=== PATIENT | female | born 1935 | race American Indian/Alaskan Native ===

== ENCOUNTER 2017-03-10 22:21 | Inpatient (IN) | payer OTHER ==
[2017-03-10 23:23] LABS: Hematocrit 26.8 % (30.3-42.9); Hemoglobin 8.5 gm/dl (10.1-14.3); Mean Corpuscular HGB Conc 32 % (30-34); Mean Corpuscular Hemoglobin 31 pg (28-32); Mean Corpuscular Volume 96 fl (79-97); Platelet Count 348 K/mm3 (140-440); Red Blood Count 2.79 M/mm3 (3.65-5.03); Red Cell Distribution Width 19.4 % (13.2-15.2)
[2017-03-10 23:29] LABS: Alanine Aminotransferase 10 units/L (7-56); Albumin 3.8 g/dL (3.9-5); BUN/Creatinine Ratio 25; Blood Urea Nitrogen 20 mg/dL (7-17); Calcium 9.9 mg/dL (8.4-10.2); Hemolysis Index 0
--- NOTE | 2017-03-11 02:33 | Emergency Department Report ---
- General Chief Complaint: Wound/Laceration Stated Complaint: FOOT PAIN Time Seen by Provider: 03/11/17 00:57 Source: patient Mode of arrival: Wheelchair Limitations: Language Barrier - History of Present Illness Initial Comments: 81 YO FEMALE WITH FOOT ULCERS FOR 2 WEEKS PER GRANDSON. PT HAD THE SAME 2 YEARS AGO AND IT HEALED BUT BEGAN AGAIN 2 WEEKS AGO. GRANDSON HAD SAID THIS WAS 4 DAYS AGO AND WHEN QUESTIONED BEGAN TO CHANGE THE STORY. THEY DENY FEVER ,CHILLS,N/V . PT DOES NOT SPEAK BRITISH [place] BUT [place] CREOLE. HER GRANDSON IS THE HIDE TANNER. -: week(s) (2), year(s) (THE SAME 2 YRS AGO) - Related Data Allergies Allergy/AdvReac Type Severity Reaction Status Date / Time No Known Allergies Allergy Unverified 03/10/17 22:33 ED Review of Systems ROS: Stated complaint: FOOT PAIN Other details as noted in HPI Constitutional: denies: chills, fever Eyes: denies: eye pain, eye discharge, vision change ENT: denies: ear pain, throat pain Respiratory: denies: cough, shortness of breath, wheezing Cardiovascular: denies: chest pain, palpitations Endocrine: no symptoms reported Gastrointestinal: denies: abdominal pain, nausea, diarrhea Genitourinary: denies: urgency, dysuria, discharge Musculoskeletal: joint swelling, arthralgia. denies: back pain Skin: lesions (RIGHT FOOT). denies: rash Neurological: denies: headache, weakness, paresthesias Psychiatric: denies: anxiety, depression Hematological/Lymphatic: denies: easy bleeding, easy bruising ED Past Medical Hx - Past Medical History Previous Medical History?: Yes Additional medical history: ,CHILDBIRTH,FOOT ULCER - Surgical History Past Surgical History?: No - Social History Smoking Status: Never Smoker Substance Use Type: None ED Physical Exam - General Limitations: Language Barrier (SPEAKS [place] CREOLE) General appearance: alert, in no apparent distress - Head Head exam: Present: atraumatic, normocephalic - Eye Eye exam: Present: normal appearance, EOMI - ENT ENT exam: Present: mucous membranes moist - Neck Neck exam: Present: normal inspection - Respiratory Respiratory exam: Present: normal lung sounds bilaterally. Absent: respiratory distress - Cardiovascular Cardiovascular Exam: Present: regular rate, normal rhythm. Absent: systolic murmur, diastolic murmur, rubs, gallop - GI/Abdominal GI/Abdominal exam: Present: soft, normal bowel sounds. Absent: distended, tenderness, guarding - Rectal Rectal exam: Present: deferred - Expanded Lower Extremity Exam Right Foot/Toe exam: Present: tenderness (MALODOROUS,LARGE ULCERATION BETWEEN RIGTH GREAT TOE AND SECOND DIGIT AND UNDERNEATH FOOT), swelling Gait: Positive: unable to bear weight - Back Exam Back exam: Present: normal inspection, full ROM - Neurological Exam Neurological exam: Present: alert, other (TOO PAINFUL TO WALK) - Psychiatric Psychiatric exam: Present: normal affect, normal mood - Skin Skin exam: Present: warm, dry, normal color. Absent: intact (LARGE STAGE 4 ULCERATION OF RIGHT FOOT), rash ED Course Vital Signs 03/10/17 03/11/17 22:33 00:20 Temperature 97.5 F L Pulse Rate 77 Respiratory 18 16 Rate Blood Pressure 168/74 O2 Sat by Pulse 100 99 Oximetry ED Medical Decision Making - Lab Data Result diagrams: 03/10/17 22:55 03/10/17 22:55 Critical care attestation.: If time is entered above; I have spent that time in minutes in the direct care of this critically ill patient, excluding procedure time. ED Disposition Clinical Impression: Right foot infection Foot ulcer with necrosis of muscle Qualifiers: Laterality: right Qualified Code(s): L97.513 - Non-pressure chronic ulcer of other part of right foot with necrosis of muscle Disposition: OP ADMIT IP TO THIS HOSP Is pt being admited?: Yes Does the pt Need Aspirin: No Condition: Stable Referrals: KRYSTIN MURILLO MD [Primary Care Provider] - 3-5 Days Time of Disposition: 02:47 (DR ANURADHA BROOKS AND CASE REVIEWED AND SHE WILL ADMIT THE PT TO THE HOSPITAL)
[2017-03-11 02:53] LABS: Total Cells Counted 100
[2017-03-11 02:54] LABS: Anisocytosis 1+; Hypochromasia 1+; Ovalocytes 1+; Schistocytes Few; Tear Drop Cells Few
[2017-03-11 03:33] LABS: Creatine Kinase MB 1.6 ng/mL (0.0-4.0)
[2017-03-11] MEDS ORDERED: VANCOMYCIN/NS 1 GM/250 ML 1 GM/250 ML BAG IV ONE (04:00)
--- NOTE | 2017-03-11 04:11 | History and Physical Report ---
History of Present Illness Date of examination: 03/11/17 History of present illness: History as per grandson, this is a 81-year-old woman with no medical problem who just arrived from [facility] today was brought to the emergency room for evaluation of right foot ulcer. He stated that the patient had a bump on her foot 4 years ago, she scratched it and the large ulcer developed and the wound was healed in 4 months. Over the last 2 weeks, she had an area of inflammation which has gotten worse. He denies fever or chills. He also states that she is been on antibiotic, he cannot recall the name. She was going to the wound care center but her wound has been getting worse. Per grandson, no other complaints Review Of Systems: Constitutional: no weight loss Ears, eyes, nose, mouth and throat: no nasal congestion, no nasal discharge, no sinus pressure, blurry vision, diplopia Neck: No neck pain or rigidity. Cardiovascular: No chest pain, palpitations Respiratory: No shortness of breath, cough Gastrointestinal: No abdominal pain, hematochezia Genitourinary : no dysuria, frequency , hematuria Musculoskeletal: no muscle ache Integumentary: no rash, no pruritis Neurological: no parathesias, focal weakness Endocrine: no cold or heat intolerance, no polyuria or polydipsia Hematologic/Lymphatic: no easy bruising, no easy bleeding, no gland swelling Allergic/Immunologic: no urticaria, no angioedema. PAST MEDICAL HISTORY: None PAST SURGICAL HISTORY:None FAMILY HISTORY: Hypertension SOCIAL HISTORY: Denies alcohol, tobacco, drugs Medications and Allergies Allergies Allergy/AdvReac Type Severity Reaction Status Date / Time No Known Allergies Allergy Unverified 03/10/17 22:33 Home Medications Medication Instructions Recorded Confirmed Last Taken Type Clopidogrel [Plavix] 75 mg PO QDAY #30 tablet 03/17/17 Unknown Rx Hydrochlorothiazide [HCTZ] 25 mg PO QDAY #30 tablet 03/17/17 Unknown Rx Lisinopril [Zestril TAB] 40 mg PO QDAY #30 tablet 03/17/17 Unknown Rx Sodium Hypochlorite [Dakin's Full 1 applic TP Q12H #1 bottle 03/17/17 Unknown Rx Strength] Sulfamethoxazole/Trimethoprim 1 each PO BID #30 tablet 03/17/17 Unknown Rx [Bactrim DS TAB] amLODIPine [Norvasc] 10 mg PO QDAY #30 tablet 03/17/17 Unknown Rx Active Meds: Active Medications Vancomycin HCl (Vancomycin/Ns 1 Gm/250 Ml) 1 gm in 250 mls @ 167.007 mls/hr IV ONCE.ED ONE PRN Reason: Protocol Stop: 03/11/17 05:29 Piperacillin Sod/Tazobactam Sod (Zosyn/Ns 3.375gm/50ml) 3.375 gm in 50 mls @ 100 mls/hr IV Q6HR MARIO Exam - Physical Exam Narrative exam: Gen. appearance: Patient lying in bed in no acute distress HEENT: Normocephalic/atraumatic, pupils equal round reactive to light, extra occular movement intact, no scleral icterus, no JVD or thyromegaly or nodule, neck is supple, mucous membrane moist, no erythema or exudate Heart: S1-S2, regular rate and rhythm Lungs: Clear to auscultation bilateral breathing comfortable Abdomen: Positive bowel sounds, nontender, nondistended, no organomegaly Extremities: Right foot , foul-smelling odor, yellow fibrinous material, tendons exposed over the right great toe , extensive ulcer also involving the second toe and plantar aspect of the first toe . No edema, cyanosis, clubbing Neuro:: Oriented 3 , cranial nerves II-12 intact, speech, motor intact Skin: No rash, nodules, warm dry - Constitutional Vitals: Temp Pulse Resp BP Pulse Ox 97.5 F L 77 16 163/76 100 03/10/17 22:33 03/10/17 22:33 03/11/17 00:20 03/11/17 02:30 03/11/17 02:30 Results - Labs CBC & Chem 7: 03/14/17 05:08 03/14/17 05:08 Labs: Abnormal lab results 03/10/17 03/10/17 Range/Units 22:55 22:55 RBC 2.79 L (3.65-5.03) M/mm3 Hgb 8.5 L (10.1-14.3) gm/dl Hct 26.8 L (30.3-42.9) % RDW 19.4 H (13.2-15.2) % Basophils % (Manual) 2.0 H (0.0-1.8) % Chloride 97.0 L (98-107) mmol/L BUN 20 H (7-17) mg/dL Glucose 106 H (65-100) mg/dL Albumin 3.8 L (3.9-5) g/dL Assessment and Plan Follow-up x-ray of the foot Assessment Right foot ulcer with necrotic tissue, rule out osteomyelitis Elevated blood pressure Plan Admit to medicine Start IV Zosyn, full x-ray of the foot Consult surgery Start norvasc, first dose now, IV hydralazine DVT prophylaxis
[2017-03-11] MEDS ORDERED: ZOFRAN IV PRN (04:12)
[2017-03-11] MEDS ORDERED: TYLENOL PO PRN (04:12)
[2017-03-11] MEDS ORDERED: MILK OF MAGNESIA PO PRN (04:12)
[2017-03-11] MEDS ORDERED: DULCOLAX PR PRN (04:12)
[2017-03-11] MEDS ORDERED: NORVASC PO ONE (04:15)
[2017-03-11] MEDS ORDERED: APRESOLINE IV PRN (04:16)
[2017-03-11] MEDS ORDERED: NACL 0.9% 500 ML IR ONE (05:55)
[2017-03-11] MEDS: ZOSYN/NS 4.5GM/100ML 4.5 GM/100 ML VIAL IV SCH ×3 (06:00→23:47)
[2017-03-11] MEDS ORDERED: ZOSYN/NS 3.375GM/50ML 3.375 GM/50 ML BAG IV SCH (06:00)
[2017-03-11] MEDS ORDERED: NACL 0.9% IR ONE (06:52)
--- NOTE | 2017-03-11 07:29 | Consultation ---
History of Present Illness Consult date: 03/11/17 Chief complaint: foot wound - History of present illness History of present illness: 81 yo Belarusian speaking female presented to the emergency room with c/o R foot pain. Family is not present and all of the history is obtained from the chart. According to the HPI, the patient arrived from [facility] recently and has had this wound of the right foot for the last 2 weeks. She has been on antibiotics and being managed at a wound care center. No f/c. +pain at wound. Patient had a wound like this in the past that healed. Past History Past Medical History: No medical history Past Surgical History: No surgical history Social history: no significant social history Family history: no significant family history Medications and Allergies Allergies Allergy/AdvReac Type Severity Reaction Status Date / Time No Known Allergies Allergy Unverified 03/10/17 22:33 Active Meds: Active Medications Acetaminophen (Tylenol) 650 mg PO Q4H PRN PRN Reason: Pain MILD(1-3)/Fever >100.5/CHAVARRIA Bisacodyl (Dulcolax) 10 mg HI QDAY PRN PRN Reason: Constipation unrelieved by MOM Enoxaparin Sodium (Lovenox) 40 mg SUB-Q QDAY MARIO Hydralazine HCl (Apresoline) 5 mg IV Q6H PRN PRN Reason: Hypertension Piperacillin Sod/Tazobactam Sod (Zosyn/Ns 4.5gm/100ml) 4.5 gm in 100 mls @ 200 mls/hr IV Q8HR MARIO PRN Reason: Protocol Magnesium Hydroxide (Milk Of Magnesia) 30 ml PO Q4H PRN PRN Reason: Constipation Ondansetron HCl (Zofran) 4 mg IV Q8H PRN PRN Reason: N/V unrelieved by Reglan Review of Systems All systems: negative (see hpi) Exam Vital Signs Pulse Resp Pulse Ox 81 13 100 03/10/17 20:28 03/10/17 20:28 03/10/17 20:28 Narrative exam: Gen: awake and alert. NAD CV: S1, S2+ resp: no audible wheezes Abd; soft, ND, NT Ext: B/l LE warm, no edema. Pedal pulses not palpable. R foot with full thickness, malodorous wound involving the dorsal and plantar aspect of first toe and second toe, and interweb space. There is necrotic tissue present. Tendon and bone is exposed. No drainage. +TTP. No erythema. Covered with saline moistened kerlex and dry 4x4 gauze, and wrapped with kerlex. Results - Labs 03/10/17 22:55 03/10/17 22:55 Abnormal lab results 03/10/17 03/10/17 Range/Units 22:55 22:55 RBC 2.79 L (3.65-5.03) M/mm3 Hgb 8.5 L (10.1-14.3) gm/dl Hct 26.8 L (30.3-42.9) % RDW 19.4 H (13.2-15.2) % Basophils % (Manual) 2.0 H (0.0-1.8) % Chloride 97.0 L (98-107) mmol/L BUN 20 H (7-17) mg/dL Glucose 106 H (65-100) mg/dL Albumin 3.8 L (3.9-5) g/dL Diabetes panel 03/10/17 03/11/17 Range/Units 22:55 03:03 Sodium 138 (137-145) mmol/L Potassium 3.6 (3.6-5.0) mmol/L Chloride 97.0 L (98-107) mmol/L Carbon Dioxide 28 (22-30) mmol/L BUN 20 H (7-17) mg/dL Creatinine 0.8 (0.7-1.2) mg/dL Glucose 106 H (65-100) mg/dL Hemoglobin A1c 5.2 (4-6) % Calcium 9.9 (8.4-10.2) mg/dL AST 18 (5-40) units/L ALT 10 (7-56) units/L Alkaline Phosphatase 100 (35-129) units/L Total Protein 8.0 (6.3-8.2) g/dL Albumin 3.8 L (3.9-5) g/dL Calcium panel 03/10/17 Range/Units 22:55 Calcium 9.9 (8.4-10.2) mg/dL Albumin 3.8 L (3.9-5) g/dL Pituitary panel 03/10/17 Range/Units 22:55 Sodium 138 (137-145) mmol/L Potassium 3.6 (3.6-5.0) mmol/L Chloride 97.0 L (98-107) mmol/L Carbon Dioxide 28 (22-30) mmol/L BUN 20 H (7-17) mg/dL Creatinine 0.8 (0.7-1.2) mg/dL Glucose 106 H (65-100) mg/dL Calcium 9.9 (8.4-10.2) mg/dL Adrenal panel 03/10/17 Range/Units 22:55 Sodium 138 (137-145) mmol/L Potassium 3.6 (3.6-5.0) mmol/L Chloride 97.0 L (98-107) mmol/L Carbon Dioxide 28 (22-30) mmol/L BUN 20 H (7-17) mg/dL Creatinine 0.8 (0.7-1.2) mg/dL Glucose 106 H (65-100) mg/dL Calcium 9.9 (8.4-10.2) mg/dL Total Bilirubin 0.40 (0.1-1.2) mg/dL AST 18 (5-40) units/L ALT 10 (7-56) units/L Alkaline Phosphatase 100 (35-129) units/L Total Protein 8.0 (6.3-8.2) g/dL Albumin 3.8 L (3.9-5) g/dL Assessment and Plan 81 yo F with 1. necrotic foot wound, r/o R osteomyelitis Plan: 1. foot wound is complex, stage 4, with visible tendon/bone - recommend orthopedics consult to evaluate wound, will defer debridement to ortho 2. wound care consult. continue wet to dry dressing at this time 3. recommend vascular surgery consult to evaluate blood supply and potential for healing of wound 4. MRI R foot to r/o osteomyelitis 5. IV abx - currently on vanco and zosyn 6. prn pain control I discussed my recommendations with Dr. Cunningham Thank you for this consultation.
--- NOTE | 2017-03-11 09:10 | XRay Report ---
Right foot 2 views: History: Pain and infection. Findings: There is suspicion of soft tissue defect/ulcer around the great toe. There is suspicion of periosteal reaction noted at the medial aspect of distal part of the proximal phalanx great toe. No fracture. Articular surfaces appears unremarkable. Impression: Findings as described. Possibility of osteomyelitis associated with cellulitis at the right great toe. Recommend further evaluation.
[2017-03-11] MEDS: LOVENOX SUB-Q SCH (10:06)
--- NOTE | 2017-03-11 11:53 | Progress Note ---
Assessment and Plan Assessment and plan: 81-year-old woman with no medical problem who just arrived from [facility] on day of admission who came in for eval of necrotic non healing RLE wound on foot/big toe with tendons and bones exposed -denies any chronic medical problems Right foot ulcer with necrotic wound, with chronic osteomylitis -iv zosyn, ID consult -case dw General surgeon, given that tendons and bone exposed and patient has osteomyelitis, the patient will be better served by orthopedic surgery and vascular surgery. -will need vascular and orthopedic consult -arterial and venous dopplers and SHAHZAD -fup blood cx -will likely need extensive debridement and amputation as tendon and bone are exposed -MRI foot Mild to Moderate Malnutrition director of physiotherapy services consult HTN urgency optimize PO meds, continue IV hydralazine PRN Anemia likely to be AOCD send iron studies and workup DVT Ppx lovenox History Interval history: Continues to have foul-smelling drainage from nonhealing wound on the right foot Review of systems Constitutional: No fevers, no malaise, no joint pains CVS: No chest pain, no orthopnea, no dyspnea on exertion, no pedal edema GI: No abdominal pain, no diarrhea, no vomiting, no constipation Respiratory: No shortness of breath, no wheezing, no coughing Hospitalist Physical - Physical exam Narrative exam: Gen. appearance: Patient lying in bed in no acute distress HEENT: Normocephalic/atraumatic, pupils equal round reactive to light, extra occular movement intact, no scleral icterus, no JVD or thyromegaly or nodule, neck is supple, mucous membrane moist, no erythema or exudate Heart: S1-S2, regular rate and rhythm Lungs: Clear to auscultation bilateral breathing comfortable Abdomen: Positive bowel sounds, nontender, nondistended, no organomegaly Extremities: Right foot , foul-smelling odor, yellow fibrinous material, tendons exposed over the right great toe , extensive ulcer also involving the second toe and plantar aspect of the first toe, on dorsal aspect it is involving 1st and 2nd MTP and is [id number] . No edema, cyanosis, clubbing Neuro:: Oriented 3 , cranial nerves II-12 intact, speech, motor intact Skin: No rash, nodules, warm dry - Constitutional Vitals: Temp Pulse Resp BP Pulse Ox 97.7 F 100 H 18 182/71 100 03/11/17 09:30 12/31/17 09:30 03/11/17 09:30 03/11/17 09:30 03/11/17 09:30 Results - Labs CBC & Chem 7: 03/10/17 22:55 03/10/17 22:55 Labs: Laboratory Last Values WBC 5.1 K/mm3 (4.5-11.0) 03/10/17 22:55 RBC 2.79 M/mm3 (3.65-5.03) L 03/10/17 22:55 Hgb 8.5 gm/dl (10.1-14.3) L 03/10/17 22:55 Hct 26.8 % (30.3-42.9) L 03/10/17 22:55 MCV 96 fl (79-97) 03/10/17 22:55 MCH 31 pg (28-32) 03/10/17 22:55 MCHC 32 % (30-34) 03/10/17 22:55 RDW 19.4 % (13.2-15.2) H 03/10/17 22:55 Plt Count 348 K/mm3 (140-440) 03/10/17 22:55 Lymph % (Auto) Progressive Care Nurse 03/10/17 22:55 Wirt % (Auto) Progressive Care Nurse 03/10/17 22:55 Eos % (Auto) Progressive Care Nurse 03/10/17 22:55 Baso % (Auto) Progressive Care Nurse 03/10/17 22:55 Lymph # Progressive Care Nurse 03/10/17 22:55 Wirt # Progressive Care Nurse 03/10/17 22:55 Eos # Progressive Care Nurse 03/10/17 22:55 Baso # Progressive Care Nurse 03/10/17 22:55 Add Manual Diff Complete 03/10/17 22:55 Total Counted 100 03/10/17 22:55 Seg Neutrophils % Progressive Care Nurse 03/10/17 22:55 Seg Neuts % (Manual) 68.0 % (40.0-70.0) 03/10/17 22:55 Band Neutrophils % 0 % 03/10/17 22:55 Lymphocytes % (Manual) 25.0 % (13.4-35.0) 03/10/17 22:55 Reactive Lymphs % (Man) 0 % 03/10/17 22:55 Monocytes % (Manual) 3.0 % (0.0-7.3) 03/10/17 22:55 Eosinophils % (Manual) 2.0 % (0.0-4.3) 03/10/17 22:55 Basophils % (Manual) 2.0 % (0.0-1.8) H 03/10/17 22:55 Metamyelocytes % 0 % 03/10/17 22:55 Myelocytes % 0 % 03/10/17 22:55 Promyelocytes % 0 % 03/10/17 22:55 Blast Cells % 0 % 03/10/17 22:55 Nucleated RBC % Not Reportable 03/10/17 22:55 Seg Neutrophils # Progressive Care Nurse 03/10/17 22:55 Seg Neutrophils # Man 3.5 K/mm3 (1.8-7.7) 03/10/17 22:55 Band Neutrophils # 0.0 K/mm3 03/10/17 22:55 Lymphocytes # (Manual) 1.3 K/mm3 (1.2-5.4) 03/10/17 22:55 Abs React Lymphs (Man) 0.0 K/mm3 03/10/17 22:55 Monocytes # (Manual) 0.2 K/mm3 (0.0-0.8) 03/10/17 22:55 Eosinophils # (Manual) 0.1 K/mm3 (0.0-0.4) 03/10/17 22:55 Basophils # (Manual) 0.1 K/mm3 (0.0-0.1) 03/10/17 22:55 Metamyelocytes # 0.0 K/mm3 03/10/17 22:55 Myelocytes # 0.0 K/mm3 03/10/17 22:55 Promyelocytes # 0.0 K/mm3 03/10/17 22:55 Blast Cells # 0.0 K/mm3 03/10/17 22:55 WBC Morphology Not Reportable 03/10/17 22:55 Hypersegmented Neuts Not Reportable 03/10/17 22:55 Hyposegmented Neuts Not Reportable 03/10/17 22:55 Hypogranular Neuts Not Reportable 03/10/17 22:55 Smudge Cells Not Reportable 03/10/17 22:55 Toxic Granulation Not Reportable 03/10/17 22:55 Toxic Vacuolation Not Reportable 03/10/17 22:55 Dohle Bodies Not Reportable 03/10/17 22:55 Pelger-Huet Anomaly Not Reportable 03/10/17 22:55 Elyse Rods Not Reportable 03/10/17 22:55 Platelet Estimate Appears normal 03/10/17 22:55 Clumped Platelets Not Reportable 03/10/17 22:55 Plt Clumps, EDTA Not Reportable 03/10/17 22:55 Large Platelets Not Reportable 03/10/17 22:55 Giant Platelets Not Reportable 03/10/17 22:55 Platelet Satelliting Not Reportable 03/10/17 22:55 Plt Morphology Comment Not Reportable 03/10/17 22:55 RBC Morphology Not Reportable 03/10/17 22:55 Dimorphic RBCs Not Reportable 03/10/17 22:55 Polychromasia Few 03/10/17 22:55 Hypochromasia 1+ 03/10/17 22:55 Poikilocytosis Not Reportable 03/10/17 22:55 Anisocytosis 1+ 03/10/17 22:55 Microcytosis Not Reportable 03/10/17 22:55 Macrocytosis Not Reportable 03/10/17 22:55 Spherocytes Not Reportable 03/10/17 22:55 Pappenheimer Bodies Not Reportable 03/10/17 22:55 Sickle Cells Not Reportable 03/10/17 22:55 Target Cells Not Reportable 03/10/17 22:55 Tear Drop Cells Few 03/10/17 22:55 Ovalocytes 1+ 03/10/17 22:55 Helmet Cells Not Reportable 03/10/17 22:55 [place] Bodies Not Reportable 03/10/17 22:55 [place] Rings Not Reportable 03/10/17 22:55 Darian Cells Not Reportable 03/10/17 22:55 Bite Cells Not Reportable 03/10/17 22:55 Crenated Cell Not Reportable 03/10/17 22:55 Elliptocytes Not Reportable 03/10/17 22:55 Acanthocytes (Spur) Not Reportable 03/10/17 22:55 Rouleaux Not Reportable 03/10/17 22:55 Hemoglobin C Crystals Not Reportable 03/10/17 22:55 Schistocytes Few 03/10/17 22:55 Malaria parasites Not Reportable 03/10/17 22:55 Hussain Bodies Not Reportable 03/10/17 22:55 Hem Pathologist Commnt No 03/10/17 22:55 Sodium 138 mmol/L (137-145) 03/10/17 22:55 Potassium 3.6 mmol/L (3.6-5.0) 03/10/17 22:55 Chloride 97.0 mmol/L (98-107) L 03/10/17 22:55 Carbon Dioxide 28 mmol/L (22-30) 03/10/17 22:55 Anion Gap 17 mmol/L 03/10/17 22:55 BUN 20 mg/dL (7-17) H 03/10/17 22:55 Creatinine 0.8 mg/dL (0.7-1.2) 03/10/17 22:55 Estimated GFR > 60 ml/min 03/10/17 22:55 BUN/Creatinine Ratio 25 % 03/10/17 22:55 Glucose 106 mg/dL (65-100) H 03/10/17 22:55 Hemoglobin A1c 5.2 % (4-6) 03/11/17 03:03 Calcium 9.9 mg/dL (8.4-10.2) 03/10/17 22:55 Total Bilirubin 0.40 mg/dL (0.1-1.2) 03/10/17 22:55 AST 18 units/L (5-40) 03/10/17 22:55 ALT 10 units/L (7-56) 03/10/17 22:55 Alkaline Phosphatase 100 units/L (35-129) 03/10/17 22:55 Total Creatine Kinase 40 units/L (30-135) 03/11/17 02:11 CK-MB (CK-2) 1.6 ng/mL (0.0-4.0) 03/11/17 02:11 CK-MB (CK-2) Rel Index 4.0 (0-4) 03/11/17 02:11 Troponin T < 0.010 ng/mL (0.00-0.029) 03/11/17 02:11 Total Protein 8.0 g/dL (6.3-8.2) 03/10/17 22:55 Albumin 3.8 g/dL (3.9-5) L 03/10/17 22:55 Albumin/Globulin Ratio 0.9 % 03/10/17 22:55
[2017-03-11] MEDS: HCTZ PO SCH (12:05)
[2017-03-11] MEDS: NORVASC PO SCH (12:15)
[2017-03-11] MEDS: ATIVAN IV PRN (16:30)
[2017-03-12] MEDS: ZOSYN/NS 4.5GM/100ML 4.5 GM/100 ML VIAL IV SCH ×3 (06:12→23:24)
[2017-03-12] MEDS: ATIVAN IV PRN (06:54)
[2017-03-12] MEDS: HCTZ PO SCH (09:56)
[2017-03-12] MEDS: NORVASC PO SCH (09:56)
[2017-03-12] MEDS: LOVENOX SUB-Q SCH (09:57)
--- NOTE | 2017-03-12 12:32 | Consultation ---
History of Present Illness - Reason for Consult Consult date: 03/12/17 right foot ulcer Requesting physician: KY FISCHER - History of Present Illness 81-year-old woman with no medical problem who just [facility] was brought to the emergency room for evaluation of right foot ulcer. He stated that the patient had a bump on her foot 4 years ago, she scratched it and the large ulcer developed and the wound was healed in 4 months. Over the last 2 weeks she developed new ulcer that wasn't getting healed. It had foul-smelling and was not improving. She was admitted to hospitalist service. Vascular surgery was consulted for evaluation of blood flow. She had venous and arterial duplexes performed. Venous pulse was negative for DVT and arterial with both showed flow throughout her foot. With excellent triphasic flow to popliteals and monophasic flow in the tibials. Past History Past Medical History: No medical history Past Surgical History: No surgical history Social history: no significant social history Family history: no significant family history Medications and Allergies Allergies Allergy/AdvReac Type Severity Reaction Status Date / Time No Known Allergies Allergy Unverified 03/10/17 22:33 Active Meds: Active Medications Acetaminophen (Tylenol) 650 mg PO Q4H PRN PRN Reason: Pain MILD(1-3)/Fever >100.5/CHAVARRIA Amlodipine Besylate (Norvasc) 10 mg PO QDAY [facility] Last Admin: 03/12/17 09:56 Dose: 10 mg Bisacodyl (Dulcolax) 10 mg [place] QDAY PRN PRN Reason: Constipation unrelieved by MOM Enoxaparin Sodium (Lovenox) 40 mg SUB-Q QDAY [facility] Last Admin: 03/12/17 09:57 Dose: 40 mg Hydralazine HCl (Apresoline) 5 mg IV Q6H PRN PRN Reason: Hypertension Hydrochlorothiazide (Hctz) 25 mg PO QDAY [facility] Last Admin: 03/12/17 09:56 Dose: 25 mg Piperacillin Sod/Tazobactam Sod (Zosyn/Ns 4.5gm/100ml) 4.5 gm in 100 mls @ 200 mls/hr IV Q8HR MARIO PRN Reason: Protocol Last Admin: 03/12/17 06:12 Dose: 200 mls/hr Lorazepam (Ativan) 2 mg IV Q4H PRN PRN Reason: Agitation Last Admin: 03/12/17 06:54 Dose: 2 mg Magnesium Hydroxide (Milk Of Magnesia) 30 ml PO Q4H PRN PRN Reason: Constipation Ondansetron HCl (Zofran) 4 mg IV Q8H PRN PRN Reason: N/V unrelieved by Reglan Review of Systems All systems: negative (mentioned in HPI) Exam - Physical Exam Narrative exam: There are palpable popliteal pulses bilaterally and palpable DP on the left side. There is extensive wound with exposed bone and ligaments on the dorsal surface of right foot involving the whole forefoot as well as dry gangrene extending proximally. It is foul smelling with some exudate. - Constitutional Vitals: Temp Pulse Resp BP Pulse Ox 97.7 F 100 H 18 182/71 95 03/11/17 09:30 03/11/17 09:30 03/11/17 22:00 03/11/17 09:30 03/12/17 09:34 Results - Labs CBC & Chem 7: 03/10/17 22:55 03/10/17 22:55 Assessment and Plan Right foot infected ulcer with osteomyelitis According to ultrasound there is no area of high-grade stenosis, with decent flow throughout bilateral legs. She has bilateral monophasic signals in the tibials. It doesn't appear that her ulcer is caused by arterial compromise. However get extension of the wound she will most likely need below knee amputation. Continue wound care, pending orthopedic consult.
[2017-03-12 16:17] LABS: Hematocrit 27.6 % (30.3-42.9); Hemoglobin 8.7 gm/dl (10.1-14.3); Mean Corpuscular HGB Conc 32 % (30-34); Mean Corpuscular Hemoglobin 30 pg (28-32); Mean Corpuscular Volume 96 fl (79-97); Platelet Count 398 K/mm3 (140-440); Red Blood Count 2.87 M/mm3 (3.65-5.03); Red Cell Distribution Width 19.8 % (13.2-15.2)
[2017-03-12 16:36] LABS: % Iron Saturation 23.72 %; BUN/Creatinine Ratio 16; Blood Urea Nitrogen 11 mg/dL (7-17); Hemolysis Index 0; Iron 51 ug/dL (37-170); Total Iron Binding Capacity 215 mcg/dL (250-450); Transferrin 192 mg/dl (192-382)
--- NOTE | 2017-03-12 16:55 | Progress Note ---
Assessment and Plan Assessment and plan: 81-year-old woman with no medical problem who just arrived from [facility] on day of admission who came in for eval of necrotic non healing RLE wound on foot/big toe with tendons and bones exposed -denies any chronic medical problems Right foot ulcer with necrotic wound, with chronic osteomylitis -iv zosyn, ID consult -case dw General surgeon, given that tendons and bone exposed and patient has osteomyelitis, the patient will be better served by orthopedic surgery and vascular surgery. 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 HTN urgency optimize PO meds, continue IV hydralazine PRN Anemia likely to be AOCD send iron studies and workup Delireum frequent re-orientation, advised staff to use [employer] market research senior project manager with her at all times DVT Ppx bruce grandson is Juan F: [phone] called her grandson, could not reach him, but left a voicemail History Interval history: Continues to have foul-smelling drainage from nonhealing wound on the right foot she was confused overnight and urinated on the floor and was wandering Review of systems Constitutional: No fevers, no malaise, no joint pains CVS: No chest pain, no orthopnea, no dyspnea on exertion, no pedal edema GI: No abdominal pain, no diarrhea, no vomiting, no constipation Respiratory: No shortness of breath, no wheezing, no coughing Hospitalist Physical - Physical exam Narrative exam: Gen. appearance: Patient lying in bed in no acute distress HEENT: Normocephalic/atraumatic, pupils equal round reactive to light, extra occular movement intact, no scleral icterus, no JVD or thyromegaly or nodule, neck is supple, mucous membrane moist, no erythema or exudate Heart: S1-S2, regular rate and rhythm Lungs: Clear to auscultation bilateral breathing comfortable Abdomen: Positive bowel sounds, nontender, nondistended, no organomegaly Extremities: Right foot , foul-smelling odor, yellow fibrinous material, tendons exposed over the right great toe , extensive ulcer also involving the second toe and plantar aspect of the first toe, on dorsal aspect it is involving 1st and 2nd MTP and is [id number] . No edema, cyanosis, clubbing Neuro:: Oriented 3 , cranial nerves II-12 intact, speech, motor intact Skin: No rash, nodules, warm dry - Constitutional Vitals: Temp Pulse Resp BP Pulse Ox 97.7 F 100 H 18 182/71 95 03/11/17 09:30 03/11/17 09:30 03/11/17 22:00 03/11/17 09:30 03/12/17 09:34 Results - Labs CBC & Chem 7: 03/12/17 15:25 03/12/17 15:25 Labs: Laboratory Last Values WBC 5.1 K/mm3 (4.5-11.0) 03/12/17 15:25 RBC 2.87 M/mm3 (3.65-5.03) L 03/12/17 15:25 Hgb 8.7 gm/dl (10.1-14.3) L 03/12/17 15:25 Hct 27.6 % (30.3-42.9) L 03/12/17 15:25 MCV 96 fl (79-97) 03/12/17 15:25 MCH 30 pg (28-32) 03/12/17 15:25 MCHC 32 % (30-34) 03/12/17 15:25 RDW 19.8 % (13.2-15.2) H 03/12/17 15:25 Plt Count 398 K/mm3 (140-440) 03/12/17 15:25 Lymph % (Auto) Information Technology Account Manager 03/10/17 22:55 Mcpherson % (Auto) Information Technology Account Manager 03/10/17 22:55 Eos % (Auto) Information Technology Account Manager 03/10/17 22:55 Baso % (Auto) Information Technology Account Manager 03/10/17 22:55 Lymph # Information Technology Account Manager 03/10/17 22:55 Mcpherson # Information Technology Account Manager 03/10/17 22:55 Eos # Information Technology Account Manager 03/10/17 22:55 Baso # Information Technology Account Manager 03/10/17 22:55 Add Manual Diff Complete 03/10/17 22:55 Total Counted 100 03/10/17 22:55 Seg Neutrophils % Information Technology Account Manager 03/10/17 22:55 Seg Neuts % (Manual) 68.0 % (40.0-70.0) 03/10/17 22:55 Band Neutrophils % 0 % 03/10/17 22:55 Lymphocytes % (Manual) 25.0 % (13.4-35.0) 03/10/17 22:55 Reactive Lymphs % (Man) 0 % 03/10/17 22:55 Monocytes % (Manual) 3.0 % (0.0-7.3) 03/10/17 22:55 Eosinophils % (Manual) 2.0 % (0.0-4.3) 03/10/17 22:55 Basophils % (Manual) 2.0 % (0.0-1.8) H 03/10/17 22:55 Metamyelocytes % 0 % 03/10/17 22:55 Myelocytes % 0 % 03/10/17 22:55 Promyelocytes % 0 % 03/10/17 22:55 Blast Cells % 0 % 03/10/17 22:55 Nucleated RBC % Not Reportable 03/10/17 22:55 Seg Neutrophils # Information Technology Account Manager 03/10/17 22:55 Seg Neutrophils # Man 3.5 K/mm3 (1.8-7.7) 03/10/17 22:55 Band Neutrophils # 0.0 K/mm3 03/10/17 22:55 Lymphocytes # (Manual) 1.3 K/mm3 (1.2-5.4) 03/10/17 22:55 Abs React Lymphs (Man) 0.0 K/mm3 03/10/17 22:55 Monocytes # (Manual) 0.2 K/mm3 (0.0-0.8) 03/10/17 22:55 Eosinophils # (Manual) 0.1 K/mm3 (0.0-0.4) 03/10/17 22:55 Basophils # (Manual) 0.1 K/mm3 (0.0-0.1) 03/10/17 22:55 Metamyelocytes # 0.0 K/mm3 03/10/17 22:55 Myelocytes # 0.0 K/mm3 03/10/17 22:55 Promyelocytes # 0.0 K/mm3 03/10/17 22:55 Blast Cells # 0.0 K/mm3 03/10/17 22:55 WBC Morphology Not Reportable 03/10/17 22:55 Hypersegmented Neuts Not Reportable 03/10/17 22:55 Hyposegmented Neuts Not Reportable 03/10/17 22:55 Hypogranular Neuts Not Reportable 03/10/17 22:55 Smudge Cells Not Reportable 03/10/17 22:55 Toxic Granulation Not Reportable 03/10/17 22:55 Toxic Vacuolation Not Reportable 03/10/17 22:55 Dohle Bodies Not Reportable 03/10/17 22:55 Pelger-Huet Anomaly Not Reportable 03/10/17 22:55 Elyse Rods Not Reportable 03/10/17 22:55 Platelet Estimate Appears normal 03/10/17 22:55 Clumped Platelets Not Reportable 03/10/17 22:55 Plt Clumps, EDTA Not Reportable 03/10/17 22:55 Large Platelets Not Reportable 03/10/17 22:55 Giant Platelets Not Reportable 03/10/17 22:55 Platelet Satelliting Not Reportable 03/10/17 22:55 Plt Morphology Comment Not Reportable 03/10/17 22:55 RBC Morphology Not Reportable 03/10/17 22:55 Dimorphic RBCs Not Reportable 03/10/17 22:55 Polychromasia Few 03/10/17 22:55 Hypochromasia 1+ 03/10/17 22:55 Poikilocytosis Not Reportable 03/10/17 22:55 Anisocytosis 1+ 03/10/17 22:55 Microcytosis Not Reportable 03/10/17 22:55 Macrocytosis Not Reportable 03/10/17 22:55 Spherocytes Not Reportable 03/10/17 22:55 Pappenheimer Bodies Not Reportable 03/10/17 22:55 Sickle Cells Not Reportable 03/10/17 22:55 Target Cells Not Reportable 03/10/17 22:55 Tear Drop Cells Few 03/10/17 22:55 Ovalocytes 1+ 03/10/17 22:55 Helmet Cells Not Reportable 03/10/17 22:55 Contreras-Buhl Bodies Not Reportable 03/10/17 22:55 [place] Rings Not Reportable 03/10/17 22:55 [place] Neck Cells Not Reportable 03/10/17 22:55 Bite Cells Not Reportable 03/10/17 22:55 Crenated Cell Not Reportable 03/10/17 22:55 Elliptocytes Not Reportable 03/10/17 22:55 Acanthocytes (Spur) Not Reportable 03/10/17 22:55 Rouleaux Not Reportable 03/10/17 22:55 Hemoglobin C Crystals Not Reportable 03/10/17 22:55 Schistocytes Few 03/10/17 22:55 Malaria parasites Not Reportable 03/10/17 22:55 Hussain Bodies Not Reportable 03/10/17 22:55 Hem Pathologist Commnt No 03/10/17 22:55 Sodium 146 mmol/L (137-145) H D 03/12/17 15:25 Potassium 4.3 mmol/L (3.6-5.0) 03/12/17 15:25 Chloride 102.5 mmol/L (98-107) 03/12/17 15:25 Carbon Dioxide 29 mmol/L (22-30) 03/12/17 15:25 Anion Gap 19 mmol/L 03/12/17 15:25 BUN 11 mg/dL (7-17) 03/12/17 15:25 Creatinine 0.7 mg/dL (0.7-1.2) 03/12/17 15:25 Estimated GFR > 60 ml/min 03/12/17 15:25 BUN/Creatinine Ratio 16 % 03/12/17 15:25 Glucose 100 mg/dL (65-100) 03/12/17 15:25 Hemoglobin A1c 5.2 % (4-6) 03/11/17 03:03 Calcium 10.0 mg/dL (8.4-10.2) 03/12/17 15:25 Iron 51 ug/dL (37-170) 03/12/17 15:25 TIBC 215 mcg/dL (250-450) L 03/12/17 15:25 % Saturation 23.72 % 03/12/17 15:25 Transferrin 192 mg/dl (192-382) 03/12/17 15:25 Ferritin 332.2 ng/mL (13.0-400.0) 03/12/17 15:25 Total Bilirubin 0.40 mg/dL (0.1-1.2) 03/10/17 22:55 AST 18 units/L (5-40) 03/10/17 22:55 ALT 10 units/L (7-56) 03/10/17 22:55 Alkaline Phosphatase 100 units/L (35-129) 03/10/17 22:55 Total Creatine Kinase 40 units/L (30-135) 03/11/17 02:11 CK-MB (CK-2) 1.6 ng/mL (0.0-4.0) 03/11/17 02:11 CK-MB (CK-2) Rel Index 4.0 (0-4) 03/11/17 02:11 Troponin T < 0.010 ng/mL (0.00-0.029) 03/11/17 02:11 Total Protein 8.0 g/dL (6.3-8.2) 03/10/17 22:55 Albumin 3.8 g/dL (3.9-5) L 03/10/17 22:55 Albumin/Globulin Ratio 0.9 % 03/10/17 22:55 Vitamin B12 44.64 pg/mL (211-911) L 03/12/17 15:25 - Imaging and Cardiology Venous US: image reviewed (no dvt)
[2017-03-12 17:01] LABS: Total Cells Counted 100
[2017-03-12 17:02] LABS: Basophils % (Manual) 0 % (0.0-1.8); Myelocytes # (Manual) 0.3 K/mm3; Promyelocytes # (Manual) 0.1 K/mm3
[2017-03-12 17:05] LABS: Anisocytosis 1+; Hypochromasia 2+; Ovalocytes 2+; Poikilocytosis 2+
[2017-03-12 17:06] LABS: Tear Drop Cells Few
[2017-03-12 17:07] LABS: Platelet Estimate Consistent w Auto; Schistocytes Few
[2017-03-13] MEDS: ZOSYN/NS 4.5GM/100ML 4.5 GM/100 ML VIAL IV SCH ×3 (06:22→23:38)
[2017-03-13] MEDS: HCTZ PO SCH (09:39)
[2017-03-13] MEDS: ZESTRIL PO SCH (09:39)
[2017-03-13] MEDS: NORVASC PO SCH (09:39)
[2017-03-13] MEDS: LOVENOX SUB-Q SCH (09:39)
--- NOTE | 2017-03-13 11:39 | Progress Note ---
Assessment and Plan Assessment and plan: 81-year-old woman with no medical problem who just arrived from [facility] on day of admission who came in for eval of necrotic non healing RLE wound on foot/big toe with tendons and bones exposed -denies any chronic medical problems Right foot ulcer with necrotic wound, with chronic osteomylitis -iv zosyn, ID consult -case dw General surgeon, given that tendons and bone exposed and patient has osteomyelitis, the patient will be better served by orthopedic surgery and vascular surgery. 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 HTN urgency optimize PO meds, continue IV hydralazine PRN Anemia likely to be AOCD send iron studies and workup Delireum frequent re-orientation, advised staff to use [employer] middle school math teacher with her at all times DVT Ppx bruce grandson is Juan F: [phone] called her grandson, could not reach him, but left a voicemail History Interval history: Continues to have foul-smelling drainage from nonhealing wound on the right foot she was confused overnight , calm today Review of systems Constitutional: No fevers, no malaise, no joint pains CVS: No chest pain, no orthopnea, no dyspnea on exertion, no pedal edema GI: No abdominal pain, no diarrhea, no vomiting, no constipation Respiratory: No shortness of breath, no wheezing, no coughing Hospitalist Physical - Physical exam Narrative exam: Gen. appearance: Patient lying in bed in no acute distress HEENT: Normocephalic/atraumatic, pupils equal round reactive to light, extra occular movement intact, no scleral icterus, no JVD or thyromegaly or nodule, neck is supple, mucous membrane moist, no erythema or exudate Heart: S1-S2, regular rate and rhythm Lungs: Clear to auscultation bilateral breathing comfortable Abdomen: Positive bowel sounds, nontender, nondistended, no organomegaly Extremities: Right foot , foul-smelling odor, yellow fibrinous material, tendons exposed over the right great toe , extensive ulcer also involving the second toe and plantar aspect of the first toe, on dorsal aspect it is involving 1st and 2nd MTP and is [id number] . No edema, cyanosis, clubbing Neuro:: Oriented 3 , cranial nerves II-12 intact, speech, motor intact Skin: No rash, nodules, warm dry - Constitutional Vitals: Temp Pulse Resp BP Pulse Ox 97.5 F L 86 18 146/67 100 03/13/17 07:23 03/13/17 07:23 03/13/17 07:23 03/13/17 09:39 03/13/17 07:23 Results - Labs CBC & Chem 7: 03/12/17 15:25 03/12/17 15:25 Labs: Laboratory Last Values WBC 5.1 K/mm3 (4.5-11.0) 03/12/17 15:25 RBC 2.87 M/mm3 (3.65-5.03) L 03/12/17 15:25 Hgb 8.7 gm/dl (10.1-14.3) L 03/12/17 15:25 Hct 27.6 % (30.3-42.9) L 03/12/17 15:25 MCV 96 fl (79-97) 03/12/17 15:25 MCH 30 pg (28-32) 03/12/17 15:25 MCHC 32 % (30-34) 03/12/17 15:25 RDW 19.8 % (13.2-15.2) H 03/12/17 15:25 Plt Count 398 K/mm3 (140-440) 03/12/17 15:25 Lymph % (Auto) Wood Box Maker 03/10/17 22:55 [place] % (Auto) Wood Box Maker 03/10/17 22:55 Eos % (Auto) Wood Box Maker 03/10/17 22:55 Baso % (Auto) Wood Box Maker 03/10/17 22:55 Lymph # Wood Box Maker 03/10/17 22:55 [place] # Wood Box Maker 03/10/17 22:55 Eos # Wood Box Maker 03/10/17 22:55 Baso # Wood Box Maker 03/10/17 22:55 Add Manual Diff Complete 03/12/17 15:25 Total Counted 100 03/12/17 15:25 Seg Neutrophils % Wood Box Maker 03/10/17 22:55 Seg Neuts % (Manual) 46.0 % (40.0-70.0) 03/12/17 15:25 Band Neutrophils % 0 % 03/12/17 15:25 Lymphocytes % (Manual) 37.0 % (13.4-35.0) H 03/12/17 15:25 Reactive Lymphs % (Man) 0 % 03/12/17 15:25 Monocytes % (Manual) 9.0 % (0.0-7.3) H 03/12/17 15:25 Eosinophils % (Manual) 2.0 % (0.0-4.3) 03/12/17 15:25 Basophils % (Manual) 0 % (0.0-1.8) 03/12/17 15:25 Metamyelocytes % 0 % 03/12/17 15:25 Myelocytes % 5.0 % 03/12/17 15:25 Promyelocytes % 1.0 % 03/12/17 15:25 Blast Cells % 0 % 03/12/17 15:25 Nucleated RBC % Not Reportable 03/12/17 15:25 Seg Neutrophils # Wood Box Maker 03/10/17 22:55 Seg Neutrophils # Man 2.3 K/mm3 (1.8-7.7) 03/12/17 15:25 Band Neutrophils # 0.0 K/mm3 03/12/17 15:25 Lymphocytes # (Manual) 1.9 K/mm3 (1.2-5.4) 03/12/17 15:25 Abs React Lymphs (Man) 0.0 K/mm3 03/12/17 15:25 Monocytes # (Manual) 0.5 K/mm3 (0.0-0.8) 03/12/17 15:25 Eosinophils # (Manual) 0.1 K/mm3 (0.0-0.4) 03/12/17 15:25 Basophils # (Manual) 0.0 K/mm3 (0.0-0.1) 03/12/17 15:25 Metamyelocytes # 0.0 K/mm3 03/12/17 15:25 Myelocytes # 0.3 K/mm3 03/12/17 15:25 Promyelocytes # 0.1 K/mm3 03/12/17 15:25 Blast Cells # 0.0 K/mm3 03/12/17 15:25 WBC Morphology Not Reportable 03/12/17 15:25 Hypersegmented Neuts Not Reportable 03/12/17 15:25 Hyposegmented Neuts Not Reportable 03/12/17 15:25 Hypogranular Neuts Not Reportable 03/12/17 15:25 Smudge Cells Not Reportable 03/12/17 15:25 Toxic Granulation Not Reportable 03/12/17 15:25 Toxic Vacuolation Not Reportable 03/12/17 15:25 Dohle Bodies Not Reportable 03/12/17 15:25 Pelger-Huet Anomaly Not Reportable 03/12/17 15:25 Elyse Rods Not Reportable 03/12/17 15:25 Platelet Estimate Consistent w auto 03/12/17 15:25 Clumped Platelets Not Reportable 03/12/17 15:25 Plt Clumps, EDTA Not Reportable 03/12/17 15:25 Large Platelets Not Reportable 03/12/17 15:25 Giant Platelets Not Reportable 03/12/17 15:25 Platelet Satelliting Not Reportable 03/12/17 15:25 Plt Morphology Comment Not Reportable 03/12/17 15:25 RBC Morphology Not Reportable 03/12/17 15:25 Dimorphic RBCs Not Reportable 03/12/17 15:25 Polychromasia Few 03/12/17 15:25 Hypochromasia 2+ 03/12/17 15:25 Poikilocytosis 2+ 03/12/17 15:25 Anisocytosis 1+ 03/12/17 15:25 Microcytosis Not Reportable 03/12/17 15:25 Macrocytosis Not Reportable 03/12/17 15:25 Spherocytes Not Reportable 03/12/17 15:25 Pappenheimer Bodies Not Reportable 03/12/17 15:25 Sickle Cells Not Reportable 03/12/17 15:25 Target Cells Not Reportable 03/12/17 15:25 Tear Drop Cells Few 03/12/17 15:25 Ovalocytes 2+ 03/12/17 15:25 Helmet Cells Not Reportable 03/12/17 15:25 Contreras-Bowles Bodies Not Reportable 03/12/17 15:25 Gable Rings Not Reportable 03/12/17 15:25 [place] Cells Not Reportable 03/12/17 15:25 Bite Cells Not Reportable 03/12/17 15:25 Crenated Cell Not Reportable 03/12/17 15:25 Elliptocytes Not Reportable 03/12/17 15:25 Acanthocytes (Spur) Not Reportable 03/12/17 15:25 Rouleaux Not Reportable 03/12/17 15:25 Hemoglobin C Crystals Not Reportable 03/12/17 15:25 Schistocytes Few 03/12/17 15:25 Malaria parasites Not Reportable 03/12/17 15:25 Hussain Bodies Not Reportable 03/12/17 15:25 Hem Pathologist Commnt Sent to pathology 03/12/17 15:25 Sodium 146 mmol/L (137-145) H D 03/12/17 15:25 Potassium 4.3 mmol/L (3.6-5.0) 03/12/17 15:25 Chloride 102.5 mmol/L (98-107) 03/12/17 15:25 Carbon Dioxide 29 mmol/L (22-30) 03/12/17 15:25 Anion Gap 19 mmol/L 03/12/17 15:25 BUN 11 mg/dL (7-17) 03/12/17 15:25 Creatinine 0.7 mg/dL (0.7-1.2) 03/12/17 15:25 Estimated GFR > 60 ml/min 03/12/17 15:25 BUN/Creatinine Ratio 16 % 03/12/17 15:25 Glucose 100 mg/dL (65-100) 03/12/17 15:25 Hemoglobin A1c 5.2 % (4-6) 03/11/17 03:03 Calcium 10.0 mg/dL (8.4-10.2) 03/12/17 15:25 Iron 51 ug/dL (37-170) 03/12/17 15:25 TIBC 215 mcg/dL (250-450) L 03/12/17 15:25 % Saturation 23.72 % 03/12/17 15:25 Transferrin 192 mg/dl (192-382) 03/12/17 15:25 Ferritin 332.2 ng/mL (13.0-400.0) 03/12/17 15:25 Total Bilirubin 0.40 mg/dL (0.1-1.2) 03/10/17 22:55 AST 18 units/L (5-40) 03/10/17 22:55 ALT 10 units/L (7-56) 03/10/17 22:55 Alkaline Phosphatase 100 units/L (35-129) 03/10/17 22:55 Total Creatine Kinase 40 units/L (30-135) 03/11/17 02:11 CK-MB (CK-2) 1.6 ng/mL (0.0-4.0) 03/11/17 02:11 CK-MB (CK-2) Rel Index 4.0 (0-4) 03/11/17 02:11 Troponin T < 0.010 ng/mL (0.00-0.029) 03/11/17 02:11 Total Protein 8.0 g/dL (6.3-8.2) 03/10/17 22:55 Albumin 3.8 g/dL (3.9-5) L 03/10/17 22:55 Albumin/Globulin Ratio 0.9 % 03/10/17 22:55 Vitamin B12 44.64 pg/mL (211-911) L 03/12/17 15:25 Folate 16.43 ng/mL (7.3-26.0) 03/12/17 15:25
--- NOTE | 2017-03-13 14:31 | Consultation ---
History of Present Illness - Reason for Consult Consult date: 03/13/17 right foot ulcer / osteomyelitis Requesting physician: [place] C[place] - History of Present Illness 81 years old female with history no known medical history, admitted on 03/10/17 arrived from [facility] today was brought to the emergency room for evaluation of right foot ulcer. She is Georgian speaker. She stated that the patient had a bump on her foot 4 years ago, she scratched it and the large ulcer developed and the wound was healed in 4 months. Over the last 2 weeks, she had an area of inflammation which has gotten worse. He denies fever or chills. He also states that she is been on antibiotic, she cannot recall the name. She was going to the wound care center but her wound has been getting worse. Per grandson, no other complaints. She reports severe pain at wound site. In the emergency room, initial temperature was 97.5, heart rate 81, blood pressure 132/79. White count 5.1. Hemoglobin 8.5. Platelets 348. Creatinine 0.8. A1c 5.2. B12 44. XR showed right great toe cellulitis/osteomelitis. Microbiology: Blood cultures: 03/11 ngtd Wound cultures: 03/11 GNRs Current Antimicrobials: Zosyn 03/11 Previous Antimicrobials: Past History Past Medical History: No medical history Past Surgical History: No surgical history Social history: no significant social history Family history: no significant family history Medications and Allergies Allergies Allergy/AdvReac Type Severity Reaction Status Date / Time No Known Allergies Allergy Unverified 03/10/17 22:33 Active Meds: Active Medications Acetaminophen (Tylenol) 650 mg PO Q4H PRN PRN Reason: Pain MILD(1-3)/Fever >100.5/[place] Amlodipine Besylate (Norvasc) 10 mg PO QDAY [facility] Last Admin: 03/13/17 09:39 Dose: 10 mg Bisacodyl (Dulcolax) 10 mg MS QDAY PRN PRN Reason: Constipation unrelieved by MOM Enoxaparin Sodium (Lovenox) 40 mg SUB-Q QDAY [facility] Last Admin: 03/13/17 09:39 Dose: 40 mg Hydralazine HCl (Apresoline) 5 mg IV Q6H PRN PRN Reason: Hypertension Hydrochlorothiazide (Hctz) 25 mg PO QDAY [facility] Last Admin: 03/13/17 09:39 Dose: 25 mg Piperacillin Sod/Tazobactam Sod (Zosyn/Ns 4.5gm/100ml) 4.5 gm in 100 mls @ 200 mls/hr IV Q8HR MARIO PRN Reason: Protocol Last Admin: 03/13/17 13:34 Dose: 200 mls/hr Lisinopril (Zestril) 40 mg PO QDAY [facility] Last Admin: 03/13/17 09:39 Dose: 40 mg Lorazepam (Ativan) 2 mg IV Q4H PRN PRN Reason: Agitation Last Admin: 03/12/17 06:54 Dose: 2 mg Magnesium Hydroxide (Milk Of Magnesia) 30 ml PO Q4H PRN PRN Reason: Constipation Ondansetron HCl (Zofran) 4 mg IV Q8H PRN PRN Reason: N/V unrelieved by Reglan Review of Systems All systems: negative (as per HPI rest negative) Physical Examination - Physical Exam Narrative exam: General appearance: Alert in NAD, conversant Eyes: anicteric sclerae, moist conjunctivae; no lid-lag; PERRLA HENT: Atraumatic; oropharynx clear Neck: Trachea midline; supple, no thyromegaly or lymphadenopathy Lungs: CTA CV: RRR, no murmurs Abdomen: Soft, non-tender; no masses or hepatosplenomegaly Extremities: right forefoot ulcer circumsferential around great toe with necrotic changes and tendon exposure foul smelling. Skin: Normal temperature, turgor and texture; no rash, ulcers or subcutaneous nodules Psych: Appropriate affect, alert and oriented to person, place and time. Neuro: alert and oriented x 3. Moving all extermities Lines: No CVL / PICC - Constitutional Vitals: Vital Signs Temp Pulse Resp BP Pulse Ox 97.5 F L 86 18 146/67 100 03/13/17 07:23 03/13/17 07:23 03/13/17 07:23 03/13/17 09:39 03/13/17 07:23 Temperature -Last 24 Hours Temperature 97.5 F Temperature 98.4 F Temperature 98.4 F Results - Labs CBC & Chem 7: 03/12/17 15:25 03/12/17 15:25 Labs: Abnormal lab results 03/12/17 03/12/1703/12/18 Range/Units 15:25 15:25 15:25 RBC 2.87 L (3.65-5.03) M/mm3 Hgb 8.7 L (10.1-14.3) gm/dl Hct 27.6 L (30.3-42.9) % RDW 19.8 H (13.2-15.2) % Lymphocytes % (Manual) 37.0 H (13.4-35.0) % Monocytes % (Manual) 9.0 H (0.0-7.3) % Sodium 146 H D (137-145) mmol/L POC Glucose (70-105) TIBC 215 L (250-450) mcg/dL Vitamin B12 44.64 L (211-911) pg/mL 03/13/17 Range/Units 12:09 RBC (3.65-5.03) M/mm3 Hgb (10.1-14.3) gm/dl Hct (30.3-42.9) % RDW (13.2-15.2) % Lymphocytes % (Manual) (13.4-35.0) % Monocytes % (Manual) (0.0-7.3) % Sodium (137-145) mmol/L POC Glucose 127 H (70-105) TIBC (250-450) mcg/dL Vitamin B12 (211-911) pg/mL Assessment and Plan Assessment: 1) Right food ulcer with gangrenous changes / right great toe osteomyelitis and tendon exposure ? B12 neuropathy. No evidence of diabetes. -Wound cx + GNRs -B12=44(very low) 2) Anemia Plan: -MRI of right foot - pending -B12 supplementation -arterial dopplers -ortho eval and vascular - may require amputation -continue zosyn - duration depends of surgical eval Thank you Dr Cunningham for your consultation, will follow up with you. Monique Jean MD Infectious Diseases Specialist [facility] M [phone] O [phone]
[2017-03-13] MEDS ORDERED: ATIVAN IV NR (17:45)
[2017-03-13] MEDS: DAKIN'S FULL STRENGTH TP SCH (22:00)
[2017-03-14 05:27] LABS: Hematocrit 25.3 % (30.3-42.9); Hemoglobin 8.1 gm/dl (10.1-14.3); Mean Corpuscular HGB Conc 32 % (30-34); Mean Corpuscular Hemoglobin 31 pg (28-32); Mean Corpuscular Volume 96 fl (79-97); Platelet Count 321 K/mm3 (140-440); Red Blood Count 2.64 M/mm3 (3.65-5.03); Red Cell Distribution Width 18.8 % (13.2-15.2)
[2017-03-14 05:47] LABS: BUN/Creatinine Ratio 14; Blood Urea Nitrogen 10 mg/dL (7-17); Calcium 9.9 mg/dL (8.4-10.2); Hemolysis Index 2
[2017-03-14] MEDS: ZOSYN/NS 4.5GM/100ML 4.5 GM/100 ML VIAL IV SCH ×3 (05:58→23:05)
[2017-03-14 08:50] LABS: Basophils % (Manual) 0 % (0.0-1.8); Total Cells Counted 100
[2017-03-14 08:51] LABS: Anisocytosis 2+; Hypochromasia 1+; Ovalocytes 1+; Poikilocytosis 2+
[2017-03-14 08:52] LABS: Schistocytes Few; Target Cells Few
[2017-03-14] MEDS: LOVENOX SUB-Q SCH (10:00)
[2017-03-14] MEDS: NORVASC PO SCH (10:58)
[2017-03-14] MEDS: ZESTRIL PO SCH (10:59)
[2017-03-14] MEDS: DAKIN'S FULL STRENGTH TP SCH ×2 (12:58→23:06)
[2017-03-14] MEDS: HCTZ PO SCH (13:00)
--- NOTE | 2017-03-14 14:43 | Vascular Lab Report ---
RIGHT LOWER EXTREMITY ARTERIAL DUPLEX: REASON FOR EXAM: Right lower extremity ulcer. COMMENTS ON THE RIGHT: Triphasic waveforms are seen proximally. Biphasic waveforms are seen in the popliteal artery and femoral artery. Biphasic waveforms are seen distally in the posterior tibial artery with monophasic waveforms in the anterior tibial artery. No significant velocity gradients are identified. No focal significant plaque is identified. Findings are consistent with abnormal perfusion with monophasic flow in the anterior tibial artery. Findings are compatible with the ability to heal distal wounds. LIMITED COMMENTS ON THE LEFT: Biphasic waveforms are seen distally in the posterior tibial artery and monophasic waveforms in the anterior tibial artery. Findings are consistent with abnormal perfusion with monophasic flow in the anterior tibial artery. Findings are compatible with the ability to heal distal wounds. 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 Wound healing is likely. LEFT:Some infrapopliteal arterial disease in the anterior tibial artery distribution based on monophasic waveforms with preserved velocities. Wound healing is likely.
--- NOTE | 2017-03-14 15:04 | Magnetic Resonance Report ---
MRI of the right foot without contrast. History: Nonhealing wound. Findings: There are small areas of hyperintense T2 signal in the distal aspect of the first proximal phalanx and the base of the first distal phalanx. No corresponding T1 signal abnormality is seen in this region. Soft tissue swelling is present in the great toe. No additional focal bony abnormalities are seen. Impression: Early osteomyelitis of the first proximal and distal phalanges cannot be excluded although all of the MR criteria are not present. These findings could also be due to arthritic change.
--- NOTE | 2017-03-14 16:21 | Progress Note ---
Assessment and Plan Assessment: 1) Right food ulcer with gangrenous changes / right great toe osteomyelitis and tendon exposure ? B12 neuropathy. No evidence of diabetes. 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 Monique Jean MD Infectious Diseases Specialist [facility], [place] [facility] ([facility]) M [phone] O [phone] Subjective Date of service: 03/14/17 Principal diagnosis: osteomyelitis' Interval history: Feels ok no complaints. Microbiology: Blood cultures: 03/11 ngtd Wound cultures: 03/11 Proteus MDR Current Antimicrobials: Zosyn 03/11 Previous Antimicrobials: Objective - Exam Narrative Exam: General appearance: Alert in NAD, conversant Eyes: anicteric sclerae, moist conjunctivae; no lid-lag; PERRLA HENT: Atraumatic; oropharynx clear Neck: Trachea midline; supple, no thyromegaly or lymphadenopathy Lungs: CTA CV: RRR, no murmurs Abdomen: Soft, non-tender; no masses or hepatosplenomegaly Extremities: right forefoot ulcer circumsferential around great toe with necrotic changes and tendon exposure foul smelling. Skin: Normal temperature, turgor and texture; no rash, ulcers or subcutaneous nodules Psych: Appropriate affect, alert and oriented to person, place and time. Neuro: alert and oriented x 3. Moving all extermities Lines: No CVL / PICC - Constitutional Vitals: Vital Signs Temp Pulse Resp BP Pulse Ox 98.4 F 93 H 19 102/64 98 03/14/17 08:04 03/14/17 08:04 03/14/17 08:04 03/14/17 10:59 03/14/17 10:00 Temperature -Last 24 Hours Temperature 98.4 F Temperature 97.8 F - Labs CBC & Chem 7: 03/14/17 05:08 03/14/17 05:08 Labs: Abnormal lab results 03/14/17 03/14/17 Range/Units 05:08 05:08 RBC 2.64 L (3.65-5.03) M/mm3 Hgb 8.1 L (10.1-14.3) gm/dl Hct 25.3 L (30.3-42.9) % RDW 18.8 H (13.2-15.2) % Carbon Dioxide 33 H (22-30) mmol/L Glucose 106 H (65-100) mg/dL
--- NOTE | 2017-03-14 17:50 | Progress Note ---
Assessment and Plan Consider angiography to maximize perfusion patient may require forefoot amputation or below-knee amputation. Subjective Date of service: 03/14/17 Principal diagnosis: osteomyelitis' Interval history: Local wound care continues. Objective - Exam Narrative Exam: Forefoot with considerable necrosis but dryer. Palpable pulses. Popliteal pulse is palpable. On invasive studies showed monophasic tibial flow with good velocities but doubtful that adequate perfusion to the foot access. marginal salvageability of the foot. - Constitutional Vitals: Vital Signs - 12hr 03/14/17 03/14/17 03/14/17 08:04 10:00 10:58 Temperature 98.4 F Pulse Rate 93 H Respiratory 19 Rate Blood Pressure 105/58 102/64 O2 Sat by Pulse 100 98 Oximetry 03/14/17 03/14/17 10:59 16:41 Temperature 97.8 F Pulse Rate 80 Respiratory 18 Rate Blood Pressure 102/64 141/60 O2 Sat by Pulse 100 Oximetry - Labs CBC & Chem 7: 03/14/17 05:08 03/14/17 05:08 Labs: Abnormal lab results 03/14/17 03/14/17 Range/Units 05:08 05:08 RBC 2.64 L (3.65-5.03) M/mm3 Hgb 8.1 L (10.1-14.3) gm/dl Hct 25.3 L (30.3-42.9) % RDW 18.8 H (13.2-15.2) % Carbon Dioxide 33 H (22-30) mmol/L Glucose 106 H (65-100) mg/dL
--- NOTE | 2017-03-14 18:33 | Progress Note ---
Assessment and Plan Assessment and plan: 81-year-old woman with no medical problem who just arrived from [facility] on day of admission who came in for eval of necrotic non healing RLE wound on foot/big toe with tendons and bones exposed -denies any chronic medical problems MR ADAMS: image reviewed; Early osteomylitis of the first promixal and distal phalanges Right foot ulcer with necrotic wound, with chronic osteomylitis -iv zosyn, ID consult -case dw General surgeon, given that tendons and bone exposed and patient has osteomyelitis, the patient will be better served by orthopedic surgery and vascular surgery. 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 send iron studies and workup Delireum frequent re-orientation, advised staff to use [employer] online merchant with her at all times DVT Ppx bruce grandson is Juan F: [phone] called her grandson, could not reach him, but left a voicemail History Interval history: Continues to have foul-smelling drainage from nonhealing wound on the right foot she was confused overnight , calm today Review of systems Constitutional: No fevers, no malaise, no joint pains CVS: No chest pain, no orthopnea, no dyspnea on exertion, no pedal edema GI: No abdominal pain, no diarrhea, no vomiting, no constipation Respiratory: No shortness of breath, no wheezing, no coughing Hospitalist Physical - Physical exam Narrative exam: Gen. appearance: Patient lying in bed in no acute distress HEENT: Normocephalic/atraumatic, pupils equal round reactive to light, extra occular movement intact, no scleral icterus, no JVD or thyromegaly or nodule, neck is supple, mucous membrane moist, no erythema or exudate Heart: S1-S2, regular rate and rhythm Lungs: Clear to auscultation bilateral breathing comfortable Abdomen: Positive bowel sounds, nontender, nondistended, no organomegaly Extremities: Right foot , foul-smelling odor, yellow fibrinous material, tendons exposed over the right great toe , extensive ulcer also involving the second toe and plantar aspect of the first toe, on dorsal aspect it is involving 1st and 2nd MTP and is [id number] . No edema, cyanosis, clubbing Neuro:: Oriented 3 , cranial nerves II-12 intact, speech, motor intact Skin: No rash, nodules, warm dry - Constitutional Vitals: Temp Pulse Resp BP Pulse Ox 97.8 F 80 18 141/60 100 03/14/17 16:41 03/14/17 16:41 03/14/17 16:41 03/14/17 16:41 03/14/17 16:41 Results - Labs CBC & Chem 7: 03/14/17 05:08 03/14/17 05:08 Labs: Laboratory Last Values WBC 5.0 K/mm3 (4.5-11.0) 03/14/17 05:08 RBC 2.64 M/mm3 (3.65-5.03) L 03/14/17 05:08 Hgb 8.1 gm/dl (10.1-14.3) L 03/14/17 05:08 Hct 25.3 % (30.3-42.9) L 03/14/17 05:08 MCV 96 fl (79-97) 03/14/17 05:08 MCH 31 pg (28-32) 03/14/17 05:08 MCHC 32 % (30-34) 03/14/17 05:08 RDW 18.8 % (13.2-15.2) H 03/14/17 05:08 Plt Count 321 K/mm3 (140-440) 03/14/17 05:08 Lymph % (Auto) Commercial Construction Superintendent 03/10/17 22:55 [place] % (Auto) Commercial Construction Superintendent 03/10/17 22:55 Eos % (Auto) Commercial Construction Superintendent 03/10/17 22:55 Baso % (Auto) Commercial Construction Superintendent 03/10/17 22:55 Lymph # Commercial Construction Superintendent 03/10/17 22:55 [place] # Commercial Construction Superintendent 03/10/17 22:55 Eos # Commercial Construction Superintendent 03/10/17 22:55 Baso # Commercial Construction Superintendent 03/10/17 22:55 Add Manual Diff Complete 03/14/17 05:08 Total Counted 100 03/14/17 05:08 Seg Neutrophils % Commercial Construction Superintendent 03/10/17 22:55 Seg Neuts % (Manual) 67.0 % (40.0-70.0) 03/14/17 05:08 Band Neutrophils % 0 % 03/14/17 05:08 Lymphocytes % (Manual) 28.0 % (13.4-35.0) 03/14/17 05:08 Reactive Lymphs % (Man) 0 % 03/14/17 05:08 Monocytes % (Manual) 4.0 % (0.0-7.3) 03/14/17 05:08 Eosinophils % (Manual) 1.0 % (0.0-4.3) 03/14/17 05:08 Basophils % (Manual) 0 % (0.0-1.8) 03/14/17 05:08 Metamyelocytes % 0 % 03/14/17 05:08 Myelocytes % 0 % 03/14/17 05:08 Promyelocytes % 0 % 03/14/17 05:08 Blast Cells % 0 % 03/14/17 05:08 Nucleated RBC % Not Reportable 03/14/17 05:08 Seg Neutrophils # Commercial Construction Superintendent 03/10/17 22:55 Seg Neutrophils # Man 3.4 K/mm3 (1.8-7.7) 03/14/17 05:08 Band Neutrophils # 0.0 K/mm3 03/14/17 05:08 Lymphocytes # (Manual) 1.4 K/mm3 (1.2-5.4) 03/14/17 05:08 Abs React Lymphs (Man) 0.0 K/mm3 03/14/17 05:08 Monocytes # (Manual) 0.2 K/mm3 (0.0-0.8) 03/14/17 05:08 Eosinophils # (Manual) 0.1 K/mm3 (0.0-0.4) 03/14/17 05:08 Basophils # (Manual) 0.0 K/mm3 (0.0-0.1) 03/14/17 05:08 Metamyelocytes # 0.0 K/mm3 03/14/17 05:08 Myelocytes # 0.0 K/mm3 03/14/17 05:08 Promyelocytes # 0.0 K/mm3 03/14/17 05:08 Blast Cells # 0.0 K/mm3 03/14/17 05:08 Pathologist Review 03/12/17 15:25 WBC Morphology Not Reportable 03/14/17 05:08 Hypersegmented Neuts Not Reportable 03/14/17 05:08 Hyposegmented Neuts Not Reportable 03/14/17 05:08 Hypogranular Neuts Not Reportable 03/14/17 05:08 Smudge Cells Not Reportable 03/14/17 05:08 Toxic Granulation Not Reportable 03/14/17 05:08 Toxic Vacuolation Not Reportable 03/14/17 05:08 Dohle Bodies Not Reportable 03/14/17 05:08 Pelger-Huet Anomaly Not Reportable 03/14/17 05:08 Elyse Rods Not Reportable 03/14/17 05:08 Platelet Estimate Not Reportable 03/14/17 05:08 Clumped Platelets Not Reportable 03/14/17 05:08 Plt Clumps, EDTA Not Reportable 03/14/17 05:08 Large Platelets Not Reportable 03/14/17 05:08 Giant Platelets Not Reportable 03/14/17 05:08 Platelet Satelliting Not Reportable 03/14/17 05:08 Plt Morphology Comment Not Reportable 03/14/17 05:08 RBC Morphology Not Reportable 03/14/17 05:08 Dimorphic RBCs Not Reportable 03/14/17 05:08 Polychromasia Not Reportable 03/14/17 05:08 Hypochromasia 1+ 03/14/17 05:08 Poikilocytosis 2+ 03/14/17 05:08 Anisocytosis 2+ 03/14/17 05:08 Microcytosis Not Reportable 03/14/17 05:08 Macrocytosis Not Reportable 03/14/17 05:08 Spherocytes Not Reportable 03/14/17 05:08 Pappenheimer Bodies Not Reportable 03/14/17 05:08 Sickle Cells Not Reportable 03/14/17 05:08 Target Cells Few 03/14/17 05:08 Tear Drop Cells Not Reportable 03/14/17 05:08 Ovalocytes 1+ 03/14/17 05:08 Helmet Cells Not Reportable 03/14/17 05:08 Contreras-Mcdermott Bodies Not Reportable 03/14/17 05:08 [place] Rings Not Reportable 03/14/17 05:08 [place] Cells Not Reportable 03/14/17 05:08 Bite Cells Not Reportable 03/14/17 05:08 Crenated Cell Not Reportable 03/14/17 05:08 Elliptocytes Not Reportable 03/14/17 05:08 Acanthocytes (Spur) Not Reportable 03/14/17 05:08 Rouleaux Not Reportable 03/14/17 05:08 Hemoglobin C Crystals Not Reportable 03/14/17 05:08 Schistocytes Few 03/14/17 05:08 Malaria parasites Not Reportable 03/14/17 05:08 Hussain Bodies Not Reportable 03/14/17 05:08 Hem Pathologist Commnt No 03/14/17 05:08 Sodium 142 mmol/L (137-145) 03/14/17 05:08 Potassium 3.9 mmol/L (3.6-5.0) 03/14/17 05:08 Chloride 98.6 mmol/L (98-107) 03/14/17 05:08 Carbon Dioxide 33 mmol/L (22-30) H 03/14/17 05:08 Anion Gap 14 mmol/L 03/14/17 05:08 BUN 10 mg/dL (7-17) 03/14/17 05:08 Creatinine 0.7 mg/dL (0.7-1.2) 03/14/17 05:08 Estimated GFR > 60 ml/min 03/14/17 05:08 BUN/Creatinine Ratio 14 % 03/14/17 05:08 Glucose 106 mg/dL (65-100) H 03/14/17 05:08 POC Glucose 127 (70-105) H 03/13/17 12:09 Hemoglobin A1c 5.2 % (4-6) 03/11/17 03:03 Calcium 9.9 mg/dL (8.4-10.2) 03/14/17 05:08 Iron 51 ug/dL (37-170) 03/12/17 15:25 TIBC 215 mcg/dL (250-450) L 03/12/17 15:25 % Saturation 23.72 % 03/12/17 15:25 Transferrin 192 mg/dl (192-382) 03/12/17 15:25 Ferritin 332.2 ng/mL (13.0-400.0) 03/12/17 15:25 Total Bilirubin 0.40 mg/dL (0.1-1.2) 03/10/17 22:55 AST 18 units/L (5-40) 03/10/17 22:55 ALT 10 units/L (7-56) 03/10/17 22:55 Alkaline Phosphatase 100 units/L (35-129) 03/10/17 22:55 Total Creatine Kinase 40 units/L (30-135) 03/11/17 02:11 CK-MB (CK-2) 1.6 ng/mL (0.0-4.0) 03/11/17 02:11 CK-MB (CK-2) Rel Index 4.0 (0-4) 03/11/17 02:11 Troponin T < 0.010 ng/mL (0.00-0.029) 03/11/17 02:11 C-Reactive Protein 1.30 mg/dL (0.00-1.30) 03/13/17 21:09 Total Protein 8.0 g/dL (6.3-8.2) 03/10/17 22:55 Albumin 3.8 g/dL (3.9-5) L 03/10/17 22:55 Albumin/Globulin Ratio 0.9 % 03/10/17 22:55 Vitamin B12 44.64 pg/mL (211-911) L 03/12/17 15:25 Folate 16.43 ng/mL (7.3-26.0) 03/12/17 15:25
--- NOTE | 2017-03-14 19:08 | Anesthesia Consultation ---
Anesthesia Consult and Med Hx Date of service: 03/15/17 - Airway Anesthetic Teeth Evaluation: Dentures ROM Head & Neck: Adequate Mental/Hyoid Distance: Adequate Mallampati Class: Class II Intubation Access Assessment: Probably Good - Pulmonary Exam CTA: Yes - Cardiac Exam Cardiac Exam: RRR - Pre-Operative Health Status ASA Pre-Surgery Classification: ASA3 Proposed Anesthetic Plan: General, MAC - Cardiovascular System Hx Hypertension: Yes - Hematic Hx Anemia: Yes (Hgb 8.1) - Other Systems Hx Cancer: No
--- NOTE | 2017-03-15 08:24 | Event Note ---
Date: 03/15/17 Scheduled for surgery today with orthopedics. Noninvasive velocities are reassuring, but due to the extent of necrosis and the CATHI monophasic waveform, vascular optimization can be performed. Will make patient NPO after MN for angiography tomorrow.
[2017-03-15] MEDS: DAKIN'S FULL STRENGTH TP SCH (10:00)
[2017-03-15] MEDS: LOVENOX SUB-Q SCH (10:00)
[2017-03-15] MEDS: HCTZ PO SCH (10:00)
[2017-03-15] MEDS: NORVASC PO SCH (10:21)
[2017-03-15] MEDS: ZESTRIL PO SCH (10:21)
[2017-03-15] MEDS ORDERED: PEPCID IV NR (11:00)
--- NOTE | 2017-03-15 11:57 | Progress Note ---
Assessment and Plan Assessment and plan: 81-year-old woman with no medical problem who just arrived from [facility] on day of admission who came in for eval of necrotic non healing RLE wound on foot/big toe with tendons and bones exposed -denies any chronic medical problems MR ADAMS: image reviewed; Early osteomylitis of the first promixal and distal phalanges Right foot ulcer with necrotic wound, with chronic osteomylitis -iv zosyn, ID consult -case dw General surgeon, given that tendons and bone exposed and patient has osteomyelitis, the patient will be better served by orthopedic surgery and vascular surgery. 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 send iron studies and workup Delireum frequent re-orientation, advised staff to use [employer] home care liaison with her at all times DVT Ppx bruce urbina is Juan F: [phone] History Interval history: Continues to have foul-smelling drainage from nonhealing wound on the right foot she was confused overnight , calm today Review of systems Constitutional: No fevers, no malaise, no joint pains CVS: No chest pain, no orthopnea, no dyspnea on exertion, no pedal edema GI: No abdominal pain, no diarrhea, no vomiting, no constipation Respiratory: No shortness of breath, no wheezing, no coughing Hospitalist Physical - Physical exam Narrative exam: Gen. appearance: Patient lying in bed in no acute distress HEENT: Normocephalic/atraumatic, pupils equal round reactive to light, extra occular movement intact, no scleral icterus, no JVD or thyromegaly or nodule, neck is supple, mucous membrane moist, no erythema or exudate Heart: S1-S2, regular rate and rhythm Lungs: Clear to auscultation bilateral breathing comfortable Abdomen: Positive bowel sounds, nontender, nondistended, no organomegaly Extremities: Right foot , foul-smelling odor, yellow fibrinous material, tendons exposed over the right great toe , extensive ulcer also involving the second toe and plantar aspect of the first toe, on dorsal aspect it is involving 1st and 2nd MTP and is [id number] . No edema, cyanosis, clubbing Neuro:: Oriented 3 , cranial nerves II-12 intact, speech, motor intact Skin: No rash, nodules, warm dry - Constitutional Vitals: Temp Pulse Resp BP Pulse Ox 98.2 F 86 18 132/66 100 03/15/17 07:51 03/15/17 10:21 03/15/17 07:51 03/15/17 10:21 03/15/17 07:51 Results - Labs CBC & Chem 7: 03/14/17 05:08 03/14/17 05:08 Labs: Laboratory Last Values WBC 5.0 K/mm3 (4.5-11.0) 03/14/17 05:08 RBC 2.64 M/mm3 (3.65-5.03) L 03/14/17 05:08 Hgb 8.1 gm/dl (10.1-14.3) L 03/14/17 05:08 Hct 25.3 % (30.3-42.9) L 03/14/17 05:08 MCV 96 fl (79-97) 03/14/17 05:08 MCH 31 pg (28-32) 03/14/17 05:08 MCHC 32 % (30-34) 03/14/17 05:08 RDW 18.8 % (13.2-15.2) H 03/14/17 05:08 Plt Count 321 K/mm3 (140-440) 03/14/17 05:08 Lymph % (Auto) Warp Tension Tester 03/10/17 22:55 [place] % (Auto) Warp Tension Tester 03/10/17 22:55 Eos % (Auto) Warp Tension Tester 03/10/17 22:55 Baso % (Auto) Warp Tension Tester 03/10/17 22:55 Lymph # Warp Tension Tester 03/10/17 22:55 [place] # Warp Tension Tester 03/10/17 22:55 Eos # Warp Tension Tester 03/10/17 22:55 Baso # Warp Tension Tester 03/10/17 22:55 Add Manual Diff Complete 03/14/17 05:08 Total Counted 100 03/14/17 05:08 Seg Neutrophils % Warp Tension Tester 03/10/17 22:55 Seg Neuts % (Manual) 67.0 % (40.0-70.0) 03/14/17 05:08 Band Neutrophils % 0 % 03/14/17 05:08 Lymphocytes % (Manual) 28.0 % (13.4-35.0) 03/14/17 05:08 Reactive Lymphs % (Man) 0 % 03/14/17 05:08 Monocytes % (Manual) 4.0 % (0.0-7.3) 03/14/17 05:08 Eosinophils % (Manual) 1.0 % (0.0-4.3) 03/14/17 05:08 Basophils % (Manual) 0 % (0.0-1.8) 03/14/17 05:08 Metamyelocytes % 0 % 03/14/17 05:08 Myelocytes % 0 % 03/14/17 05:08 Promyelocytes % 0 % 03/14/17 05:08 Blast Cells % 0 % 03/14/17 05:08 Nucleated RBC % Not Reportable 03/14/17 05:08 Seg Neutrophils # Warp Tension Tester 03/10/17 22:55 Seg Neutrophils # Man 3.4 K/mm3 (1.8-7.7) 03/14/17 05:08 Band Neutrophils # 0.0 K/mm3 03/14/17 05:08 Lymphocytes # (Manual) 1.4 K/mm3 (1.2-5.4) 03/14/17 05:08 Abs React Lymphs (Man) 0.0 K/mm3 03/14/17 05:08 Monocytes # (Manual) 0.2 K/mm3 (0.0-0.8) 03/14/17 05:08 Eosinophils # (Manual) 0.1 K/mm3 (0.0-0.4) 03/14/17 05:08 Basophils # (Manual) 0.0 K/mm3 (0.0-0.1) 03/14/17 05:08 Metamyelocytes # 0.0 K/mm3 03/14/17 05:08 Myelocytes # 0.0 K/mm3 03/14/17 05:08 Promyelocytes # 0.0 K/mm3 03/14/17 05:08 Blast Cells # 0.0 K/mm3 03/14/17 05:08 Pathologist Review 03/12/17 15:25 WBC Morphology Not Reportable 03/14/17 05:08 Hypersegmented Neuts Not Reportable 03/14/17 05:08 Hyposegmented Neuts Not Reportable 03/14/17 05:08 Hypogranular Neuts Not Reportable 03/14/17 05:08 Smudge Cells Not Reportable 03/14/17 05:08 Toxic Granulation Not Reportable 03/14/17 05:08 Toxic Vacuolation Not Reportable 03/14/17 05:08 Dohle Bodies Not Reportable 03/14/17 05:08 Pelger-Huet Anomaly Not Reportable 03/14/17 05:08 Elyse Rods Not Reportable 03/14/17 05:08 Platelet Estimate Not Reportable 03/14/17 05:08 Clumped Platelets Not Reportable 03/14/17 05:08 Plt Clumps, EDTA Not Reportable 03/14/17 05:08 Large Platelets Not Reportable 03/14/17 05:08 Giant Platelets Not Reportable 03/14/17 05:08 Platelet Satelliting Not Reportable 03/14/17 05:08 Plt Morphology Comment Not Reportable 03/14/17 05:08 RBC Morphology Not Reportable 03/14/17 05:08 Dimorphic RBCs Not Reportable 03/14/17 05:08 Polychromasia Not Reportable 03/14/17 05:08 Hypochromasia 1+ 03/14/17 05:08 Poikilocytosis 2+ 03/14/17 05:08 Anisocytosis 2+ 03/14/17 05:08 Microcytosis Not Reportable 03/14/17 05:08 Macrocytosis Not Reportable 03/14/17 05:08 Spherocytes Not Reportable 03/14/17 05:08 Pappenheimer Bodies Not Reportable 03/14/17 05:08 Sickle Cells Not Reportable 03/14/17 05:08 Target Cells Few 03/14/17 05:08 Tear Drop Cells Not Reportable 03/14/17 05:08 Ovalocytes 1+ 03/14/17 05:08 Helmet Cells Not Reportable 03/14/17 05:08 Contreras-Kobuk Bodies Not Reportable 03/14/17 05:08 [place] Rings Not Reportable 03/14/17 05:08 [place] Cells Not Reportable 03/14/17 05:08 Bite Cells Not Reportable 03/14/17 05:08 Crenated Cell Not Reportable 03/14/17 05:08 Elliptocytes Not Reportable 03/14/17 05:08 Acanthocytes (Spur) Not Reportable 03/14/17 05:08 Rouleaux Not Reportable 03/14/17 05:08 Hemoglobin C Crystals Not Reportable 03/14/17 05:08 Schistocytes Few 03/14/17 05:08 Malaria parasites Not Reportable 03/14/17 05:08 Hussain Bodies Not Reportable 03/14/17 05:08 Hem Pathologist Commnt No 03/14/17 05:08 Sodium 142 mmol/L (137-145) 03/14/17 05:08 Potassium 3.9 mmol/L (3.6-5.0) 03/14/17 05:08 Chloride 98.6 mmol/L (98-107) 03/14/17 05:08 Carbon Dioxide 33 mmol/L (22-30) H 03/14/17 05:08 Anion Gap 14 mmol/L 03/14/17 05:08 BUN 10 mg/dL (7-17) 03/14/17 05:08 Creatinine 0.7 mg/dL (0.7-1.2) 03/14/17 05:08 Estimated GFR > 60 ml/min 03/14/17 05:08 BUN/Creatinine Ratio 14 % 03/14/17 05:08 Glucose 106 mg/dL (65-100) H 03/14/17 05:08 POC Glucose 127 (70-105) H 03/13/17 12:09 Hemoglobin A1c 5.2 % (4-6) 03/11/17 03:03 Calcium 9.9 mg/dL (8.4-10.2) 03/14/17 05:08 Iron 51 ug/dL (37-170) 03/12/17 15:25 TIBC 215 mcg/dL (250-450) L 03/12/17 15:25 % Saturation 23.72 % 03/12/17 15:25 Transferrin 192 mg/dl (192-382) 03/12/17 15:25 Ferritin 332.2 ng/mL (13.0-400.0) 03/12/17 15:25 Total Bilirubin 0.40 mg/dL (0.1-1.2) 03/10/17 22:55 AST 18 units/L (5-40) 03/10/17 22:55 ALT 10 units/L (7-56) 03/10/17 22:55 Alkaline Phosphatase 100 units/L (35-129) 03/10/17 22:55 Total Creatine Kinase 40 units/L (30-135) 03/11/17 02:11 CK-MB (CK-2) 1.6 ng/mL (0.0-4.0) 03/11/17 02:11 CK-MB (CK-2) Rel Index 4.0 (0-4) 03/11/17 02:11 Troponin T < 0.010 ng/mL (0.00-0.029) 03/11/17 02:11 C-Reactive Protein 1.30 mg/dL (0.00-1.30) 03/13/17 21:09 Total Protein 8.0 g/dL (6.3-8.2) 03/10/17 22:55 Albumin 3.8 g/dL (3.9-5) L 03/10/17 22:55 Albumin/Globulin Ratio 0.9 % 03/10/17 22:55 Vitamin B12 44.64 pg/mL (211-911) L 03/12/17 15:25 Folate 16.43 ng/mL (7.3-26.0) 03/12/17 15:25
--- NOTE | 2017-03-15 12:09 | Progress Note ---
Assessment and Plan Assessment: 1) Right food ulcer with gangrenous changes / right great toe osteomyelitis and tendon exposure ? B12 neuropathy. No evidence of diabetes. -Wound cx + Proteus vulgaris resistant carbapenem -B12=44(very low) -MRI confirmed osteomyelitis of 1st great toe 2) Anemia Plan: -in view of extensive wound with osteo and MDR bacteria consider amputation -ortho eval and vascular - pending -continue zosyn - duration depends of surgical eval Thank you Dr Cunningham for your consultation, will follow up with you. Monique Jean MD Infectious Diseases Specialist [facility] ([facility]) M [phone] O [phone] Subjective Date of service: 03/15/17 Principal diagnosis: osteomyelitis' Interval history: Feels ok no complaints. Microbiology: Blood cultures: 03/11 ngtd Wound cultures: 03/11 Proteus MDR Current Antimicrobials: Zosyn 03/11 Previous Antimicrobials: Objective - Exam Narrative Exam: General appearance: Alert in NAD, conversant Eyes: anicteric sclerae, moist conjunctivae; no lid-lag; PERRLA HENT: Atraumatic; oropharynx clear Neck: Trachea midline; supple, no thyromegaly or lymphadenopathy Lungs: CTA CV: RRR, no murmurs Abdomen: Soft, non-tender; no masses or hepatosplenomegaly Extremities: right forefoot ulcer circumsferential around great toe with necrotic changes and tendon exposure foul smelling. Skin: Normal temperature, turgor and texture; no rash, ulcers or subcutaneous nodules Psych: Appropriate affect, alert and oriented to person, place and time. Neuro: alert and oriented x 3. Moving all extermities Lines: No CVL / PICC - Constitutional Vitals: Vital Signs Temp Pulse Resp BP Pulse Ox 98.2 F 86 18 132/66 100 03/15/17 07:51 03/15/17 10:21 03/15/17 07:51 03/15/17 10:21 03/15/17 07:51 Temperature -Last 24 Hours Temperature 98.2 F Temperature 98.7 F Temperature 97.8 F - Labs CBC & Chem 7: 03/14/17 05:08 03/14/17 05:08
[2017-03-15] MEDS: ZOSYN/NS 4.5GM/100ML 4.5 GM/100 ML VIAL IV SCH ×3 (14:56→22:10)
--- NOTE | 2017-03-15 16:51 | Progress Note ---
Assessment and Plan 81 year old female with right lower extremity forefoot infected wound. Although the PT pulse is relatively perserved, given the severity of the right forefoot wound combined with the decreased flow in the appropriate CATHI/DP angiosome (monophasic CATHI waveforms combined with the DP weak pulse) revascularization is reasonable to assess and possibly improve flow. NPO after MN. Discussed with family. Plan for procedure with anesthesia tomorrow. Subjective Date of service: 03/15/17 Principal diagnosis: osteomyelitis' Interval history: Declined surgery today. Discussed revascularization with family and they agreed for procedure tomorrow. Patient will ultimately need TMA/debridements of wound at minimum. Objective - Constitutional Vitals: Vital Signs - 12hr 03/15/17 03/15/17 03/15/17 07:51 10:21 15:48 Temperature 98.2 F 98.2 F Pulse Rate 86 86 79 Respiratory 18 18 Rate Blood Pressure 128/60 132/66 116/45 O2 Sat by Pulse 100 99 Oximetry General appearance: Present: mild distress (right foot) - EENT Eyes: EOM intact ENT: hearing intact - Respiratory Respiratory effort: normal Extremities: pulses intact (right PT palpable, right DP weakly palpable), normal temperature, normal color, abnormal (large infected wound of right forefoot foot) - Psychiatric Psychiatric: appropriate mood/affect (waste oil pumper in room with patient), cooperative - Labs CBC & Chem 7: 03/14/17 05:08 03/14/17 05:08
[2017-03-16] MEDS: ATIVAN IV PRN (00:05)
[2017-03-16] MEDS: DAKIN'S FULL STRENGTH TP SCH ×2 (00:10→14:44)
[2017-03-16] MEDS: ZOSYN/NS 4.5GM/100ML 4.5 GM/100 ML VIAL IV SCH ×2 (05:30→18:23)
[2017-03-16] MEDS ORDERED: HEPARIN/NS 5000 UNIT/500ML(CATH LAB) 0 ML IR ONE (11:43)
[2017-03-16] MEDS ORDERED: XYLOCAINE 2% INFILTRATI ONE (11:43)
[2017-03-16] MEDS ORDERED: HEPARIN/NS 5000 UNIT/500ML(CATH LAB) 1,000 ML IR ONE (11:44)
[2017-03-16] MEDS ORDERED: NACL 0.9% 1000 ML 1,000 ML ONE ×2 (11:51→12:57)
[2017-03-16] MEDS ORDERED: DIPRIVAN 10 MG/ML IV ONE ×4 (11:53→12:50)
[2017-03-16] MEDS ORDERED: VERSED IV ONE (11:54)
[2017-03-16] MEDS ORDERED: XYLOCAINE MPF 2% ONE (11:54)
[2017-03-16] MEDS: HEPARIN 10,000 UNITS/10 ML ONE ×2 (12:50→12:53)
[2017-03-16] MEDS ORDERED: CALAN ONE (12:57)
[2017-03-16] MEDS ORDERED: TRIDIL DRIP 50MG/250ML 50 MG/250 ML BOTTLE ONE (12:57)
--- NOTE | 2017-03-16 13:03 | Progress Note ---
Assessment and Plan Assessment: 1) Right food ulcer with gangrenous changes / right great toe osteomyelitis and tendon exposure ? B12 neuropathy. No evidence of diabetes. 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 IV antibiotics will not help and may harm if extensive debridement is not done. Consider palliative care. -ortho eval and vascular - pending -continue zosyn - duration depends of surgical eval Thank you Dr Cunningham for your consultation, will follow up with you. Monique Jean MD Infectious Diseases Specialist [facility], [place] [facility] M [phone] O [phone] Subjective Date of service: 03/16/17 Principal diagnosis: osteomyelitis' Interval history: Feels ok no complaints. Microbiology: Blood cultures: 03/11 ngtd Wound cultures: 03/11 Proteus MDR Current Antimicrobials: Zosyn 03/11 Previous Antimicrobials: Objective - Exam Narrative Exam: General appearance: Alert in NAD, conversant Eyes: anicteric sclerae, moist conjunctivae; no lid-lag; PERRLA HENT: Atraumatic; oropharynx clear Neck: Trachea midline; supple, no thyromegaly or lymphadenopathy Lungs: CTA CV: RRR, no murmurs Abdomen: Soft, non-tender; no masses or hepatosplenomegaly Extremities: right forefoot ulcer circumsferential around great toe with necrotic changes and tendon exposure foul smelling. Skin: Normal temperature, turgor and texture; no rash, ulcers or subcutaneous nodules Psych: Appropriate affect, alert and oriented to person, place and time. Neuro: alert and oriented x 3. Moving all extermities Lines: No CVL / PICC - Constitutional Vitals: Vital Signs Temp Pulse Resp BP Pulse Ox 97.7 F 72 18 119/50 99 03/16/17 08:18 03/16/17 08:18 03/16/17 08:18 03/16/17 08:18 03/16/17 08:18 Temperature -Last 24 Hours Temperature 97.7 F Temperature 98.7 F Temperature 98.2 F - Labs CBC & Chem 7: 03/14/17 05:08 03/14/17 05:08
--- NOTE | 2017-03-16 14:21 | Operative Report ---
Operative Report Operative Report: EXAM: 1. Ultrasound-guided access of the left common femoral artery 2. Angiography of the left lower extremity 3. Selection of the abdominal aorta with aortography 4. Selection of the right common femoral artery with angiography 5. Selection of the right superficial femoral artery was angiography 6. Selection of the right popliteal artery with angiography 7. Selection of the right anterior tibial artery with angiography 8. Atherectomy of the right proximal anterior tibial artery and mid anterior tibial artery with a 1.25 CSI micron atherectomy device 9. Angioplasty of the right proximal anterior tibial artery and mid anterior tibial artery with a 3 mm x 150 mm angioplasty balloon 10. Closure of the left common femoral artery arteriotomy with a 6 Turkish Perclose DATE: 03/16/17 ENTER[employer]ISE SALES PERSON: MICHA MALHOTRA MD INDICATION: Gangrene of the right lower extremity with abnormal noninvasive ultrasound MEDICATIONS: Please see nursing report for full details. DEVICES: 1.25 micron CSI atherectomy device 3 mm x 150 mm [place] angioplasty balloon CONTRAST: Please see lab head report for full details. PROCEDURE: The risks, benefits, and alternatives were discussed with the patient, her son, and her grandson; written informed consent was obtained. The patient was brought to the [facility] and prepped and draped in a sterile fashion. She was sedated by anesthesia. The left common femoral artery was evaluated with ultrasound and was patent. Under direct ultrasound guidance, left common femoral artery was accessed with a 21-gauge mitral puncture needle. 0.018 inch wire was passed into the aorta. Needle was exchanged for transitional dilator. Wire was exchanged for 0.035 inch Krishna wire. Transitional dilator was exchanged for a 5 Turkish sheath. Digital subtraction angiography was performed demonstrate patency of the left proximal superficial femoral artery, profunda femoral artery, common femoral artery, and left external iliac artery. The access was appropriate, above the bifurcation below the inferior epigastric artery. Catheter was advanced to the abdominal aorta and digital subtraction angiography was performed demonstrate patency of the abdominal aorta, bilateral common iliac arteries, bilateral internal iliac arteries, and bilateral external iliac arteries. Catheter was used to select the right common femoral artery and digital subtraction angiography demonstrated patency of the right common femoral artery , profunda femoral artery, and proximal superficial femoral artery. Catheter was exchanged for angled catheter to select the proximal superficial femoral artery. Digital subtraction angiography demonstrated patency of the right proximal and mid superficial femoral artery. The mid superficial femoral artery was selected and digital subtraction angiography demonstrated patency of the mid and distal superficial femoral artery and the popliteal artery. 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 The posterior tibial artery right dominant flow to the foot. The anterior tibial artery has multifocal moderate and severe narrowings in its proximal and midportion with patency of the distal portion of the vessel. The peroneal artery was essentially occluded through most of its course with severely stenotic proximal residual portions of the vessel, and the posterior tibial artery provided dominant flow to the foot without any significant narrowing. The patient was heparinized. The sheath was exchanged for 6 Turkish 65 cm pedicle destination positioned in the right distal superficial femoral artery. 0.035 inch Trailbl[place] and Krishna wire were used cross into the distal anterior tibial artery. Digital subtraction was performed demonstrating intraluminal crossing into the distal anterior tibial artery with patency of the distal anterior tibial artery and dorsalis pedis. Viperwire was passed into the dorsalis pedis artery. CSI atherectomy was performed at low, medium, and high settings in the proximal and mid anterior tibial artery. Afterwards, angioplasty was performed with a 3 mm angioplasty balloon at 6 yessica for 3 minutes at each station. Digital subtraction angiography was then performed demonstrating patency throughout the anterior tibial artery with minimal residual narrowing. All wires and catheters were removed. Sheath was retracted to the left external iliac artery. Krishna wire was passed into the aorta. Sheath was exchanged for 6 Turkish Perclose which was used to close the arteriotomy achieving near immediate hemostasis. Dermabond applied. Sterile dressing applied. FINDINGS: Please see procedure note above. IMPRESSION: Successful atherectomy and angioplasty of the right anterior tibial artery.
--- NOTE | 2017-03-16 14:44 | Event Note ---
Date: 03/16/17 Patient underwent successful percutaneous procedure to revascularize the anterior tibial artery of the right lower extremity. The posterior tibial artery was patent. Will still need debridement and probably TMA by orthopedics. The family wants to discuss debridement with Dr. Boyer.
[2017-03-16] MEDS ORDERED: PLAVIX PO ONE (15:00)
--- NOTE | 2017-03-16 15:07 | Progress Note ---
Assessment and Plan Assessment and plan: 81-year-old woman with no medical problem who just arrived from [facility] on day of admission who came in for eval of necrotic non healing RLE wound on foot/big toe with tendons and bones exposed -denies any chronic medical problems MR ADAMS: image reviewed; Early osteomylitis of the first promixal and distal phalanges Right foot ulcer with necrotic wound, with chronic osteomylitis -iv zosyn, ID consult -case dw General surgeon, given that tendons and bone exposed and patient has osteomyelitis, the patient will be better served by orthopedic surgery and vascular surgery. 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 AOCD send iron studies and workup Delireum frequent re-orientation, advised staff to use [place] coagulant dipper with her at all times DVT Ppx ginax grandson is Juan F: [phone] History Interval history: Continues to have foul-smelling drainage from nonhealing wound on the right foot she was confused overnight , calm today Review of systems Constitutional: No fevers, no malaise, no joint pains CVS: No chest pain, no orthopnea, no dyspnea on exertion, no pedal edema GI: No abdominal pain, no diarrhea, no vomiting, no constipation Respiratory: No shortness of breath, no wheezing, no coughing Hospitalist Physical - Physical exam Narrative exam: Gen. appearance: Patient lying in bed in no acute distress HEENT: Normocephalic/atraumatic, pupils equal round reactive to light, extra occular movement intact, no scleral icterus, no JVD or thyromegaly or nodule, neck is supple, mucous membrane moist, no erythema or exudate Heart: S1-S2, regular rate and rhythm Lungs: Clear to auscultation bilateral breathing comfortable Abdomen: Positive bowel sounds, nontender, nondistended, no organomegaly Extremities: Right foot , foul-smelling odor, yellow fibrinous material, tendons exposed over the right great toe , extensive ulcer also involving the second toe and plantar aspect of the first toe, on dorsal aspect it is involving 1st and 2nd MTP and is [id number] . No edema, cyanosis, clubbing Neuro:: Oriented 3 , cranial nerves II-12 intact, speech, motor intact Skin: No rash, nodules, warm dry - Constitutional Vitals: Temp Pulse Resp BP Pulse Ox 97.7 F 72 18 119/50 99 03/16/17 08:18 03/16/17 08:18 03/16/17 08:18 03/16/17 08:18 03/16/17 08:18 General appearance: Present: mild distress (right foot) Results - Labs CBC & Chem 7: 03/14/17 05:08 03/14/17 05:08 Labs: Laboratory Last Values WBC 5.0 K/mm3 (4.5-11.0) 03/14/17 05:08 RBC 2.64 M/mm3 (3.65-5.03) L 03/14/17 05:08 Hgb 8.1 gm/dl (10.1-14.3) L 03/14/17 05:08 Hct 25.3 % (30.3-42.9) L 03/14/17 05:08 MCV 96 fl (79-97) 03/14/17 05:08 MCH 31 pg (28-32) 03/14/17 05:08 MCHC 32 % (30-34) 03/14/17 05:08 RDW 18.8 % (13.2-15.2) H 03/14/17 05:08 Plt Count 321 K/mm3 (140-440) 03/14/17 05:08 Lymph % (Auto) Service [place] 03/10/17 22:55 [place] % (Auto) Service Porter 03/10/17 22:55 Eos % (Auto) Service [facility] 03/10/17 22:55 Baso % (Auto) Service [facility] 03/10/17 22:55 Lymph # Service [place] 03/10/17 22:55 [place] # Service Porter 03/10/17 22:55 Eos # Service [facility] 03/10/17 22:55 Baso # Service Porter 03/10/17 22:55 Add Manual Diff Complete 03/14/17 05:08 Total Counted 100 03/14/17 05:08 Seg Neutrophils % Service [place] 03/10/17 22:55 Seg Neuts % (Manual) 67.0 % (40.0-70.0) 03/14/17 05:08 Band Neutrophils % 0 % 03/14/17 05:08 Lymphocytes % (Manual) 28.0 % (13.4-35.0) 03/14/17 05:08 Reactive Lymphs % (Man) 0 % 03/14/17 05:08 Monocytes % (Manual) 4.0 % (0.0-7.3) 03/14/17 05:08 Eosinophils % (Manual) 1.0 % (0.0-4.3) 03/14/17 05:08 Basophils % (Manual) 0 % (0.0-1.8) 03/14/17 05:08 Metamyelocytes % 0 % 03/14/17 05:08 Myelocytes % 0 % 03/14/17 05:08 Promyelocytes % 0 % 03/14/17 05:08 Blast Cells % 0 % 03/14/17 05:08 Nucleated RBC % Not Reportable 03/14/17 05:08 Seg Neutrophils # Service [place] 03/10/17 22:55 Seg Neutrophils # Man 3.4 K/mm3 (1.8-7.7) 03/14/17 05:08 Band Neutrophils # 0.0 K/mm3 03/14/17 05:08 Lymphocytes # (Manual) 1.4 K/mm3 (1.2-5.4) 03/14/17 05:08 Abs React Lymphs (Man) 0.0 K/mm3 03/14/17 05:08 Monocytes # (Manual) 0.2 K/mm3 (0.0-0.8) 03/14/17 05:08 Eosinophils # (Manual) 0.1 K/mm3 (0.0-0.4) 03/14/17 05:08 Basophils # (Manual) 0.0 K/mm3 (0.0-0.1) 03/14/17 05:08 Metamyelocytes # 0.0 K/mm3 03/14/17 05:08 Myelocytes # 0.0 K/mm3 03/14/17 05:08 Promyelocytes # 0.0 K/mm3 03/14/17 05:08 Blast Cells # 0.0 K/mm3 03/14/17 05:08 Pathologist Review 03/12/17 15:25 WBC Morphology Not Reportable 03/14/17 05:08 Hypersegmented Neuts Not Reportable 03/14/17 05:08 Hyposegmented Neuts Not Reportable 03/14/17 05:08 Hypogranular Neuts Not Reportable 03/14/17 05:08 Smudge Cells Not Reportable 03/14/17 05:08 Toxic Granulation Not Reportable 03/14/17 05:08 Toxic Vacuolation Not Reportable 03/14/17 05:08 Dohle Bodies Not Reportable 03/14/17 05:08 Pelger-Huet Anomaly Not Reportable 03/14/17 05:08 Elyse Rods Not Reportable 03/14/17 05:08 Platelet Estimate Not Reportable 03/14/17 05:08 Clumped Platelets Not Reportable 03/14/17 05:08 Plt Clumps, EDTA Not Reportable 03/14/17 05:08 Large Platelets Not Reportable 03/14/17 05:08 Giant Platelets Not Reportable 03/14/17 05:08 Platelet Satelliting Not Reportable 03/14/17 05:08 Plt Morphology Comment Not Reportable 03/14/17 05:08 RBC Morphology Not Reportable 03/14/17 05:08 Dimorphic RBCs Not Reportable 03/14/17 05:08 Polychromasia Not Reportable 03/14/17 05:08 Hypochromasia 1+ 03/14/17 05:08 Poikilocytosis 2+ 03/14/17 05:08 Anisocytosis 2+ 03/14/17 05:08 Microcytosis Not Reportable 03/14/17 05:08 Macrocytosis Not Reportable 03/14/17 05:08 Spherocytes Not Reportable 03/14/17 05:08 Pappenheimer Bodies Not Reportable 03/14/17 05:08 Sickle Cells Not Reportable 03/14/17 05:08 Target Cells Few 03/14/17 05:08 Tear Drop Cells Not Reportable 03/14/17 05:08 Ovalocytes 1+ 03/14/17 05:08 Helmet Cells Not Reportable 03/14/17 05:08 [place] Bodies Not Reportable 03/14/17 05:08 [place] Rings Not Reportable 03/14/17 05:08 [place] Cells Not Reportable 03/14/17 05:08 Bite Cells Not Reportable 03/14/17 05:08 Crenated Cell Not Reportable 03/14/17 05:08 Elliptocytes Not Reportable 03/14/17 05:08 Acanthocytes (Spur) Not Reportable 03/14/17 05:08 Rouleaux Not Reportable 03/14/17 05:08 Hemoglobin C Crystals Not Reportable 03/14/17 05:08 Schistocytes Few 03/14/17 05:08 Malaria parasites Not Reportable 03/14/17 05:08 Hussain Bodies Not Reportable 03/14/17 05:08 Hem Pathologist Commnt No 03/14/17 05:08 Sodium 142 mmol/L (137-145) 03/14/17 05:08 Potassium 3.9 mmol/L (3.6-5.0) 03/14/17 05:08 Chloride 98.6 mmol/L (98-107) 03/14/17 05:08 Carbon Dioxide 33 mmol/L (22-30) H 03/14/17 05:08 Anion Gap 14 mmol/L 03/14/17 05:08 BUN 10 mg/dL (7-17) 03/14/17 05:08 Creatinine 0.7 mg/dL (0.7-1.2) 03/14/17 05:08 Estimated GFR > 60 ml/min 03/14/17 05:08 BUN/Creatinine Ratio 14 % 03/14/17 05:08 Glucose 106 mg/dL (65-100) H 03/14/17 05:08 POC Glucose 127 (70-105) H 03/13/17 12:09 Hemoglobin A1c 5.2 % (4-6) 03/11/17 03:03 Calcium 9.9 mg/dL (8.4-10.2) 03/14/17 05:08 Iron 51 ug/dL (37-170) 03/12/17 15:25 TIBC 215 mcg/dL (250-450) L 03/12/17 15:25 % Saturation 23.72 % 03/12/17 15:25 Transferrin 192 mg/dl (192-382) 03/12/17 15:25 Ferritin 332.2 ng/mL (13.0-400.0) 03/12/17 15:25 Total Bilirubin 0.40 mg/dL (0.1-1.2) 03/10/17 22:55 AST 18 units/L (5-40) 03/10/17 22:55 ALT 10 units/L (7-56) 03/10/17 22:55 Alkaline Phosphatase 100 units/L (35-129) 03/10/17 22:55 Total Creatine Kinase 40 units/L (30-135) 03/11/17 02:11 CK-MB (CK-2) 1.6 ng/mL (0.0-4.0) 03/11/17 02:11 CK-MB (CK-2) Rel Index 4.0 (0-4) 03/11/17 02:11 Troponin T < 0.010 ng/mL (0.00-0.029) 03/11/17 02:11 C-Reactive Protein 1.30 mg/dL (0.00-1.30) 03/13/17 21:09 Total Protein 8.0 g/dL (6.3-8.2) 03/10/17 22:55 Albumin 3.8 g/dL (3.9-5) L 03/10/17 22:55 Albumin/Globulin Ratio 0.9 % 03/10/17 22:55 Vitamin B12 44.64 pg/mL (211-911) L 03/12/17 15:25 Folate 16.43 ng/mL (7.3-26.0) 03/12/17 15:25
--- NOTE | 2017-03-16 16:37 | Consultation ---
History of Present Illness - HPI Consult date: 03/14/17 Consult reason: other History of present illness: 81-year-old [place] female who flew in from [facility] recently for care of chronic nonhealing wound to right forefoot and great toe. asked to evaluate regarding need for amputation. Past History Past Medical History: No medical history Past Surgical History: No surgical history Social history: no significant social history Family history: no significant family history Medications and Allergies Allergies Allergy/AdvReac Type Severity Reaction Status Date / Time No Known Allergies Allergy Unverified 03/10/17 22:33 Home Medications Medication Instructions Recorded Confirmed Last Taken Type No Known Home Medications [No 03/13/17 03/13/17 Unknown History Reported Home Medications] Active Meds: Active Medications Acetaminophen (Tylenol) 650 mg PO Q4H PRN PRN Reason: Pain MILD(1-3)/Fever >100.5/[place] Amlodipine Besylate (Norvasc) 10 mg PO QDAY [facility] Last Admin: 03/15/17 10:21 Dose: 10 mg Bisacodyl (Dulcolax) 10 mg AL QDAY PRN PRN Reason: Constipation unrelieved by MOM Clopidogrel Bisulfate (Plavix) 75 mg PO QDAY [facility] Enoxaparin Sodium (Lovenox) 40 mg SUB-Q QDAY [facility] Last Admin: 03/15/17 10:00 Dose: Not Given Hydralazine HCl (Apresoline) 5 mg IV Q6H PRN PRN Reason: Hypertension Hydrochlorothiazide (Hctz) 25 mg PO QDAY [facility] Last Admin: 03/15/17 10:00 Dose: Not Given Piperacillin Sod/Tazobactam Sod (Zosyn/Ns 4.5gm/100ml) 4.5 gm in 100 mls @ 200 mls/hr IV Q8HR [facility] PRN Reason: Protocol Last Admin: 03/16/17 05:30 Dose: 200 mls/hr Sodium Chloride (Nacl 0.9% 1000 Ml) 1,000 mls @ 75 mls/hr IV DIRECT [facility] Lisinopril (Zestril) 40 mg PO QDAY [facility] Last Admin: 03/15/17 10:21 Dose: 40 mg Lorazepam (Ativan) 2 mg IV Q4H PRN PRN Reason: Agitation Last Admin: 03/16/17 00:05 Dose: 2 mg Magnesium Hydroxide (Milk Of Magnesia) 30 ml PO Q4H PRN PRN Reason: Constipation Ondansetron HCl (Zofran) 4 mg IV Q8H PRN PRN Reason: N/V unrelieved by Reglan Sodium Hypochlorite (Dakin's Full Strength) 1 applic TP Q12H [facility] Last Admin: 03/16/17 14:44 Dose: 1 applicatio Physical Examination - Physical exam Narrative exam: Right foot - large open and exposed area surrounding the medial portion forefoot area, ++ foul odor, and drainage, multiple necrotic areas dorsal and plantar surfaces, sluggish capillary refill plain xrays - no obvious evidence of chronic osteomyelitis seen w/n bony structures, no gas seen in soft tissues Assessment and Plan grengrenous right forefoot recommendations - spoke to both the patient's grandson and son{ in [place]} about the need to perform urgently needed partial foot amputation but they refused my recommendations stating they want only conservative treatment at this time, therefore i have really nothing to offer other than amputation...
[2017-03-16] MEDS: HCTZ PO SCH (17:03)
[2017-03-16] MEDS: NORVASC PO SCH (17:04)
[2017-03-16] MEDS: ZESTRIL PO SCH (17:05)
[2017-03-16] MEDS: LOVENOX SUB-Q SCH (17:05)
[2017-03-17] MEDS: DAKIN'S FULL STRENGTH TP SCH ×3 (00:43→22:32)
[2017-03-17] MEDS: ZOSYN/NS 4.5GM/100ML 4.5 GM/100 ML VIAL IV SCH ×4 (00:44→22:31)
[2017-03-17] MEDS: NORVASC PO SCH (09:48)
[2017-03-17] MEDS: HCTZ PO SCH (09:48)
[2017-03-17] MEDS: PLAVIX PO SCH (09:48)
[2017-03-17] MEDS: ZESTRIL PO SCH (09:48)
[2017-03-17] MEDS: LOVENOX SUB-Q SCH (09:49)
--- NOTE | 2017-03-17 11:00 | Discharge Summary ---
Providers - Providers Date of Admission: 03/11/17 04:12 Attending physician: KY FISCHER MD 03/13/17 07:47 Consult to Wound/ET Nurse [CONS] Urgent Reason For Exam: necrotic foot right 03/11/17 04:12 Consult to Physician [CONS] Routine Consulting Provider: TRU LANE Reason For Exam: foot ulcer Place consult to:: dr. lane Notified:: voice mail Phone number called:: Was contact made?: No Time called:: 10:47 Comment:: left msg. 03/11/17 07:43 Consult to Physician [CONS] Routine Consulting Provider: JUANITO NICE Reason For Exam: r foot necrotic wound down to tendon and bone Place consult to:: dr. nice Notified:: Phone number called:: [phone] Was contact made?: Yes If yes, spoke with:: dr. nice Time called:: 10:58 Consult to Physician [CONS] Routine Consulting Provider: MICHA SOTO Reason For Exam: R foot necrotic wound Place consult to:: dr. soto Notified:: answering service Phone number called:: Was contact made?: Yes If yes, spoke with:: peter Time called:: 10:52 03/11/17 11:42 Consult to Physician [CONS] Routine Consulting Provider: LANEY COOPER Reason For Exam: R big toe OM Place consult to:: dr. roy Notified:: Phone number called:: [phone] Was contact made?: Yes If yes, spoke with:: dr. roy Time called:: 11:01 Primary care physician: KRYSTIN MURILLO Hospitalization Condition: Stable Hospital course: 81-year-old woman with no medical problem who just arrived from [facility] on day of admission who came in for eval of necrotic non healing RLE wound on foot/big toe with tendons and bones exposed -denies any chronic medical problems MR RLE: image reviewed; Early osteomylitis of the first promixal and distal phalanges Right foot ulcer with necrotic wound, with chronic osteomylitis -iv zosyn, ID consult -case dw General surgeon, given that tendons and bone exposed and patient has osteomyelitis, the patient will be better served by orthopedic surgery and vascular surgery. - vascular surgery input appreciated, no high grade stenosis, but given extent of wound will likely need amputation - spoke with orthopedic sx, was initially planned for ankle sparing amputation -fup blood cx -family is declining amputation,sp revasc of R anterior tibial artery, family is willing to consent to debridement by Orthopedic surgery, but not amputation Mild to Moderate Malnutrition manager financial services consult HTN urgency optimize PO meds, continue IV hydralazine PRN Anemia likely to be AOCD send iron studies and workup Delireum frequent re-orientation, advised staff to use [employer] telecasting engineer with her at all times DVT Ppx bruce alvarez Juan F: [phone] Disposition: [id number] HOME UNDER HOME [facility] Time spent for discharge: 33 minutes Core Measure Documentation - Palliative Care Palliative Care/ Comfort Measures: Not Applicable - Core Measures Any of the following diagnoses?: none Exam - Physical Exam Narrative exam: Gen. appearance: Patient lying in bed in no acute distress HEENT: Normocephalic/atraumatic, pupils equal round reactive to light, extra occular movement intact, no scleral icterus, no JVD or thyromegaly or nodule, neck is supple, mucous membrane moist, no erythema or exudate Heart: S1-S2, regular rate and rhythm Lungs: Clear to auscultation bilateral breathing comfortable Abdomen: Positive bowel sounds, nontender, nondistended, no organomegaly Extremities: Right foot , foul-smelling odor, yellow fibrinous material, tendons exposed over the right great toe , extensive ulcer also involving the second toe and plantar aspect of the first toe, on dorsal aspect it is involving 1st and 2nd MTP and is [id number] . No edema, cyanosis, clubbing Neuro:: Oriented 3 , cranial nerves II-12 intact, speech, motor intact Skin: No rash, nodules, warm dry - Constitutional Vitals: Temp Pulse Resp BP Pulse Ox 98.4 F 78 18 154/65 98 03/17/17 08:33 03/17/17 08:33 03/17/17 08:33 03/17/17 09:48 03/17/17 08:33 Plan Follow up with: KRYSTIN MURILLO MD [Primary Care Provider] - 3-5 Days Prescriptions: amLODIPine [Norvasc] 10 mg PO QDAY #30 tablet Clopidogrel [Plavix] 75 mg PO QDAY #30 tablet Hydrochlorothiazide [HCTZ] 25 mg PO QDAY #30 tablet Lisinopril [Zestril TAB] 40 mg PO QDAY #30 tablet Sodium Hypochlorite [Dakin's Full Strength] 1 applic TP Q12H #1 bottle
--- NOTE | 2017-03-17 11:04 | Progress Note ---
Assessment and Plan Assessment: 1) Right food ulcer with gangrenous changes / right great toe osteomyelitis and tendon exposure ? B12 neuropathy. No evidence of diabetes. 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 Educate family about signs of gangrene extension/sepsis -Given extensive wound with osteo, tendon exposure, MDR bacteria and family refusing amputation, the possibility of healing is very low or absent. IV antibiotics will not help and may harm if extensive debridement is not done. Consider palliative care. -ortho eval and vascular - pending I am signing off Thank you Dr Cunningham for your consultation, will follow up with you. Monique Jean MD Infectious Diseases Specialist [facility] ([facility]) M [phone] O [phone] Subjective Date of service: 03/17/17 Principal diagnosis: osteomyelitis' Interval history: Feels ok no complaints. 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 Skin: Normal temperature, turgor and texture; no rash, ulcers or subcutaneous nodules Psych: Appropriate affect, alert and oriented to person, place and time. Neuro: alert and oriented x 3. Moving all extermities Lines: No CVL / PICC - Constitutional Vitals: Vital Signs Temp Pulse Resp BP Pulse Ox 98.4 F 78 18 154/65 98 03/17/17 08:33 03/17/17 08:33 03/17/17 08:33 03/17/17 09:48 03/17/17 08:33 Temperature -Last 24 Hours Temperature 98.4 F Temperature 98.3 F - Labs CBC & Chem 7: 03/14/17 05:08 03/14/17 05:08
[2017-03-18] MEDS: ZOSYN/NS 4.5GM/100ML 4.5 GM/100 ML VIAL IV SCH ×3 (06:38→22:14)
[2017-03-18] MEDS: NORVASC PO SCH (09:42)
[2017-03-18] MEDS: ZESTRIL PO SCH (09:42)
[2017-03-18] MEDS: HCTZ PO SCH (09:42)
[2017-03-18] MEDS: PLAVIX PO SCH (09:42)
[2017-03-18] MEDS: LOVENOX SUB-Q SCH (09:43)
[2017-03-18] MEDS: DAKIN'S FULL STRENGTH TP SCH ×2 (09:46→22:15)
--- NOTE | 2017-03-18 10:14 | Progress Note ---
Assessment and Plan Assessment and plan: 81-year-old woman with no medical problem who just arrived from [facility] on day of admission who came in for eval of necrotic non healing RLE wound on foot/big toe with tendons and bones exposed -denies any chronic medical problems MR ADAMS: image reviewed; Early osteomylitis of the first promixal and distal phalanges Right foot ulcer with necrotic wound, with chronic osteomylitis -iv zosyn, ID consult -case dw General surgeon, given that tendons and bone exposed and patient has osteomyelitis, the patient will be better served by orthopedic surgery and vascular surgery. 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 HTN urgency optimize PO meds, continue IV hydralazine PRN Anemia likely to be AOCD send iron studies and workup Delireum frequent re-orientation, advised staff to use 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 appearance: Patient lying in bed in no acute distress HEENT: Normocephalic/atraumatic, pupils equal round reactive to light, extra occular movement intact, no scleral icterus, no JVD or thyromegaly or nodule, neck is supple, mucous membrane moist, no erythema or exudate Heart: S1-S2, regular rate and rhythm Lungs: Clear to auscultation bilateral breathing comfortable Abdomen: Positive bowel sounds, nontender, nondistended, no organomegaly Extremities: Right foot , foul-smelling odor, yellow fibrinous material, tendons exposed over the right great toe , extensive ulcer also involving the second toe and plantar aspect of the first toe, on dorsal aspect it is involving 1st and 2nd MTP and is [id number] . No edema, cyanosis, clubbing Neuro:: Oriented 3 , cranial nerves II-12 intact, speech, motor intact Skin: No rash, nodules, warm dry - Constitutional Vitals: Temp Pulse Resp BP Pulse Ox 98.2 F 68 18 128/57 100 03/18/17 07:56 03/18/17 07:56 03/18/17 07:56 03/18/17 09:42 03/18/17 07:56 General appearance: Present: no acute distress Results - Labs CBC & Chem 7: 03/14/17 05:08 03/14/17 05:08 Labs: Laboratory Last Values WBC 5.0 K/mm3 (4.5-11.0) 03/14/17 05:08 RBC 2.64 M/mm3 (3.65-5.03) L 03/14/17 05:08 Hgb 8.1 gm/dl (10.1-14.3) L 03/14/17 05:08 Hct 25.3 % (30.3-42.9) L 03/14/17 05:08 MCV 96 fl (79-97) 03/14/17 05:08 MCH 31 pg (28-32) 03/14/17 05:08 MCHC 32 % (30-34) 03/14/17 05:08 RDW 18.8 % (13.2-15.2) H 03/14/17 05:08 Plt Count 321 K/mm3 (140-440) 03/14/17 05:08 Lymph % (Auto) Fitness And Wellness Director 03/10/17 22:55 [place] % (Auto) Fitness And Wellness Director 03/10/17 22:55 Eos % (Auto) Fitness And Wellness Director 03/10/17 22:55 Baso % (Auto) Fitness And Wellness Director 03/10/17 22:55 Lymph # Fitness And Wellness Director 03/10/17 22:55 [place] # Fitness And Wellness Director 03/10/17 22:55 Eos # Fitness And Wellness Director 03/10/17 22:55 Baso # Fitness And Wellness Director 03/10/17 22:55 Add Manual Diff Complete 03/14/17 05:08 Total Counted 100 03/14/17 05:08 Seg Neutrophils % Fitness And Wellness Director 03/10/17 22:55 Seg Neuts % (Manual) 67.0 % (40.0-70.0) 03/14/17 05:08 Band Neutrophils % 0 % 03/14/17 05:08 Lymphocytes % (Manual) 28.0 % (13.4-35.0) 03/14/17 05:08 Reactive Lymphs % (Man) 0 % 03/14/17 05:08 Monocytes % (Manual) 4.0 % (0.0-7.3) 03/14/17 05:08 Eosinophils % (Manual) 1.0 % (0.0-4.3) 03/14/17 05:08 Basophils % (Manual) 0 % (0.0-1.8) 03/14/17 05:08 Metamyelocytes % 0 % 03/14/17 05:08 Myelocytes % 0 % 03/14/17 05:08 Promyelocytes % 0 % 03/14/17 05:08 Blast Cells % 0 % 03/14/17 05:08 Nucleated RBC % Not Reportable 03/14/17 05:08 Seg Neutrophils # Fitness And Wellness Director 03/10/17 22:55 Seg Neutrophils # Man 3.4 K/mm3 (1.8-7.7) 03/14/17 05:08 Band Neutrophils # 0.0 K/mm3 03/14/17 05:08 Lymphocytes # (Manual) 1.4 K/mm3 (1.2-5.4) 03/14/17 05:08 Abs React Lymphs (Man) 0.0 K/mm3 03/14/17 05:08 Monocytes # (Manual) 0.2 K/mm3 (0.0-0.8) 03/14/17 05:08 Eosinophils # (Manual) 0.1 K/mm3 (0.0-0.4) 03/14/17 05:08 Basophils # (Manual) 0.0 K/mm3 (0.0-0.1) 03/14/17 05:08 Metamyelocytes # 0.0 K/mm3 03/14/17 05:08 Myelocytes # 0.0 K/mm3 03/14/17 05:08 Promyelocytes # 0.0 K/mm3 03/14/17 05:08 Blast Cells # 0.0 K/mm3 03/14/17 05:08 Pathologist Review 03/12/17 15:25 WBC Morphology Not Reportable 03/14/17 05:08 Hypersegmented Neuts Not Reportable 03/14/17 05:08 Hyposegmented Neuts Not Reportable 03/14/17 05:08 Hypogranular Neuts Not Reportable 03/14/17 05:08 Smudge Cells Not Reportable 03/14/17 05:08 Toxic Granulation Not Reportable 03/14/17 05:08 Toxic Vacuolation Not Reportable 03/14/17 05:08 Dohle Bodies Not Reportable 03/14/17 05:08 Pelger-Huet Anomaly Not Reportable 03/14/17 05:08 Elyse Rods Not Reportable 03/14/17 05:08 Platelet Estimate Not Reportable 03/14/17 05:08 Clumped Platelets Not Reportable 03/14/17 05:08 Plt Clumps, EDTA Not Reportable 03/14/17 05:08 Large Platelets Not Reportable 03/14/17 05:08 Giant Platelets Not Reportable 03/14/17 05:08 Platelet Satelliting Not Reportable 03/14/17 05:08 Plt Morphology Comment Not Reportable 03/14/17 05:08 RBC Morphology Not Reportable 03/14/17 05:08 Dimorphic RBCs Not Reportable 03/14/17 05:08 Polychromasia Not Reportable 03/14/17 05:08 Hypochromasia 1+ 03/14/17 05:08 Poikilocytosis 2+ 03/14/17 05:08 Anisocytosis 2+ 03/14/17 05:08 Microcytosis Not Reportable 03/14/17 05:08 Macrocytosis Not Reportable 03/14/17 05:08 Spherocytes Not Reportable 03/14/17 05:08 Pappenheimer Bodies Not Reportable 03/14/17 05:08 Sickle Cells Not Reportable 03/14/17 05:08 Target Cells Few 03/14/17 05:08 Tear Drop Cells Not Reportable 03/14/17 05:08 Ovalocytes 1+ 03/14/17 05:08 Helmet Cells Not Reportable 03/14/17 05:08 [place] Bodies Not Reportable 03/14/17 05:08 [place] Rings Not Reportable 03/14/17 05:08 [place] Cells Not Reportable 03/14/17 05:08 Bite Cells Not Reportable 03/14/17 05:08 Crenated Cell Not Reportable 03/14/17 05:08 Elliptocytes Not Reportable 03/14/17 05:08 Acanthocytes (Spur) Not Reportable 03/14/17 05:08 Rouleaux Not Reportable 03/14/17 05:08 Hemoglobin C Crystals Not Reportable 03/14/17 05:08 Schistocytes Few 03/14/17 05:08 Malaria parasites Not Reportable 03/14/17 05:08 Hussain Bodies Not Reportable 03/14/17 05:08 Hem Pathologist Commnt No 03/14/17 05:08 Sodium 142 mmol/L (137-145) 03/14/17 05:08 Potassium 3.9 mmol/L (3.6-5.0) 03/14/17 05:08 Chloride 98.6 mmol/L (98-107) 03/14/17 05:08 Carbon Dioxide 33 mmol/L (22-30) H 03/14/17 05:08 Anion Gap 14 mmol/L 03/14/17 05:08 BUN 10 mg/dL (7-17) 03/14/17 05:08 Creatinine 0.7 mg/dL (0.7-1.2) 03/14/17 05:08 Estimated GFR > 60 ml/min 03/14/17 05:08 BUN/Creatinine Ratio 14 % 03/14/17 05:08 Glucose 106 mg/dL (65-100) H 03/14/17 05:08 POC Glucose 127 (70-105) H 03/13/17 12:09 Hemoglobin A1c 5.2 % (4-6) 03/11/17 03:03 Calcium 9.9 mg/dL (8.4-10.2) 03/14/17 05:08 Iron 51 ug/dL (37-170) 03/12/17 15:25 TIBC 215 mcg/dL (250-450) L 03/12/17 15:25 % Saturation 23.72 % 03/12/17 15:25 Transferrin 192 mg/dl (192-382) 03/12/17 15:25 Ferritin 332.2 ng/mL (13.0-400.0) 03/12/17 15:25 Total Bilirubin 0.40 mg/dL (0.1-1.2) 03/10/17 22:55 AST 18 units/L (5-40) 03/10/17 22:55 ALT 10 units/L (7-56) 03/10/17 22:55 Alkaline Phosphatase 100 units/L (35-129) 03/10/17 22:55 Total Creatine Kinase 40 units/L (30-135) 03/11/17 02:11 CK-MB (CK-2) 1.6 ng/mL (0.0-4.0) 03/11/17 02:11 CK-MB (CK-2) Rel Index 4.0 (0-4) 03/11/17 02:11 Troponin T < 0.010 ng/mL (0.00-0.029) 03/11/17 02:11 C-Reactive Protein 1.30 mg/dL (0.00-1.30) 03/13/17 21:09 Total Protein 8.0 g/dL (6.3-8.2) 03/10/17 22:55 Albumin 3.8 g/dL (3.9-5) L 03/10/17 22:55 Albumin/Globulin Ratio 0.9 % 03/10/17 22:55 Vitamin B12 44.64 pg/mL (211-911) L 03/12/17 15:25 Folate 16.43 ng/mL (7.3-26.0) 03/12/17 15:25
--- NOTE | 2017-03-18 10:14 | Progress Note ---
Assessment and Plan Assessment and plan: 81-year-old woman with no medical problem who just arrived from [facility] on day of admission who came in for eval of necrotic non healing RLE wound on foot/big toe with tendons and bones exposed -denies any chronic medical problems MR ADAMS: image reviewed; Early osteomylitis of the first promixal and distal phalanges Right foot ulcer with necrotic wound, with chronic osteomylitis -iv zosyn, ID consult -case dw General surgeon, given that tendons and bone exposed and patient has osteomyelitis, the patient will be better served by orthopedic surgery and vascular surgery. 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 AOCD send iron studies and workup Delireum frequent re-orientation, advised staff to use [employer] science interpreter with her at all times DVT Ppx lovenox grandson is Juan F: [phone] History Interval history: Continues to have foul-smelling drainage from non-healing wound on the right foot she was confused overnight , calm today Review of systems Constitutional: No fevers, no malaise, no joint pains CVS: No chest pain, no orthopnea, no dyspnea on exertion, no pedal edema GI: No abdominal pain, no diarrhea, no vomiting, no constipation Respiratory: No shortness of breath, no wheezing, no coughing Hospitalist Physical - Physical exam Narrative exam: Gen. appearance: Patient lying in bed in no acute distress HEENT: Normocephalic/atraumatic, pupils equal round reactive to light, extra occular movement intact, no scleral icterus, no JVD or thyromegaly or nodule, neck is supple, mucous membrane moist, no erythema or exudate Heart: S1-S2, regular rate and rhythm Lungs: Clear to auscultation bilateral breathing comfortable Abdomen: Positive bowel sounds, nontender, nondistended, no organomegaly Extremities: Right foot , foul-smelling odor, yellow fibrinous material, tendons exposed over the right great toe , extensive ulcer also involving the second toe and plantar aspect of the first toe, on dorsal aspect it is involving 1st and 2nd MTP and is [id number] . No edema, cyanosis, clubbing Neuro:: Oriented 3 , cranial nerves II-12 intact, speech, motor intact Skin: No rash, nodules, warm dry - Constitutional Vitals: Temp Pulse Resp BP Pulse Ox 98.2 F 68 18 128/57 100 03/18/17 07:56 03/18/17 07:56 03/18/17 07:56 03/18/17 09:42 03/18/17 07:56 Results - Labs CBC & Chem 7: 03/14/17 05:08 03/14/17 05:08 Labs: Laboratory Last Values WBC 5.0 K/mm3 (4.5-11.0) 03/14/17 05:08 RBC 2.64 M/mm3 (3.65-5.03) L 03/14/17 05:08 Hgb 8.1 gm/dl (10.1-14.3) L 03/14/17 05:08 Hct 25.3 % (30.3-42.9) L 03/14/17 05:08 MCV 96 fl (79-97) 03/14/17 05:08 MCH 31 pg (28-32) 03/14/17 05:08 MCHC 32 % (30-34) 03/14/17 05:08 RDW 18.8 % (13.2-15.2) H 03/14/17 05:08 Plt Count 321 K/mm3 (140-440) 03/14/17 05:08 Lymph % (Auto) Metallurgical Tester 03/10/17 22:55 [place] % (Auto) Metallurgical Tester 03/10/17 22:55 Eos % (Auto) Metallurgical Tester 03/10/17 22:55 Baso % (Auto) Metallurgical Tester 03/10/17 22:55 Lymph # Metallurgical Tester 03/10/17 22:55 [place] # Metallurgical Tester 03/10/17 22:55 Eos # Metallurgical Tester 03/10/17 22:55 Baso # Metallurgical Tester 03/10/17 22:55 Add Manual Diff Complete 03/14/17 05:08 Total Counted 100 03/14/17 05:08 Seg Neutrophils % Metallurgical Tester 03/10/17 22:55 Seg Neuts % (Manual) 67.0 % (40.0-70.0) 03/14/17 05:08 Band Neutrophils % 0 % 03/14/17 05:08 Lymphocytes % (Manual) 28.0 % (13.4-35.0) 03/14/17 05:08 Reactive Lymphs % (Man) 0 % 03/14/17 05:08 Monocytes % (Manual) 4.0 % (0.0-7.3) 03/14/17 05:08 Eosinophils % (Manual) 1.0 % (0.0-4.3) 03/14/17 05:08 Basophils % (Manual) 0 % (0.0-1.8) 03/14/17 05:08 Metamyelocytes % 0 % 03/14/17 05:08 Myelocytes % 0 % 03/14/17 05:08 Promyelocytes % 0 % 03/14/17 05:08 Blast Cells % 0 % 03/14/17 05:08 Nucleated RBC % Not Reportable 03/14/17 05:08 Seg Neutrophils # Metallurgical Tester 03/10/17 22:55 Seg Neutrophils # Man 3.4 K/mm3 (1.8-7.7) 03/14/17 05:08 Band Neutrophils # 0.0 K/mm3 03/14/17 05:08 Lymphocytes # (Manual) 1.4 K/mm3 (1.2-5.4) 03/14/17 05:08 Abs React Lymphs (Man) 0.0 K/mm3 03/14/17 05:08 Monocytes # (Manual) 0.2 K/mm3 (0.0-0.8) 03/14/17 05:08 Eosinophils # (Manual) 0.1 K/mm3 (0.0-0.4) 03/14/17 05:08 Basophils # (Manual) 0.0 K/mm3 (0.0-0.1) 03/14/17 05:08 Metamyelocytes # 0.0 K/mm3 03/14/17 05:08 Myelocytes # 0.0 K/mm3 03/14/17 05:08 Promyelocytes # 0.0 K/mm3 03/14/17 05:08 Blast Cells # 0.0 K/mm3 03/14/17 05:08 Pathologist Review 03/12/17 15:25 WBC Morphology Not Reportable 03/14/17 05:08 Hypersegmented Neuts Not Reportable 03/14/17 05:08 Hyposegmented Neuts Not Reportable 03/14/17 05:08 Hypogranular Neuts Not Reportable 03/14/17 05:08 Smudge Cells Not Reportable 03/14/17 05:08 Toxic Granulation Not Reportable 03/14/17 05:08 Toxic Vacuolation Not Reportable 03/14/17 05:08 Dohle Bodies Not Reportable 03/14/17 05:08 Pelger-Huet Anomaly Not Reportable 03/14/17 05:08 Elyse Rods Not Reportable 03/14/17 05:08 Platelet Estimate Not Reportable 03/14/17 05:08 Clumped Platelets Not Reportable 03/14/17 05:08 Plt Clumps, EDTA Not Reportable 03/14/17 05:08 Large Platelets Not Reportable 03/14/17 05:08 Giant Platelets Not Reportable 03/14/17 05:08 Platelet Satelliting Not Reportable 03/14/17 05:08 Plt Morphology Comment Not Reportable 03/14/17 05:08 RBC Morphology Not Reportable 03/14/17 05:08 Dimorphic RBCs Not Reportable 03/14/17 05:08 Polychromasia Not Reportable 03/14/17 05:08 Hypochromasia 1+ 03/14/17 05:08 Poikilocytosis 2+ 03/14/17 05:08 Anisocytosis 2+ 03/14/17 05:08 Microcytosis Not Reportable 03/14/17 05:08 Macrocytosis Not Reportable 03/14/17 05:08 Spherocytes Not Reportable 03/14/17 05:08 Pappenheimer Bodies Not Reportable 03/14/17 05:08 Sickle Cells Not Reportable 03/14/17 05:08 Target Cells Few 03/14/17 05:08 Tear Drop Cells Not Reportable 03/14/17 05:08 Ovalocytes 1+ 03/14/17 05:08 Helmet Cells Not Reportable 03/14/17 05:08 [place] Bodies Not Reportable 03/14/17 05:08 [place] Rings Not Reportable 03/14/17 05:08 [place] Cells Not Reportable 03/14/17 05:08 Bite Cells Not Reportable 03/14/17 05:08 Crenated Cell Not Reportable 03/14/17 05:08 Elliptocytes Not Reportable 03/14/17 05:08 Acanthocytes (Spur) Not Reportable 03/14/17 05:08 Rouleaux Not Reportable 03/14/17 05:08 Hemoglobin C Crystals Not Reportable 03/14/17 05:08 Schistocytes Few 03/14/17 05:08 Malaria parasites Not Reportable 03/14/17 05:08 Hussain Bodies Not Reportable 03/14/17 05:08 Hem Pathologist Commnt No 03/14/17 05:08 Sodium 142 mmol/L (137-145) 03/14/17 05:08 Potassium 3.9 mmol/L (3.6-5.0) 03/14/17 05:08 Chloride 98.6 mmol/L (98-107) 03/14/17 05:08 Carbon Dioxide 33 mmol/L (22-30) H 03/14/17 05:08 Anion Gap 14 mmol/L 03/14/17 05:08 BUN 10 mg/dL (7-17) 03/14/17 05:08 Creatinine 0.7 mg/dL (0.7-1.2) 03/14/17 05:08 Estimated GFR > 60 ml/min 03/14/17 05:08 BUN/Creatinine Ratio 14 % 03/14/17 05:08 Glucose 106 mg/dL (65-100) H 03/14/17 05:08 POC Glucose 127 (70-105) H 03/13/17 12:09 Hemoglobin A1c 5.2 % (4-6) 03/11/17 03:03 Calcium 9.9 mg/dL (8.4-10.2) 03/14/17 05:08 Iron 51 ug/dL (37-170) 03/12/17 15:25 TIBC 215 mcg/dL (250-450) L 03/12/17 15:25 % Saturation 23.72 % 03/12/17 15:25 Transferrin 192 mg/dl (192-382) 03/12/17 15:25 Ferritin 332.2 ng/mL (13.0-400.0) 03/12/17 15:25 Total Bilirubin 0.40 mg/dL (0.1-1.2) 03/10/17 22:55 AST 18 units/L (5-40) 03/10/17 22:55 ALT 10 units/L (7-56) 03/10/17 22:55 Alkaline Phosphatase 100 units/L (35-129) 03/10/17 22:55 Total Creatine Kinase 40 units/L (30-135) 03/11/17 02:11 CK-MB (CK-2) 1.6 ng/mL (0.0-4.0) 03/11/17 02:11 CK-MB (CK-2) Rel Index 4.0 (0-4) 03/11/17 02:11 Troponin T < 0.010 ng/mL (0.00-0.029) 03/11/17 02:11 C-Reactive Protein 1.30 mg/dL (0.00-1.30) 03/13/17 21:09 Total Protein 8.0 g/dL (6.3-8.2) 03/10/17 22:55 Albumin 3.8 g/dL (3.9-5) L 03/10/17 22:55 Albumin/Globulin Ratio 0.9 % 03/10/17 22:55 Vitamin B12 44.64 pg/mL (211-911) L 03/12/17 15:25 Folate 16.43 ng/mL (7.3-26.0) 03/12/17 15:25
[2017-03-19] MEDS: ZOSYN/NS 4.5GM/100ML 4.5 GM/100 ML VIAL IV SCH ×3 (06:46→23:25)
[2017-03-19] MEDS: LOVENOX SUB-Q SCH (11:47)
[2017-03-19] MEDS: PLAVIX PO SCH (11:48)
[2017-03-19] MEDS: HCTZ PO SCH (11:48)
[2017-03-19] MEDS: ZESTRIL PO SCH (11:48)
[2017-03-19] MEDS: NORVASC PO SCH (11:48)
--- NOTE | 2017-03-19 15:18 | Progress Note ---
Assessment and Plan Assessment and plan: 81-year-old woman with no medical problem who just arrived from [facility] on day of admission who came in for eval of necrotic non healing RLE wound on foot/big toe with tendons and bones exposed -denies any chronic medical problems MR ADAMS: image reviewed; Early osteomylitis of the first promixal and distal phalanges Right foot ulcer with necrotic wound, with chronic osteomylitis -iv zosyn, ID consult -case dw General surgeon, given that tendons and bone exposed and patient has osteomyelitis, the patient will be better served by orthopedic surgery and vascular surgery. 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 be AOCD send iron studies and workup Delireum frequent re-orientation, advised staff to use [email or web address] chemistry laboratory technician with her at all times DVT Ppx lovenox grandson is Juan F: [phone] History Interval history: Continues to have foul-smelling drainage from non-healing wound on the right foot she was confused overnight , calm today Review of systems Constitutional: No fevers, no malaise, no joint pains CVS: No chest pain, no orthopnea, no dyspnea on exertion, no pedal edema GI: No abdominal pain, no diarrhea, no vomiting, no constipation Respiratory: No shortness of breath, no wheezing, no coughing Hospitalist Physical - Physical exam Narrative exam: Gen. appearance: Patient lying in bed in no acute distress HEENT: Normocephalic/atraumatic, pupils equal round reactive to light, extra occular movement intact, no scleral icterus, no JVD or thyromegaly or nodule, neck is supple, mucous membrane moist, no erythema or exudate Heart: S1-S2, regular rate and rhythm Lungs: Clear to auscultation bilateral breathing comfortable Abdomen: Positive bowel sounds, nontender, nondistended, no organomegaly Extremities: Right foot , foul-smelling odor, yellow fibrinous material, tendons exposed over the right great toe , extensive ulcer also involving the second toe and plantar aspect of the first toe, on dorsal aspect it is involving 1st and 2nd MTP and is [id number] . No edema, cyanosis, clubbing Neuro:: Oriented 3 , cranial nerves II-12 intact, speech, motor intact Skin: No rash, nodules, warm dry - Constitutional Vitals: Temp Pulse Resp BP Pulse Ox 98.9 F 57 L 20 136/54 100 03/19/17 07:30 03/19/17 07:30 03/19/17 07:30 03/19/17 07:30 03/19/17 07:30 General appearance: Present: no acute distress Results - Labs CBC & Chem 7: 03/14/17 05:08 03/14/17 05:08 Labs: Laboratory Last Values WBC 5.0 K/mm3 (4.5-11.0) 03/14/17 05:08 RBC 2.64 M/mm3 (3.65-5.03) L 03/14/17 05:08 Hgb 8.1 gm/dl (10.1-14.3) L 03/14/17 05:08 Hct 25.3 % (30.3-42.9) L 03/14/17 05:08 MCV 96 fl (79-97) 03/14/17 05:08 MCH 31 pg (28-32) 03/14/17 05:08 MCHC 32 % (30-34) 03/14/17 05:08 RDW 18.8 % (13.2-15.2) H 03/14/17 05:08 Plt Count 321 K/mm3 (140-440) 03/14/17 05:08 Lymph % (Auto) User Experience Lead 03/10/17 22:55 [place] % (Auto) User Experience Lead 03/10/17 22:55 Eos % (Auto) User Experience Lead 03/10/17 22:55 Baso % (Auto) User Experience Lead 03/10/17 22:55 Lymph # User Experience Lead 03/10/17 22:55 [place] # User Experience Lead 03/10/17 22:55 Eos # User Experience Lead 03/10/17 22:55 Baso # User Experience Lead 03/10/17 22:55 Add Manual Diff Complete 03/14/17 05:08 Total Counted 100 03/14/17 05:08 Seg Neutrophils % User Experience Lead 03/10/17 22:55 Seg Neuts % (Manual) 67.0 % (40.0-70.0) 03/14/17 05:08 Band Neutrophils % 0 % 03/14/17 05:08 Lymphocytes % (Manual) 28.0 % (13.4-35.0) 03/14/17 05:08 Reactive Lymphs % (Man) 0 % 03/14/17 05:08 Monocytes % (Manual) 4.0 % (0.0-7.3) 03/14/17 05:08 Eosinophils % (Manual) 1.0 % (0.0-4.3) 03/14/17 05:08 Basophils % (Manual) 0 % (0.0-1.8) 03/14/17 05:08 Metamyelocytes % 0 % 03/14/17 05:08 Myelocytes % 0 % 03/14/17 05:08 Promyelocytes % 0 % 03/14/17 05:08 Blast Cells % 0 % 03/14/17 05:08 Nucleated RBC % Not Reportable 03/14/17 05:08 Seg Neutrophils # User Experience Lead 03/10/17 22:55 Seg Neutrophils # Man 3.4 K/mm3 (1.8-7.7) 03/14/17 05:08 Band Neutrophils # 0.0 K/mm3 03/14/17 05:08 Lymphocytes # (Manual) 1.4 K/mm3 (1.2-5.4) 03/14/17 05:08 Abs React Lymphs (Man) 0.0 K/mm3 03/14/17 05:08 Monocytes # (Manual) 0.2 K/mm3 (0.0-0.8) 03/14/17 05:08 Eosinophils # (Manual) 0.1 K/mm3 (0.0-0.4) 03/14/17 05:08 Basophils # (Manual) 0.0 K/mm3 (0.0-0.1) 03/14/17 05:08 Metamyelocytes # 0.0 K/mm3 03/14/17 05:08 Myelocytes # 0.0 K/mm3 03/14/17 05:08 Promyelocytes # 0.0 K/mm3 03/14/17 05:08 Blast Cells # 0.0 K/mm3 03/14/17 05:08 Pathologist Review 03/12/17 15:25 WBC Morphology Not Reportable 03/14/17 05:08 Hypersegmented Neuts Not Reportable 03/14/17 05:08 Hyposegmented Neuts Not Reportable 03/14/17 05:08 Hypogranular Neuts Not Reportable 03/14/17 05:08 Smudge Cells Not Reportable 03/14/17 05:08 Toxic Granulation Not Reportable 03/14/17 05:08 Toxic Vacuolation Not Reportable 03/14/17 05:08 Dohle Bodies Not Reportable 03/14/17 05:08 Pelger-Huet Anomaly Not Reportable 03/14/17 05:08 Elyse Rods Not Reportable 03/14/17 05:08 Platelet Estimate Not Reportable 03/14/17 05:08 Clumped Platelets Not Reportable 03/14/17 05:08 Plt Clumps, EDTA Not Reportable 03/14/17 05:08 Large Platelets Not Reportable 03/14/17 05:08 Giant Platelets Not Reportable 03/14/17 05:08 Platelet Satelliting Not Reportable 03/14/17 05:08 Plt Morphology Comment Not Reportable 03/14/17 05:08 RBC Morphology Not Reportable 03/14/17 05:08 Dimorphic RBCs Not Reportable 03/14/17 05:08 Polychromasia Not Reportable 03/14/17 05:08 Hypochromasia 1+ 03/14/17 05:08 Poikilocytosis 2+ 03/14/17 05:08 Anisocytosis 2+ 03/14/17 05:08 Microcytosis Not Reportable 03/14/17 05:08 Macrocytosis Not Reportable 03/14/17 05:08 Spherocytes Not Reportable 03/14/17 05:08 Pappenheimer Bodies Not Reportable 03/14/17 05:08 Sickle Cells Not Reportable 03/14/17 05:08 Target Cells Few 03/14/17 05:08 Tear Drop Cells Not Reportable 03/14/17 05:08 Ovalocytes 1+ 03/14/17 05:08 Helmet Cells Not Reportable 03/14/17 05:[address] [place] Bodies Not Reportable 03/14/17 05:08 [place] Rings Not Reportable 03/14/17 05:08 Darian Cells Not Reportable 03/14/17 05:08 Bite Cells Not Reportable 03/14/17 05:08 Crenated Cell Not Reportable 03/14/17 05:08 Elliptocytes Not Reportable 03/14/17 05:08 Acanthocytes (Spur) Not Reportable 03/14/17 05:08 Rouleaux Not Reportable 03/14/17 05:08 Hemoglobin C Crystals Not Reportable 03/14/17 05:08 Schistocytes Few 03/14/17 05:08 Malaria parasites Not Reportable 03/14/17 05:08 Hussain Bodies Not Reportable 03/14/17 05:08 Hem Pathologist Commnt No 03/14/17 05:08 Sodium 142 mmol/L (137-145) 03/14/17 05:08 Potassium 3.9 mmol/L (3.6-5.0) 03/14/17 05:08 Chloride 98.6 mmol/L (98-107) 03/14/17 05:08 Carbon Dioxide 33 mmol/L (22-30) H 03/14/17 05:08 Anion Gap 14 mmol/L 03/14/17 05:08 BUN 10 mg/dL (7-17) 03/14/17 05:08 Creatinine 0.7 mg/dL (0.7-1.2) 03/14/17 05:08 Estimated GFR > 60 ml/min 03/14/17 05:08 BUN/Creatinine Ratio 14 % 03/14/17 05:08 Glucose 106 mg/dL (65-100) H 03/14/17 05:08 POC Glucose 127 (70-105) H 03/13/17 12:09 Hemoglobin A1c 5.2 % (4-6) 03/11/17 03:03 Calcium 9.9 mg/dL (8.4-10.2) 03/14/17 05:08 Iron 51 ug/dL (37-170) 03/12/17 15:25 TIBC 215 mcg/dL (250-450) L 03/12/17 15:25 % Saturation 23.72 % 03/12/17 15:25 Transferrin 192 mg/dl (192-382) 03/12/17 15:25 Ferritin 332.2 ng/mL (13.0-400.0) 03/12/17 15:25 Total Bilirubin 0.40 mg/dL (0.1-1.2) 03/10/17 22:55 AST 18 units/L (5-40) 03/10/17 22:55 ALT 10 units/L (7-56) 03/10/17 22:55 Alkaline Phosphatase 100 units/L (35-129) 03/10/17 22:55 Total Creatine Kinase 40 units/L (30-135) 03/11/17 02:11 CK-MB (CK-2) 1.6 ng/mL (0.0-4.0) 03/11/17 02:11 CK-MB (CK-2) Rel Index 4.0 (0-4) 03/11/17 02:11 Troponin T < 0.010 ng/mL (0.00-0.029) 03/11/17 02:11 C-Reactive Protein 1.30 mg/dL (0.00-1.30) 03/13/17 21:09 Total Protein 8.0 g/dL (6.3-8.2) 03/10/17 22:55 Albumin 3.8 g/dL (3.9-5) L 03/10/17 22:55 Albumin/Globulin Ratio 0.9 % 03/10/17 22:55 Vitamin B12 44.64 pg/mL (211-911) L 03/12/17 15:25 Folate 16.43 ng/mL (7.3-26.0) 03/12/17 15:25
[2017-03-19] MEDS ORDERED: NACL 0.9% 1000 ML 1,000 ML ONE (16:34)
[2017-03-19] MEDS ORDERED: VERSED ONE (16:35)
[2017-03-19] MEDS ORDERED: XYLOCAINE 1% 20 mL INFILTRATI ONE (16:51)
[2017-03-19] MEDS ORDERED: SUBLIMAZE ONE (16:55)
[2017-03-19] MEDS ORDERED: XYLOCAINE 1% 20 mL ONE (16:58)
--- NOTE | 2017-03-19 17:39 | Procedure Note ---
Date of procedure: 03/19/17 Pre-op diagnosis: gangrene right forefoot Post-op diagnosis: same Procedure: Debridement and irrigation right forefoot Procedure The patient was brought to the OR placed on table in supine position The right lower extremity was prepped and draped in the usual sterile manner using IV sedation as well as local infiltration with Xylocaine the wound was explored the patient was noted to have pink granulating tissue both dorsally and along the plantar surface which was significantly improved from last week therefore simple debridement was done at this time this will be followed by skin grafting in the next 3-4 days. Using the #15 blade and the necrotic tissue was removed down to healthier tissue. She had good capillary refill to distal phalanx great toe. Post op dressing applied and taken to PACU in stable condition
[2017-03-19] MEDS ORDERED: SODIUM CHLORIDE FLUSH SYRINGE 10 ML IV SCH (18:00)
[2017-03-19] MEDS: NACL 0.9% 1000 ML 1,000 ML IV SCH (23:25)
[2017-03-20] MEDS: ZOSYN/NS 4.5GM/100ML 4.5 GM/100 ML VIAL IV SCH ×3 (06:26→22:32)
[2017-03-20] MEDS: NORVASC PO SCH (12:27)
[2017-03-20] MEDS: PLAVIX PO SCH (12:27)
[2017-03-20] MEDS: HCTZ PO SCH (12:28)
[2017-03-20] MEDS: LOVENOX SUB-Q SCH (12:28)
[2017-03-20] MEDS: ZESTRIL PO SCH (12:35)
--- NOTE | 2017-03-20 14:37 | Progress Note ---
Assessment and Plan Assessment and plan: 81-year-old woman with no medical problem who just arrived from [facility] on day of admission who came in for eval of necrotic non healing RLE wound on foot/big toe with tendons and bones exposed -denies any chronic medical problems MR ADAMS: image reviewed; Early osteomylitis of the first promixal and distal phalanges Right foot ulcer with necrotic wound, with chronic osteomylitis -iv zosyn, ID consult -case dw General surgeon, given that tendons and bone exposed and patient has osteomyelitis, the patient will be better served by orthopedic surgery and vascular surgery. 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 appearance: Patient lying in bed in no acute distress HEENT: Normocephalic/atraumatic, pupils equal round reactive to light, extra occular movement intact, no scleral icterus, no JVD or thyromegaly or nodule, neck is supple, mucous membrane moist, no erythema or exudate Heart: S1-S2, regular rate and rhythm Lungs: Clear to auscultation bilateral breathing comfortable Abdomen: Positive bowel sounds, nontender, nondistended, no organomegaly Extremities: Right foot with dressing, dressing was not removed Neuro:: Oriented 3 , cranial nerves II-12 intact, speech, motor intact Skin: No rash, nodules, warm dry - Constitutional Vitals: Temp Pulse Resp BP Pulse Ox 98.4 F 68 18 142/61 97 03/20/17 08:03 03/20/17 12:35 03/20/17 08:03 03/20/17 12:35 03/20/17 08:03 General appearance: Present: no acute distress Results - Labs CBC & Chem 7: 03/14/17 05:08 03/14/17 05:08 Labs: Laboratory Last Values WBC 5.0 K/mm3 (4.5-11.0) 03/14/17 05:08 RBC 2.64 M/mm3 (3.65-5.03) L 03/14/17 05:08 Hgb 8.1 gm/dl (10.1-14.3) L 03/14/17 05:08 Hct 25.3 % (30.3-42.9) L 03/14/17 05:08 MCV 96 fl (79-97) 03/14/17 05:08 MCH 31 pg (28-32) 03/14/17 05:08 MCHC 32 % (30-34) 03/14/17 05:08 RDW 18.8 % (13.2-15.2) H 03/14/17 05:08 Plt Count 321 K/mm3 (140-440) 03/14/17 05:08 Lymph % (Auto) [employer] 03/10/17 22:55 [place] % (Auto) Warehouse Incentive Selector 03/10/17 22:55 Eos % (Auto) Warehouse Incentive Selector 03/10/17 22:55 Baso % (Auto) [employer]house [employer] Selector 03/10/17 22:55 Lymph # Warehouse Incentive Selector 03/10/17 22:55 [place] # Warehouse Incentive Selector 03/10/17 22:55 Eos # Warehouse Incentive Selector 03/10/17 22:55 Baso # Warehouse Incentive Selector 03/10/17 22:55 Add Manual Diff Complete 03/14/17 05:08 Total Counted 100 03/14/17 05:08 Seg Neutrophils % Warehouse Incentive Selector 03/10/17 22:55 Seg Neuts % (Manual) 67.0 % (40.0-70.0) 03/14/17 05:08 Band Neutrophils % 0 % 03/14/17 05:08 Lymphocytes % (Manual) 28.0 % (13.4-35.0) 03/14/17 05:08 Reactive Lymphs % (Man) 0 % 03/14/17 05:08 Monocytes % (Manual) 4.0 % (0.0-7.3) 03/14/17 05:08 Eosinophils % (Manual) 1.0 % (0.0-4.3) 03/14/17 05:08 Basophils % (Manual) 0 % (0.0-1.8) 03/14/17 05:08 Metamyelocytes % 0 % 03/14/17 05:08 Myelocytes % 0 % 03/14/17 05:08 Promyelocytes % 0 % 03/14/17 05:08 Blast Cells % 0 % 03/14/17 05:08 Nucleated RBC % Not Reportable 03/14/17 05:08 Seg Neutrophils # Warehouse Incentive Selector 03/10/17 22:55 Seg Neutrophils # Man 3.4 K/mm3 (1.8-7.7) 03/14/17 05:08 Band Neutrophils # 0.0 K/mm3 03/14/17 05:08 Lymphocytes # (Manual) 1.4 K/mm3 (1.2-5.4) 03/14/17 05:08 Abs React Lymphs (Man) 0.0 K/mm3 03/14/17 05:08 Monocytes # (Manual) 0.2 K/mm3 (0.0-0.8) 03/14/17 05:08 Eosinophils # (Manual) 0.1 K/mm3 (0.0-0.4) 03/14/17 05:08 Basophils # (Manual) 0.0 K/mm3 (0.0-0.1) 03/14/17 05:08 Metamyelocytes # 0.0 K/mm3 03/14/17 05:08 Myelocytes # 0.0 K/mm3 03/14/17 05:08 Promyelocytes # 0.0 K/mm3 03/14/17 05:08 Blast Cells # 0.0 K/mm3 03/14/17 05:08 Pathologist Review 03/12/17 15:25 WBC Morphology Not Reportable 03/14/17 05:08 Hypersegmented Neuts Not Reportable 03/14/17 05:08 Hyposegmented Neuts Not Reportable 03/14/17 05:08 Hypogranular Neuts Not Reportable 03/14/17 05:08 Smudge Cells Not Reportable 03/14/17 05:08 Toxic Granulation Not Reportable 03/14/17 05:08 Toxic Vacuolation Not Reportable 03/14/17 05:08 Dohle Bodies Not Reportable 03/14/17 05:08 Pelger-Huet Anomaly Not Reportable 03/14/17 05:08 Elyse Rods Not Reportable 03/14/17 05:08 Platelet Estimate Not Reportable 03/14/17 05:08 Clumped Platelets Not Reportable 03/14/17 05:08 Plt Clumps, EDTA Not Reportable 03/14/17 05:08 Large Platelets Not Reportable 03/14/17 05:08 Giant Platelets Not Reportable 03/14/17 05:08 Platelet Satelliting Not Reportable 03/14/17 05:08 Plt Morphology Comment Not Reportable 03/14/17 05:08 RBC Morphology Not Reportable 03/14/17 05:08 Dimorphic RBCs Not Reportable 03/14/17 05:08 Polychromasia Not Reportable 03/14/17 05:08 Hypochromasia 1+ 03/14/17 05:08 Poikilocytosis 2+ 03/14/17 05:08 Anisocytosis 2+ 03/14/17 05:08 Microcytosis Not Reportable 03/14/17 05:08 Macrocytosis Not Reportable 03/14/17 05:08 Spherocytes Not Reportable 03/14/17 05:08 Pappenheimer Bodies Not Reportable 03/14/17 05:08 Sickle Cells Not Reportable 03/14/17 05:08 Target Cells Few 03/14/17 05:08 Tear Drop Cells Not Reportable 03/14/17 05:08 Ovalocytes 1+ 03/14/17 05:08 Helmet Cells Not Reportable 03/14/17 05:08 Contreras-[place] Bodies Not Reportable 03/14/17 05:08 [place] Rings Not Reportable 03/14/17 05:08 Darian Cells Not Reportable 03/14/17 05:08 Bite Cells Not Reportable 03/14/17 05:08 Crenated Cell Not Reportable 03/14/17 05:08 Elliptocytes Not Reportable 03/14/17 05:08 Acanthocytes (Spur) Not Reportable 03/14/17 05:08 Rouleaux Not Reportable 03/14/17 05:08 Hemoglobin C Crystals Not Reportable 03/14/17 05:08 Schistocytes Few 03/14/17 05:08 Malaria parasites Not Reportable 03/14/17 05:08 Hussain Bodies Not Reportable 03/14/17 05:08 Hem Pathologist Commnt No 03/14/17 05:08 Sodium 142 mmol/L (137-145) 03/14/17 05:08 Potassium 3.9 mmol/L (3.6-5.0) 03/14/17 05:08 Chloride 98.6 mmol/L (98-107) 03/14/17 05:08 Carbon Dioxide 33 mmol/L (22-30) H 03/14/17 05:08 Anion Gap 14 mmol/L 03/14/17 05:08 BUN 10 mg/dL (7-17) 03/14/17 05:08 Creatinine 0.7 mg/dL (0.7-1.2) 03/14/17 05:08 Estimated GFR > 60 ml/min 03/14/17 05:08 BUN/Creatinine Ratio 14 % 03/14/17 05:08 Glucose 106 mg/dL (65-100) H 03/14/17 05:08 POC Glucose 127 (70-105) H 03/13/17 12:09 Hemoglobin A1c 5.2 % (4-6) 03/11/17 03:03 Calcium 9.9 mg/dL (8.4-10.2) 03/14/17 05:08 Iron 51 ug/dL (37-170) 03/12/17 15:25 TIBC 215 mcg/dL (250-450) L 03/12/17 15:25 % Saturation 23.72 % 03/12/17 15:25 Transferrin 192 mg/dl (192-382) 03/12/17 15:25 Ferritin 332.2 ng/mL (13.0-400.0) 03/12/17 15:25 Total Bilirubin 0.40 mg/dL (0.1-1.2) 03/10/17 22:55 AST 18 units/L (5-40) 03/10/17 22:55 ALT 10 units/L (7-56) 03/10/17 22:55 Alkaline Phosphatase 100 units/L (35-129) 03/10/17 22:55 Total Creatine Kinase 40 units/L (30-135) 03/11/17 02:11 CK-MB (CK-2) 1.6 ng/mL (0.0-4.0) 03/11/17 02:11 CK-MB (CK-2) Rel Index 4.0 (0-4) 03/11/17 02:11 Troponin T < 0.010 ng/mL (0.00-0.029) 03/11/17 02:11 C-Reactive Protein 1.30 mg/dL (0.00-1.30) 03/13/17 21:09 Total Protein 8.0 g/dL (6.3-8.2) 03/10/17 22:55 Albumin 3.8 g/dL (3.9-5) L 03/10/17 22:55 Albumin/Globulin Ratio 0.9 % 03/10/17 22:55 Vitamin B12 44.64 pg/mL (211-911) L 03/12/17 15:25 Folate 16.43 ng/mL (7.3-26.0) 03/12/17 15:25
[2017-03-20] MEDS: DAKIN'S FULL STRENGTH TP SCH ×2 (17:34→22:32)
[2017-03-21] MEDS: ZOSYN/NS 4.5GM/100ML 4.5 GM/100 ML VIAL IV SCH ×3 (05:04→22:29)
[2017-03-21] MEDS: HCTZ PO SCH (09:00)
[2017-03-21] MEDS: NORVASC PO SCH (09:00)
[2017-03-21] MEDS: ZESTRIL PO SCH (09:00)
[2017-03-21] MEDS: LOVENOX SUB-Q SCH (10:30)
[2017-03-21] MEDS: PLAVIX PO SCH (10:31)
[2017-03-21] MEDS: DAKIN'S FULL STRENGTH TP SCH ×2 (10:33→22:28)
--- NOTE | 2017-03-21 17:42 | Progress Note ---
Assessment and Plan Assessment and plan: 81-year-old woman with no medical problem who just arrived from [facility] on day of admission who came in for eval of necrotic non healing RLE wound on foot/big toe with tendons and bones exposed -denies any chronic medical problems MR ADAMS: image reviewed; Early osteomylitis of the first promixal and distal phalanges Right foot ulcer with necrotic wound, with chronic osteomylitis -iv zosyn, ID consult -case dw General surgeon, given that tendons and bone exposed and patient has osteomyelitis, the patient will be better served by orthopedic surgery and vascular surgery. 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 appearance: Patient lying in bed in no acute distress HEENT: Normocephalic/atraumatic, pupils equal round reactive to light, extra occular movement intact, no scleral icterus, no JVD or thyromegaly or nodule, neck is supple, mucous membrane moist, no erythema or exudate Heart: S1-S2, regular rate and rhythm Lungs: Clear to auscultation bilateral breathing comfortable Abdomen: Positive bowel sounds, nontender, nondistended, no organomegaly Extremities: Right foot with dressing, dressing was not removed Neuro:: Oriented 3 , cranial nerves II-12 intact, speech, motor intact Skin: No rash, nodules, warm dry - Constitutional Vitals: Temp Pulse Resp BP Pulse Ox 98.6 F 65 18 129/55 100 03/21/17 12:17 03/21/17 12:17 03/21/17 12:17 03/21/17 12:17 03/21/17 12:17 General appearance: Present: no acute distress Results - Labs CBC & Chem 7: 03/14/17 05:08 03/14/17 05:08 Labs: Laboratory Last Values WBC 5.0 K/mm3 (4.5-11.0) 03/14/17 05:08 RBC 2.64 M/mm3 (3.65-5.03) L 03/14/17 05:08 Hgb 8.1 gm/dl (10.1-14.3) L 03/14/17 05:08 Hct 25.3 % (30.3-42.9) L 03/14/17 05:08 MCV 96 fl (79-97) 03/14/17 05:08 MCH 31 pg (28-32) 03/14/17 05:08 MCHC 32 % (30-34) 03/14/17 05:08 RDW 18.8 % (13.2-15.2) H 03/14/17 05:08 Plt Count 321 K/mm3 (140-440) 03/14/17 05:08 Lymph % (Auto) [employer] 03/10/17 22:55 [place] % (Auto) [employer] 03/10/17 22:55 Eos % (Auto) [employer] 03/10/17 22:55 Baso % (Auto) [employer] 03/10/17 22:55 Lymph # Foreign [employer] 03/10/17 22:55 [place] # Foreign [employer] 03/10/17 22:55 Eos # Foreign [employer] 03/10/17 22:55 Baso # Foreign [employer] 03/10/17 22:55 Add Manual Diff Complete 03/14/17 05:08 Total Counted 100 03/14/17 05:08 Seg Neutrophils % Foreign [employer] 03/10/17 22:55 Seg Neuts % (Manual) 67.0 % (40.0-70.0) 03/14/17 05:08 Band Neutrophils % 0 % 03/14/17 05:08 Lymphocytes % (Manual) 28.0 % (13.4-35.0) 03/14/17 05:08 Reactive Lymphs % (Man) 0 % 03/14/17 05:08 Monocytes % (Manual) 4.0 % (0.0-7.3) 03/14/17 05:08 Eosinophils % (Manual) 1.0 % (0.0-4.3) 03/14/17 05:08 Basophils % (Manual) 0 % (0.0-1.8) 03/14/17 05:08 Metamyelocytes % 0 % 03/14/17 05:08 Myelocytes % 0 % 03/14/17 05:08 Promyelocytes % 0 % 03/14/17 05:08 Blast Cells % 0 % 03/14/17 05:08 Nucleated RBC % Not Reportable 03/14/17 05:08 Seg Neutrophils # Foreign Correspondent 03/10/17 22:55 Seg Neutrophils # Man 3.4 K/mm3 (1.8-7.7) 03/14/17 05:08 Band Neutrophils # 0.0 K/mm3 03/14/17 05:08 Lymphocytes # (Manual) 1.4 K/mm3 (1.2-5.4) 03/14/17 05:08 Abs React Lymphs (Man) 0.0 K/mm3 03/14/17 05:08 Monocytes # (Manual) 0.2 K/mm3 (0.0-0.8) 03/14/17 05:08 Eosinophils # (Manual) 0.1 K/mm3 (0.0-0.4) 03/14/17 05:08 Basophils # (Manual) 0.0 K/mm3 (0.0-0.1) 03/14/17 05:08 Metamyelocytes # 0.0 K/mm3 03/14/17 05:08 Myelocytes # 0.0 K/mm3 03/14/17 05:08 Promyelocytes # 0.0 K/mm3 03/14/17 05:08 Blast Cells # 0.0 K/mm3 03/14/17 05:08 Pathologist Review 03/12/17 15:25 WBC Morphology Not Reportable 03/14/17 05:08 Hypersegmented Neuts Not Reportable 03/14/17 05:08 Hyposegmented Neuts Not Reportable 03/14/17 05:08 Hypogranular Neuts Not Reportable 03/14/17 05:08 Smudge Cells Not Reportable 03/14/17 05:08 Toxic Granulation Not Reportable 03/14/17 05:08 Toxic Vacuolation Not Reportable 03/14/17 05:08 Dohle Bodies Not Reportable 03/14/17 05:08 Pelger-Huet Anomaly Not Reportable 03/14/17 05:08 Elyse Rods Not Reportable 03/14/17 05:08 Platelet Estimate Not Reportable 03/14/17 05:08 Clumped Platelets Not Reportable 03/14/17 05:08 Plt Clumps, EDTA Not Reportable 03/14/17 05:08 Large Platelets Not Reportable 03/14/17 05:08 Giant Platelets Not Reportable 03/14/17 05:08 Platelet Satelliting Not Reportable 03/14/17 05:08 Plt Morphology Comment Not Reportable 03/14/17 05:08 RBC Morphology Not Reportable 03/14/17 05:08 Dimorphic RBCs Not Reportable 03/14/17 05:08 Polychromasia Not Reportable 03/14/17 05:08 Hypochromasia 1+ 03/14/17 05:08 Poikilocytosis 2+ 03/14/17 05:08 Anisocytosis 2+ 03/14/17 05:08 Microcytosis Not Reportable 03/14/17 05:08 Macrocytosis Not Reportable 03/14/17 05:08 Spherocytes Not Reportable 03/14/17 05:08 Pappenheimer Bodies Not Reportable 03/14/17 05:08 Sickle Cells Not Reportable 03/14/17 05:08 Target Cells Few 03/14/17 05:08 Tear Drop Cells Not Reportable 03/14/17 05:08 Ovalocytes 1+ 03/14/17 05:08 Helmet Cells Not Reportable 03/14/17 05:08 Contreras-[place] Bodies Not Reportable 03/14/17 05:08 [place] Rings Not Reportable 03/14/17 05:08 [place] Cells Not Reportable 03/14/17 05:08 Bite Cells Not Reportable 03/14/17 05:08 Crenated Cell Not Reportable 03/14/17 05:08 Elliptocytes Not Reportable 03/14/17 05:08 Acanthocytes (Spur) Not Reportable 03/14/17 05:08 Rouleaux Not Reportable 03/14/17 05:08 Hemoglobin C Crystals Not Reportable 03/14/17 05:08 Schistocytes Few 03/14/17 05:08 Malaria parasites Not Reportable 03/14/17 05:08 Hussain Bodies Not Reportable 03/14/17 05:08 Hem Pathologist Commnt No 03/14/17 05:08 Sodium 142 mmol/L (137-145) 03/14/17 05:08 Potassium 3.9 mmol/L (3.6-5.0) 03/14/17 05:08 Chloride 98.6 mmol/L (98-107) 03/14/17 05:08 Carbon Dioxide 33 mmol/L (22-30) H 03/14/17 05:08 Anion Gap 14 mmol/L 03/14/17 05:08 BUN 10 mg/dL (7-17) 03/14/17 05:08 Creatinine 0.7 mg/dL (0.7-1.2) 03/14/17 05:08 Estimated GFR > 60 ml/min 03/14/17 05:08 BUN/Creatinine Ratio 14 % 03/14/17 05:08 Glucose 106 mg/dL (65-100) H 03/14/17 05:08 POC Glucose 127 (70-105) H 03/13/17 12:09 Hemoglobin A1c 5.2 % (4-6) 03/11/17 03:03 Calcium 9.9 mg/dL (8.4-10.2) 03/14/17 05:08 Iron 51 ug/dL (37-170) 03/12/17 15:25 TIBC 215 mcg/dL (250-450) L 03/12/17 15:25 % Saturation 23.72 % 03/12/17 15:25 Transferrin 192 mg/dl (192-382) 03/12/17 15:25 Ferritin 332.2 ng/mL (13.0-400.0) 03/12/17 15:25 Total Bilirubin 0.40 mg/dL (0.1-1.2) 03/10/17 22:55 AST 18 units/L (5-40) 03/10/17 22:55 ALT 10 units/L (7-56) 03/10/17 22:55 Alkaline Phosphatase 100 units/L (35-129) 03/10/17 22:55 Total Creatine Kinase 40 units/L (30-135) 03/11/17 02:11 CK-MB (CK-2) 1.6 ng/mL (0.0-4.0) 03/11/17 02:11 CK-MB (CK-2) Rel Index 4.0 (0-4) 03/11/17 02:11 Troponin T < 0.010 ng/mL (0.00-0.029) 03/11/17 02:11 C-Reactive Protein 1.30 mg/dL (0.00-1.30) 03/13/17 21:09 Total Protein 8.0 g/dL (6.3-8.2) 03/10/17 22:55 Albumin 3.8 g/dL (3.9-5) L 03/10/17 22:55 Albumin/Globulin Ratio 0.9 % 03/10/17 22:55 Vitamin B12 44.64 pg/mL (211-911) L 03/12/17 15:25 Folate 16.43 ng/mL (7.3-26.0) 03/12/17 15:25
[2017-03-21] MEDS: ATIVAN PO PRN (22:24)
[2017-03-22] MEDS: ZOSYN/NS 4.5GM/100ML 4.5 GM/100 ML VIAL IV SCH ×3 (06:05→22:30)
[2017-03-22] MEDS: NORVASC PO SCH (10:30)
[2017-03-22] MEDS: ZESTRIL PO SCH (10:30)
[2017-03-22] MEDS: HCTZ PO SCH (10:30)
[2017-03-22] MEDS: LOVENOX SUB-Q SCH (10:35)
[2017-03-22] MEDS: PLAVIX PO SCH (10:35)
--- NOTE | 2017-03-22 10:51 | Progress Note ---
Assessment and Plan Assessment and plan: 81-year-old woman with no medical problem who just arrived from [facility] on day of admission who came in for eval of necrotic non healing RLE wound on foot/big toe with tendons and bones exposed -denies any chronic medical problems MR ADAMS: image reviewed; Early osteomylitis of the first promixal and distal phalanges Right foot ulcer with necrotic wound, with chronic osteomylitis -iv zosyn, ID consult -case dw General surgeon, given that tendons and bone exposed and patient has osteomyelitis, the patient will be better served by orthopedic surgery and vascular surgery. 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 aircraft air conditioning mechanic with her at all times DVT Ppx bruce urbina is Juan F: [phone] History Interval history: she was confused overnight , calm today Review of systems Constitutional: No fevers, no malaise, no joint pains CVS: No chest pain, no orthopnea, no dyspnea on exertion, no pedal edema GI: No abdominal pain, no diarrhea, no vomiting, no constipation Respiratory: No shortness of breath, no wheezing, no coughing Hospitalist Physical - Physical exam Narrative exam: Gen. appearance: Patient lying in bed in no acute distress HEENT: Normocephalic/atraumatic, pupils equal round reactive to light, extra occular movement intact, no scleral icterus, no JVD or thyromegaly or nodule, neck is supple, mucous membrane moist, no erythema or exudate Heart: S1-S2, regular rate and rhythm Lungs: Clear to auscultation bilateral breathing comfortable Abdomen: Positive bowel sounds, nontender, nondistended, no organomegaly Extremities: Right foot with dressing, dressing was not removed Neuro:: Oriented 3 , cranial nerves II-12 intact, speech, motor intact Skin: No rash, nodules, warm dry - Constitutional Vitals: Temp Pulse Resp BP Pulse Ox 98.3 F 61 18 126/72 99 03/22/17 08:29 03/21/17 20:07 03/22/17 08:29 03/22/17 08:29 03/21/17 20:07 General appearance: Present: no acute distress Results - Labs CBC & Chem 7: 03/14/17 05:08 03/14/17 05:08 Labs: Laboratory Last Values WBC 5.0 K/mm3 (4.5-11.0) 03/14/17 05:08 RBC 2.64 M/mm3 (3.65-5.03) L 03/14/17 05:08 Hgb 8.1 gm/dl (10.1-14.3) L 03/14/17 05:08 Hct 25.3 % (30.3-42.9) L 03/14/17 05:08 MCV 96 fl (79-97) 03/14/17 05:08 MCH 31 pg (28-32) 03/14/17 05:08 MCHC 32 % (30-34) 03/14/17 05:08 RDW 18.8 % (13.2-15.2) H 03/14/17 05:08 Plt Count 321 K/mm3 (140-440) 03/14/17 05:08 Lymph % (Auto) [employer] 03/10/17 22:55 [place] % (Auto) Private Equity Associate 03/10/17 22:55 Eos % (Auto) Private Equity Associate 03/10/17 22:55 Baso % (Auto) [employer] Associate 03/10/17 22:55 Lymph # Private Equity Associate 03/10/17 22:55 [place] # Private Equity Associate 03/10/17 22:55 Eos # Private Equity Associate 03/10/17 22:55 Baso # Private Equity Associate 03/10/17 22:55 Add Manual Diff Complete 03/14/17 05:08 Total Counted 100 03/14/17 05:08 Seg Neutrophils % Private Equity Associate 03/10/17 22:55 Seg Neuts % (Manual) 67.0 % (40.0-70.0) 03/14/17 05:08 Band Neutrophils % 0 % 03/14/17 05:08 Lymphocytes % (Manual) 28.0 % (13.4-35.0) 03/14/17 05:08 Reactive Lymphs % (Man) 0 % 03/14/17 05:08 Monocytes % (Manual) 4.0 % (0.0-7.3) 03/14/17 05:08 Eosinophils % (Manual) 1.0 % (0.0-4.3) 03/14/17 05:08 Basophils % (Manual) 0 % (0.0-1.8) 03/14/17 05:08 Metamyelocytes % 0 % 03/14/17 05:08 Myelocytes % 0 % 03/14/17 05:08 Promyelocytes % 0 % 03/14/17 05:08 Blast Cells % 0 % 03/14/17 05:08 Nucleated RBC % Not Reportable 03/14/17 05:08 Seg Neutrophils # Private Equity Associate 03/10/17 22:55 Seg Neutrophils # Man 3.4 K/mm3 (1.8-7.7) 03/14/17 05:08 Band Neutrophils # 0.0 K/mm3 03/14/17 05:08 Lymphocytes # (Manual) 1.4 K/mm3 (1.2-5.4) 03/14/17 05:08 Abs React Lymphs (Man) 0.0 K/mm3 03/14/17 05:08 Monocytes # (Manual) 0.2 K/mm3 (0.0-0.8) 03/14/17 05:08 Eosinophils # (Manual) 0.1 K/mm3 (0.0-0.4) 03/14/17 05:08 Basophils # (Manual) 0.0 K/mm3 (0.0-0.1) 03/14/17 05:08 Metamyelocytes # 0.0 K/mm3 03/14/17 05:08 Myelocytes # 0.0 K/mm3 03/14/17 05:08 Promyelocytes # 0.0 K/mm3 03/14/17 05:08 Blast Cells # 0.0 K/mm3 03/14/17 05:08 Pathologist Review 03/12/17 15:25 WBC Morphology Not Reportable 03/14/17 05:08 Hypersegmented Neuts Not Reportable 03/14/17 05:08 Hyposegmented Neuts Not Reportable 03/14/17 05:08 Hypogranular Neuts Not Reportable 03/14/17 05:08 Smudge Cells Not Reportable 03/14/17 05:08 Toxic Granulation Not Reportable 03/14/17 05:08 Toxic Vacuolation Not Reportable 03/14/17 05:08 Dohle Bodies Not Reportable 03/14/17 05:08 Pelger-Huet Anomaly Not Reportable 03/14/17 05:08 Leyse Rods Not Reportable 03/14/17 05:08 Platelet Estimate Not Reportable 03/14/17 05:08 Clumped Platelets Not Reportable 03/14/17 05:08 Plt Clumps, EDTA Not Reportable 03/14/17 05:08 Large Platelets Not Reportable 03/14/17 05:08 Giant Platelets Not Reportable 03/14/17 05:08 Platelet Satelliting Not Reportable 03/14/17 05:08 Plt Morphology Comment Not Reportable 03/14/17 05:08 RBC Morphology Not Reportable 03/14/17 05:08 Dimorphic RBCs Not Reportable 03/14/17 05:08 Polychromasia Not Reportable 03/14/17 05:08 Hypochromasia 1+ 03/14/17 05:08 Poikilocytosis 2+ 03/14/17 05:08 Anisocytosis 2+ 03/14/17 05:08 Microcytosis Not Reportable 03/14/17 05:08 Macrocytosis Not Reportable 03/14/17 05:08 Spherocytes Not Reportable 03/14/17 05:08 Pappenheimer Bodies Not Reportable 03/14/17 05:08 Sickle Cells Not Reportable 03/14/17 05:08 Target Cells Few 03/14/17 05:08 Tear Drop Cells Not Reportable 03/14/17 05:08 Ovalocytes 1+ 03/14/17 05:08 Helmet Cells Not Reportable 03/14/17 05:08 Contreras-[place] Bodies Not Reportable 03/14/17 05:08 [place] Rings Not Reportable 03/14/17 05:08 [place]arian Cells Not Reportable 03/14/17 05:08 Bite Cells Not Reportable 03/14/17 05:08 Crenated Cell Not Reportable 03/14/17 05:08 Elliptocytes Not Reportable 03/14/17 05:08 Acanthocytes (Spur) Not Reportable 03/14/17 05:08 Rouleaux Not Reportable 03/14/17 05:08 Hemoglobin C Crystals Not Reportable 03/14/17 05:08 Schistocytes Few 03/14/17 05:08 Malaria parasites Not Reportable 03/14/17 05:08 Hussain Bodies Not Reportable 03/14/17 05:08 Hem Pathologist Commnt No 03/14/17 05:08 Sodium 142 mmol/L (137-145) 03/14/17 05:08 Potassium 3.9 mmol/L (3.6-5.0) 03/14/17 05:08 Chloride 98.6 mmol/L (98-107) 03/14/17 05:08 Carbon Dioxide 33 mmol/L (22-30) H 03/14/17 05:08 Anion Gap 14 mmol/L 03/14/17 05:08 BUN 10 mg/dL (7-17) 03/14/17 05:08 Creatinine 0.7 mg/dL (0.7-1.2) 03/14/17 05:08 Estimated GFR > 60 ml/min 03/14/17 05:08 BUN/Creatinine Ratio 14 % 03/14/17 05:08 Glucose 106 mg/dL (65-100) H 03/14/17 05:08 POC Glucose 127 (70-105) H 03/13/17 12:09 Hemoglobin A1c 5.2 % (4-6) 03/11/17 03:03 Calcium 9.9 mg/dL (8.4-10.2) 03/14/17 05:08 Iron 51 ug/dL (37-170) 03/12/17 15:25 TIBC 215 mcg/dL (250-450) L 03/12/17 15:25 % Saturation 23.72 % 03/12/17 15:25 Transferrin 192 mg/dl (192-382) 03/12/17 15:25 Ferritin 332.2 ng/mL (13.0-400.0) 03/12/17 15:25 Total Bilirubin 0.40 mg/dL (0.1-1.2) 03/10/17 22:55 AST 18 units/L (5-40) 03/10/17 22:55 ALT 10 units/L (7-56) 03/10/17 22:55 Alkaline Phosphatase 100 units/L (35-129) 03/10/17 22:55 Total Creatine Kinase 40 units/L (30-135) 03/11/17 02:11 CK-MB (CK-2) 1.6 ng/mL (0.0-4.0) 03/11/17 02:11 CK-MB (CK-2) Rel Index 4.0 (0-4) 03/11/17 02:11 Troponin T < 0.010 ng/mL (0.00-0.029) 03/11/17 02:11 C-Reactive Protein 1.30 mg/dL (0.00-1.30) 03/13/17 21:09 Total Protein 8.0 g/dL (6.3-8.2) 03/10/17 22:55 Albumin 3.8 g/dL (3.9-5) L 03/10/17 22:55 Albumin/Globulin Ratio 0.9 % 03/10/17 22:55 Vitamin B12 44.64 pg/mL (211-911) L 03/12/17 15:25 Folate 16.43 ng/mL (7.3-26.0) 03/12/17 15:25
[2017-03-22] MEDS: DAKIN'S FULL STRENGTH TP SCH (11:13)
[2017-03-22] MEDS: ATIVAN PO PRN (12:09)
[2017-03-23] MEDS: DAKIN'S FULL STRENGTH TP SCH ×2 (05:08→13:27)
[2017-03-23] MEDS: ZOSYN/NS 4.5GM/100ML 4.5 GM/100 ML VIAL IV SCH (05:11)
[2017-03-23] MEDS ORDERED: MINERAL OIL TOPICAL LIGHT TP ONE (13:02)
[2017-03-23] MEDS ORDERED: XYLOCAINE MPF 2% ONE (13:19)
[2017-03-23] MEDS ORDERED: DIPRIVAN 10 MG/ML IV ONE (13:20)
[2017-03-23] MEDS ORDERED: DILAUDID ONE (13:24)
[2017-03-23 14:01] LABS: Hematocrit 29.7 % (30.3-42.9); Hemoglobin 9.4 gm/dl (10.1-14.3)
--- NOTE | 2017-03-23 14:35 | Progress Note ---
Assessment and Plan Assessment and plan: 81-year-old woman with no medical problem who just arrived from [facility] on day of admission who came in for eval of necrotic non healing RLE wound on foot/big toe with tendons and bones exposed -denies any chronic medical problems MR ADAMS: image reviewed; Early osteomylitis of the first promixal and distal phalanges Right foot ulcer with necrotic wound, with chronic osteomylitis -iv zosyn, ID consult - spoke with orthopedic sx, was initially planned for ankle sparing amputation -fup blood cx ,sp revasc of R anterior tibial artery, sp debridement , awaiting skin grafting by Dr Boyer Mild to Moderate 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 HTN urgency optimize PO meds, continue IV hydralazine PRN Anemia likely to be AOCD send iron studies and workup Delireum frequent re-orientation, advised staff to use [employer] system architect with her at all times DVT Ppx bruce alvarez Juan F: [phone] History Interval history: she was confused overnight , calm today Review of systems Constitutional: No fevers, no malaise, no joint pains CVS: No chest pain, no orthopnea, no dyspnea on exertion, no pedal edema GI: No abdominal pain, no diarrhea, no vomiting, no constipation Respiratory: No shortness of breath, no wheezing, no coughing Hospitalist Physical - Physical exam Narrative exam: Gen. appearance: Patient lying in bed in no acute distress HEENT: Normocephalic/atraumatic, pupils equal round reactive to light, extra occular movement intact, no scleral icterus, no JVD or thyromegaly or nodule, neck is supple, mucous membrane moist, no erythema or exudate Heart: S1-S2, regular rate and rhythm Lungs: Clear to auscultation bilateral breathing comfortable Abdomen: Positive bowel sounds, nontender, nondistended, no organomegaly Extremities: Right foot with dressing, dressing was not removed Neuro:: Oriented 3 , cranial nerves II-12 intact, speech, motor intact Skin: No rash, nodules, warm dry - Constitutional Vitals: Temp Pulse Resp BP Pulse Ox 99.4 F 75 18 136/59 98 03/23/17 08:09 03/23/17 08:09 03/23/17 08:09 03/23/17 08:09 03/23/17 08:09 General appearance: Present: no acute distress Results - Labs CBC & Chem 7: 03/23/17 13:40 03/23/17 13:40 Labs: Laboratory Last Values WBC 5.0 K/mm3 (4.5-11.0) 03/14/17 05:08 RBC 2.64 M/mm3 (3.65-5.03) L 03/14/17 05:08 Hgb 9.4 gm/dl (10.1-14.3) L 03/23/17 13:40 Hct 29.7 % (30.3-42.9) L 03/23/17 13:40 MCV 96 fl (79-97) 03/14/17 05:08 MCH 31 pg (28-32) 03/14/17 05:08 MCHC 32 % (30-34) 03/14/17 05:08 RDW 18.8 % (13.2-15.2) H 03/14/17 05:08 Plt Count 321 K/mm3 (140-440) 03/14/17 05:08 Lymph % (Auto) Change House Attendant 03/10/17 22:55 [place] % (Auto) Change House Attendant 03/10/17 22:55 Eos % (Auto) Change House Attendant 03/10/17 22:55 Baso % (Auto) Change House Attendant 03/10/17 22:55 Lymph # Change House Attendant 03/10/17 22:55 [place] # Change House Attendant 03/10/17 22:55 Eos # Change House Attendant 03/10/17 22:55 Baso # Change House Attendant 03/10/17 22:55 Add Manual Diff Complete 03/14/17 05:08 Total Counted 100 03/14/17 05:08 Seg Neutrophils % Change House Attendant 03/10/17 22:55 Seg Neuts % (Manual) 67.0 % (40.0-70.0) 03/14/17 05:08 Band Neutrophils % 0 % 03/14/17 05:08 Lymphocytes % (Manual) 28.0 % (13.4-35.0) 03/14/17 05:08 Reactive Lymphs % (Man) 0 % 03/14/17 05:08 Monocytes % (Manual) 4.0 % (0.0-7.3) 03/14/17 05:08 Eosinophils % (Manual) 1.0 % (0.0-4.3) 03/14/17 05:08 Basophils % (Manual) 0 % (0.0-1.8) 03/14/17 05:08 Metamyelocytes % 0 % 03/14/17 05:08 Myelocytes % 0 % 03/14/17 05:08 Promyelocytes % 0 % 03/14/17 05:08 Blast Cells % 0 % 03/14/17 05:08 Nucleated RBC % Not Reportable 03/14/17 05:08 Seg Neutrophils # Change House Attendant 03/10/17 22:55 Seg Neutrophils # Man 3.4 K/mm3 (1.8-7.7) 03/14/17 05:08 Band Neutrophils # 0.0 K/mm3 03/14/17 05:08 Lymphocytes # (Manual) 1.4 K/mm3 (1.2-5.4) 03/14/17 05:08 Abs React Lymphs (Man) 0.0 K/mm3 03/14/17 05:08 Monocytes # (Manual) 0.2 K/mm3 (0.0-0.8) 03/14/17 05:08 Eosinophils # (Manual) 0.1 K/mm3 (0.0-0.4) 03/14/17 05:08 Basophils # (Manual) 0.0 K/mm3 (0.0-0.1) 03/14/17 05:08 Metamyelocytes # 0.0 K/mm3 03/14/17 05:08 Myelocytes # 0.0 K/mm3 03/14/17 05:08 Promyelocytes # 0.0 K/mm3 03/14/17 05:08 Blast Cells # 0.0 K/mm3 03/14/17 05:08 Pathologist Review 03/12/17 15:25 WBC Morphology Not Reportable 03/14/17 05:08 Hypersegmented Neuts Not Reportable 03/14/17 05:08 Hyposegmented Neuts Not Reportable 03/14/17 05:08 Hypogranular Neuts Not Reportable 03/14/17 05:08 Smudge Cells Not Reportable 03/14/17 05:08 Toxic Granulation Not Reportable 03/14/17 05:08 Toxic Vacuolation Not Reportable 03/14/17 05:08 Dohle Bodies Not Reportable 03/14/17 05:08 Pelger-Huet Anomaly Not Reportable 03/14/17 05:08 Elyse Rods Not Reportable 03/14/17 05:08 Platelet Estimate Not Reportable 03/14/17 05:08 Clumped Platelets Not Reportable 03/14/17 05:08 Plt Clumps, EDTA Not Reportable 03/14/17 05:08 Large Platelets Not Reportable 03/14/17 05:08 Giant Platelets Not Reportable 03/14/17 05:08 Platelet Satelliting Not Reportable 03/14/17 05:08 Plt Morphology Comment Not Reportable 03/14/17 05:08 RBC Morphology Not Reportable 03/14/17 05:08 Dimorphic RBCs Not Reportable 03/14/17 05:08 Polychromasia Not Reportable 03/14/17 05:08 Hypochromasia 1+ 03/14/17 05:08 Poikilocytosis 2+ 03/14/17 05:08 Anisocytosis 2+ 03/14/17 05:08 Microcytosis Not Reportable 03/14/17 05:08 Macrocytosis Not Reportable 03/14/17 05:08 Spherocytes Not Reportable 03/14/17 05:08 Pappenheimer Bodies Not Reportable 03/14/17 05:08 Sickle Cells Not Reportable 03/14/17 05:08 Target Cells Few 03/14/17 05:08 Tear Drop Cells Not Reportable 03/14/17 05:08 Ovalocytes 1+ 03/14/17 05:08 Helmet Cells Not Reportable 03/14/17 05:08 Contreras-[place] Bodies Not Reportable 03/14/17 05:08 [place] Rings Not Reportable 03/14/17 05:08 [place]arian Cells Not Reportable 03/14/17 05:08 Bite Cells Not Reportable 03/14/17 05:08 Crenated Cell Not Reportable 03/14/17 05:08 Elliptocytes Not Reportable 03/14/17 05:08 Acanthocytes (Spur) Not Reportable 03/14/17 05:08 Rouleaux Not Reportable 03/14/17 05:08 Hemoglobin C Crystals Not Reportable 03/14/17 05:08 Schistocytes Few 03/14/17 05:08 Malaria parasites Not Reportable 03/14/17 05:08 Hussain Bodies Not Reportable 03/14/17 05:08 Hem Pathologist Commnt No 03/14/17 05:08 Sodium 142 mmol/L (137-145) 03/14/17 05:08 Potassium 3.8 mmol/L (3.6-5.0) 03/23/17 13:40 Chloride 98.6 mmol/L (98-107) 03/14/17 05:08 Carbon Dioxide 33 mmol/L (22-30) H 03/14/17 05:08 Anion Gap 14 mmol/L 03/14/17 05:08 BUN 10 mg/dL (7-17) 03/14/17 05:08 Creatinine 0.7 mg/dL (0.7-1.2) 03/14/17 05:08 Estimated GFR > 60 ml/min 03/14/17 05:08 BUN/Creatinine Ratio 14 % 03/14/17 05:08 Glucose 106 mg/dL (65-100) H 03/14/17 05:08 POC Glucose 127 (70-105) H 03/13/17 12:09 Hemoglobin A1c 5.2 % (4-6) 03/11/17 03:03 Calcium 9.9 mg/dL (8.4-10.2) 03/14/17 05:08 Iron 51 ug/dL (37-170) 03/12/17 15:25 TIBC 215 mcg/dL (250-450) L 03/12/17 15:25 % Saturation 23.72 % 03/12/17 15:25 Transferrin 192 mg/dl (192-382) 03/12/17 15:25 Ferritin 332.2 ng/mL (13.0-400.0) 03/12/17 15:25 Total Bilirubin 0.40 mg/dL (0.1-1.2) 03/10/17 22:55 AST 18 units/L (5-40) 03/10/17 22:55 ALT 10 units/L (7-56) 03/10/17 22:55 Alkaline Phosphatase 100 units/L (35-129) 03/10/17 22:55 Total Creatine Kinase 40 units/L (30-135) 03/11/17 02:11 CK-MB (CK-2) 1.6 ng/mL (0.0-4.0) 03/11/17 02:11 CK-MB (CK-2) Rel Index 4.0 (0-4) 03/11/17 02:11 Troponin T < 0.010 ng/mL (0.00-0.029) 03/11/17 02:11 C-Reactive Protein 1.30 mg/dL (0.00-1.30) 03/13/17 21:09 Total Protein 8.0 g/dL (6.3-8.2) 03/10/17 22:55 Albumin 3.8 g/dL (3.9-5) L 03/10/17 22:55 Albumin/Globulin Ratio 0.9 % 03/10/17 22:55 Vitamin B12 44.64 pg/mL (211-911) L 03/12/17 15:25 Folate 16.43 ng/mL (7.3-26.0) 03/12/17 15:25
[2017-03-23] MEDS ORDERED: NACL 0.9% 1000 ML 1,000 ML ONE (14:37)
[2017-03-23] MEDS ORDERED: NEO SYNEPHRINE/NS Syringe(OR USE) IV ONE (15:08)
[2017-03-23] MEDS ORDERED: MARCAINE 0.5% 30 ML INFILTRATI ONE (15:09)
[2017-03-23] MEDS ORDERED: MARCAINE 0.5% INFILTRATI ONE (15:10)
[2017-03-23] MEDS ORDERED: ZOFRAN ONE (15:17)
--- NOTE | 2017-03-23 15:48 | Procedure Note ---
Date of procedure: 03/23/17 Pre-op diagnosis: gangrenous right forefoot status post debridement Post-op diagnosis: same Procedure: Split thickness skin graft right forefoot Procedure The patient was brought to the OR [place] table in supine position following induction and intubation by anesthesia the patient's right lower extremity was prepped and draped in the usual sterile manner a timeout procedure was done to identify the patient and the correct operative site. Using the dermatome approximately a 2 x 4 inch skin graft was harvested from the anterior thigh. The graft was then placed and a mesh where a 1 x 5 ratio was used to prepare the skin graft. Open wound over the great toe was then irrigated a #15 blade to create a fresh bed of bleeding tissue for the specific split-thickness skin graft next the graft was applied and secured bilaterally of and normal saline soaked cotton gauze, left hip. Dressings were applied the patient tolerated the procedure complications she was sent to postanesthesia recovery in stable condition Anesthesia: BINU Surgeon: JUANITO MERCADO Estimated blood loss: minimal Pathology: none Condition: stable Disposition: PACU
[2017-03-23] MEDS: HCTZ PO SCH (17:34)
[2017-03-23] MEDS: ZESTRIL PO SCH (17:34)
[2017-03-23] MEDS: NORVASC PO SCH (17:34)
[2017-03-24] MEDS: ZOSYN/NS 4.5GM/100ML 4.5 GM/100 ML VIAL IV SCH ×4 (03:27→19:39)
[2017-03-24] MEDS: NACL 0.9% 1000 ML 1,000 ML IV SCH (03:29)
[2017-03-24 07:58] LABS: Hematocrit 27.6 % (30.3-42.9); Hemoglobin 8.6 gm/dl (10.1-14.3); Mean Corpuscular HGB Conc 31 % (30-34); Mean Corpuscular Hemoglobin 30 pg (28-32); Mean Corpuscular Volume 97 fl (79-97); Platelet Count 161 K/mm3 (140-440); Red Blood Count 2.83 M/mm3 (3.65-5.03)
[2017-03-24 08:12] LABS: BUN/Creatinine Ratio 13; Blood Urea Nitrogen 10 mg/dL (7-17); Calcium 9.5 mg/dL (8.4-10.2); Hemolysis Index 4
[2017-03-24 10:24] LABS: Total Cells Counted 100
[2017-03-24 10:25] LABS: Anisocytosis 2+; Basophils % (Manual) 0 % (0.0-1.8); Hypochromasia Few; Macrocytosis Few; Platelet Estimate Consistent w Auto; Schistocytes Few; Tear Drop Cells Few
[2017-03-24] MEDS: NORVASC PO SCH (12:58)
[2017-03-24] MEDS: PLAVIX PO SCH ×2 (13:00→20:52)
[2017-03-24] MEDS: ZESTRIL PO SCH (13:00)
[2017-03-24] MEDS: LOVENOX SUB-Q SCH ×2 (13:01→20:51)
[2017-03-24] MEDS: HCTZ PO SCH (13:01)
--- NOTE | 2017-03-24 15:39 | Progress Note ---
Assessment and Plan Assessment and plan: 81-year-old woman with no medical problem who just arrived from [facility] on day of admission who came in for eval of necrotic non healing RLE wound on foot/big toe with tendons and bones exposed -denies any chronic medical problems MR AADMS: image reviewed; Early osteomylitis of the first promixal and distal phalanges Right foot ulcer with necrotic wound, with chronic osteomylitis case dw ID, continue bactrim till 03/31 ,sp revasc of R anterior tibial artery by vasc sx, sp debridement by ortho , sp skin grafting by ortho on 03/23 continue wound care Mild to Moderate Malnutrition radiology specialist consult HTN urgency optimize PO meds, continue IV hydralazine PRN Anemia likely to be AOCD send iron studies and workup Delireum frequent re-orientation, advised staff to use [employer] deaf interpreter with her at all times DVT Ppx bruce alvarez Juan F: [phone] History Interval history: she was confused overnight , calm today Review of systems Constitutional: No fevers, no malaise, no joint pains CVS: No chest pain, no orthopnea, no dyspnea on exertion, no pedal edema GI: No abdominal pain, no diarrhea, no vomiting, no constipation Respiratory: No shortness of breath, no wheezing, no coughing Hospitalist Physical - Physical exam Narrative exam: Gen. appearance: Patient lying in bed in no acute distress HEENT: Normocephalic/atraumatic, pupils equal round reactive to light, extra occular movement intact, no scleral icterus, no JVD or thyromegaly or nodule, neck is supple, mucous membrane moist, no erythema or exudate Heart: S1-S2, regular rate and rhythm Lungs: Clear to auscultation bilateral breathing comfortable Abdomen: Positive bowel sounds, nontender, nondistended, no organomegaly Extremities: Right foot with dressing, dressing was not removed Neuro:: Oriented 3 , cranial nerves II-12 intact, speech, motor intact Skin: No rash, nodules, warm dry - Constitutional Vitals: Temp Pulse Resp BP Pulse Ox 98.7 F 78 18 127/63 99 03/24/17 07:45 03/24/17 13:00 03/24/17 07:45 03/24/17 13:00 03/24/17 07:45 General appearance: Present: no acute distress Results - Labs CBC & Chem 7: 03/24/17 07:21 03/24/17 07:21 Labs: Laboratory Last Values WBC 2.2 K/mm3 (4.5-11.0) L 03/24/17 07:21 RBC 2.83 M/mm3 (3.65-5.03) L 03/24/17 07:21 Hgb 8.6 gm/dl (10.1-14.3) L 03/24/17 07:21 Hct 27.6 % (30.3-42.9) L 03/24/17 07:21 MCV 97 fl (79-97) 03/24/17 07:21 MCH 30 pg (28-32) 03/24/17 07:21 MCHC 31 % (30-34) 03/24/17 07:21 RDW 17.0 % (13.2-15.2) H 03/24/17 07:21 Plt Count 161 K/mm3 (140-440) 03/24/17 07:21 Lymph % (Auto) Ignition Specialist 03/10/17 22:55 [place] % (Auto) Ignition Specialist 03/10/17 22:55 Eos % (Auto) Ignition Specialist 03/10/17 22:55 Baso % (Auto) Ignition Specialist 03/10/17 22:55 Lymph # Ignition Specialist 03/10/17 22:55 [place] # Ignition Specialist 03/10/17 22:55 Eos # Ignition Specialist 03/10/17 22:55 Baso # Ignition Specialist 03/10/17 22:55 Add Manual Diff Complete 03/24/17 07:21 Total Counted 100 03/24/17 07:21 Seg Neutrophils % Ignition Specialist 03/10/17 22:55 Seg Neuts % (Manual) 69.0 % (40.0-70.0) 03/24/17 07:21 Band Neutrophils % 1.0 % 03/24/17 07:21 Lymphocytes % (Manual) 20.0 % (13.4-35.0) 03/24/17 07:21 Reactive Lymphs % (Man) 0 % 03/24/17 07:21 Monocytes % (Manual) 6.0 % (0.0-7.3) 03/24/17 07:21 Eosinophils % (Manual) 4.0 % (0.0-4.3) 03/24/17 07:21 Basophils % (Manual) 0 % (0.0-1.8) 03/24/17 07:21 Metamyelocytes % 0 % 03/24/17 07:21 Myelocytes % 0 % 03/24/17 07:21 Promyelocytes % 0 % 03/24/17 07:21 Blast Cells % 0 % 03/24/17 07:21 Nucleated RBC % Not Reportable 03/24/17 07:21 Seg Neutrophils # Ignition Specialist 03/10/17 22:55 Seg Neutrophils # Man 1.5 K/mm3 (1.8-7.7) L 03/24/17 07:21 Band Neutrophils # 0.0 K/mm3 03/24/17 07:21 Lymphocytes # (Manual) 0.4 K/mm3 (1.2-5.4) L 03/24/17 07:21 Abs React Lymphs (Man) 0.0 K/mm3 03/24/17 07:21 Monocytes # (Manual) 0.1 K/mm3 (0.0-0.8) 03/24/17 07:21 Eosinophils # (Manual) 0.1 K/mm3 (0.0-0.4) 03/24/17 07:21 Basophils # (Manual) 0.0 K/mm3 (0.0-0.1) 03/24/17 07:21 Metamyelocytes # 0.0 K/mm3 03/24/17 07:21 Myelocytes # 0.0 K/mm3 03/24/17 07:21 Promyelocytes # 0.0 K/mm3 03/24/17 07:21 Blast Cells # 0.0 K/mm3 03/24/17 07:21 Pathologist Review 03/12/17 15:25 WBC Morphology Not Reportable 03/24/17 07:21 Hypersegmented Neuts Not Reportable 03/24/17 07:21 Hyposegmented Neuts Not Reportable 03/24/17 07:21 Hypogranular Neuts Not Reportable 03/24/17 07:21 Smudge Cells Not Reportable 03/24/17 07:21 Toxic Granulation Not Reportable 03/24/17 07:21 Toxic Vacuolation Not Reportable 03/24/17 07:21 Dohle Bodies Not Reportable 03/24/17 07:21 Pelger-Huet Anomaly Not Reportable 03/24/17 07:21 Elyse Rods Not Reportable 03/24/17 07:21 Platelet Estimate Consistent w auto 03/24/17 07:21 Clumped Platelets Not Reportable 03/24/17 07:21 Plt Clumps, EDTA Not Reportable 03/24/17 07:21 Large Platelets Not Reportable 03/24/17 07:21 Giant Platelets Not Reportable 03/24/17 07:21 Platelet Satelliting Not Reportable 03/24/17 07:21 Plt Morphology Comment Not Reportable 03/24/17 07:21 RBC Morphology Not Reportable 03/24/17 07:21 Dimorphic RBCs Not Reportable 03/24/17 07:21 Polychromasia Not Reportable 03/24/17 07:21 Hypochromasia Few 03/24/17 07:21 Poikilocytosis Not Reportable 03/24/17 07:21 Anisocytosis 2+ 03/24/17 07:21 Microcytosis Not Reportable 03/24/17 07:21 Macrocytosis Few 03/24/17 07:21 Spherocytes Not Reportable 03/24/17 07:21 Pappenheimer Bodies Not Reportable 03/24/17 07:21 Sickle Cells Not Reportable 03/24/17 07:21 Target Cells Not Reportable 03/24/17 07:21 Tear Drop Cells Few 03/24/17 07:21 Ovalocytes Not Reportable 03/24/17 07:21 Helmet Cells Not Reportable 03/24/17 07:21 Contreras-Marie Bodies Not Reportable 03/24/17 07:21 [place] Rings Not Reportable 03/24/17 07:21 [place] Cells Not Reportable 03/24/17 07:21 Bite Cells Not Reportable 03/24/17 07:21 Crenated Cell Not Reportable 03/24/17 07:21 Elliptocytes Not Reportable 03/24/17 07:21 Acanthocytes (Spur) Not Reportable 03/24/17 07:21 Rouleaux Not Reportable 03/24/17 07:21 Hemoglobin C Crystals Not Reportable 03/24/17 07:21 Schistocytes Few 03/24/17 07:21 Malaria parasites Not Reportable 03/24/17 07:21 Hussain Bodies Not Reportable 03/24/17 07:21 Hem Pathologist Commnt No 03/24/17 07:21 Sodium 139 mmol/L (137-145) 03/24/17 07:21 Potassium 3.5 mmol/L (3.6-5.0) L 03/24/17 07:21 Chloride 100.0 mmol/L (98-107) 03/24/17 07:21 Carbon Dioxide 25 mmol/L (22-30) 03/24/17 07:21 Anion Gap 18 mmol/L 03/24/17 07:21 BUN 10 mg/dL (7-17) 03/24/17 07:21 Creatinine 0.8 mg/dL (0.7-1.2) 03/24/17 07:21 Estimated GFR > 60 ml/min 03/24/17 07:21 BUN/Creatinine Ratio 13 % 03/24/17 07:21 Glucose 94 mg/dL (65-100) 03/24/17 07:21 POC Glucose 127 (70-105) H 03/13/17 12:09 Hemoglobin A1c 5.2 % (4-6) 03/11/17 03:03 Calcium 9.5 mg/dL (8.4-10.2) 03/24/17 07:21 Iron 51 ug/dL (37-170) 03/12/17 15:25 TIBC 215 mcg/dL (250-450) L 03/12/17 15:25 % Saturation 23.72 % 03/12/17 15:25 Transferrin 192 mg/dl (192-382) 03/12/17 15:25 Ferritin 332.2 ng/mL (13.0-400.0) 03/12/17 15:25 Total Bilirubin 0.40 mg/dL (0.1-1.2) 03/10/17 22:55 AST 18 units/L (5-40) 03/10/17 22:55 ALT 10 units/L (7-56) 03/10/17 22:55 Alkaline Phosphatase 100 units/L (35-129) 03/10/17 22:55 Total Creatine Kinase 40 units/L (30-135) 03/11/17 02:11 CK-MB (CK-2) 1.6 ng/mL (0.0-4.0) 03/11/17 02:11 CK-MB (CK-2) Rel Index 4.0 (0-4) 03/11/17 02:11 Troponin T < 0.010 ng/mL (0.00-0.029) 03/11/17 02:11 C-Reactive Protein 1.30 mg/dL (0.00-1.30) 03/13/17 21:09 Total Protein 8.0 g/dL (6.3-8.2) 03/10/17 22:55 Albumin 3.8 g/dL (3.9-5) L 03/10/17 22:55 Albumin/Globulin Ratio 0.9 % 03/10/17 22:55 Vitamin B12 44.64 pg/mL (211-911) L 03/12/17 15:25 Folate 16.43 ng/mL (7.3-26.0) 03/12/17 15:25
[2017-03-24] MEDS: DAKIN'S FULL STRENGTH TP SCH ×3 (19:40→23:01)
[2017-03-24] MEDS: BACTRIM DS PO SCH (23:01)
[2017-03-25] MEDS: NACL 0.9% 1000 ML 1,000 ML IV SCH ×2 (05:14→15:21)
--- NOTE | 2017-03-25 07:37 | Progress Note ---
Assessment and Plan Assessment and plan: 81-year-old woman with no medical problem who just arrived from [facility] on day of admission who came in for eval of necrotic non healing RLE wound on foot/big toe with tendons and bones exposed -denies any chronic medical problems MR ADAMS: image reviewed; Early osteomylitis of the first promixal and distal phalanges Right foot ulcer with necrotic wound, with chronic osteomylitis case dw ID, continue bactrim till 03/31 ,sp revasc of R anterior tibial artery by vasc sx, sp debridement by ortho , sp skin grafting by ortho on 03/23 continue wound care Mild to Moderate 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 HTN urgency optimize PO meds, continue IV hydralazine PRN Anemia likely to be AOCD send iron studies and workup Delireum frequent re-orientation, advised staff to use [employer] lavender farm worker with her at all times DVT Ppx bruce grandson is Juan F: [phone] Tentative dc home with grandson and wound care/home health tomorrow History Interval history: she was confused overnight , calm today Review of systems Constitutional: No fevers, no malaise, no joint pains CVS: No chest pain, no orthopnea, no dyspnea on exertion, no pedal edema GI: No abdominal pain, no diarrhea, no vomiting, no constipation Respiratory: No shortness of breath, no wheezing, no coughing Hospitalist Physical - Physical exam Narrative exam: Gen. appearance: Patient lying in bed in no acute distress HEENT: Normocephalic/atraumatic, pupils equal round reactive to light, extra occular movement intact, no scleral icterus, no JVD or thyromegaly or nodule, neck is supple, mucous membrane moist, no erythema or exudate Heart: S1-S2, regular rate and rhythm Lungs: Clear to auscultation bilateral breathing comfortable Abdomen: Positive bowel sounds, nontender, nondistended, no organomegaly Extremities: Right foot with dressing, dressing was not removed Neuro:: Oriented 3 , cranial nerves II-12 intact, speech, motor intact Skin: No rash, nodules, warm dry - Constitutional Vitals: Temp Pulse Resp BP Pulse Ox 98.7 F 70 18 135/57 100 03/25/17 03:50 03/24/17 23:51 03/25/17 03:50 03/25/17 03:50 03/24/17 23:51 General appearance: Present: no acute distress Results - Labs CBC & Chem 7: 03/24/17 07:21 03/24/17 07:21 Labs: Laboratory Last Values WBC 2.2 K/mm3 (4.5-11.0) L 03/24/17 07:21 RBC 2.83 M/mm3 (3.65-5.03) L 03/24/17 07:21 Hgb 8.6 gm/dl (10.1-14.3) L 03/24/17 07:21 Hct 27.6 % (30.3-42.9) L 03/24/17 07:21 MCV 97 fl (79-97) 03/24/17 07:21 MCH 30 pg (28-32) 03/24/17 07:21 MCHC 31 % (30-34) 03/24/17 07:21 RDW 17.0 % (13.2-15.2) H 03/24/17 07:21 Plt Count 161 K/mm3 (140-440) 03/24/17 07:21 Lymph % (Auto) Head Of Human Resources 03/10/17 22:55 [place] % (Auto) Head Of Human Resources 03/10/17 22:55 Eos % (Auto) Head Of Human Resources 03/10/17 22:55 Baso % (Auto) Head Of Human Resources 03/10/17 22:55 Lymph # Head Of Human Resources 03/10/17 22:55 [place] # Head Of Human Resources 03/10/17 22:55 Eos # Head Of Human Resources 03/10/17 22:55 Baso # Head Of Human Resources 03/10/17 22:55 Add Manual Diff Complete 03/24/17 07:21 Total Counted 100 03/24/17 07:21 Seg Neutrophils % Head Of Human Resources 03/10/17 22:55 Seg Neuts % (Manual) 69.0 % (40.0-70.0) 03/24/17 07:21 Band Neutrophils % 1.0 % 03/24/17 07:21 Lymphocytes % (Manual) 20.0 % (13.4-35.0) 03/24/17 07:21 Reactive Lymphs % (Man) 0 % 03/24/17 07:21 Monocytes % (Manual) 6.0 % (0.0-7.3) 03/24/17 07:21 Eosinophils % (Manual) 4.0 % (0.0-4.3) 03/24/17 07:21 Basophils % (Manual) 0 % (0.0-1.8) 03/24/17 07:21 Metamyelocytes % 0 % 03/24/17 07:21 Myelocytes % 0 % 03/24/17 07:21 Promyelocytes % 0 % 03/24/17 07:21 Blast Cells % 0 % 03/24/17 07:21 Nucleated RBC % Not Reportable 03/24/17 07:21 Seg Neutrophils # Head Of Human Resources 03/10/17 22:55 Seg Neutrophils # Man 1.5 K/mm3 (1.8-7.7) L 03/24/17 07:21 Band Neutrophils # 0.0 K/mm3 03/24/17 07:21 Lymphocytes # (Manual) 0.4 K/mm3 (1.2-5.4) L 03/24/17 07:21 Abs React Lymphs (Man) 0.0 K/mm3 03/24/17 07:21 Monocytes # (Manual) 0.1 K/mm3 (0.0-0.8) 03/24/17 07:21 Eosinophils # (Manual) 0.1 K/mm3 (0.0-0.4) 03/24/17 07:21 Basophils # (Manual) 0.0 K/mm3 (0.0-0.1) 03/24/17 07:21 Metamyelocytes # 0.0 K/mm3 03/24/17 07:21 Myelocytes # 0.0 K/mm3 03/24/17 07:21 Promyelocytes # 0.0 K/mm3 03/24/17 07:21 Blast Cells # 0.0 K/mm3 03/24/17 07:21 Pathologist Review 03/12/17 15:25 WBC Morphology Not Reportable 03/24/17 07:21 Hypersegmented Neuts Not Reportable 03/24/17 07:21 Hyposegmented Neuts Not Reportable 03/24/17 07:21 Hypogranular Neuts Not Reportable 03/24/17 07:21 Smudge Cells Not Reportable 03/24/17 07:21 Toxic Granulation Not Reportable 03/24/17 07:21 Toxic Vacuolation Not Reportable 03/24/17 07:21 Dohle Bodies Not Reportable 03/24/17 07:21 Pelger-Huet Anomaly Not Reportable 03/24/17 07:21 Elyse Rods Not Reportable 03/24/17 07:21 Platelet Estimate Consistent w auto 03/24/17 07:21 Clumped Platelets Not Reportable 03/24/17 07:21 Plt Clumps, EDTA Not Reportable 03/24/17 07:21 Large Platelets Not Reportable 03/24/17 07:21 Giant Platelets Not Reportable 03/24/17 07:21 Platelet Satelliting Not Reportable 03/24/17 07:21 Plt Morphology Comment Not Reportable 03/24/17 07:21 RBC Morphology Not Reportable 03/24/17 07:21 Dimorphic RBCs Not Reportable 03/24/17 07:21 Polychromasia Not Reportable 03/24/17 07:21 Hypochromasia Few 03/24/17 07:21 Poikilocytosis Not Reportable 03/24/17 07:21 Anisocytosis 2+ 03/24/17 07:21 Microcytosis Not Reportable 03/24/17 07:21 Macrocytosis Few 03/24/17 07:21 Spherocytes Not Reportable 03/24/17 07:21 Pappenheimer Bodies Not Reportable 03/24/17 07:21 Sickle Cells Not Reportable 03/24/17 07:21 Target Cells Not Reportable 03/24/17 07:21 Tear Drop Cells Few 03/24/17 07:21 Ovalocytes Not Reportable 03/24/17 07:21 Helmet Cells Not Reportable 03/24/17 07:21 Contreras-[place] Bodies Not Reportable 03/24/17 07:21 [place] Rings Not Reportable 03/24/17 07:21 [place] Cells Not Reportable 03/24/17 07:21 Bite Cells Not Reportable 03/24/17 07:21 Crenated Cell Not Reportable 03/24/17 07:21 Elliptocytes Not Reportable 03/24/17 07:21 Acanthocytes (Spur) Not Reportable 03/24/17 07:21 Rouleaux Not Reportable 03/24/17 07:21 Hemoglobin C Crystals Not Reportable 03/24/17 07:21 Schistocytes Few 03/24/17 07:21 Malaria parasites Not Reportable 03/24/17 07:21 Hussain Bodies Not Reportable 03/24/17 07:21 Hem Pathologist Commnt No 03/24/17 07:21 Sodium 139 mmol/L (137-145) 03/24/17 07:21 Potassium 3.5 mmol/L (3.6-5.0) L 03/24/17 07:21 Chloride 100.0 mmol/L (98-107) 03/24/17 07:21 Carbon Dioxide 25 mmol/L (22-30) 03/24/17 07:21 Anion Gap 18 mmol/L 03/24/17 07:21 BUN 10 mg/dL (7-17) 03/24/17 07:21 Creatinine 0.8 mg/dL (0.7-1.2) 03/24/17 07:21 Estimated GFR > 60 ml/min 03/24/17 07:21 BUN/Creatinine Ratio 13 % 03/24/17 07:21 Glucose 94 mg/dL (65-100) 03/24/17 07:21 POC Glucose 127 (70-105) H 03/13/17 12:09 Hemoglobin A1c 5.2 % (4-6) 03/11/17 03:03 Calcium 9.5 mg/dL (8.4-10.2) 03/24/17 07:21 Iron 51 ug/dL (37-170) 03/12/17 15:25 TIBC 215 mcg/dL (250-450) L 03/12/17 15:25 % Saturation 23.72 % 03/12/17 15:25 Transferrin 192 mg/dl (192-382) 03/12/17 15:25 Ferritin 332.2 ng/mL (13.0-400.0) 03/12/17 15:25 Total Bilirubin 0.40 mg/dL (0.1-1.2) 03/10/17 22:55 AST 18 units/L (5-40) 03/10/17 22:55 ALT 10 units/L (7-56) 03/10/17 22:55 Alkaline Phosphatase 100 units/L (35-129) 03/10/17 22:55 Total Creatine Kinase 40 units/L (30-135) 03/11/17 02:11 CK-MB (CK-2) 1.6 ng/mL (0.0-4.0) 03/11/17 02:11 CK-MB (CK-2) Rel Index 4.0 (0-4) 03/11/17 02:11 Troponin T < 0.010 ng/mL (0.00-0.029) 03/11/17 02:11 C-Reactive Protein 1.30 mg/dL (0.00-1.30) 03/13/17 21:09 Total Protein 8.0 g/dL (6.3-8.2) 03/10/17 22:55 Albumin 3.8 g/dL (3.9-5) L 03/10/17 22:55 Albumin/Globulin Ratio 0.9 % 03/10/17 22:55 Vitamin B12 44.64 pg/mL (211-911) L 03/12/17 15:25 Folate 16.43 ng/mL (7.3-26.0) 03/12/17 15:25
[2017-03-25] MEDS: HCTZ PO SCH (12:37)
[2017-03-25] MEDS: LOVENOX SUB-Q SCH ×2 (12:37→12:47)
[2017-03-25] MEDS: NORVASC PO SCH (12:37)
[2017-03-25] MEDS: ZESTRIL PO SCH (12:38)
[2017-03-25] MEDS: PLAVIX PO SCH (12:38)
[2017-03-25] MEDS: DAKIN'S FULL STRENGTH TP SCH ×2 (12:39→22:00)
[2017-03-25] MEDS: BACTRIM DS PO SCH ×2 (12:43→23:19)
--- NOTE | 2017-03-26 08:49 | Progress Note ---
Subjective Date of service: 03/26/17 Principal diagnosis: osteomyelitis' Interval history: no receiving associate store present, appears comfortable, Objective Vital signs: Vital Signs - 12hr 03/26/17 07:39 Temperature 97.9 F Pulse Rate 56 L Respiratory 20 Rate Blood Pressure 141/53 O2 Sat by Pulse 100 Oximetry Narrative Exam: post op dressing intact minimal drainage noted, no odor detected post op day 3 would wait another day or so before removing dressing to increase graft take - Labs CBC & BMP: 03/24/17 07:21 03/24/17 07:21
--- NOTE | 2017-03-26 09:08 | Progress Note ---
Assessment and Plan Assessment and plan: 81-year-old woman with no medical problem who just arrived from [facility] on day of admission who came in for eval of necrotic non healing RLE wound on foot/big toe with tendons and bones exposed -denies any chronic medical problems MR ADAMS: image reviewed; Early osteomylitis of the first promixal and distal phalanges Right foot ulcer with necrotic wound, with chronic osteomylitis case dw ID, continue bactrim till 03/31 ,sp revasc of R anterior tibial artery by vasc sx, sp debridement by ortho , sp skin grafting by ortho on 03/23 continue wound care Mild to Moderate Malnutrition 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 HTN urgency optimize PO meds, continue IV hydralazine PRN Anemia 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 be AOCD send iron studies and workup Delireum frequent re-orientation, advised staff to use [email or web address] clinical coder with her at all times DVT Ppx bruce grandson is Juan F: [phone] Tentative dc home with grandson and wound care/home health tomorrow History Interval history: she was confused overnight , calm today Review of systems Constitutional: No fevers, no malaise, no joint pains CVS: No chest pain, no orthopnea, no dyspnea on exertion, no pedal edema GI: No abdominal pain, no diarrhea, no vomiting, no constipation Respiratory: No shortness of breath, no wheezing, no coughing Hospitalist Physical - Physical exam Narrative exam: Gen. appearance: Patient lying in bed in no acute distress HEENT: Normocephalic/atraumatic, pupils equal round reactive to light, extra occular movement intact, no scleral icterus, no JVD or thyromegaly or nodule, neck is supple, mucous membrane moist, no erythema or exudate Heart: S1-S2, regular rate and rhythm Lungs: Clear to auscultation bilateral breathing comfortable Abdomen: Positive bowel sounds, nontender, nondistended, no organomegaly Extremities: Right foot with dressing, dressing was not removed Neuro:: Oriented 3 , cranial nerves II-12 intact, speech, motor intact Skin: No rash, nodules, warm dry - Constitutional Vitals: Temp Pulse Resp BP Pulse Ox 97.9 F 56 L 20 141/53 100 03/26/17 07:39 03/26/17 07:39 03/26/17 07:39 03/26/17 07:39 03/26/17 07:39 General appearance: Present: no acute distress Results - Labs CBC & Chem 7: 03/24/17 07:21 03/24/17 07:21 Labs: Laboratory Last Values WBC 2.2 K/mm3 (4.5-11.0) L 03/24/17 07:21 RBC 2.83 M/mm3 (3.65-5.03) L 03/24/17 07:21 Hgb 8.6 gm/dl (10.1-14.3) L 03/24/17 07:21 Hct 27.6 % (30.3-42.9) L 03/24/17 07:21 MCV 97 fl (79-97) 03/24/17 07:21 MCH 30 pg (28-32) 03/24/17 07:21 MCHC 31 % (30-34) 03/24/17 07:21 RDW 17.0 % (13.2-15.2) H 03/24/17 07:21 Plt Count 161 K/mm3 (140-440) 03/24/17 07:21 Lymph % (Auto) Toy Department Manager 03/10/17 22:55 [place] % (Auto) Toy Department Manager 03/10/17 22:55 Eos % (Auto) Toy Department Manager 03/10/17 22:55 Baso % (Auto) Toy Department Manager 03/10/17 22:55 Lymph # Toy Department Manager 03/10/17 22:55 [place] # Toy Department Manager 03/10/17 22:55 Eos # Toy Department Manager 03/10/17 22:55 Baso # Toy Department Manager 03/10/17 22:55 Add Manual Diff Complete 03/24/17 07:21 Total Counted 100 03/24/17 07:21 Seg Neutrophils % Toy Department Manager 03/10/17 22:55 Seg Neuts % (Manual) 69.0 % (40.0-70.0) 03/24/17 07:21 Band Neutrophils % 1.0 % 03/24/17 07:21 Lymphocytes % (Manual) 20.0 % (13.4-35.0) 03/24/17 07:21 Reactive Lymphs % (Man) 0 % 03/24/17 07:21 Monocytes % (Manual) 6.0 % (0.0-7.3) 03/24/17 07:21 Eosinophils % (Manual) 4.0 % (0.0-4.3) 03/24/17 07:21 Basophils % (Manual) 0 % (0.0-1.8) 03/24/17 07:21 Metamyelocytes % 0 % 03/24/17 07:21 Myelocytes % 0 % 03/24/17 07:21 Promyelocytes % 0 % 03/24/17 07:21 Blast Cells % 0 % 03/24/17 07:21 Nucleated RBC % Not Reportable 03/24/17 07:21 Seg Neutrophils # Toy Department Manager 03/10/17 22:55 Seg Neutrophils # Man 1.5 K/mm3 (1.8-7.7) L 03/24/17 07:21 Band Neutrophils # 0.0 K/mm3 03/24/17 07:21 Lymphocytes # (Manual) 0.4 K/mm3 (1.2-5.4) L 03/24/17 07:21 Abs React Lymphs (Man) 0.0 K/mm3 03/24/17 07:21 Monocytes # (Manual) 0.1 K/mm3 (0.0-0.8) 03/24/17 07:21 Eosinophils # (Manual) 0.1 K/mm3 (0.0-0.4) 03/24/17 07:21 Basophils # (Manual) 0.0 K/mm3 (0.0-0.1) 03/24/17 07:21 Metamyelocytes # 0.0 K/mm3 03/24/17 07:21 Myelocytes # 0.0 K/mm3 03/24/17 07:21 Promyelocytes # 0.0 K/mm3 03/24/17 07:21 Blast Cells # 0.0 K/mm3 03/24/17 07:21 Pathologist Review 03/12/17 15:25 WBC Morphology Not Reportable 03/24/17 07:21 Hypersegmented Neuts Not Reportable 03/24/17 07:21 Hyposegmented Neuts Not Reportable 03/24/17 07:21 Hypogranular Neuts Not Reportable 03/24/17 07:21 Smudge Cells Not Reportable 03/24/17 07:21 Toxic Granulation Not Reportable 03/24/17 07:21 Toxic Vacuolation Not Reportable 03/24/17 07:21 Dohle Bodies Not Reportable 03/24/17 07:21 Pelger-Huet Anomaly Not Reportable 03/24/17 07:21 Elyse Rods Not Reportable 03/24/17 07:21 Platelet Estimate Consistent w auto 03/24/17 07:21 Clumped Platelets Not Reportable 03/24/17 07:21 Plt Clumps, EDTA Not Reportable 03/24/17 07:21 Large Platelets Not Reportable 03/24/17 07:21 Giant Platelets Not Reportable 03/24/17 07:21 Platelet Satelliting Not Reportable 03/24/17 07:21 Plt Morphology Comment Not Reportable 03/24/17 07:21 RBC Morphology Not Reportable 03/24/17 07:21 Dimorphic RBCs Not Reportable 03/24/17 07:21 Polychromasia Not Reportable 03/24/17 07:21 Hypochromasia Few 03/24/17 07:21 Poikilocytosis Not Reportable 03/24/17 07:21 Anisocytosis 2+ 03/24/17 07:21 Microcytosis Not Reportable 03/24/17 07:21 Macrocytosis Few 03/24/17 07:21 Spherocytes Not Reportable 03/24/17 07:21 Pappenheimer Bodies Not Reportable 03/24/17 07:21 Sickle Cells Not Reportable 03/24/17 07:21 Target Cells Not Reportable 03/24/17 07:21 Tear Drop Cells Few 03/24/17 07:21 Ovalocytes Not Reportable 03/24/17 07:21 Helmet Cells Not Reportable 03/24/17 07:21 Contreras-Ravine Bodies Not Reportable 03/24/17 07:21 [place] Rings Not Reportable 03/24/17 07:21 Darian Cells Not Reportable 03/24/17 07:21 Bite Cells Not Reportable 03/24/17 07:21 Crenated Cell Not Reportable 03/24/17 07:21 Elliptocytes Not Reportable 03/24/17 07:21 Acanthocytes (Spur) Not Reportable 03/24/17 07:21 Rouleaux Not Reportable 03/24/17 07:21 Hemoglobin C Crystals Not Reportable 03/24/17 07:21 Schistocytes Few 03/24/17 07:21 Malaria parasites Not Reportable 03/24/17 07:21 Hussain Bodies Not Reportable 03/24/17 07:21 Hem Pathologist Commnt No 03/24/17 07:21 Sodium 139 mmol/L (137-145) 03/24/17 07:21 Potassium 3.5 mmol/L (3.6-5.0) L 03/24/17 07:21 Chloride 100.0 mmol/L (98-107) 03/24/17 07:21 Carbon Dioxide 25 mmol/L (22-30) 03/24/17 07:21 Anion Gap 18 mmol/L 03/24/17 07:21 BUN 10 mg/dL (7-17) 03/24/17 07:21 Creatinine 0.8 mg/dL (0.7-1.2) 03/24/17 07:21 Estimated GFR > 60 ml/min 03/24/17 07:21 BUN/Creatinine Ratio 13 % 03/24/17 07:21 Glucose 94 mg/dL (65-100) 03/24/17 07:21 POC Glucose 127 (70-105) H 03/13/17 12:09 Hemoglobin A1c 5.2 % (4-6) 03/11/17 03:03 Calcium 9.5 mg/dL (8.4-10.2) 03/24/17 07:21 Iron 51 ug/dL (37-170) 03/12/17 15:25 TIBC 215 mcg/dL (250-450) L 03/12/17 15:25 % Saturation 23.72 % 03/12/17 15:25 Transferrin 192 mg/dl (192-382) 03/12/17 15:25 Ferritin 332.2 ng/mL (13.0-400.0) 03/12/17 15:25 Total Bilirubin 0.40 mg/dL (0.1-1.2) 03/10/17 22:55 AST 18 units/L (5-40) 03/10/17 22:55 ALT 10 units/L (7-56) 03/10/17 22:55 Alkaline Phosphatase 100 units/L (35-129) 03/10/17 22:55 Total Creatine Kinase 40 units/L (30-135) 03/11/17 02:11 CK-MB (CK-2) 1.6 ng/mL (0.0-4.0) 03/11/17 02:11 CK-MB (CK-2) Rel Index 4.0 (0-4) 03/11/17 02:11 Troponin T < 0.010 ng/mL (0.00-0.029) 03/11/17 02:11 C-Reactive Protein 1.30 mg/dL (0.00-1.30) 03/13/17 21:09 Total Protein 8.0 g/dL (6.3-8.2) 03/10/17 22:55 Albumin 3.8 g/dL (3.9-5) L 03/10/17 22:55 Albumin/Globulin Ratio 0.9 % 03/10/17 22:55 Vitamin B12 44.64 pg/mL (211-911) L 03/12/17 15:25 Folate 16.43 ng/mL (7.3-26.0) 03/12/17 15:25
[2017-03-26] MEDS: LOVENOX SUB-Q SCH (10:40)
[2017-03-26] MEDS: BACTRIM DS PO SCH ×2 (10:40→21:07)
[2017-03-26] MEDS: NORVASC PO SCH (10:41)
[2017-03-26] MEDS: PLAVIX PO SCH (10:41)
[2017-03-26] MEDS: HCTZ PO SCH (10:41)
[2017-03-26] MEDS: ZESTRIL PO SCH (10:41)
[2017-03-26] MEDS: DAKIN'S FULL STRENGTH TP SCH (10:43)
[2017-03-27] MEDS: BACTRIM DS PO SCH (11:04)
[2017-03-27] MEDS: ZESTRIL PO SCH (11:04)
[2017-03-27] MEDS: NORVASC PO SCH (11:05)
[2017-03-27] MEDS: HCTZ PO SCH (11:05)
[2017-03-27] MEDS: LOVENOX SUB-Q SCH (11:07)
[2017-03-27] MEDS: DAKIN'S FULL STRENGTH TP SCH (11:08)
[2017-03-27] MEDS: PLAVIX PO SCH (12:09)
--- NOTE | 2017-03-27 14:17 | Progress Note ---
Assessment and Plan Assessment and plan: 81-year-old woman with no medical problem who just arrived from [facility] on day of admission who came in for eval of necrotic non healing RLE wound on foot/big toe with tendons and bones exposed -denies any chronic medical problems MR ADAMS: image reviewed; Early osteomylitis of the first promixal and distal phalanges Right foot ulcer with necrotic wound, with chronic osteomylitis case dw ID, continue bactrim till 03/31 sp revasc of R anterior tibial artery by vasc sx, sp debridement by ortho , sp skin grafting by ortho on 03/23 continue wound care Mild to Moderate 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 Communication via lathe puller services. Patient denies chest pain nausea vomiting shortness of breath. Hospitalist Physical - Constitutional Vitals: Temp Pulse Resp BP Pulse Ox 97.8 F 69 16 152/63 99 03/27/17 07:52 03/27/17 07:52 03/27/17 07:52 03/27/17 07:52 03/27/17 07:52 General appearance: Present: no acute distress, well-nourished - EENT Eyes: Present: PERRL, EOM intact ENT: hearing intact, clear oral mucosa - Neck Neck: Present: supple, normal ROM - Respiratory Respiratory effort: normal Respiratory: bilateral: CTA - Cardiovascular Rhythm: regular Heart Sounds: Present: S1 & S2 - Extremities Extremities: No edema (R foot bandaged) Peripheral Pulses: within normal limits - Abdominal General gastrointestinal: soft, non-tender, non-distended - Integumentary Integumentary: Present: clear, warm, dry - Psychiatric Psychiatric: appropriate mood/affect, cooperative - Neurologic Neurologic: CNII-XII intact, moves all extremities - Allied Health Allied health notes reviewed: nursing Results - Labs CBC & Chem 7: 03/24/17 07:21 03/24/17 07:21 Labs: Laboratory Last Values WBC 2.2 K/mm3 (4.5-11.0) L 03/24/17 07:21 RBC 2.83 M/mm3 (3.65-5.03) L 03/24/17 07:21 Hgb 8.6 gm/dl (10.1-14.3) L 03/24/17 07:21 Hct 27.6 % (30.3-42.9) L 03/24/17 07:21 MCV 97 fl (79-97) 03/24/17 07:21 MCH 30 pg (28-32) 03/24/17 07:21 MCHC 31 % (30-34) 03/24/17 07:21 RDW 17.0 % (13.2-15.2) H 03/24/17 07:21 Plt Count 161 K/mm3 (140-440) 03/24/17 07:21 Lymph % (Auto) Iron Molder Helper 03/10/17 22:55 [place] % (Auto) Iron Molder Helper 03/10/17 22:55 Eos % (Auto) Iron Molder Helper 03/10/17 22:55 Baso % (Auto) Iron Molder Helper 03/10/17 22:55 Lymph # Iron Molder Helper 03/10/17 22:55 [place] # Iron Molder Helper 03/10/17 22:55 Eos # Iron Molder Helper 03/10/17 22:55 Baso # Iron Molder Helper 03/10/17 22:55 Add Manual Diff Complete 03/24/17 07:21 Total Counted 100 03/24/17 07:21 Seg Neutrophils % Iron Molder Helper 03/10/17 22:55 Seg Neuts % (Manual) 69.0 % (40.0-70.0) 03/24/17 07:21 Band Neutrophils % 1.0 % 03/24/17 07:21 Lymphocytes % (Manual) 20.0 % (13.4-35.0) 03/24/17 07:21 Reactive Lymphs % (Man) 0 % 03/24/17 07:21 Monocytes % (Manual) 6.0 % (0.0-7.3) 03/24/17 07:21 Eosinophils % (Manual) 4.0 % (0.0-4.3) 03/24/17 07:21 Basophils % (Manual) 0 % (0.0-1.8) 03/24/17 07:21 Metamyelocytes % 0 % 03/24/17 07:21 Myelocytes % 0 % 03/24/17 07:21 Promyelocytes % 0 % 03/24/17 07:21 Blast Cells % 0 % 03/24/17 07:21 Nucleated RBC % Not Reportable 03/24/17 07:21 Seg Neutrophils # Iron Molder Helper 03/10/17 22:55 Seg Neutrophils # Man 1.5 K/mm3 (1.8-7.7) L 03/24/17 07:21 Band Neutrophils # 0.0 K/mm3 03/24/17 07:21 Lymphocytes # (Manual) 0.4 K/mm3 (1.2-5.4) L 03/24/17 07:21 Abs React Lymphs (Man) 0.0 K/mm3 03/24/17 07:21 Monocytes # (Manual) 0.1 K/mm3 (0.0-0.8) 03/24/17 07:21 Eosinophils # (Manual) 0.1 K/mm3 (0.0-0.4) 03/24/17 07:21 Basophils # (Manual) 0.0 K/mm3 (0.0-0.1) 03/24/17 07:21 Metamyelocytes # 0.0 K/mm3 03/24/17 07:21 Myelocytes # 0.0 K/mm3 03/24/17 07:21 Promyelocytes # 0.0 K/mm3 03/24/17 07:21 Blast Cells # 0.0 K/mm3 03/24/17 07:21 Pathologist Review 03/12/17 15:25 WBC Morphology Not Reportable 03/24/17 07:21 Hypersegmented Neuts Not Reportable 03/24/17 07:21 Hyposegmented Neuts Not Reportable 03/24/17 07:21 Hypogranular Neuts Not Reportable 03/24/17 07:21 Smudge Cells Not Reportable 03/24/17 07:21 Toxic Granulation Not Reportable 03/24/17 07:21 Toxic Vacuolation Not Reportable 03/24/17 07:21 Dohle Bodies Not Reportable 03/24/17 07:21 Pelger-Huet Anomaly Not Reportable 03/24/17 07:21 Elyse Rods Not Reportable 03/24/17 07:21 Platelet Estimate Consistent w auto 03/24/17 07:21 Clumped Platelets Not Reportable 03/24/17 07:21 Plt Clumps, EDTA Not Reportable 03/24/17 07:21 Large Platelets Not Reportable 03/24/17 07:21 Giant Platelets Not Reportable 03/24/17 07:21 Platelet Satelliting Not Reportable 03/24/17 07:21 Plt Morphology Comment Not Reportable 03/24/17 07:21 RBC Morphology Not Reportable 03/24/17 07:21 Dimorphic RBCs Not Reportable 03/24/17 07:21 Polychromasia Not Reportable 03/24/17 07:21 Hypochromasia Few 03/24/17 07:21 Poikilocytosis Not Reportable 03/24/17 07:21 Anisocytosis 2+ 03/24/17 07:21 Microcytosis Not Reportable 03/24/17 07:21 Macrocytosis Few 03/24/17 07:21 Spherocytes Not Reportable 03/24/17 07:21 Pappenheimer Bodies Not Reportable 03/24/17 07:21 Sickle Cells Not Reportable 03/24/17 07:21 Target Cells Not Reportable 03/24/17 07:21 Tear Drop Cells Few 03/24/17 07:21 Ovalocytes Not Reportable 03/24/17 07:21 Helmet Cells Not Reportable 03/24/17 07:21 Contreras-Piggott Bodies Not Reportable 03/24/17 07:21 [place] Rings Not Reportable 03/24/17 07:21 Darian Cells Not Reportable 03/24/17 07:21 Bite Cells Not Reportable 03/24/17 07:21 Crenated Cell Not Reportable 03/24/17 07:21 Elliptocytes Not Reportable 03/24/17 07:21 Acanthocytes (Spur) Not Reportable 03/24/17 07:21 Rouleaux Not Reportable 03/24/17 07:21 Hemoglobin C Crystals Not Reportable 03/24/17 07:21 Schistocytes Few 03/24/17 07:21 Malaria parasites Not Reportable 03/24/17 07:21 Hussain Bodies Not Reportable 03/24/17 07:21 Hem Pathologist Commnt No 03/24/17 07:21 Sodium 139 mmol/L (137-145) 03/24/17 07:21 Potassium 3.5 mmol/L (3.6-5.0) L 03/24/17 07:21 Chloride 100.0 mmol/L (98-107) 03/24/17 07:21 Carbon Dioxide 25 mmol/L (22-30) 03/24/17 07:21 Anion Gap 18 mmol/L 03/24/17 07:21 BUN 10 mg/dL (7-17) 03/24/17 07:21 Creatinine 0.8 mg/dL (0.7-1.2) 03/24/17 07:21 Estimated GFR > 60 ml/min 03/24/17 07:21 BUN/Creatinine Ratio 13 % 03/24/17 07:21 Glucose 94 mg/dL (65-100) 03/24/17 07:21 POC Glucose 127 (70-105) H 03/13/17 12:09 Hemoglobin A1c 5.2 % (4-6) 03/11/17 03:03 Calcium 9.5 mg/dL (8.4-10.2) 03/24/17 07:21 Iron 51 ug/dL (37-170) 03/12/17 15:25 TIBC 215 mcg/dL (250-450) L 03/12/17 15:25 % Saturation 23.72 % 03/12/17 15:25 Transferrin 192 mg/dl (192-382) 03/12/17 15:25 Ferritin 332.2 ng/mL (13.0-400.0) 03/12/17 15:25 Total Bilirubin 0.40 mg/dL (0.1-1.2) 03/10/17 22:55 AST 18 units/L (5-40) 03/10/17 22:55 ALT 10 units/L (7-56) 03/10/17 22:55 Alkaline Phosphatase 100 units/L (35-129) 03/10/17 22:55 Total Creatine Kinase 40 units/L (30-135) 03/11/17 02:11 CK-MB (CK-2) 1.6 ng/mL (0.0-4.0) 03/11/17 02:11 CK-MB (CK-2) Rel Index 4.0 (0-4) 03/11/17 02:11 Troponin T < 0.010 ng/mL (0.00-0.029) 03/11/17 02:11 C-Reactive Protein 1.30 mg/dL (0.00-1.30) 03/13/17 21:09 Total Protein 8.0 g/dL (6.3-8.2) 03/10/17 22:55 Albumin 3.8 g/dL (3.9-5) L 03/10/17 22:55 Albumin/Globulin Ratio 0.9 % 03/10/17 22:55 Vitamin B12 44.64 pg/mL (211-911) L 03/12/17 15:25 Folate 16.43 ng/mL (7.3-26.0) 03/12/17 15:25
--- NOTE | 2017-03-27 15:08 | Discharge Summary ---
Providers - Providers Date of Admission: 03/11/17 04:12 Date of discharge: 03/27/17 Attending physician: KY FISCHER MD 03/13/17 07:47 Consult to Wound/ET Nurse [CONS] Urgent Reason For Exam: necrotic foot right 03/11/17 04:12 Consult to Physician [CONS] Routine Consulting Provider: TRU LNAE Reason For Exam: foot ulcer Place consult to:: dr. lane Notified:: voice mail Phone number called:: Was contact made?: No Time called:: 10:47 Comment:: left msg. 03/11/17 07:43 Consult to Physician [CONS] Routine Consulting Provider: JUANITO NICE Reason For Exam: r foot necrotic wound down to tendon and bone Place consult to:: dr. nice Notified:: Phone number called:: [phone] Was contact made?: Yes If yes, spoke with:: dr. nice Time called:: 10:58 Consult to Physician [CONS] Routine Consulting Provider: MICHA SOTO Reason For Exam: R foot necrotic wound Place consult to:: dr. soto Notified:: answering service Phone number called:: Was contact made?: Yes If yes, spoke with:: peter Time called:: 10:52 03/11/17 11:42 Consult to Physician [CONS] Routine Consulting Provider: LANEY COOPER Reason For Exam: R big toe OM Place consult to:: dr. roy Notified:: Phone number called:: [phone] Was contact made?: Yes If yes, spoke with:: dr. 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 No evidence of DVT in the right lower extremity. Lower extremity MRI showed that early osteomyelitis of the first proximal and distal phalanges cannot be excluded with the possibility that it is due to arthritic changes. Procedures: Revascularization of R anterior tibial artery by vascular surgeon, sp debridement by ortho , sp skin grafting by ortho on 03/23 Hospital course: 81-year-old woman with no medical problem who just arrived from [facility] on day of admission who came in for eval of necrotic non healing RLE wound on foot/big toe with tendons and bones exposed -denies any chronic medical problems Patient underwent revascularization of the right anterior tibial artery completed by vascular surgeon along with debridement and skin graft by orthopedic surgeon. She tolerated the procedures well and was placed on IV antibiotics. Patient resumed home medications which included antihypertensives and was clinically stable for discharge to home with home health for wound care . Discharge diagnoses Right foot ulcer with necrotic wound with chronic osteomyelitis Mild to moderate malnutrition Hypertensive urgency Anemia Delirium DVT prophylaxis Disposition: [id number]-06 HOME UNDER HOME [facility] Core Measure Documentation - Palliative Care Palliative Care/ Comfort Measures: Not Applicable - Core Measures Any of the following diagnoses?: none Exam - Constitutional Vitals: Temp Pulse Resp BP Pulse Ox 97.8 F 69 16 152/63 99 03/27/17 07:52 03/27/17 07:52 03/27/17 07:52 03/27/17 07:52 03/27/17 07:52 General appearance: Present: no acute distress, well-nourished - EENT Eyes: Present: PERRL ENT: hearing intact, clear oral mucosa - Neck Neck: Present: supple, normal ROM - Respiratory Respiratory effort: normal Respiratory: bilateral: CTA - Cardiovascular Heart Sounds: Present: S1 & S2. Absent: rub, click - Extremities Extremities: pulses symmetrical, No edema Peripheral Pulses: within normal limits - Abdominal Female genitourinary: Present: deferred - Rectal Rectal Exam: deferred - Integumentary Integumentary: Present: clear, warm, dry (right foot bandaged not removed) - Psychiatric Psychiatric: appropriate mood/affect, intact judgment & insight - Neurologic Neurologic: CNII-XII intact, moves all extremities - Allied Health Allied health notes reviewed: nursing Plan Additional Instructions: Per Dr. Nice, patient is to follow-up with him in his office in one week, no one is to change the patient's dressing until Dr. Nice sees the patient next Sunday, April 03, 2014 at 11 am. Follow up with: KRYSTIN MURILLO MD [Primary Care Provider] - 3-5 Days JUANITO NICE MD [Staff Physician] - 04/03/17 11:00 am Prescriptions: amLODIPine [Norvasc] 10 mg PO QDAY #30 tablet Clopidogrel [Plavix] 75 mg PO QDAY #30 tablet Hydrochlorothiazide [HCTZ] 25 mg PO QDAY #30 tablet Lisinopril [Zestril TAB] 40 mg PO QDAY #30 tablet Sodium Hypochlorite [Dakin's Full Strength] 1 applic TP Q12H #1 bottle Sulfamethoxazole/Trimethoprim [Bactrim DS TAB] 1 each PO Q12HR 4 Days tablet
[2017-03-27 17:12] VITALS: BP 177/80
== END 2017-03-27 19:20 | disposition home health service (06) | DRG 271 ==
LOC: ED 22:21 → 3A 03-11 04:12
PROVIDERS: ADMIT Internal Medicine; ATTEND Internal Medicine
PROC: 04CP3ZZ Extirpation of Matter from Right Anterior Tibial Artery, Percutaneous Approach (ICD-10-PCS; principal; 2017-03-16)
PROC: 047P3ZZ Dilation of Right Anterior Tibial Artery, Percutaneous Approach (ICD-10-PCS; 2017-03-16)
PROC: B4101ZZ Fluoroscopy of Abdominal Aorta using Low Osmolar Contrast (ICD-10-PCS; 2017-03-16)
PROC: B41F1ZZ Fluoroscopy of Right Lower Extremity Arteries using Low Osmolar Contrast (ICD-10-PCS; 2017-03-16)
PROC: B41G1ZZ Fluoroscopy of Left Lower Extremity Arteries using Low Osmolar Contrast (ICD-10-PCS; 2017-03-16)
PROC: 0JBQ0ZZ Excision of Right Foot Subcutaneous Tissue and Fascia, Open Approach (ICD-10-PCS; 2017-03-19)
PROC: 0HRMX73 Replacement of Right Foot Skin with Autologous Tissue Substitute, Full Thickness, External Approach (ICD-10-PCS; 2017-03-23)
PROC: 0HBHXZZ Excision of Right Upper Leg Skin, External Approach (ICD-10-PCS; 2017-03-23)
DX: I96 Gangrene, not elsewhere classified (principal); M86.671 Other chronic osteomyelitis, right ankle and foot; E44.0 Moderate protein-calorie malnutrition; L97.513 Non-pressure chronic ulcer of other part of right foot with necrosis of muscle; Z82.49 Family history of ischemic heart disease and other diseases of the circulatory system; Z68.27 Body mass index [BMI] 27.0-27.9, adult; I16.0 Hypertensive urgency; D64.9 Anemia, unspecified; R41.0 Disorientation, unspecified; I10 Essential (primary) hypertension
CPT/HCPCS: 36415; 37229; 75625; 75710; 80048; 80053; 82550; 82553; 82607; 82728; 82747; 82962; 83036; 83550; 84132; 84484; 85007; 85014; 85018; 85025; 86140; 87040; 87076; 87116; 87186; 93005; 93010; 96365; C1724; C1725; C1760; C1769; C1887; J1170; J1644; J1650; J2060; J2250; J2370; J2405; J2543; J2704; J3010; J3370; J7030; Q9967

== ENCOUNTER 2017-05-30 17:18 | Emergency (ER) | payer MEDICAID ==
[2017-05-30] MEDS ORDERED: PEPCID IV ONE ×2 (17:48→18:12)
--- NOTE | 2017-05-30 18:37 | Emergency Department Report ---
ED General Adult HPI - General Chief complaint: Allergic Reaction Stated complaint: ALLERGIC REACTION Time Seen by Provider: 05/30/17 17:47 Source: patient Mode of arrival: Ambulatory Limitations: No Limitations - History of Present Illness Initial comments: Patient on SOLOMON inhibitor presents with angioedema to the lips no stridor no drooling, awake alert oriented 3, no sob, mild lip swelling, no airway compromise, no tongue swelling, no rash, vss -: This evening, unknown Associated Symptoms: denies other symptoms. denies: confusion, chest pain, cough, diaphoresis, fever/chills, headaches, loss of appetite, malaise, nausea/ vomiting, rash, seizure, shortness of breath, syncope, weakness - Related Data Previous Rx's Medication Instructions Recorded Last Taken Type Clopidogrel [Plavix] 75 mg PO QDAY #30 tablet 03/17/17 Unknown Rx Hydrochlorothiazide [HCTZ] 25 mg PO QDAY #30 tablet 03/17/17 Unknown Rx Lisinopril [Zestril TAB] 40 mg PO QDAY #30 tablet 03/17/17 Unknown Rx Sodium Hypochlorite [Dakin's Full 1 applic TP Q12H #1 bottle 03/17/17 Unknown Rx Strength] amLODIPine [Norvasc] 10 mg PO QDAY #30 tablet 03/17/17 Unknown Rx Sulfamethoxazole/Trimethoprim 1 each PO Q12HR 4 Days tablet 03/27/17 Unknown Rx [Bactrim DS TAB] Prednisone 50 mg PO DAILY #5 tablet 05/30/17 Unknown Rx Allergies Allergy/AdvReac Type Severity Reaction Status Date / Time No Known Allergies Allergy Unverified 03/10/17 22:33 ED Review of Systems ROS: Stated complaint: ALLERGIC REACTION Other details as noted in HPI Comment: All other systems reviewed and negative Constitutional: denies: diaphoresis, fever, malaise, weakness ENT: denies: dental pain, hearing loss, epistaxis Respiratory: denies: cough, orthopnea, shortness of breath, SOB with exertion, SOB at rest, stridor, wheezing Cardiovascular: denies: chest pain, palpitations, dyspnea on exertion, orthopnea , edema, syncope, paroxysmal nocturnal dyspnea Gastrointestinal: denies: abdominal pain, nausea, vomiting, diarrhea, constipation, hematemesis, melena, hematochezia Neurological: denies: headache, weakness, numbness, paresthesias, confusion, abnormal gait, vertigo ED Past Medical Hx - Past Medical History Hx Hypertension: Yes Additional medical history: ,CHILDBIRTH,FOOT ULCER - Social History Smoking Status: Never Smoker Substance Use Type: None - Medications Home Medications: Home Medications Medication Instructions Recorded Confirmed Last Taken Type Clopidogrel [Plavix] 75 mg PO QDAY #30 tablet 03/17/17 Unknown Rx Hydrochlorothiazide [HCTZ] 25 mg PO QDAY #30 tablet 03/17/17 Unknown Rx Lisinopril [Zestril TAB] 40 mg PO QDAY #30 tablet 03/17/17 Unknown Rx Sodium Hypochlorite [Dakin's Full 1 applic TP Q12H #1 bottle 03/17/17 Unknown Rx Strength] amLODIPine [Norvasc] 10 mg PO QDAY #30 tablet 03/17/17 Unknown Rx Sulfamethoxazole/Trimethoprim 1 each PO Q12HR 4 Days tablet 03/27/17 Unknown Rx [Bactrim DS TAB] Prednisone 50 mg PO DAILY #5 tablet 05/30/17 Unknown Rx ED Physical Exam - General Limitations: No Limitations General appearance: alert, in no apparent distress - Head Head exam: Present: atraumatic, normocephalic - Eye Eye exam: Present: normal appearance, PERRL, EOMI - ENT ENT exam: Present: mucous membranes moist, other (mild angioedema to lips, no tongue swelling, no stridor) - Neck Neck exam: Present: normal inspection. Absent: tenderness, meningismus - Respiratory Respiratory exam: Present: normal lung sounds bilaterally. Absent: respiratory distress, wheezes, rales, rhonchi, stridor, chest wall tenderness, accessory muscle use, decreased breath sounds, prolonged expiratory - Cardiovascular Cardiovascular Exam: Present: regular rate, normal rhythm, normal heart sounds - GI/Abdominal GI/Abdominal exam: Present: soft. Absent: tenderness, guarding, rebound, hyperactive bowel sounds, hypoactive bowel sounds, mass, bruit - Extremities Exam Extremities exam: Present: normal inspection, normal capillary refill. Absent: calf tenderness - Back Exam Back exam: Present: normal inspection. Absent: CVA tenderness (R), CVA tenderness (L), muscle spasm, paraspinal tenderness, vertebral tenderness - Neurological Exam Neurological exam: Present: alert, oriented X3, CN II-XII intact. Absent: motor sensory deficit ED Course Vital Signs 05/30/17 05/30/17 17:30 19:58 Temperature 98.7 F 98.7 F Pulse Rate 72 73 Respiratory 16 17 Rate Blood Pressure 168/64 Blood Pressure 158/73 [Left] O2 Sat by Pulse 99 99 Oximetry ED Medical Decision Making - Lab Data Result diagrams: 05/30/17 Unknown 05/30/17 Unknown - Radiology Data Radiology results: report reviewed - Medical Decision Making Laboratory studies unremarkable chest x-ray read by radiologist is unremarkable. Patient was given medication the ED she was observed for several hours with no worsening of his symptoms and that she did have improvement. She was informed stop her SOLOMON inhibitor that his lisinopril, no further sx were reported and pt felt to have good support and they will return or call 911 if worse, and verbalizsed understangin by family, +improvement and no airway problems, in ed, stable outpt f/u Critical care attestation.: If time is entered above; I have spent that time in minutes in the direct care of this critically ill patient, excluding procedure time. ED Disposition Clinical Impression: SOLOMON inhibitor-aggravated angioedema Disposition: DC-01 TO HOME OR SELFCARE Is pt being admited?: No Condition: Stable Instructions: Angioedema (ED) Additional Instructions: See her regular doctor, stop lisinopril, return if new alarming symptoms or call 911 Prescriptions: Prednisone 50 mg PO DAILY #5 tablet Referrals: PRIMARY CARE, [Primary Care Provider] - 3-5 Days Time of Disposition: 21:10
[2017-05-30 19:00] LABS: Basophils % (Auto) 0.2 % (0.0-1.8); Eosinophils % (Auto) 0.3 % (0.0-4.3); Hematocrit 34.4 % (30.3-42.9); Hemoglobin 10.6 gm/dl (10.1-14.3); Lymphocytes # (Auto) 1.1 K/mm3 (1.2-5.4); Lymphocytes % (Auto) 35.3 % (13.4-35.0); Mean Corpuscular HGB Conc 31 % (30-34); Mean Corpuscular Hemoglobin 29 pg (28-32); Mean Corpuscular Volume 93 fl (79-97); Monocytes # (Auto) 0.2 K/mm3 (0.0-0.8); Monocytes % (Auto) 6.6 % (0.0-7.3); Platelet Count 181 K/mm3 (140-440); Red Blood Count 3.71 M/mm3 (3.65-5.03); Red Cell Distribution Width 18.5 % (13.2-15.2)
[2017-05-30 19:10] LABS: Alanine Aminotransferase 8 units/L (7-56); Albumin 4.3 g/dL (3.9-5); BUN/Creatinine Ratio 24; Blood Urea Nitrogen 17 mg/dL (7-17); Calcium 10.2 mg/dL (8.4-10.2); Hemolysis Index 20
--- NOTE | 2017-05-30 19:55 | XRay Report ---
FINAL REPORT EXAM: XR CHEST ROUTINE 2V HISTORY: wheezes TECHNIQUE: Two view chest PA and lateral PRIORS: None. FINDINGS: Cardiac and mediastinal contours are unremarkable. No focal pulmonary infiltrate is identified. No pleural fluid collection seen. Pulmonary vasculature is unremarkable. IMPRESSION: Negative two-view chest
[2017-05-30 19:59] VITALS: BP 158/73
== END 2017-05-30 20:32 | disposition home or self-care (01) ==
LOC: ED 17:18
DX: T78.3XXA Angioneurotic edema, initial encounter (principal); I10 Essential (primary) hypertension
CPT/HCPCS: 36415; 71046; 80053; 85025; 96374; 96375; 99283; J2930

== ENCOUNTER 2021-03-31 12:25 | Inpatient (IN) | payer MEDICAID, MEDICARE ==
[2021-03-31] MEDS ORDERED: SODIUM CHLORIDE 0.9% 500 ML 500 ML IV ONE (15:52)
--- NOTE | 2021-03-31 16:48 | XRay Report ---
CHEST 1 VIEW 03/31/2021 3:40 PM INDICATION / CLINICAL INFORMATION: Altered Mental Status. COMPARISON: 2 views of the chest from 05/30/2017. FINDINGS: SUPPORT DEVICES: None. HEART / MEDIASTINUM: No significant abnormality. LUNGS / PLEURA: No significant pulmonary abnormality. No significant pleural effusion. No pneumothora x. ADDITIONAL FINDINGS: No significant additional findings. IMPRESSION: 1. No acute abnormality of the chest. Signer Name: Alfonso Fontenot MD Signed: 03/31/2021 4:44 PM Workstation Name: [id number]
--- NOTE | 2021-03-31 16:51 | XRay Report ---
PELVIS ONE VIEW INDICATION / CLINICAL INFORMATION: Pelvic injury after fall. COMPARISON: None available. FINDINGS: BONES and JOINT(S): No acute fracture or subluxation. Mild degenerative changes are seen along the lo wer lumbar spine and hips. SOFT TISSUES: No acute findings. An IVC filter is partially visualized at the level of L2-L3. ADDITIONAL FINDINGS: None. IMPRESSION: 1. No acute findings. 2. Additional findings as above. 3. IVC Filter Recommendation: IVC filters should be removed if possible when they are no longer clini amena necessary. (1) Refer to the established IVC filter management plan; (2) If there is no establis hed plan for the patient's IVC filter, consider referral to interventional/vascular clinician on a no nemergent basis for evaluation. Signer Name: Alfonso Fontenot MD Signed: 03/31/2021 4:46 PM Workstation Name: [id number]
[2021-03-31 17:37] LABS: Basophils # (Auto) 0.1 K/mm3 (0.0-0.1); Basophils % (Auto) 0.9 % (0.0-1.8); Eosinophils # (Auto) 0.1 K/mm3 (0.0-0.4); Eosinophils % (Auto) 0.9 % (0.0-4.3); Lymphocytes % (Auto) 35.8 % (13.4-35.0); Mean Corpuscular HGB Conc 30 % (30-34); Mean Corpuscular Volume 76 fl (79-97); Monocytes # (Auto) 0.5 K/mm3 (0.0-0.8); Monocytes % (Auto) 9.1 % (0.0-7.3); Platelet Count 111 K/mm3 (140-440); Red Blood Count 4.76 M/mm3 (3.65-5.03); Red Cell Distribution Width 15.3 % (13.2-15.2)
[2021-03-31 17:41] LABS: Hematocrit 36.2 % (30.3-42.9); Hemoglobin 10.8 gm/dl (10.1-14.3)
--- NOTE | 2021-03-31 17:52 | Cat Scan Report ---
NONENHANCED CT SCAN OF THE HEAD: INDICATION / CLINICAL INFORMATION: 85 years Female; fall confusion. TECHNIQUE: Routine CT head without contrast. All CT scans at this location are performed using CT dos e reduction for ALARA by means of automated exposure control. COMPARISON: None. FINDINGS: BRAIN / INTRACRANIAL CONTENTS: No intracranial sequela from the trauma; no scalp hematoma; no fluid l evel in the visualized portions of the paranasal sinuses No acute hemorrhage, midline shift, hydrocephalus, or acute, large territorial infarct. 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 No chronic infarct or encephalomalacia. M oderate cortical involution; hippocampi are relatively well preserved; subtle periventricular low-att enuation areas due to chronic small vessel disease. CRANIOCERVICAL JUNCTION: No significant abnormality. ORBITS: No significant abnormality of visualized orbits. SINUSES / MASTOIDS: No significant abnormality of the visualized paranasal sinuses or mastoid air isidra ls. ADDITIONAL FINDINGS: None. 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 Sagittal and luna l reconstructions performed by the technologist. All CT scans at this location are performed using CT dose reduction for ALARA by means of automated exposure control. Findings: No priors. There is no evidence of fracture or traumatic subluxation. Vertebral bodies are normal in height and alignment. Intervertebral disc spaces are well-maintained. Uncovertebral joint hypertrophic changes at C4-C5 and C5-C6 disc levels; mild to moderate foraminal s tenoses at C5-C6 disc level Surrounding soft tissues are grossly normal. Impression: No signs of acute bony trauma to the cervical spine. Signer Name: Marty Sawant MD Signed: 03/31/2021 5:48 PM Workstation Name: [id number]
[2021-03-31 17:56] LABS: INR 1.04 (0.87-1.13)
[2021-03-31 18:04] LABS: Albumin 3.8 g/dL (3.9-5); Calcium 10.3 mg/dL (8.4-10.2)
--- NOTE | 2021-03-31 18:06 | Emergency Department Report ---
ED General Adult HPI - General Chief complaint: Weakness Stated complaint: WEAKNESS, DIZZINESS Time Seen by Provider: 03/31/21 15:30 Source: patient, family, RN notes reviewed, old records reviewed Mode of arrival: Ambulatory Limitations: Language Barrier, Altered Mental Status, Physical Limitation - History of Present Illness Initial comments: The patient was evaluated in the emergency department for symptoms described in the history of present illness. He/she was evaluated in the context of the global COVID-19 pandemic, which necessitated consideration that the patient might be at risk for infection with the virus that causes COVID-19. Institu tional protocols and algorithms that pertain to the evaluation of patients at risk for COVID-19 are in a state of rapid change based on information released by regulatory bodies including the CDC and federal and state organizations. These policies and algorithms were followed during the patient's care in the emergency department. Please note that these policies, procedures and recommendations changed on a rapid basis. The patient is an 85-year-old female. She is accompanied by her grandson, Mr. Juan F Haq; [phone] The patient has been living here in [place] for the past 3 months after she recently relocated here from [place] with her grandson. He reports that she has a history of hypertension and takes HCTZ and Norvasc. He brings the patient to the hospital today with a family articulated complaint of weakness, nonsensical speech, altered mental status, and not eating or drinking. The symptoms have been going on for a few weeks to about a month and a half. The patient's g randson reports decrease in the patient's functional status, and reports that she is essentially bedbound. He also reports that she completes her activities of daily living with help and assistance. He reports that she does not speak [place]ian, and that he would like to translate for her. He also reports that the patient is confused compared to her baseline, and he is not confident that a belt sewer will be able to obtain more information and himself. He denies fever, nausea, vomiting and diarrhea as well as dysuria. He does not believe this patient has had her COVID vaccinations. The patient herself is awake, confused, and moving 4 extremities. The patient's grandson does not describe exacerbating or relieving factors, except when she attempts to eat he also reports that he believes this patient fell earlier on today, he reports that he found the patient down, next to her bed. This is an unwitnessed fall -: week(s), month(s) Improves with: none Worsens with: none - Related Data Previous Rx's Medication Instructions Recorded Last Taken Type Clopidogrel [Plavix] 75 mg PO QDAY #30 tablet 03/17/17 Unknown Rx Sodium Hypochlorite [Dakin's Full 1 applic TP Q12H #1 bottle 03/17/17 Unknown Rx Strength] amLODIPine 10 mg PO QDAY #30 tablet 03/17/17 Unknown Rx hydroCHLOROthiazide [HCTZ] 25 mg PO QDAY #30 tablet 03/17/17 Unknown Rx lisinopriL [Zestril TAB] 40 mg PO QDAY #30 tablet 03/17/17 Unknown Rx Sulfamethoxazole/Trimethoprim 1 each PO Q12HR 4 Days tablet 03/27/17 Unknown Rx [Bactrim DS TAB] predniSONE [Prednisone] 50 mg PO DAILY #5 tablet 05/30/17 Unknown Rx Allergies Allergy/AdvReac Type Severity Reaction Status Date / Time No Known Allergies Allergy Unverified 03/10/17 22:33 ED Review of Systems ROS: Stated complaint: WEAKNESS, DIZZINESS Other details as noted in HPI Constitutional: malaise, weakness Respiratory: denies: cough Cardiovascular: denies: syncope Gastrointestinal: other (Not eating or drinking). denies: nausea, vomiting, d iarrhea Genitourinary: denies: frequency Musculoskeletal: denies: myalgia Neurological: weakness, confusion ED Past Medical Hx - Past Medical History Hx Hypertension: Yes Additional medical history: ,CHILDBIRTH,FOOT ULCER - Social History Smoking Status: Never Smoker Substance Use Type: None - Medications Home Medications: Home Medications Medication Instructions Recorded Confirmed Last Taken Type Clopidogrel [Plavix] 75 mg PO QDAY #30 tablet 03/17/17 Unknown Rx Sodium Hypochlorite [Dakin's Full 1 applic TP Q12H #1 bottle 03/17/17 Unknown Rx Strength] amLODIPine 10 mg PO QDAY #30 tablet 03/17/17 Unknown Rx hydroCHLOROthiazide [HCTZ] 25 mg PO QDAY #30 tablet 03/17/17 Unknown Rx lisinopriL [Zestril TAB] 40 mg PO QDAY #30 tablet 03/17/17 Unknown Rx Sulfamethoxazole/Trimethoprim 1 each PO Q12HR 4 Days tablet 03/27/17 Unknown Rx [Bactrim DS TAB] predniSONE [Prednisone] 50 mg PO DAILY #5 tablet 05/30/17 Unknown Rx ED Physical Exam - General Limitations: Language Barrier, Altered Mental Status, Physical Limitation General appearance: in no apparent distress - Head Head exam: Present: atraumatic, normocephalic - Eye Eye exam: Present: normal appearance, EOMI - ENT ENT exam: Present: normal exam, normal orophraynx, mucous membranes moist, normal external ear exam - Neck Neck exam: Present: normal inspection, full ROM. Absent: tenderness, meningismus - Respiratory Respiratory exam: Present: normal lung sounds bilaterally. Absent: respiratory distress, wheezes, rales, rhonchi, stridor, decreased breath sounds - Cardiovascular Cardiovascular Exam: Present: regular rate, normal rhythm, normal heart sounds. Absent: bradycardia, tachycardia, irregular rhythm, systolic murmur, diastolic murmur, rubs, gallop - GI/Abdominal GI/Abdominal exam: Present: soft. Absent: distended, tenderness, guarding, rebound, rigid, pulsatile mass - Rectal Rectal exam: Present: normal inspection (Chaperoned by nurse Penelope Ramirez) - External exam: Present: normal external exam (Chaperoned by nurse Penelope Ramirez) - Extremities Exam Extremities exam: Present: full ROM, other (2+ radial and femoral pulses noted in the bilateral upper and lower extremities. There is no long bony tenderness. The muscular compartments are soft. The pelvis is stable.). Absent: normal inspection (Chronic venous stasis changes noted in the bilateral lower extremity), calf tenderness - Back Exam Back exam: Present: normal inspection, full ROM. Absent: tenderness, CVA t enderness (R), CVA tenderness (L), paraspinal tenderness, vertebral tenderness - Neurological Exam Neurological exam: Present: altered, other (No facial droop. Tongue midline. Extraocular movements intact bilaterally. Facial sensation intact to light touch in V1, V2, V3 distribution bilaterally. 5 and a 5 strength in 4 extremities. Sensation intact to light touch in 4 extremities.) - Psychiatric Psychiatric exam: Present: normal affect, normal mood - Skin Skin exam: Present: warm, dry, intact, normal color. Absent: rash ED Course Vital Signs 03/31/21 12:42 Temperature 98.0 F Pulse Rate 75 Respiratory 18 Rate Blood Pressure 162/77 O2 Sat by Pulse 100 Oximetry - Reevaluation(s) Reevaluation #1: 03/31/21 19:44 We will defer to the inpatient team to follow-up on this patient's urinalysis - EJ/Peripheral Line Neck R Indications: nurses unable to establis Skin Cleansed in Sterile Fashion: Yes Size: 20 Dressing Placed: Tegaderm Patient Tolerated Procedure: well ED Medical Decision Making - Lab Data Result diagrams: 03/31/21 17:22 03/31/21 17:22 Vital Signs 03/31/21 12:42 Temperature 98.0 F Pulse Rate 75 Respiratory 18 Rate Blood Pressure 162/77 O2 Sat by Pulse 100 Oximetry Lab Results 03/31/21 03/31/21 03/31/21 Range/Units 17:22 17: 17:22 WBC 5.6 (4.5-11.0) K/mm3 RBC 4.76 (3.65-5.03) M/mm3 Hgb 10.8 (10.1-14.3) gm/dl Hct 36.2 (30.3-42.9) % MCV 76 L (79-97) fl MCH 23 L (28-32) pg MCHC 30 (30-34) % RDW 15.3 H (13.2-15.2) % Plt Count 111 L (140-440) K/mm3 Lymph % (Auto) 35.8 H (13.4-35.0) % [place] % (Auto) 9.1 H (0.0-7.3) % Eos % (Auto) 0.9 (0.0-4.3) % Baso % (Auto) 0.9 (0.0-1.8) % Lymph # (Auto) 2.0 (1.2-5.4) K/mm3 [place] # (Auto) 0.5 (0.0-0.8) K/mm3 Eos # (Auto) 0.1 (0.0-0.4) K/mm3 Baso # (Auto) 0.1 (0.0-0.1) K/mm3 Seg Neutrophils % 53.3 (40.0-70.0) % Seg Neutrophils # 3.0 (1.8-7.7) K/mm3 PT 14.7 (12.2-14.9) Sec. INR 1.04 (0.87-1.13) Estimated GFR 40 ml/min BUN/Creatinine Ratio 26 % Lactic Acid (0.7-2.0) mmol/L Ammonia (25-60) umol/L Albumin/Globulin Ratio 1.0 % Salicylates (2.8-20.0) mg/dL Acetaminophen (10.0-30.0) ug/mL Plasma/Serum Alcohol (0-0.07) % 03/31/21 03/31/21 03/31/21 Range/Units 17:22 17: 17:22 WBC (4.5-11.0) K/mm3 RBC (3.65-5.03) M/mm3 Hgb (10.1-14.3) gm/dl Hct (30.3-42.9) % MCV (79-97) fl MCH (28-32) pg MCHC (30-34) % RDW (13.2-15.2) % Plt Count (140-440) K/mm3 Lymph % (Auto) (13.4-35.0) % [place] % (Auto) (0.0-7.3) % Eos % (Auto) (0.0-4.3) % Baso % (Auto) (0.0-1.8) % Lymph # (Auto) (1.2-5.4) K/mm3 [place] # (Auto) (0.0-0.8) K/mm3 Eos # (Auto) (0.0-0.4) K/mm3 Baso # (Auto) (0.0-0.1) K/mm3 Seg Neutrophils % (40.0-70.0) % Seg Neutrophils # (1.8-7.7) K/mm3 PT (12.2-14.9) Sec. INR (0.87-1.13) Estimated GFR ml/min BUN/Creatinine Ratio % Lactic Acid 1.20 (0.7-2.0) mmol/L Ammonia 11.0 L (25-60) umol/L Albumin/Globulin Ratio % Salicylates < 0.3 L (2.8-20.0) mg/dL Acetaminophen (10.0-30.0) ug/mL Plasma/Serum Alcohol (0-0.07) % 03/31/21 03/31/21 Range/Units 17: 17:22 WBC (4.5-11.0) K/mm3 RBC (3.65-5.03) M/mm3 Hgb (10.1-14.3) gm/dl Hct (30.3-42.9) % MCV (79-97) fl MCH (28-32) pg MCHC (30-34) % RDW (13.2-15.2) % Plt Count (140-440) K/mm3 Lymph % (Auto) (13.4-35.0) % [place] % (Auto) (0.0-7.3) % Eos % (Auto) (0.0-4.3) % Baso % (Auto) (0.0-1.8) % Lymph # (Auto) (1.2-5.4) K/mm3 [place] # (Auto) (0.0-0.8) K/mm3 Eos # (Auto) (0.0-0.4) K/mm3 Baso # (Auto) (0.0-0.1) K/mm3 Seg Neutrophils % (40.0-70.0) % Seg Neutrophils # (1.8-7.7) K/mm3 PT (12.2-14.9) Sec. INR (0.87-1.13) Estimated GFR ml/min BUN/Creatinine Ratio % Lactic Acid (0.7-2.0) mmol/L Ammonia (25-60) umol/L Albumin/Globulin Ratio % Salicylates (2.8-20.0) mg/dL Acetaminophen 5.0 L (10.0-30.0) ug/mL Plasma/Serum Alcohol < 0.01 (0-0.07) % Lab Results 03/31/21 03/31/21 03/31/21 Range/Units 17:22 17:22 17:22 WBC 5.6 (4.5-11.0) K/mm3 RBC 4.76 (3.65-5.03) M/mm3 Hgb 10.8 (10.1-14.3) gm/dl Hct 36.2 (30.3-42.9) % MCV 76 L (79-97) fl MCH 23 L (28-32) pg MCHC 30 (30-34) % RDW 15.3 H (13.2-15.2) % Plt Count 111 L (140-440) K/mm3 Lymph % (Auto) 35.8 H (13.4-35.0) % [place] % (Auto) 9.1 H (0.0-7.3) % Eos % (Auto) 0.9 (0.0-4.3) % Baso % (Auto) 0.9 (0.0-1.8) % Lymph # (Auto) 2.0 (1.2-5.4) K/mm3 [place] # (Auto) 0.5 (0.0-0.8) K/mm3 Eos # (Auto) 0.1 (0.0-0.4) K/mm3 Baso # (Auto) 0.1 (0.0-0.1) K/mm3 Seg Neutrophils % 53.3 (40.0-70.0) % Seg Neutrophils # 3.0 (1.8-7.7) K/mm3 PT 14.7 (12.2-14.9) Sec. INR 1.04 (0.87-1.13) Sodium 161 H* (137-145) mmol/L Potassium 4.0 (3.6-5.0) mmol/L Chloride 125.6 H (98-107) mmol/L Carbon Dioxide 23 (22-30) mmol/L Anion Gap 16 mmol/L BUN 39 H (7-17) mg/dL Creatinine 1.5 H (0.6-1.2) mg/dL Estimated GFR 40 ml/min BUN/Creatinine Ratio 26 % Glucose 110 H (65-100) mg/dL Lactic Acid (0.7-2.0) mmol/L Calcium 10.3 H (8.4-10.2) mg/dL Total Bilirubin 0.80 (0.1-1.2) mg/dL AST 60 H (5-40) units/L ALT 73 H (7-56) units/L Alkaline Phosphatase 117 (35-129) units/L Ammonia (25-60) umol/L Total Creatine Kinase 31 (30-135) units/L Troponin T 0.046 H (0.00-0.029) ng/mL Total Protein 7.7 (6.3-8.2) g/dL Albumin 3.8 L (3.9-5) g/dL Albumin/Globulin Ratio 1.0 % TSH (0.270-4.200) mlU/mL Salicylates (2.8-20.0) mg/dL Acetaminophen (10.0-30.0) ug/mL Plasma/Serum Alcohol (0-0.07) % 03/31/21 03/31/21 03/31/21 Range/Units 17:22 17:22 17:22 WBC (4.5-11.0) K/mm3 RBC (3.65-5.03) M/mm3 Hgb (10.1-14.3) gm/dl Hct (30.3-42.9) % MCV (79-97) fl MCH (28-32) pg MCHC (30-34) % RDW (13.2-15.2) % Plt Count (140-440) K/mm3 Lymph % (Auto) (13.4-35.0) % [place] % (Auto) (0.0-7.3) % Eos % (Auto) (0.0-4.3) % Baso % (Auto) (0.0-1.8) % Lymph # (Auto) (1.2-5.4) K/mm3 [place] # (Auto) (0.0-0.8) K/mm3 Eos # (Auto) (0.0-0.4) K/mm3 Baso # (Auto) (0.0-0.1) K/mm3 Seg Neutrophils % (40.0-70.0) % Seg Neutrophils # (1.8-7.7) K/mm3 PT (12.2-14.9) Sec. INR (0.87-1.13) Sodium (137-145) mmol/L Potassium (3.6-5.0) mmol/L Chloride (98-107) mmol/L Carbon Dioxide (22-30) mmol/L Anion Gap mmol/L BUN (7-17) mg/dL Creatinine (0.6-1.2) mg/dL Estimated GFR ml/min BUN/Creatinine Ratio % Glucose (65-100) mg/dL Lactic Acid 1.20 (0.7-2.0) mmol/L Calcium (8.4-10.2) mg/dL Total Bilirubin (0.1-1.2) mg/dL AST (5-40) units/L ALT (7-56) units/L Alkaline Phosphatase (35-129) units/L Ammonia 11.0 L (25-60) umol/L Total Creatine Kinase (30-135) units/L Troponin T (0.00-0.029) ng/mL Total Protein (6.3-8.2) g/dL Albumin (3.9-5) g/dL Albumin/Globulin Ratio % TSH 1.620 (0.270-4.200) mlU/mL Salicylates (2.8-20.0) mg/dL Acetaminophen (10.0-30.0) ug/mL Plasma/Serum Alcohol (0-0.07) % 03/31/21 03/31/21 03/31/21 Range/Units 17:22 17:22 17:22 WBC (4.5-11.0) K/mm3 RBC (3.65-5.03) M/mm3 Hgb (10.1-14.3) gm/dl Hct (30.3-42.9) % MCV (79-97) fl MCH (28-32) pg MCHC (30-34) % RDW (13.2-15.2) % Plt Count (140-440) K/mm3 Lymph % (Auto) (13.4-35.0) % [place] % (Auto) (0.0-7.3) % Eos % (Auto) (0.0-4.3) % Baso % (Auto) (0.0-1.8) % Lymph # (Auto) (1.2-5.4) K/mm3 [place] # (Auto) (0.0-0.8) K/mm3 Eos # (Auto) (0.0-0.4) K/mm3 Baso # (Auto) (0.0-0.1) K/mm3 Seg Neutrophils % (40.0-70.0) % Seg Neutrophils # (1.8-7.7) K/mm3 PT (12.2-14.9) Sec. INR (0.87-1.13) Sodium (137-145) mmol/L Potassium (3.6-5.0) mmol/L Chloride (98-107) mmol/L Carbon Dioxide (22-30) mmol/L Anion Gap mmol/L BUN (7-17) mg/dL Creatinine (0.6-1.2) mg/dL Estimated GFR ml/min BUN/Creatinine Ratio % Glucose (65-100) mg/dL Lactic Acid (0.7-2.0) mmol/L Calcium (8.4-10.2) mg/dL Total Bilirubin (0.1-1.2) mg/dL AST (5-40) units/L ALT (7-56) units/L Alkaline Phosphatase (35-129) units/L Ammonia (25-60) umol/L Total Creatine Kinase (30-135) units/L Troponin T (0.00-0.029) ng/mL Total Protein (6.3-8.2) g/dL Albumin (3.9-5) g/dL Albumin/Globulin Ratio % TSH (0.270-4.200) mlU/mL Salicylates < 0.3 L (2.8-20.0) mg/dL Acetaminophen 5.0 L (10.0-30.0) ug/mL Plasma/Serum Alcohol < 0.01 (0-0.07) % - EKG Data -: EKG Interpreted by Md EKG shows normal: sinus rhythm Rate: normal - EKG Data 03/31/21 18:05 The EKG is interpreted at 16: 16 Sinus rhythm, 74 bpm. Left axis deviation, left anterior fascicular block. Normal P wave axis. Left ventricular hypertrophy. Motion artifact. QTC is prolonged. 454 ms. Not a STEMI. - Radiology Data Radiology results: pending, report reviewed, image reviewed NONENHANCED CT SCAN OF THE HEAD: INDICATION / CLINICAL INFORMATION: 85 years Female; fall confusion. TECHNIQUE: Routine CT head without contrast. All CT sca ns at this location are performed using CT dose reduction for ALARA by means of automated exposure control. COMPARISON: None. FINDINGS: BRAIN / INTRACRANIAL CONTENTS: No intracranial sequela from the trauma; no scalp hematoma; no fluid level in the visualized portions of the paranasal sinuses No acute hemorrhage, midline shift, hydrocephalus, or acute, large territorial infarct. Densely calcified extra-axial lesion with broad base, probably osteoma are densely calcified meningioma in the colon no mass effect over the adjacent superior frontal gyrus. No chronic infarct or encephalomalacia. Moderate cortical involution; hippocampi are relatively well preserved; subtle periventricular low-attenuation areas due to chronic small vessel disease. CRANIOCERVICAL JUNCTION: No significant abnormality. ORBITS: No significant abnormality of visualized orbits. SINUSES / MASTOIDS: No significant abnormality of the visualized paranasal sinuses or mastoid air cells. ADDITIONAL FINDINGS: None. 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 Sagittal and coronal reconstructions performed by the technologist. All CT scans at this location are performed using CT dose reduction for ALARA by means of automated exposure control. Findings: No priors. There is no evidence of fracture or traumatic subluxation. Vertebral bodies are normal in height and alignment. Intervertebral disc spaces are well-maintained. Uncovertebral joint hypertrophic changes at C4-C5 and C5-C6 disc levels; mild to moderate foraminal stenoses at C5-C6 disc level Surrounding soft tissues are grossly normal. Impression: No signs of acute bony trauma to the cervical spine. Signer Name: Marty Sawant MD Signed: 03/31/2021 4:48 PM Workstation Name: [id number] CHEST 1 VIEW 03/31/2021 3:40 PM INDICATION / CLINICAL INFORMATION: Altered Mental Status. COMPARISON: 2 views of the chest from 05/30/2017. FINDINGS: SUPPORT DEVICES: None. HEART / MEDIASTINUM: No significant abnormality. LUNGS / PLEURA: No significant pulmonary abnormality. No significant pleural effusion. No pneumothorax. ADDITIONAL FINDINGS: No significant additional findings. IMPRESSION: 1. No acute abnormality of the chest. Signer Name: Alfonso Fontenot MD Signed: 03/31/2021 3:44 PM Workstation Name: [id number] PELVIS ONE VIEW INDICATION / CLINICAL INFORMATION: Pelvic injury after fall. COMPARISON: None available. FINDINGS: BONES and JOINT(S): No acute fracture or subluxation. Mild degenerative changes are seen along the lower lumbar spine and hips. SOFT TISSUES: No acute findings. An IVC filter is partially visualized at the level of L2-L3. ADDITIONAL FINDINGS: None. IMPRESSION: 1. No acute f indings. 2. Additional findings as above. 3. IVC Filter Recommendation: IVC filters should be removed if possible when they are no longer clinically necessary. (1) Refer to the established IVC filter management plan; (2) If there is no established plan for the patient's IVC filter, consider referral to interventional/vascular clinician on a nonemergent basis for evaluation. Signer Name: Alfonso Fontenot MD Signed: 03/31/2021 3:46 PM Workstation Name: [id number] - Medical Decision Making Differential diagnosis, including but not limited to: Closed head injury, cervical spine injury, pneumonia, pelvic injury, urinary tract infection, dementia, electrolyte derangement, thyroid derangement, subacute stroke, failure to thrive, dehydration Assessment and plan: 85-year-old female, who is afebrile, with reassuring vital signs, with a decline in functional status over the past few weeks. She presents more than 24 hours after her last known well time, therefore, CT ang iogram head and neck not indicated to evaluate for LVO. On a similar trend, tPA contraindicated as patient presents more than 4.5 hours after her last known well time. I personally provided this patient with apple juice, which she had difficulty drinking. CT scan of the brain and cervical spine were obtained given history of fall, it showed no acute traumatic injury. X-ray of the chest and pelvis were obtained, and demonstrated no acute traumatic injury. Laboratory studies significant for evidence of dehydration, hyperatremia, and renal insufficiency. The patient's EKG is abnormal, but not consistent with a STEMI. She has an elevated troponin, which is likely a type II troponin leak. This patient meets criteria for admission hospitalization secondary to the aforementioned electrolyte derangements I did involve case management in this patient's care, to assist family in elucidating what benefits she may be eligible to when she has been medically optimized. I also discussed goals of care, advanced directives, and the possibility of tube feedings with the patient's grandson. He indicated that he is feeling overwhelmed by these decisions at this time, as it appears that these discussions have not been had with the patient and family. At the moment, he is not aware of goals of care, advanced directives, and we will therefore admit this patient to the medical service for dehydration, failure to thrive, inability to tolerate oral/liquid feeds, hypernatremia. Hospital physician, Dr. Mendez, to admit this patient to the medical service Critical care attestation.: If time is entered above; I have spent that time in minutes in the direct care o f this critically ill patient, excluding procedure time. ED Disposition Clinical Impression: Renal insufficiency, Fall, Debility, Acute dehydration, Encephalopathy acute, Hypernatremia Disposition: 09 ADMITTED INPATIENT Is pt being admited?: Yes Does the pt Need Aspirin: No Condition: Fair Referrals: PRIMARY CARE, [Primary Care Provider] - 3-5 Days
[2021-03-31 18:43] LABS: Chol/HDL Ratio 3.75 %
[2021-03-31] MEDS ORDERED: D5W/0.45% NACL 1,000 ML IV SCH (19:00)
--- NOTE | 2021-03-31 19:33 | History and Physical Report ---
History of Present Illness Chief complaint: She is losing weight, and she is getting weak History of present illness: 85 YO Female with Vascular Dementia, Cerebral Atherosclerosis, HTN, Debility presents to ED for evaluation. Patient is confused with diminished cognition at the time my evaluation is unable to provide history. Patient history provided by EMS staff, ED staff, as well as the patient grandson who is the medical decision maker who is at bedside during exam and interview. As per his grandson the patient has experienced diminished oral intake over the past 3 months, increasing confusion, and worsening memory loss as well as 25 pound weight loss over the past 90 days. Patient is currently bedbound, nonambulatory and has a palliative performance score of 30% and requires 6/6 assistance with activities of daily living. Patient is requires assistance with repositioning in bed. The patient was found down sitting on the floor next to the bed. EMS was notified for the aforementioned symptoms and upon arrival the patient was found to be in distress and subsequent transported to [facility] for further care and evaluation of the aforementioned symptoms. [facility] All lab and imaging studies reviewed. Patient found to have metabolic encephalopathy, debility, volume depletion, acute kidney injury, and hyponatremia. The patient will was admitted to medical floor due to increased risk of worsening symptoms. Patient initiated on IV fluid resuscitation therapy. No reports of fever, chill, chest pain, palpitation, productive cough, skin rash, recent contact, known exposure to COVID-19. Patient is not vaccinated against COVID-19. Prior admission on 03/11/2017 reviewed. All medication listed at time of admission has been reconciled. Advanced care planning conducted in ED. Past History Past Medical History: hypertension, other (See HPI) Past Surgical History: No surgical history, Other (Reviewed) Social history: single, lives with family. denies: smoking, alcohol abuse, prescription drug abuse Family history: hypertension Medications and Allergies Allergies Allergy/AdvReac Type Severity Reaction Status Date / Time No Known Allergies Allergy Unverified 03/10/17 22:33 Home Medications Medication Instructions Recorded Confirmed Last Taken Type Clopidogrel [Plavix] 75 mg PO QDAY #30 tablet 03/17/17 Unknown Rx Sodium Hypochlorite [Dakin's Full 1 applic TP Q12H #1 bottle 03/17/17 Unknown Rx Strength] amLODIPine 10 mg PO QDAY #30 tablet 03/17/17 Unknown Rx hydroCHLOROthiazide [HCTZ] 25 mg PO QDAY #30 tablet 03/17/17 Unknown Rx lisinopriL [Zestril TAB] 40 mg PO QDAY #30 tablet 03/17/17 Unknown Rx Sulfamethoxazole/Trimethoprim 1 each PO Q12HR 4 Days tablet 03/27/17 Unknown Rx [Bactrim DS TAB] predniSONE [Prednisone] 50 mg PO DAILY #5 tablet 05/30/17 Unknown Rx Active Meds: Active Medications Dextrose/Sodium Chloride (D5/0.45ns) 1,000 mls @ 100 mls/hr IV DIRECT MARIO Review of Systems ROS unobtainable: due to mental status Exam - Constitutional Vitals: Temp Pulse Resp BP Pulse Ox 98.0 F 75 18 162/77 100 03/31/21 12:42 03/31/21 12:42 03/31/21 12:42 03/31/21 12:42 03/31/21 12:42 General appearance: Present: mild distress - EENT Eyes: Present: PERRL ENT: hearing intact, clear oral mucosa, hearing decreased - Neck Neck: Present: supple, normal ROM - Respiratory Respiratory effort: normal Respiratory: bilateral: CTA - Cardiovascular Heart Sounds: Present: S1 & S2. Absent: rub, click - Extremities Extremities: pulses symmetrical Extremity abnormal: cold, other (Contracture) Peripheral Pulses: within normal limits - Abdominal General gastrointestinal: Present: soft, non-tender, non-distended, normal bowel sounds Female genitourinary: Present: normal - Integumentary Integumentary: Present: clear, warm, dry - Musculoskeletal Musculoskeletal: generalized weakness - Psychiatric Psychiatric: no appropriate mood/affect, no intact judgment & insight, no memory intact - Neurologic Neurologic: CNII-XII intact, moves all extremities HEART Score - HEART Score Troponin: Troponin T 0.046 ng/mL (0.00-0.029) H 03/31/21 17:22 Results - Labs CBC & Chem 7: 03/31/21 17:22 03/31/21 17:22 Labs: Abnormal lab results 03/31/21 03/31/21 03/31/21 Range/Units 17:22 17:22 17:22 MCV 76 L (79-97) fl MCH 23 L (28-32) pg RDW 15.3 H (13.2-15.2) % Plt Count 111 L (140-440) K/mm3 Lymph % (Auto) 35.8 H (13.4-35.0) % [place] % (Auto) 9.1 H (0.0-7.3) % Sodium 161 H* (137-145) mmol/L Chloride 125.6 H (98-107) mmol/L BUN 39 H (7-17) mg/dL Creatinine 1.5 H (0.6-1.2) mg/dL Glucose 110 H (65-100) mg/dL Calcium 10.3 H (8.4-10.2) mg/dL AST 60 H (5-40) units/L ALT 73 H (7-56) units/L Ammonia 11.0 L (25-60) umol/L Troponin T 0.046 H (0.00-0.029) ng/mL Albumin 3.8 L (3.9-5) g/dL Triglycerides 169 H (2-149) mg/dL Salicylates (2.8-20.0) mg/dL Acetaminophen (10.0-30.0) ug/mL 03/31/21 03/31/21 Range/Units 17:22 17:22 MCV (79-97) fl MCH (28-32) pg RDW (13.2-15.2) % Plt Count (140-440) K/mm3 Lymph % (Auto) (13.4-35.0) % [place] % (Auto) (0.0-7.3) % Sodium (137-145) mmol/L Chloride (98-107) mmol/L BUN (7-17) mg/dL Creatinine (0.6-1.2) mg/dL Glucose (65-100) mg/dL Calcium (8.4-10.2) mg/dL AST (5-40) units/L ALT (7-56) units/L Ammonia (25-60) umol/L Troponin T (0.00-0.029) ng/mL Albumin (3.9-5) g/dL Triglycerides (2-149) mg/dL Salicylates < 0.3 L (2.8-20.0) mg/dL Acetaminophen 5.0 L (10.0-30.0) ug/mL Assessment and Plan - Patient Problems (1) Acute kidney injury (DESHAWN) with acute tubular necrosis (ATN) Current Visit: Yes Status: Acute Plan to address problem: BMP, IV fluid resuscitation therapy, repeat BMP in a.m., monitor urine output Q shift. (2) Volume depletion Current Visit: Yes Status: Acute Plan to address problem: IV fluid resuscitation therapy, encourage increased oral intake when awake and alert only. (3) Vascular dementia Current Visit: Yes Status: Acute Qualifiers: Dementia behavioral disturbance: without behavioral disturbance Qualified Code(s): F01.50 - Vascular dementia without behavioral disturbance Plan to address problem: Verbal prompting, verbal redirection, benzodiazepine therapy as clinically indicated. (4) Cerebral atherosclerosis Current Visit: Yes Status: Acute Plan to address problem: Risk factor reduction, supportive care. (5) Encephalopathy acute Current Visit: Yes Status: Acute (6) Malnutrition Current Visit: Yes Status: Acute Qualifiers: Malnutrition type: protein-calorie malnutrition Protein-calorie malnutrition severity: moderate Qualified Code(s): E44.0 - Moderate protein-calorie malnutrition Plan to address problem: Dietary supplementation, increase protein intake when awake and alert only. (7) Debility Current Visit: Yes Status: Acute Plan to address problem: Supportive care, fall precautions. (8) DVT prophylaxis Current Visit: Yes Status: Acute Plan to address problem: SCD to bilateral lower extremities while in bed (9) Advance care planning Current Visit: Yes Status: Acute Plan to address problem: Disease education conducted, care plan discussed, diagnosis discussed, prognosis discussed, patient is full code. Patient grandson Mr. Juan F Haq; made aware of patient prognosis. Patient grandson elects to have home hospice care when discharged from hospital. Hospice care team notified. Patient grandson acknowledges understanding and agreement with care plan. +30 minutes.
[2021-03-31 19:47] LABS: Bacteria,Urine 1+ /HPF (Negative); Bilirubin,Urine NEG (Negative); Blood,Urine NEG (Negative); Color,Urine Amber (Yellow); Mucus,Urine 2+ /HPF
[2021-03-31] MEDS ORDERED: ONDANSETRON 4 MG/2 ML INJ IV PRN (20:37)
[2021-03-31] MEDS ORDERED: HYDROmorphone 1 MG/1 ML INJ IV PRN (20:37)
[2021-03-31] MEDS ORDERED: oxyCODONE /ACETAMINOPHEN 5-325MG TAB PO PRN (20:37)
[2021-03-31] MEDS ORDERED: ACETAMINOPHEN 325 MG TAB PO PRN (20:37)
[2021-03-31] MEDS ORDERED: ALBUTEROL 2.5 MG/3 ML NEBU IH PRN (20:37)
[2021-03-31] MEDS ORDERED: LACTATED RINGERS 1,000 ML IV ONE (20:39)
[2021-03-31] MEDS ORDERED: LACTATED RINGERS 1,000 ML IV SCH (20:45)
[2021-04-01 05:10] LABS: Calcium 10.2 mg/dL (8.4-10.2)
[2021-04-01] MEDS: CLOPIDOGREL 75 MG TAB PO SCH (09:13)
[2021-04-01] MEDS: amLODIPine 10 MG TAB PO SCH (09:13)
[2021-04-01] MEDS: LACTATED RINGERS 1,000 ML IV SCH (15:22)
--- NOTE | 2021-04-01 20:44 | Progress Note ---
Assessment and Plan - Patient Problems (1) Acute kidney injury (DESHAWN) with acute tubular necrosis (ATN) Current Visit: Yes Status: Acute Plan to address problem: BMP, IV fluid resuscitation therapy, repeat BMP in a.m., monitor urine output Q shift. (2) Volume depletion Current Visit: Yes Status: Acute Plan to address problem: IV fluid resuscitation therapy, encourage increased oral intake when awake and alert only. (3) Vascular dementia Current Visit: Yes Status: Acute Qualifiers: Dementia behavioral disturbance: without behavioral disturbance Qualified Code(s): F01.50 - Vascular dementia without behavioral disturbance Plan to address problem: Verbal prompting, verbal redirection, benzodiazepine therapy as clinically indicated. (4) Cerebral atherosclerosis Current Visit: Yes Status: Acute Plan to address problem: Risk factor reduction, supportive care. (5) Encephalopathy acute Current Visit: Yes Status: Acute Plan to address problem: Supportive care, neuro checks, (6) Malnutrition Current Visit: Yes Status: Acute Qualifiers: Malnutrition type: protein-calorie malnutrition Protein-calorie malnutrition severity: moderate Qualified Code(s): E44.0 - Moderate protein- calorie malnutrition Plan to address problem: Dietary supplementation, increase protein intake when awake and alert only. (7) Debility Current Visit: Yes Status: Acute Plan to address problem: Supportive care, fall precautions. (8) DVT prophylaxis Current Visit: Yes Status: Acute Plan to address problem: SCD to bilateral lower extremities while in bed (9) Advance care planning Current Visit: Yes Status: Acute Plan to address problem: Disease education conducted, care plan discussed, diagnosis discussed, prognosis discussed, patient is full code. Patient grandson Mr. Juan F Haq; made aware of patient prognosis. Patient grandson elects to have home hospice care when discharged from hospital. Hospice care team notified. Patient grandson acknowledges understanding and agreement with care plan. +30 minutes. History Interval history: 85 YO Female HD #2 with Vascular Dementia, Cerebral Atherosclerosis, HTN, Debility, Metabolic Encephalopathy, volume depletion, DESHAWN, Hyponatremia. Pt re elvin confused. No reported nursing events. D/C planning in AM. Hospitalist Physical - Constitutional Vitals: Temp Pulse Resp BP Pulse Ox 98.0 F 71 20 194/84 98 04/01/21 12:20 04/01/21 12:20 04/01/21 12:20 04/01/21 12:20 04/01/21 12:20 General appearance: Present: mild distress - EENT Eyes: Present: PERRL ENT: hearing decreased - Neck Neck: Present: supple - Respiratory Respiratory effort: normal Respiratory: bilateral: CTA - Cardiovascular Rhythm: regular Heart Sounds: Present: S1 & S2 - Extremities Extremities: no ischemia Peripheral Pulses: within normal limits - Abdominal General gastrointestinal: soft, non-tender, non-distended - Integumentary Integumentary: Present: clear, dry - Psychiatric Psychiatric: cooperative - Neurologic Neurologic: CNII-XII intact HEART Score - HEART Score Troponin: Troponin T 0.046 ng/mL (0.00-0.029) H 03/31/21 17:22 Results - Labs CBC & Chem 7: 03/31/21 17:22 04/01/21 04:28 Labs: Laboratory Last Values WBC 5.6 K/mm3 (4.5-11.0) 03/31/21 17: RBC 4.76 M/mm3 (3.65-5.03) 03/31/21 17:22 Hgb 10.8 gm/dl (10.1-14.3) 03/31/21 17:22 Hct 36.2 % (30.3-42.9) 03/31/21 17:22 MCV 76 fl (79-97) L 03/31/21 17:22 MCH 23 pg (28-32) L 03/31/21 17:22 MCHC 30 % (30-34) 03/31/21 17:22 RDW 15.3 % (13.2-15.2) H 03/31/21 17:22 Plt Count 111 K/mm3 (140-440) L 03/31/21 17:22 Lymph % (Auto) 35.8 % (13.4-35.0) H 03/31/21 17:22 [place] % (Auto) 9.1 % (0.0-7.3) H 03/31/21 17: Eos % (Auto) 0.9 % (0.0-4.3) 03/31/21 17:22 Baso % (Auto) 0.9 % (0.0-1.8) 03/31/21 17:22 Lymph # (Auto) 2.0 K/mm3 (1.2-5.4) 03/31/21 17:22 [place] # (Auto) 0.5 K/mm3 (0.0-0.8) 03/31/21 17:22 Eos # (Auto) 0.1 K/mm3 (0.0-0.4) 03/31/21 17:22 Baso # (Auto) 0.1 K/mm3 (0.0-0.1) 03/31/21 17: Seg Neutrophils % 53.3 % (40.0-70.0) 03/31/21 17: Seg Neutrophils # 3.0 K/mm3 (1.8-7.7) 03/31/21 17: PT 14.7 Sec. (12.2-14.9) 03/31/21 17: INR 1.04 (0.87-1.13) 03/31/21 17:22 Sodium 156 mmol/L (137-145) H 04/01/21 04:28 Potassium 4.0 mmol/L (3.6-5.0) 04/01/21 04:28 Chloride 121.8 mmol/L (98-107) H 04/01/21 04:28 Carbon Dioxide 25 mmol/L (22-30) 04/01/21 04:28 Anion Gap 13 mmol/L 04/01/21 04:28 BUN 31 mg/dL (7-17) H 04/01/21 04:28 Creatinine 1.2 mg/dL (0.6-1.2) 04/01/21 04:28 Estimated GFR 52 ml/min 04/01/21 04:28 BUN/Creatinine Ratio 26 % 04/01/21 04:28 Glucose 136 mg/dL (65-100) H 04/01/21 04:28 Lactic Acid 1.20 mmol/L (0.7-2.0) 03/31/21 17: Calcium 10.2 mg/dL (8.4-10.2) 04/01/21 04:28 Total Bilirubin 0.80 mg/dL (0.1-1.2) 03/31/21 17:22 AST 60 units/L (5-40) H 03/31/21 17:22 ALT 73 units/L (7-56) H 03/31/21 17:22 Alkaline Phosphatase 117 units/L (35-129) 03/31/21 17:22 Ammonia 11.0 umol/L (25-60) L 03/31/21 17:22 Total Creatine Kinase 31 units/L (30-135) 03/31/21 17: Troponin T 0.046 ng/mL (0.00-0.029) H 03/31/21 17:22 Total Protein 7.7 g/dL (6.3-8.2) 03/31/21: Albumin 3.8 g/dL (3.9-5) L 03/31/21: Albumin/Globulin Ratio 1.0 % 03/31/21 17: Triglycerides 169 mg/dL (2-149) H 03/31/21 17: Cholesterol 199 mg/dL (50-199) 03/31/21: LDL Cholesterol Direct 121 mg/dL (50-130) 03/31/21: HDL Cholesterol 53 mg/dL (40-59) 03/31/21: Cholesterol/HDL Ratio 3.75 % 03/31/21: TSH 1.620 mlU/mL (0.270-4.200) 03/31/21 17: Urine Color [place] (Yellow) 03/31/21 Unknown Urine Turbidity Slightly-cloudy (Clear) 03/31/21 Unknown Urine pH 5.0 (5.0-7.0) 03/31/21 Unknown Ur Specific [place] 1.027 (1.003-1.030) 03/31/21 Unknown Urine Protein 30 mg/dl mg/dL (Negative) 03/31/21 Unknown Urine Glucose (UA) Neg mg/dL (Negative) 03/31/21 Unknown Urine Ketones Neg mg/dL (Negative) 03/31/21 Unknown Urine Blood Neg (Negative) 03/31/21 Unknown Urine Nitrite Neg (Negative) 03/31/21 Unknown Urine Bilirubin Neg (Negative) 03/31/21 Unknown Urine Urobilinogen 4.0 mg/dL (<2.0) 03/31/21 Unknown Ur Leukocyte Esterase Tr (Negative) 03/31/21 Unknown Urine WBC (Auto) 4.0 /HPF (0.0-6.0) 03/31/21 Unknown Urine RBC (Auto) 2.0 /HPF (0.0-6.0) 03/31/21 Unknown U Epithel Cells (Auto) < 1.0 /HPF (0-13.0) 03/31/21 Unknown Urine Bacteria (Auto) 1+ /HPF (Negative) 03/31/21 Unknown Urine Mucus 2+ /HPF 03/31/21 Unknown Salicylates < 0.3 mg/dL (2.8-20.0) L 03/31/21 17:22 Acetaminophen 5.0 ug/mL (10.0-30.0) L 03/31/21 17:22 Plasma/Serum Alcohol < 0.01 % (0-0.07) 03/31/21 17:22 Rivera/IV: Voiding Method Bedpan Active Medications - Current Medications Current Medications: Generic Name Dose Route Start Last Admin Trade Name Freq PRN Reason Stop Dose Admin Acetaminophen 650 mg 03/31/21 20:37 Acetaminophen 325 Mg Tab PO Q4H PRN Pain MILD(1-3)/Fever >100.5/[place]AV[place] Albuterol 2.5 mg 03/31/21 20:37 Albuterol 2.5 Mg/3 Ml Nebu IH Q4HRT PRN Shortness Of Breath Amlodipine Besylate 10 mg 04/01/21 10:00 04/01/21 09:13 Amlodipine 10 Mg Tab PO 10 mg QDAY MARIO Administration Clopidogrel Bisulfate 75 mg 04/01/21 10:00 04/01/21 09:13 Clopidogrel 75 Mg Tab PO 75 mg QDAY MARIO Administration Hydromorphone HCl 0.5 mg 03/31/21 20:37 Hydromorphone 1 Mg/1 Ml Inj IV Q23H PRN Pain , Severe (7-10) Lactated Ringer's 1,000 mls @ 75 mls/hr 04/01/21 07:45 04/01/21 15:22 Lactated Ringers IV 75 mls/hr DIRECT MARIO Administration Ondansetron HCl 4 mg 03/31/21 20:37 Ondansetron 4 Mg/2 Ml Inj IV Q8H PRN Nausea And Vomiting Oxycodone/Acetaminophen 1 tab 03/31/21 20:37 04/01/21 02:03 Oxycodone /Acetaminophen 5-325mg Tab PO 1 tab Q16H PRN Administration Pain, Moderate (4-6) Sodium Chloride 10 ml 03/31/21 22:00 04/01/21 13:28 Sodium Chloride 0.9% 10 Ml Flush Syringe IV Not Given BID MARIO Sodium Chloride 10 ml 03/31/21 20:37 Sodium Chloride 0.9% 10 Ml Flush Syringe IV PRN PRN LINE FLUSH Nutrition/Malnutrition Assess - Dietary Evaluation Nutrition/Malnutrition Findings: Nutrition Notes Start: 04/01/21 12:56 Freq: Status: Active Protocol: Document 04/01/21 12:56 MONAE (Rec: 04/01/21 13:28 MONAE [id number]) Nutrition Notes Need for Assessment generated from: MD Order,property and supply officer,MST Initial or Follow up Assessment Current Diagnosis Acute Kidney Injury Other Pertinent Diagnosis DESHAWN+ATN, Acute Encephalopathy, Debility, Vascular Dementia, Cerebral Athero Current Diet Renal Diet (since D 04/01), D Suppl (since D 04/01). Labs/Tests 04/01: Na 156, Cl 121.8, BUN 31, Glu 136. Pertinent Medications 04/01: Nutritionally unremarkable. Height 5 ft 3 in Weight 72 kg [place] Body Weight (kg) 52.27 BMI 28.0 Intake Prior to Admission Poor Weight change and time frame Pt states being unsure if loss body weight recently. Weight Status Overweight Subjective/Other Information RD consult for risk of malnutrition, skin risk and nutritional supplementation assessment, Pt presents general weakness and a complexity of debilitating conditions, being addressed. Pt shows no signs of concern for risk of malnutrition at the time, according to Physical Assessment History notes. Pt has missing teeth and chewing difficulty, according to Physical Assessment History notes. Pt to be discharged, when stable, to home hospice care facility, as per family. Percent of energy/protein needs met: Prescribed Renal Diet provides for energy/protein needs (2, 072 Kcal/77 g) during LOS; additionally, Dietary Supplements will compensate for possible Poor PO intake of meals with 1,275 Kcal and 57 g of protein. Burn Absent Trauma Absent GI Symptoms None Difficulty In Chewing Food Allergy No Skin Integrity/Comment Clear, warm, dry. Minimum of two criteria No #2 Nutrition Diagnosis Inadequate protein-energy intake Etiology Ongoing and concomitant cronic metabolic conditions As Evidenced by Signs and Symptoms MD request for Dietary Supplementation. #1 Nutrition Diagnosis Biting/Chewing (masticatory) difficulty Etiology Missing teeth. As Evidenced by Signs and Symptoms Pt has missing teeth and chewing difficulty, according to Physical Assessment History notes. Is patient on ventilator? No Is Patient Ambulatory and/or Out of Bed No REE-([place]-St. Jeor-confined to bed) 1362.348 Calculation Used for Recommendations [place]-St Jeor Additional Notes Protein: 0.8-1.2 g/Kg; 58-86 g /day. Fluids: 1 ml/Kcal, or as per MD. Nutrition Intervention Change Diet Order: Change to modified Renal Diet -chopped meats-. Add Supplement/Snack (indicate name/kcal 8 fl oz Nepro w/CARBSTEADY; /protein ) TID. Provides kCal: 1,275 Provides Protein (gm) 57 Goal #1 Compensate, through dietary supplementation, for possible poor or insufficient PO intake of meals during LOS. Goal #2 Facilitate PO intake of meals with mechanical modification during LOS. Goal #3 Maintain body weight within +/ -3% of admission body weight during LOS. Follow-Up By: 04/08/21 Additional Comments Continue monitoring food tolerance, %PO intake of meals , and BM.
[2021-04-02] MEDS: CLOPIDOGREL 75 MG TAB PO SCH (09:22)
[2021-04-02] MEDS: amLODIPine 10 MG TAB PO SCH (09:22)
[2021-04-03] MEDS: LACTATED RINGERS 1,000 ML IV SCH (06:09)
[2021-04-03] MEDS: amLODIPine 10 MG TAB PO SCH (09:28)
[2021-04-03] MEDS: CLOPIDOGREL 75 MG TAB PO SCH (09:30)
--- NOTE | 2021-04-03 11:18 | Progress Note ---
Assessment and Plan - Patient Problems (1) Acute kidney injury (DESHAWN) with acute tubular necrosis (ATN) Current Visit: Yes Status: Acute Plan to address problem: BMP, IV fluid resuscitation therapy, repeat BMP in a.m., monitor urine output Q shift. (2) Volume depletion Current Visit: Yes Status: Acute Plan to address problem: IV fluid resuscitation therapy, encourage increased oral intake when awake and alert only. (3) Vascular dementia Current Visit: Yes Status: Acute Qualifiers: Dementia behavioral disturbance: without behavioral disturbance Qualified Code(s): F01.50 - Vascular dementia without behavioral disturbance Plan to address problem: Verbal prompting, verbal redirection, benzodiazepine therapy as clinically indicated. (4) Cerebral atherosclerosis Current Visit: Yes Status: Acute Plan to address problem: Risk factor reduction, supportive care. (5) Encephalopathy acute Current Visit: Yes Status: Acute Plan to address problem: Supportive care, neuro checks, (6) Malnutrition Current Visit: Yes Status: Acute Qualifiers: Malnutrition type: protein-calorie malnutrition Protein-calorie malnutrition severity: moderate Qualified Code(s): E44.0 - Moderate protein- calorie malnutrition Plan to address problem: Dietary supplementation, increase protein intake when awake and alert only. (7) Debility Current Visit: Yes Status: Acute Plan to address problem: Supportive care, fall precautions. (8) DVT prophylaxis Current Visit: Yes Status: Acute Plan to address problem: SCD to bilateral lower extremities while in bed (9) Advance care planning Current Visit: Yes Status: Acute Plan to address problem: Disease education conducted, care plan discussed, diagnosis discussed, prognosis discussed, patient is full code. Patient grandson Mr. Juan F Haq; made aware of patient prognosis. Patient grandson elects to have home hospice care when discharged from hospital. Hospice care team notified. Patient grandson acknowledges understanding and agreement with care plan. +30 minutes. History Interval history: 85 YO Female HD #3 with Vascular Dementia, Cerebral Atherosclerosis, HTN, Debility, Metabolic Encephalopathy, volume depletion, DESHAWN, Hyponatremia. Pt re elvin confused. No reported nursing events. Pt remains confused. Hospitalist Physical - Constitutional Vitals: Temp Pulse Resp BP Pulse Ox 98.5 F 77 18 172/83 98 04/03/21 05:59 04/03/21 09:28 04/03/21 09:20 04/03/21 09:28 04/03/21 09:20 General appearance: Present: mild distress - EENT Eyes: Present: PERRL ENT: hearing decreased - Neck Neck: Present: supple - Respiratory Respiratory effort: labored Respiratory: bilateral: CTA - Cardiovascular Rhythm: regular Heart Sounds: Present: S1 & S2 - Extremities Extremities: no ischemia Peripheral Pulses: within normal limits - Abdominal General gastrointestinal: soft, non-tender, non-distended - Integumentary Integumentary: Present: clear, dry - Psychiatric Psychiatric: cooperative - Neurologic Neurologic: CNII-XII intact HEART Score - HEART Score Troponin: Troponin T 0.046 ng/mL (0.00-0.029) H 03/31/21 17:22 Results - Labs CBC & Chem 7: 03/31/21 17:22 04/01/21 04:28 Labs: Laboratory Last Values WBC 5.6 K/mm3 (4.5-11.0) 03/31/21 17: RBC 4.76 M/mm3 (3.65-5.03) 03/31/21 17:22 Hgb 10.8 gm/dl (10.1-14.3) 03/31/21 17:22 Hct 36.2 % (30.3-42.9) 03/31/21 17: MCV 76 fl (79-97) L 03/31/21 17: MCH 23 pg (28-32) L 03/31/21 17: MCHC 30 % (30-34) 03/31/21 17:22 RDW 15.3 % (13.2-15.2) H 03/31/21 17:22 Plt Count 111 K/mm3 (140-440) L 03/31/21 17:22 Lymph % (Auto) 35.8 % (13.4-35.0) H 03/31/21 17: [place] % (Auto) 9.1 % (0.0-7.3) H 03/31/21 17: Eos % (Auto) 0.9 % (0.0-4.3) 03/31/21 17: Baso % (Auto) 0.9 % (0.0-1.8) 03/31/21 17: Lymph # (Auto) 2.0 K/mm3 (1.2-5.4) 03/31/21 17:22 [place] # (Auto) 0.5 K/mm3 (0.0-0.8) 03/31/21 17:22 Eos # (Auto) 0.1 K/mm3 (0.0-0.4) 03/31/21 17:22 Baso # (Auto) 0.1 K/mm3 (0.0-0.1) 03/31/21 17: Seg Neutrophils % 53.3 % (40.0-70.0) 03/31/21 17: Seg Neutrophils # 3.0 K/mm3 (1.8-7.7) 03/31/21 17: PT 14.7 Sec. (12.2-14.9) 03/31/21 17: INR 1.04 (0.87-1.13) 03/31/21 17:22 Sodium 156 mmol/L (137-145) H 04/01/21 04:28 Potassium 4.0 mmol/L (3.6-5.0) 04/01/21 04:28 Chloride 121.8 mmol/L (98-107) H 04/01/21 04:28 Carbon Dioxide 25 mmol/L (22-30) 04/01/21 04:28 Anion Gap 13 mmol/L 04/01/21 04:28 BUN 31 mg/dL (7-17) H 04/01/21 04:28 Creatinine 1.2 mg/dL (0.6-1.2) 04/01/21 04:28 Estimated GFR 52 ml/min 04/01/21 04:28 BUN/Creatinine Ratio 26 % 04/01/21 04:28 Glucose 136 mg/dL (65-100) H 04/01/21 04:28 Lactic Acid 1.20 mmol/L (0.7-2.0) 03/31/21 17: Calcium 10.2 mg/dL (8.4-10.2) 04/01/21 04:28 Total Bilirubin 0.80 mg/dL (0.1-1.2) 03/31/21 17:22 AST 60 units/L (5-40) H 03/31/21 17:22 ALT 73 units/L (7-56) H 03/31/21 17:22 Alkaline Phosphatase 117 units/L (35-129) 03/31/21 17:22 Ammonia 11.0 umol/L (25-60) L 03/31/21 17:22 Total Creatine Kinase 31 units/L (30-135) 03/31/21 17: Troponin T 0.046 ng/mL (0.00-0.029) H 03/31/21 17: Total Protein 7.7 g/dL (6.3-8.2) 03/31/21: Albumin 3.8 g/dL (3.9-5) L 03/31/21: Albumin/Globulin Ratio 1.0 % 03/31/21 17: Triglycerides 169 mg/dL (2-149) H 03/31/21: Cholesterol 199 mg/dL (50-199) 03/31/21: LDL Cholesterol Direct 121 mg/dL (50-130) 03/31/21: HDL Cholesterol 53 mg/dL (40-59) 03/31/21: Cholesterol/HDL Ratio 3.75 % 03/31/21: TSH 1.620 mlU/mL (0.270-4.200) 03/31/21: Urine Color Maryj O (Yellow) 03/31/21 Unknown Urine Turbidity Slightly-cloudy (Clear) 03/31/21 Unknown Urine pH 5.0 (5.0-7.0) 03/31/21 Unknown Ur Specific [place] 1.027 (1.003-1.030) 03/31/21 Unknown Urine Protein 30 mg/dl mg/dL (Negative) 03/31/21 Unknown Urine Glucose (UA) Neg mg/dL (Negative) 03/31/21 Unknown Urine Ketones Neg mg/dL (Negative) 03/31/21 Unknown Urine Blood Neg (Negative) 03/31/21 Unknown Urine Nitrite Neg (Negative) 03/31/21 Unknown Urine Bilirubin Neg (Negative) 03/31/21 Unknown Urine Urobilinogen 4.0 mg/dL (<2.0) 03/31/21 Unknown Ur Leukocyte Esterase Tr (Negative) 03/31/21 Unknown Urine WBC (Auto) 4.0 /HPF (0.0-6.0) 03/31/21 Unknown Urine RBC (Auto) 2.0 /HPF (0.0-6.0) 03/31/21 Unknown U Epithel Cells (Auto) < 1.0 /HPF (0-13.0) 03/31/21 Unknown Urine Bacteria (Auto) 1+ /HPF (Negative) 03/31/21 Unknown Urine Mucus 2+ /HPF 03/31/21 Unknown Salicylates < 0.3 mg/dL (2.8-20.0) L 03/31/21 17:22 Acetaminophen 5.0 ug/mL (10.0-30.0) L 03/31/21 17:22 Plasma/Serum Alcohol < 0.01 % (0-0.07) 03/31/21 17:22 Rivera/IV: Voiding Method Toilet Active Medications - Current Medications Current Medications: Generic Name Dose Route Start Last Admin Trade Name Freq PRN Reason Stop Dose Admin Acetaminophen 650 mg 03/31/21 20:37 Acetaminophen 325 Mg Tab PO Q4H PRN Pain MILD(1-3)/Fever >100.5/[place] Albuterol 2.5 mg 03/31/21 20:37 Albuterol 2.5 Mg/3 Ml Nebu IH Q4HRT PRN Shortness Of Breath Amlodipine Besylate 10 mg 04/01/21 10:00 04/03/21 09:28 Amlodipine 10 Mg Tab PO 10 mg QDAY MARIO Administration Clopidogrel Bisulfate 75 mg 04/01/21 10:00 04/03/21 09:30 Clopidogrel 75 Mg Tab PO 75 mg QDAY MARIO Administration Hydromorphone HCl 0.5 mg 03/31/21 20:37 Hydromorphone 1 Mg/1 Ml Inj IV Q23H PRN Pain , Severe (7-10) Lactated Ringer's 1,000 mls @ 75 mls/hr 04/01/21 07:45 04/03/21 06:09 Lactated Ringers IV 75 mls/hr DIRECT MARIO Administration Ondansetron HCl 4 mg 03/31/21 20:37 Ondansetron 4 Mg/2 Ml Inj IV Q8H PRN Nausea And Vomiting Oxycodone/Acetaminophen 1 tab 03/31/21 20:37 04/01/21 02:03 Oxycodone /Acetaminophen 5-325mg Tab PO 1 tab Q16H PRN Administration Pain, Moderate (4-6) Sodium Chloride 10 ml 03/31/21 22:00 04/03/21 09:30 Sodium Chloride 0.9% 10 Ml Flush Syringe IV 10 ml BID MARIO Administration Sodium Chloride 10 ml 03/31/21 20:37 Sodium Chloride 0.9% 10 Ml Flush Syringe IV PRN PRN LINE FLUSH Nutrition/Malnutrition Assess - Dietary Evaluation Nutrition/Malnutrition Findings: Nutrition Notes Start: 04/01/21 12:56 Freq: Status: Active Protocol: Document 04/01/21 12:56 MONAE (Rec: 04/01/21 13:28 MONAE [id number]) Nutrition Notes Need for Assessment generated from: MD Order,adzing and boring 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 Labs/Tests 04/01: Na 156, Cl 121.8, BUN 31, Glu 136. Pertinent Medications 04/01: Nutritionally unremarkable. Height 5 ft 3 in Weight 72 kg [place] Body Weight (kg) 52.27 BMI 28.0 Intake Prior to Admission Poor Weight change and time frame Pt states being unsure if loss body weight recently. Weight Status Overweight Subjective/Other Information RD consult for risk of malnutrition, skin risk and nutritional supplementation assessment, Pt presents general weakness and a complexity of debilitating conditions, being addressed. Pt shows no signs of concern for risk of malnutrition at the time, according to Physical Assessment History notes. Pt has missing teeth and chewing difficulty, according to Physical Assessment History notes. Pt to be discharged, when stable, to home hospice care facility, as per family. Percent of energy/protein needs met: Prescribed Renal Diet provides for energy/protein needs (2, 072 Kcal/77 g) during LOS; additionally, Dietary Supplements will compensate for possible Poor PO intake of meals with 1,275 Kcal and 57 g of protein. Burn Absent Trauma Absent GI Symptoms None Difficulty In Chewing Food Allergy No Skin Integrity/Comment Clear, warm, dry. Minimum of two criteria No #2 Nutrition Diagnosis Inadequate protein-energy intake Etiology Ongoing and concomitant cronic metabolic conditions As Evidenced by Signs and Symptoms MD request for Dietary Supplementation. #1 Nutrition Diagnosis Biting/Chewing (masticatory) difficulty Etiology Missing teeth. As Evidenced by Signs and Symptoms Pt has missing teeth and chewing difficulty, according to Physical Assessment History notes. Is patient on ventilator? No Is Patient Ambulatory and/or Out of Bed No REE-([place]-St. Jeor-confined to bed) 1362.348 Calculation Used for Recommendations [place]-St Jeor Additional Notes Protein: 0.8-1.2 g/Kg; 58-86 g /day. Fluids: 1 ml/Kcal, or as per MD. Nutrition Intervention Change Diet Order: Change to modified Renal Diet -chopped meats-. Add Supplement/Snack (indicate name/kcal 8 fl oz Nepro w/CARBSTEADY; /protein ) TID. Provides kCal: 1,275 Provides Protein (gm) 57 Goal #1 Compensate, through dietary supplementation, for possible poor or insufficient PO intake of meals during LOS. Goal #2 Facilitate PO intake of meals with mechanical modification during LOS. Goal #3 Maintain body weight within +/ -3% of admission body weight during LOS. Follow-Up By: 04/08/21 Additional Comments Continue monitoring food tolerance, %PO intake of meals , and BM.
--- NOTE | 2021-04-03 21:04 | Discharge Summary ---
Providers - Providers Date of Admission: 03/31/21 20:37 Attending physician: LOUIS SHEPHERD 03/31/21 15:52 Consult to Case Management [CONS] Routine Services Needed at Discharge: Poising Inspector Notified:: awaiting call back Primary care physician: [facility] [facility] Hospitalization Condition: Fair Hospital course: 85 YO Female with Vascular Dementia, Cerebral Atherosclerosis, HTN, Debility presented to ED for evaluation. Patient was confused with diminished cognition at the time my evaluation is unable to provide history. Patient history provided by EMS staff, ED staff, as well as the patient grandson who is the medical decision maker who is at bedside during exam and interview. As per grandson the patient had experienced diminished oral intake over the past 3 months, increasing confusion, and worsening memory loss as well as 25 pound weight loss over the past 90 days. Patient is currently bedbound, nonambulatory and has a palliative performance score of 30% and requires 6/6 assistance with activities of daily living. Patient requires assistance with repositioning in bed. The patient was found down sitting on the floor next to the bed. EMS was notified for the aforementioned symptoms and upon arrival the patient was found to be in distress and subsequent transported to [facility] for further care and evaluation of the aforementioned symptoms. The patient was seen and evaluated in the emergency department. All lab and imaging studies reviewed. Patient found to have metabolic encephalopathy, debility, volume depletion, acute kidney injury, and hyponatremia. The patient will was admitted to medical floor due to increased risk of worsening symptoms. Patient initiated on IV fluid resuscitation therapy. Patient convalesced well during hospital course with mild improvement in symptoms. Patient medically optimized. Patient seen and evaluated prior to discharge with no significant new physical exam findings. Patient's son elects to have patient discharged with home hospice care. Home hospice care arranged. 30 minutes dedicated to patient discharge as well as coordination of care. Disposition: 50 HOSPICE/HOME - Discharge Diagnoses (1) Acute kidney injury (DESHAWN) with acute tubular necrosis (ATN) Status: Acute (2) Volume depletion Status: Acute (3) Vascular dementia Status: Acute Qualifiers: Dementia behavioral disturbance: without behavioral disturbance Qualified Code(s): F01.50 - Vascular dementia without behavioral disturbance (4) Cerebral atherosclerosis Status: Acute (5) Encephalopathy acute Status: Acute (6) Malnutrition Status: Acute Qualifiers: Malnutrition type: protein-calorie malnutrition Protein-calorie malnutrition severity: moderate Qualified Code(s): E44.0 - Moderate protein- calorie malnutrition (7) Debility Status: Acute (8) DVT prophylaxis Status: Acute (9) Advance care planning Status: Acute Core Measure Documentation - Palliative Care Palliative Care/ Comfort Measures: Hospice Care - Core Measures Any of the following diagnoses?: none Exam - Constitutional Vitals: Temp Pulse Resp BP Pulse Ox 99.4 F 92 H 16 165/78 97 04/03/21 17:00 04/03/21 17:00 04/03/21 17:00 04/03/21 17:00 04/03/21 17:00 General appearance: Present: no acute distress - EENT Eyes: Present: PERRL ENT: hearing decreased - Neck Neck: Present: supple, normal ROM - Respiratory Respiratory effort: normal Respiratory: bilateral: CTA - Cardiovascular Heart Sounds: Present: S1 & S2. Absent: rub, click - Extremities Extremities: pulses symmetrical, No edema Peripheral Pulses: within normal limits - Abdominal General gastrointestinal: Present: soft, non-tender, non-distended, normal bowel sounds Female genitourinary: Present: normal - Integumentary Integumentary: Present: clear, warm, dry - Musculoskeletal Musculoskeletal: generalized weakness - Psychiatric Psychiatric: no appropriate mood/affect, no intact judgment & insight, no memory intact, cooperative - Neurologic Neurologic: CNII-XII intact, moves all extremities, no gait normal Plan Activity: advance as tolerated Diet: advance as tolerated Follow up with: PRIMARY CAREMD [Primary Care Provider] - 3-5 Days
--- NOTE | 2021-04-03 21:04 | Progress Note ---
Assessment and Plan - Patient Problems (1) Acute kidney injury (DESHAWN) with acute tubular necrosis (ATN) Current Visit: Yes Status: Acute Plan to address problem: BMP, IV fluid resuscitation therapy, repeat BMP in a.m., monitor urine output Q shift. (2) Volume depletion Current Visit: Yes Status: Acute Plan to address problem: IV fluid resuscitation therapy, encourage increased oral intake when awake and alert only. (3) Vascular dementia Current Visit: Yes Status: Acute Qualifiers: Dementia behavioral disturbance: without behavioral disturbance Qualified Code(s): F01.50 - Vascular dementia without behavioral disturbance Plan to address problem: Verbal prompting, verbal redirection, benzodiazepine therapy as clinically indicated. (4) Cerebral atherosclerosis Current Visit: Yes Status: Acute Plan to address problem: Risk factor reduction, supportive care. (5) Encephalopathy acute Current Visit: Yes Status: Acute Plan to address problem: Supportive care, neuro checks, (6) Malnutrition Current Visit: Yes Status: Acute Qualifiers: Malnutrition type: protein-calorie malnutrition Protein-calorie malnutrition severity: moderate Qualified Code(s): E44.0 - Moderate protein- calorie malnutrition Plan to address problem: Dietary supplementation, increase protein intake when awake and alert only. (7) Debility Current Visit: Yes Status: Acute Plan to address problem: Supportive care, fall precautions. (8) DVT prophylaxis Current Visit: Yes Status: Acute Plan to address problem: SCD to bilateral lower extremities while in bed (9) Advance care planning Current Visit: Yes Status: Acute Plan to address problem: Disease education conducted, care plan discussed, diagnosis discussed, prognosis discussed, patient is full code. Patient grandson Mr. Juan F Haq; made aware of patient prognosis. Patient grandson elects to have home hospice care when discharged from hospital. Hospice care team notified. Patient grandson acknowledges understanding and agreement with care plan. +30 minutes. History Interval history: 85 YO Female HD #4 with Vascular Dementia, Cerebral Atherosclerosis, HTN, Debility, Metabolic Encephalopathy, volume depletion, DESHAWN, Hyponatremia. Pt re elvin confused. No reported nursing events. Pt symptoms have improved since admission. Patient medically optimized. Discharge planning in a.m. Home hospice arranged.. Hospitalist Physical - Constitutional Vitals: Temp Pulse Resp BP Pulse Ox 99.4 F 92 H 16 165/78 97 04/03/21 17:00 04/03/21 17:00 04/03/21 17:00 04/03/21 17:00 04/03/21 17:00 General appearance: Present: mild distress - EENT Eyes: Present: PERRL ENT: hearing decreased - Neck Neck: Present: supple - Respiratory Respiratory: bilateral: CTA - Cardiovascular Rhythm: regular Heart Sounds: Present: S1 & S2 - Extremities Extremities: no ischemia Peripheral Pulses: within normal limits - Abdominal General gastrointestinal: soft, non-tender, non-distended - Integumentary Integumentary: Present: clear, dry - Psychiatric Psychiatric: cooperative - Neurologic Neurologic: CNII-XII intact HEART Score - HEART Score Troponin: Troponin T 0.046 ng/mL (0.00-0.029) H 03/31/21 17:22 Results - Labs CBC & Chem 7: 03/31/21 17:22 04/01/21 04:28 Labs: Laboratory Last Values WBC 5.6 K/mm3 (4.5-11.0) 03/31/21 17: RBC 4.76 M/mm3 (3.65-5.03) 03/31/21 17:22 Hgb 10.8 gm/dl (10.1-14.3) 03/31/21 17: Hct 36.2 % (30.3-42.9) 03/31/21 17:22 MCV 76 fl (79-97) L 03/31/21 17:22 MCH 23 pg (28-32) L 03/31/21 17:22 MCHC 30 % (30-34) 03/31/21 17: RDW 15.3 % (13.2-15.2) H 03/31/21 17:22 Plt Count 111 K/mm3 (140-440) L 03/31/21 17:22 Lymph % (Auto) 35.8 % (13.4-35.0) H 03/31/21 17: [place] % (Auto) 9.1 % (0.0-7.3) H 03/31/21 17: Eos % (Auto) 0.9 % (0.0-4.3) 03/31/21 17: Baso % (Auto) 0.9 % (0.0-1.8) 03/31/21 17: Lymph # (Auto) 2.0 K/mm3 (1.2-5.4) 03/31/21 17:22 [place] # (Auto) 0.5 K/mm3 (0.0-0.8) 03/31/21 17:22 Eos # (Auto) 0.1 K/mm3 (0.0-0.4) 03/31/21 17:22 Baso # (Auto) 0.1 K/mm3 (0.0-0.1) 03/31/21 17:22 Seg Neutrophils % 53.3 % (40.0-70.0) 03/31/21 17: Seg Neutrophils # 3.0 K/mm3 (1.8-7.7) 03/31/21 17: PT 14.7 Sec. (12.2-14.9) 03/31/21 17: INR 1.04 (0.87-1.13) 03/31/21 17:22 Sodium 156 mmol/L (137-145) H 04/01/21 04:28 Potassium 4.0 mmol/L (3.6-5.0) 04/01/21 04:28 Chloride 121.8 mmol/L (98-107) H 04/01/21 04:28 Carbon Dioxide 25 mmol/L (22-30) 04/01/21 04:28 Anion Gap 13 mmol/L 04/01/21 04:28 BUN 31 mg/dL (7-17) H 04/01/21 04:28 Creatinine 1.2 mg/dL (0.6-1.2) 04/01/21 04:28 Estimated GFR 52 ml/min 04/01/21 04:28 BUN/Creatinine Ratio 26 % 04/01/21 04:28 Glucose 136 mg/dL (65-100) H 04/01/21 04:28 Lactic Acid 1.20 mmol/L (0.7-2.0) 03/31/21 17: Calcium 10.2 mg/dL (8.4-10.2) 04/01/21 04:28 Total Bilirubin 0.80 mg/dL (0.1-1.2) 03/31/21 17:22 AST 60 units/L (5-40) H 03/31/21 17:22 ALT 73 units/L (7-56) H 03/31/21 17:22 Alkaline Phosphatase 117 units/L (35-129) 03/31/21 17: Ammonia 11.0 umol/L (25-60) L 03/31/21 17:22 Total Creatine Kinase 31 units/L (30-135) 03/31/21 17:22 Troponin T 0.046 ng/mL (0.00-0.029) H 03/31/21 17: Total Protein 7.7 g/dL (6.3-8.2) 03/31/21 17: Albumin 3.8 g/dL (3.9-5) L 03/31/21 17: Albumin/Globulin Ratio 1.0 % 03/31/21 17: Triglycerides 169 mg/dL (2-149) H 03/31/21 17: Cholesterol 199 mg/dL (50-199) 03/31/21: LDL Cholesterol Direct 121 mg/dL (50-130) 03/31/21: HDL Cholesterol 53 mg/dL (40-59) 03/31/21: Cholesterol/HDL Ratio 3.75 % 03/31/21 17: TSH 1.620 mlU/mL (0.270-4.200) 03/31/21 17:22 Urine Color Mary Jo (Yellow) 03/31/21 Unknown Urine Turbidity Slightly-cloudy (Clear) 03/31/21 Unknown Urine pH 5.0 (5.0-7.0) 03/31/21 Unknown Ur Specific [place] 1.027 (1.003-1.030) 03/31/21 Unknown Urine Protein 30 mg/dl mg/dL (Negative) 03/31/21 Unknown Urine Glucose (UA) Neg mg/dL (Negative) 03/31/21 Unknown Urine Ketones Neg mg/dL (Negative) 03/31/21 Unknown Urine Blood Neg (Negative) 03/31/21 Unknown Urine Nitrite Neg (Negative) 03/31/21 Unknown Urine Bilirubin Neg (Negative) 03/31/21 Unknown Urine Urobilinogen 4.0 mg/dL (<2.0) 03/31/21 Unknown Ur Leukocyte Esterase Tr (Negative) 03/31/21 Unknown Urine WBC (Auto) 4.0 /HPF (0.0-6.0) 03/31/21 Unknown Urine RBC (Auto) 2.0 /HPF (0.0-6.0) 03/31/21 Unknown U Epithel Cells (Auto) < 1.0 /HPF (0-13.0) 03/31/21 Unknown Urine Bacteria (Auto) 1+ /HPF (Negative) 03/31/21 Unknown Urine Mucus 2+ /HPF 03/31/21 Unknown Salicylates < 0.3 mg/dL (2.8-20.0) L 03/31/21 17:22 Acetaminophen 5.0 ug/mL (10.0-30.0) L 03/31/21 17:22 Plasma/Serum Alcohol < 0.01 % (0-0.07) 03/31/21 17:22 Rivera/IV: Voiding Method Toilet Active Medications - Current Medications Current Medications: Generic Name Dose Route Start Last Admin Trade Name Freq PRN Reason Stop Dose Admin Acetaminophen 650 mg 03/31/21 20:37 Acetaminophen 325 Mg Tab PO Q4H PRN Pain MILD(1-3)/Fever >100.5/CHAVARRIA Albuterol 2.5 mg 03/31/21 20:37 Albuterol 2.5 Mg/3 Ml Nebu IH Q4HRT PRN Shortness Of Breath Amlodipine Besylate 10 mg 04/01/21 10:00 04/03/21 09:28 Amlodipine 10 Mg Tab PO 10 mg QDAY MARIO Administration Clopidogrel Bisulfate 75 mg 04/01/21 10:00 04/03/21 09:30 Clopidogrel 75 Mg Tab PO 75 mg QDAY MARIO Administration Hydromorphone HCl 0.5 mg 03/31/21 20:37 Hydromorphone 1 Mg/1 Ml Inj IV Q23H PRN Pain , Severe (7-10) Lactated Ringer's 1,000 mls @ 75 mls/hr 04/01/21 07:45 04/03/21 06:09 Lactated Ringers IV 75 mls/hr DIRECT MARIO Administration Ondansetron HCl 4 mg 03/31/21 20:37 Ondansetron 4 Mg/2 Ml Inj IV Q8H PRN Nausea And Vomiting Oxycodone/Acetaminophen 1 tab 03/31/21 20:37 04/01/21 02:03 Oxycodone /Acetaminophen 5-325mg Tab PO 1 tab Q16H PRN Administration Pain, Moderate (4-6) Sodium Chloride 10 ml 03/31/21 22:00 04/03/21 09:30 Sodium Chloride 0.9% 10 Ml Flush Syringe IV 10 ml BID MARIO Administration Sodium Chloride 10 ml 03/31/21 20:37 Sodium Chloride 0.9% 10 Ml Flush Syringe IV PRN PRN LINE FLUSH Nutrition/Malnutrition Assess - Dietary Evaluation Nutrition/Malnutrition Findings: Nutrition Notes Start: 04/01/21 12: 56 Freq: Status: Active Protocol: Document 04/01/21 12:56 MONAE (Rec: 04/01/21 13:28 MONAE [id number]) Nutrition Notes Need for Assessment generated from: MD Order,projection printer,MST Initial or Follow up Assessment Current Diagnosis Acute Kidney Injury Other Pertinent Diagnosis DESHAWN+ATN, Acute Encephalopathy, Debility, Vascular Dementia, Cerebral Athero Current Diet Renal Diet (since D 04/01), D Suppl (since D 04/01). Labs/Tests 04/01: Na 156, Cl 121.8, BUN 31, Glu 136. Pertinent Medications 04/01: Nutritionally unremarkable. Height 5 ft 3 in Weight 72 kg [place] Body Weight (kg) 52.27 BMI 28.0 Intake Prior to Admission Poor Weight change and time frame Pt states being unsure if loss body weight recently. Weight Status Overweight Subjective/Other Information RD consult for risk of malnutrition, skin risk and nutritional supplementation assessment, Pt presents general weakness and a complexity of debilitating conditions, being addressed. Pt shows no signs of concern for risk of malnutrition at the time, according to Physical Assessment History notes. Pt has missing teeth and chewing difficulty, according to Physical Assessment History notes. Pt to be discharged, when stable, to home hospice care facility, as per family. Percent of energy/protein needs met: Prescribed Renal Diet provides for energy/protein needs (2, 072 Kcal/77 g) during LOS; additionally, Dietary Supplements will compensate for possible Poor PO intake of meals with 1,275 Kcal and 57 g of protein. Burn Absent Trauma Absent GI Symptoms None Difficulty In Chewing Food Allergy No Skin Integrity/Comment Clear, warm, dry. Minimum of two criteria No #2 Nutrition Diagnosis Inadequate protein-energy intake Etiology Ongoing and concomitant cronic metabolic conditions As Evidenced by Signs and Symptoms MD request for Dietary Supplementation. #1 Nutrition Diagnosis Biting/Chewing (masticatory) difficulty Etiology Missing teeth. As Evidenced by Signs and Symptoms Pt has missing teeth and chewing difficulty, according to Physical Assessment History notes. Is patient on ventilator? No Is Patient Ambulatory and/or Out of Bed No REE-([facility]-confined to bed) 1362.348 Calculation Used for Recommendations [facility] Additional Notes Protein: 0.8-1.2 g/Kg; 58-86 g /day. Fluids: 1 ml/Kcal, or as per MD. Nutrition Intervention Change Diet Order: Change to modified Renal Diet -chopped meats-. Add Supplement/Snack (indicate name/kcal 8 fl oz Nepro w/CARBSTEADY; /protein ) TID. Provides kCal: 1,275 Provides Protein (gm) 57 Goal #1 Compensate, through dietary supplementation, for possible poor or insufficient PO intake of meals during LOS. Goal #2 Facilitate PO intake of meals with mechanical modification during LOS. Goal #3 Maintain body weight within +/ -3% of admission body weight during LOS. Follow-Up By: 04/08/21 Additional Comments Continue monitoring food tolerance, %PO intake of meals , and BM.
[2021-04-04] MEDS: CLOPIDOGREL 75 MG TAB PO SCH (09:55)
[2021-04-04] MEDS: amLODIPine 10 MG TAB PO SCH (09:55)
[2021-04-04] MEDS: LACTATED RINGERS 1,000 ML IV SCH (16:24)
--- NOTE | 2021-04-04 20:42 | Progress Note ---
Assessment and Plan - Patient Problems (1) Acute kidney injury (DESHAWN) with acute tubular necrosis (ATN) Current Visit: Yes Status: Acute Plan to address problem: Improved Continue IV fluids (2) Volume depletion Current Visit: Yes Status: Acute Plan to address problem: Continue IV fluids (3) Vascular dementia Current Visit: Yes Status: Acute Qualifiers: Dementia behavioral disturbance: without behavioral disturbance Qualified Code(s): F01.50 - Vascular dementia without behavioral disturbance Plan to address problem: Verbal prompting, verbal redirection, benzodiazepine therapy as clinically indicated. (4) Cerebral atherosclerosis Current Visit: Yes Status: Acute Plan to address problem: Risk factor reduction, supportive care. (5) Encephalopathy acute Current Visit: Yes Status: Acute Plan to address problem: Supportive care, neuro checks, penitentiary placement (6) Malnutrition Current Visit: Yes Status: Acute Qualifiers: Malnutrition type: protein-calorie malnutrition Protein-calorie ma lnutrition severity: moderate Qualified Code(s): E44.0 - Moderate protein- calorie malnutrition Plan to address problem: Dietary supplements (7) Debility Current Visit: Yes Status: Acute Plan to address problem: Supportive care, fall precautions. (8) DVT prophylaxis Current Visit: Yes Status: Acute Plan to address problem: SCD to bilateral lower extremities while in bed (9) Advance care planning Current Visit: Yes Status: Acute Plan to address problem: Disease education conducted, care plan discussed, diagnosis discussed, prognosis discussed, patient is full code. Patient grandson Mr. Juan F Haq; made aware of patient prognosis. Patient grandson elects to have home hospice care when discharged from hospital. Hospice care team notified. Patient grandson acknowledges understanding and agreement with care plan. +30 minutes. Discharge to home hospice Hospice team meeting informed Subjective Date of service: 04/04/21 Principal diagnosis: Hypernatremia,DESHAWN Interval history: 85 YO Female with Vascular Dementia, Cerebral Atherosclerosis, HTN, Debility presents to ED for evaluation. Patient is confused with diminished cognition at the time my evaluation is unable to provide history. Patient history provided by EMS staff, ED staff, as well as the patient grandson who is the medical decision maker who is at bedside during exam and interview. As per his grandson the patient has experienced diminished oral intake over the past 3 months, increasing confusion, and worsening memory loss as well as 25 pound weight loss over the past 90 days. Patient is currently bedbound, nonambulatory and has a palliative performance score of 30% and requires 6/6 assistance with activities of daily living. Patient is requires assistance with repositioning in bed. The patient was found down sitting on the floor next to the bed. EMS was notified for the aforementioned symptoms and upon arrival the patient was found to be in distress and subsequent transported to [facility] for further care and evaluation of the aforementioned symptoms. The patient was seen and evaluated in the emergency department. All lab and imaging studies reviewed. Patient found to have metabolic encephalopathy, debility, volume depletion, acute kidney injury, and hyponatremia. The patient will was admitted to medical floor due to increased risk of worsening symptoms. Patient initiated on IV fluid resuscitation therapy. No reports of fever, chill, chest pain, palpitation, productive cough, skin rash, recent contact, known exposure to COVID-19. Patient is not vaccinated against COVID-19. Prior admission on 03/11/2017 reviewed. All medication listed at time of admission has been reconciled. Advanced care planning conducted in ED. 04/04/2020 Sodium improved to 156 from 161 DESHAWN improved from 39/1.5-31/1.2 Objective - Constitutional Vitals: Vital Signs - 12hr 04/04/21 04/04/21 04/04/21 09:44 10:00 10:53 Temperature 99.1 F Pulse Rate 77 Respiratory 18 Rate Blood Pressure 191/70 O2 Sat by Pulse 100 96 98 Oximetry 04/04/21 17:37 Temperature 97.2 F L Pulse Rate 87 Respiratory 18 Rate Blood Pressure 176/79 O2 Sat by Pulse 98 Oximetry General appearance: Present: no acute distress, well-nourished - EENT Eyes: PERRL, EOM intact ENT: hearing intact, clear oral mucosa Ears: bilateral: normal - Neck Neck: supple, normal ROM - Respiratory Respiratory effort: normal Respiratory: bilateral: CTA - Breasts Breasts: normal - Cardiovascular Heart rate: 78 Rhythm: regular Heart Sounds: Present: S1 & S2. Absent: gallop, rub Extremities: pulses intact, No edema, normal color, Full ROM - Gastrointestinal General gastrointestinal: Present: soft, non-tender, non-distended, normal bowel sounds - Genitourinary Female genitourinary: normal - Integumentary Integumentary: clear, warm, dry - Musculoskeletal Musculoskeletal: 1, strength equal bilaterally - Neurologic Neurologic: moves all extremities - Psychiatric Psychiatric: memory intact, appropriate mood/affect, intact judgment & insight - Labs CBC & Chem 7: 03/31/21 17:22 04/01/21 04:28 HEART Score - HEART Score Troponin: Troponin T 0.046 ng/mL (0.00-0.029) H 03/31/21 17:22
[2021-04-05] MEDS ORDERED: ACETAMINOPHEN 650 MG RECT SUPP PR PRN (01:47)
[2021-04-05] MEDS: amLODIPine 10 MG TAB PO SCH (09:42)
[2021-04-05] MEDS: CLOPIDOGREL 75 MG TAB PO SCH (09:42)
[2021-04-05 12:25] LABS: Hematocrit 32.7 % (30.3-42.9); Mean Corpuscular HGB Conc 31 % (30-34); Mean Corpuscular Volume 75 fl (79-97); Platelet Count 102 K/mm3 (140-440); Red Blood Count 4.35 M/mm3 (3.65-5.03); Red Cell Distribution Width 16.1 % (13.2-15.2)
[2021-04-05 12:30] LABS: Lymphocytes % (Auto) 15.7 % (13.4-35.0)
[2021-04-05 12:31] LABS: Basophils % (Auto) 0.2 % (0.0-1.8); Eosinophils % (Auto) 0.1 % (0.0-4.3); Lymphocytes # (Auto) 1.3 K/mm3 (1.2-5.4); Monocytes # (Auto) 0.5 K/mm3 (0.0-0.8); Monocytes % (Auto) 5.8 % (0.0-7.3)
[2021-04-05 13:02] LABS: Albumin 3.2 g/dL (3.9-5)
[2021-04-05] MEDS: LACTATED RINGERS 1,000 ML IV SCH (18:28)
--- NOTE | 2021-04-06 00:13 | Progress Note ---
Assessment and Plan - Patient Problems (1) Acute kidney injury (DESHAWN) with acute tubular necrosis (ATN) Current Visit: Yes Status: Acute Plan to address problem: Improved Continue IV fluids (2) Volume depletion Current Visit: Yes Status: Acute Plan to address problem: Continue IV fluids (3) Vascular dementia Current Visit: Yes Status: Acute Qualifiers: Dementia behavioral disturbance: without behavioral disturbance Qualified Code(s): F01.50 - Vascular dementia without behavioral disturbance Plan to address problem: Verbal prompting, verbal redirection, benzodiazepine therapy as clinically indicated. (4) Cerebral atherosclerosis Current Visit: Yes Status: Acute Plan to address problem: Risk factor reduction, supportive care. (5) Encephalopathy acute Current Visit: Yes Status: Acute Plan to address problem: Supportive care, neuro checks, long-term placement (6) Malnutrition Current Visit: Yes Status: Acute Qualifiers: Malnutrition type: protein-calorie malnutrition Protein-calorie ma lnutrition severity: moderate Qualified Code(s): E44.0 - Moderate protein- calorie malnutrition Plan to address problem: Dietary supplements (7) Debility Current Visit: Yes Status: Acute Plan to address problem: Supportive care, fall precautions. (8) DVT prophylaxis Current Visit: Yes Status: Acute Plan to address problem: SCD to bilateral lower extremities while in bed (9) Advance care planning Current Visit: Yes Status: Acute Plan to address problem: Disease education conducted, care plan discussed, diagnosis discussed, prognosis discussed, patient is full code. Patient grandson Mr. Juan F Haq; made aware of patient prognosis. Patient grandson elects to have home hospice care when discharged from hospital. Hospice care team notified. Patient grandson acknowledges understanding and agreement with care plan. +30 minutes. Discharge to home hospice Hospice team meeting informed Subjective Date of service: 04/05/21 Principal diagnosis: Hypernatremia,DESHAWN Interval history: 85 YO Female with Vascular Dementia, Cerebral Atherosclerosis, HTN, Debility presents to ED for evaluation. Patient is confused with diminished cognition at the time my evaluation is unable to provide history. Patient history provided by EMS staff, ED staff, as well as the patient grandson who is the medical decision maker who is at bedside during exam and interview. As per his grandson the patient has experienced diminished oral intake over the past 3 months, increasing confusion, and worsening memory loss as well as 25 pound weight loss over the past 90 days. Patient is currently bedbound, nonambulatory and has a palliative performance score of 30% and requires 6/6 assistance with activities of daily living. Patient is requires assistance with repositioning in bed. The patient was found down sitting on the floor next to the bed. EMS was notified for the aforementioned symptoms and upon arrival the patient was found to be in distress and subsequent transported to [facility] for further care and evaluation of the aforementioned symptoms. The patient was seen and evaluated in the emergency department. All lab and imaging studies reviewed. Patient found to have metabolic encephalopathy, debility, volume depletion, acute kidney injury, and hyponatremia. The patient will was admitted to medical floor due to increased risk of worsening symptoms. Patient initiated on IV fluid resuscitation therapy. No reports of fever, chill, chest pain, palpitation, productive cough, skin rash, recent contact, known exposure to COVID-19. Patient is not vaccinated against COVID-19. Prior admission on 03/11/2017 reviewed. All medication listed at time of admission has been reconciled. Advanced care planning conducted in ED. 04/04/2020 Sodium improved to 156 from 161 DESHAWN improved from 39/1.5-31/1.2 Objective - Constitutional Vitals: Vital Signs - 12hr 04/05/21 04/05/21 12:23 16:02 Temperature 97 F L Pulse Rate 89 Respiratory 16 Rate Blood Pressure 176/76 [Right] O2 Sat by Pulse 95 97 Oximetry General appearance: Present: no acute distress, well-nourished - EENT Eyes: PERRL, EOM intact ENT: hearing intact, clear oral mucosa Ears: bilateral: normal - Neck Neck: supple, normal ROM - Respiratory Respiratory effort: normal Respiratory: bilateral: CTA - Breasts Breasts: normal - Cardiovascular Rhythm: regular Heart Sounds: Present: S1 & S2. Absent: gallop, rub Extremities: pulses intact, No edema, normal color, Full ROM - Gastrointestinal General gastrointestinal: Present: soft, non-tender, non-distended, normal bowel sounds - Genitourinary Female genitourinary: normal - Integumentary Integumentary: clear, warm, dry - Musculoskeletal Musculoskeletal: 1, strength equal bilaterally - Neurologic Neurologic: moves all extremities - Psychiatric Psychiatric: memory intact, appropriate mood/affect, intact judgment & insight - Labs CBC & Chem 7: 04/05/21 11:52 04/05/21 11:52 Labs: Abnormal lab results 04/05/21 04/05/21 Range/Units 11:52 11:52 Hgb 10.0 L (10.1-14.3) gm/dl MCV 75 L (79-97) fl MCH 23 L (28-32) pg RDW 16.1 H (13.2-15.2) % Plt Count 102 L (140-440) K/mm3 Seg Neutrophils % 78.2 H (40.0-70.0) % Sodium 154 H (137-145) mmol/L Chloride 116.2 H (98-107) mmol/L Carbon Dioxide 20 L (22-30) mmol/L Glucose 108 H (65-100) mg/dL Total Bilirubin 1.60 H (0.1-1.2) mg/dL Albumin 3.2 L (3.9-5) g/dL HEART Score - HEART Score Troponin: Troponin T 0.046 ng/mL (0.00-0.029) H 03/31/21 17:22
[2021-04-06] MEDS: LACTATED RINGERS 1,000 ML IV SCH (10:36)
[2021-04-06] MEDS: amLODIPine 10 MG TAB PO SCH (10:37)
[2021-04-06] MEDS: CLOPIDOGREL 75 MG TAB PO SCH (10:37)
--- NOTE | 2021-04-06 18:41 | Progress Note ---
Assessment and Plan - Patient Problems (1) Acute kidney injury (DESHAWN) with acute tubular necrosis (ATN) Current Visit: Yes Status: Acute Plan to address problem: Improved Continue IV fluids (2) Volume depletion Current Visit: Yes Status: Acute Plan to address problem: Continue IV fluids (3) Vascular dementia Current Visit: Yes Status: Acute Qualifiers: Dementia behavioral disturbance: without behavioral disturbance Qualified Code(s): F01.50 - Vascular dementia without behavioral disturbance Plan to address problem: Verbal prompting, verbal redirection, benzodiazepine therapy as clinically indicated. (4) Cerebral atherosclerosis Current Visit: Yes Status: Acute Plan to address problem: Risk factor reduction, supportive care. (5) Encephalopathy acute Current Visit: Yes Status: Acute Plan to address problem: Supportive care, neuro checks, senior living placement (6) Malnutrition Current Visit: Yes Status: Acute Qualifiers: Malnutrition type: protein-calorie malnutrition Protein-calorie ma lnutrition severity: moderate Qualified Code(s): E44.0 - Moderate protein- calorie malnutrition Plan to address problem: Dietary supplements (7) Debility Current Visit: Yes Status: Acute Plan to address problem: Supportive care, fall precautions. (8) DVT prophylaxis Current Visit: Yes Status: Acute Plan to address problem: SCD to bilateral lower extremities while in bed (9) Advance care planning Current Visit: Yes Status: Acute Plan to address problem: Disease education conducted, care plan discussed, diagnosis discussed, prognosis discussed, patient is full code. Patient grandson Mr. Juan F Haq; made aware of patient prognosis. Patient grandson elects to have home hospice care when discharged from hospital. Hospice care team notified. Patient grandson acknowledges understanding and agreement with care plan. +30 minutes. Discharge to home hospice Hospice team meeting informed Subjective Date of service: 04/06/21 Principal diagnosis: Hypernatremia,DESHAWN Interval history: 85 YO Female with Vascular Dementia, Cerebral Atherosclerosis, HTN, Debility presents to ED for evaluation. Patient is confused with diminished cognition at the time my evaluation is unable to provide history. Patient history provided by EMS staff, ED staff, as well as the patient grandson who is the medical decision maker who is at bedside during exam and interview. As per his grandson the patient has experienced diminished oral intake over the past 3 months, increasing confusion, and worsening memory loss as well as 25 pound weight loss over the past 90 days. Patient is currently bedbound, nonambulatory and has a palliative performance score of 30% and requires 6/6 assistance with activities of daily living. Patient is requires assistance with repositioning in bed. The patient was found down sitting on the floor next to the bed. EMS was notified for the aforementioned symptoms and upon arrival the patient was found to be in distress and subsequent transported to [facility] for further care and evaluation of the aforementioned symptoms. The patient was seen and evaluated in the emergency department. All lab and imaging studies reviewed. Patient found to have metabolic encephalopathy, debility, volume depletion, acute kidney injury, and hyponatremia. The patient will was admitted to medical floor due to increased risk of worsening symptoms. Patient initiated on IV fluid resuscitation therapy. No reports of fever, chill, chest pain, palpitation, productive cough, skin rash, recent contact, known exposure to COVID-19. Patient is not vaccinated against COVID-19. Prior admission on 03/11/2017 reviewed. All medication listed at time of admission has been reconciled. Advanced care planning conducted in ED. 04/04/2020 Sodium improved to 156 from 161 DESHAWN improved from 39/1.5-31/1.2 Objective - Constitutional Vitals: Vital Signs - 12hr 04/06/21 04/06/21 04/06/21 08:00 10:41 11:59 Temperature 97.7 F Pulse Rate 89 Respiratory 20 Rate Blood Pressure 158/65 174/76 O2 Sat by Pulse 98 98 Oximetry 04/06/21 14:43 Temperature Pulse Rate Respiratory Rate Blood Pressure 161/76 O2 Sat by Pulse Oximetry General appearance: Present: no acute distress, well-nourished - EENT Eyes: PERRL, EOM intact ENT: hearing intact, clear oral mucosa Ears: bilateral: normal - Neck Neck: supple, normal ROM - Respiratory Respiratory effort: normal Respiratory: bilateral: CTA - Breasts Breasts: normal - Cardiovascular Rhythm: regular Heart Sounds: Present: S1 & S2. Absent: gallop, rub Extremities: pulses intact, No edema, normal color, Full ROM - Gastrointestinal General gastrointestinal: Present: soft, non-tender, non-distended, normal bowel sounds - Genitourinary Female genitourinary: normal - Integumentary Integumentary: clear, warm, dry - Musculoskeletal Musculoskeletal: 1, strength equal bilaterally - Neurologic Neurologic: moves all extremities - Psychiatric Psychiatric: memory intact, appropriate mood/affect, intact judgment & insight - Labs CBC & Chem 7: 04/05/21 11:52 04/05/21 11:52 HEART Score - HEART Score Troponin: Troponin T 0.046 ng/mL (0.00-0.029) H 03/31/21 17:22
[2021-04-06] MEDS: D5W/0.45% NACL 1,000 ML IV SCH (22:53)
[2021-04-07 10:22] LABS: Hematocrit 31.2 % (30.3-42.9); Hemoglobin 9.6 gm/dl (10.1-14.3); Mean Corpuscular HGB Conc 31 % (30-34); Mean Corpuscular Volume 75 fl (79-97); Platelet Count 120 K/mm3 (140-440); Red Blood Count 4.17 M/mm3 (3.65-5.03); Red Cell Distribution Width 15.9 % (13.2-15.2)
[2021-04-07 10:59] LABS: Alanine Aminotransferase 20 units/L (7-56); Albumin 2.9 g/dL (3.9-5); BUN/Creatinine Ratio 14; Blood Urea Nitrogen 14 mg/dL (7-17); Calcium 9.3 mg/dL (8.4-10.2); Hemolysis Index 3
[2021-04-07 11:09] LABS: Band Neutrophils # (Manual) 0.1 K/mm3; Hypochromasia 1+; Myelocytes # (Manual) 0.2 K/mm3; Platelet Estimate Consistent w Auto; Total Cells Counted 100
--- NOTE | 2021-04-07 12:47 | Electrocardiograph Report ---
[facility] Test Date: 2021-03-31 Test Time: 16:16:21 Pat Name: CRISTÓBAL OLSEN Department: Room: A389 1 Gender: F Legal Document Assistant: WILL : 1935 Requested By: KRYSTIN JANG Order Number: [id number] Reading MD: Florentino Webster Measurements Intervals [place] Rate: 74 P: 26 RI: 148 QRS: -8 QRSD: 95 T: 40 QT: 408 QTc: 454 Interpretive Statements Sinus rhythm Probable left atrial enlargement Left ventricular hypertrophy No previous ECG available for comparison Electronically Signed On 04-07-2021 12:47:15 EST by Florentino Webster
[2021-04-07] MEDS: D5W/0.45% NACL 1,000 ML IV SCH (15:57)
[2021-04-07] MEDS: SODIUM CHLORIDE 0.9% 50 ML IVPB IV PRN ×2 (15:57→15:58)
[2021-04-07] MEDS: amLODIPine 10 MG TAB PO SCH (15:59)
[2021-04-07] MEDS: CLOPIDOGREL 75 MG TAB PO SCH (16:01)
--- NOTE | 2021-04-07 18:15 | Progress Note ---
Assessment and Plan - Patient Problems (1) Acute kidney injury (DESHAWN) with acute tubular necrosis (ATN) Current Visit: Yes Status: Acute Plan to address problem: Improved Continue IV fluids (2) Volume depletion Current Visit: Yes Status: Acute Plan to address problem: Continue IV fluids (3) Vascular dementia Current Visit: Yes Status: Acute Qualifiers: Dementia behavioral disturbance: without behavioral disturbance Qualified Code(s): F01.50 - Vascular dementia without behavioral disturbance Plan to address problem: Verbal prompting, verbal redirection, benzodiazepine therapy as clinically indicated. (4) Cerebral atherosclerosis Current Visit: Yes Status: Acute Plan to address problem: Risk factor reduction, supportive care. (5) Encephalopathy acute Current Visit: Yes Status: Acute Plan to address problem: Supportive care, neuro checks, skilled nursing placement (6) Malnutrition Current Visit: Yes Status: Acute Qualifiers: Malnutrition type: protein-calorie malnutrition Protein-calorie ma lnutrition severity: moderate Qualified Code(s): E44.0 - Moderate protein- calorie malnutrition Plan to address problem: Dietary supplements (7) Debility Current Visit: Yes Status: Acute Plan to address problem: Supportive care, fall precautions. (8) DVT prophylaxis Current Visit: Yes Status: Acute Plan to address problem: SCD to bilateral lower extremities while in bed (9) Advance care planning Current Visit: Yes Status: Acute Plan to address problem: Disease education conducted, care plan discussed, diagnosis discussed, prognosis discussed, patient is full code. Patient grandson Mr. Juan F Haq; made aware of patient prognosis. Patient grandson elects to have home hospice care when discharged from hospital. Hospice care team notified. Patient grandson acknowledges understanding and agreement with care plan. +30 minutes. Discharge to half-way facility PEG tube is needed Patient on Plavix which is kept on hold from today Possible PEG tube on Sunday, April 11, 2021 Subjective Date of service: 04/07/21 Principal diagnosis: Hypernatremia,DESHAWN Interval history: 85 YO Female with Vascular Dementia, Cerebral Atherosclerosis, HTN, Debility presents to ED for evaluation. Patient is confused with diminished cognition at the time my evaluation is unable to provide history. Patient history provided by EMS staff, ED staff, as well as the patient grandson who is the medical decision maker who is at bedside during exam and interview. As per his grandson the patient has experienced diminished oral intake over the past 3 months, increasing confusion, and worsening memory loss as well as 25 pound weight loss over the past 90 days. Patient is currently bedbound, nonambulatory and has a palliative performance score of 30% and requires 6/6 assistance with activities of daily living. Patient is requires assistance with repositioning in bed. The patient was found down sitting on the floor next to the bed. EMS was notified for the aforementioned symptoms and upon arrival the patient was found to be in distress and subsequent transported to [facility] for further care and evaluation of the aforementioned symptoms. The patient was seen and evaluated in the emergency department. All lab and imaging studies reviewed. Patient found to have metabolic encephalopathy, debility, volume depletion, acute kidney injury, and hyponatremia. The patient will was admitted to medical floor due to increased risk of worsening symptoms. Patient initiated on IV fluid resuscitation therapy. No reports of fever, chill, chest pain, palpitation, productive cough, skin rash, recent contact, known exposure to COVID-19. Patient is not vaccinated against COVID-19. Prior admission on 03/11/2017 reviewed. All medication listed at time of admission has been reconciled. Advanced care planning conducted in ED. 04/04/2020 Sodium improved to 156 from 161 DESHAWN improved from 39/1.5-31/1.2 Objective - Constitutional Vitals: Vital Signs - 12hr 04/07/21 04/07/21 11:58 15:59 Temperature 98.8 F Pulse Rate 67 67 Respiratory 18 Rate Blood Pressure 169/71 169/71 O2 Sat by Pulse 98 Oximetry - Labs CBC & Chem 7: 04/07/21 09:52 04/07/21 09:52 Labs: Abnormal lab results 04/07/21 04/07/21 Range/Units 09:52 09:52 WBC 4.1 L (4.5-11.0) K/mm3 Hgb 9.6 L (10.1-14.3) gm/dl MCV 75 L (79-97) fl MCH 23 L (28-32) pg RDW 15.9 H (13.2-15.2) % Plt Count 120 L (140-440) K/mm3 Monocytes % (Manual) 10.0 H (0.0-7.3) % Lymphocytes # (Manual) 0.9 L (1.2-5.4) K/mm3 Sodium 151 H (137-145) mmol/L Potassium 3.3 L (3.6-5.0) mmol/L Chloride 115.5 H (98-107) mmol/L Glucose 132 H (65-100) mg/dL Albumin 2.9 L (3.9-5) g/dL HEART Score - HEART Score Troponin: Troponin T 0.046 ng/mL (0.00-0.029) H 03/31/21 17:22
[2021-04-07] MEDS ORDERED: hydrALAZINE 20 MG/1 ML INJ IV ONE (22:59)
[2021-04-07] MEDS: hydrALAZINE 20 MG/1 ML INJ IV PRN (23:15)
[2021-04-08] MEDS: hydrALAZINE 20 MG/1 ML INJ IV PRN (11:17)
[2021-04-08] MEDS: amLODIPine 10 MG TAB PO SCH (11:19)
[2021-04-08] MEDS: SODIUM CHLORIDE 0.9% 50 ML IVPB IV PRN (11:20)
--- NOTE | 2021-04-08 16:45 | Gastroenterology Consultation ---
History of Present Illness - Reason for Consult Consult date: 04/08/21 PEG tube placement - History of Present Illness This is a 85 yo with pmh of vascular dementia, CVA, HTN, and debility admitted on 03/31/2021 for hypernatemia and dehydration. Patient has had poor PO intake for past 2-3 months and general decline and weakness. No prior EGD/colonoscopy or abdominal surgery per patient's grandson. Medication list reviewed. Past History Past Medical History: hypertension, other (See HPI) Past Surgical History: No surgical history, Other (Reviewed) Social history: single, lives with family. denies: smoking, alcohol abuse, prescription drug abuse Family history: hypertension Medications and Allergies Allergies Allergy/AdvReac Type Severity Reaction Status Date / Time No Known Allergies Allergy Verified 04/08/21 14:00 Home Medications Medication Instructions Recorded Confirmed Last Taken Type amLODIPine 10 mg PO QDAY #30 tablet 03/17/17 04/08/21 Unknown Rx Active Meds: Active Medications Acetaminophen (Acetaminophen 325 Mg Tab) 650 mg PO Q4H PRN PRN Reason: Pain MILD(1-3)/Fever >100.5/CHAVARRIA Last Admin: 04/04/21 22:13 Dose: 650 mg Acetaminophen (Acetaminophen 650 Mg Rect Supp) 650 mg NV Q4H PRN PRN Reason: Pain, Mild (1-3) Albuterol (Albuterol 2.5 Mg/3 Ml Nebu) 2.5 mg IH Q4HRT PRN PRN Reason: Shortness Of Breath Amlodipine Besylate (Amlodipine 10 Mg Tab) 10 mg PO QDAY MARIO Last Admin: 04/08/21 11:19 Dose: 10 mg Hydralazine HCl (Hydralazine 20 Mg/1 Ml Inj) 10 mg IV Q6HR PRN PRN Reason: Increased Blood Pressure Last Admin: 04/08/21 11:17 Dose: 10 mg Hydromorphone HCl (Hydromorphone 1 Mg/1 Ml Inj) 0.5 mg IV Q23H PRN PRN Reason: Pain , Severe (7-10) Dextrose/Sodium Chloride (D5/0.45ns) 1,000 mls @ 75 mls/hr IV DIRECT MARIO Last Admin: 04/07/21 15:57 Dose: 75 mls/hr Ondansetron HCl (Ondansetron 4 Mg/2 Ml Inj) 4 mg IV Q8H PRN PRN Reason: Nausea And Vomiting Oxycodone/Acetaminophen (Oxycodone /Acetaminophen 5-325mg Tab) 1 tab PO Q16H PRN PRN Reason: Pain, Moderate (4-6) Last Admin: 04/01/21 02:03 Dose: 1 tab Sodium Chloride (Sodium Chloride 0.9% 10 Ml Flush Syringe) 10 ml IV BID MARIO Last Admin: 04/07/21 22:57 Dose: 10 ml Sodium Chloride (Sodium Chloride 0.9% 50 Ml Ivpb) 10 ml IV PRN PRN PRN Reason: FLUSH Last Admin: 04/08/21 11:20 Dose: 10 ml Review of Systems - Review of Systems ROS unobtainable: due to mental status Exam - Constitutional Vital Signs: Temp Pulse Resp BP Pulse Ox 97.4 F L 74 16 180/73 99 04/08/21 11:05 04/08/21 11:19 04/08/21 11:05 04/08/21 11:19 04/08/21 11:05 General appearance: no acute distress - EENT Eyes: EOM intact ENT: hearing decreased, poor dentition - Neck Neck: supple - Respiratory Respiratory effort: normal - Cardiovascular Rhythm: regular Heart Sounds: Present: S1 & S2 Extremities: No edema - Gastrointestinal General gastrointestinal: Present: soft, non-tender, non-distended - Integumentary Integumentary: Present: clear, warm - Neurologic Neurological: disoriented - Psychiatric Psychiatric: cooperative - Allied health notes Allied health notes reviewed: nursing - Labs CBC & Chem 7: 04/07/21 09:52 04/07/21 09:52 Assessment and Plan # Failure to thrive # Vascular dementia - poor PO intake and dehydration with hypernatremia on admission. - discussed PEG tube with family on the phone, grandson, Mr. Rogel and would like to proceed. discussed risks of potential complications. - patient planned for home hospice. - was on plavix with last dose on 04/07/2021 and has been held. Rec - will plan for EGD/PEG next week. Dr. Adan will be membership correspondent. - Patient Problems (1) Debility Current Visit: Yes Status: Acute (2) Malnutrition Current Visit: Yes Status: Acute Qualifiers: Malnutrition type: protein-calorie malnutrition Protein-calorie malnutrition severity: moderate Qualified Code(s): E44.0 - Moderate protein- calorie malnutrition (3) Vascular dementia Current Visit: Yes Status: Acute Qualifiers: Dementia behavioral disturbance: without behavioral disturbance Qualified Code(s): F01.50 - Vascular dementia without behavioral disturbance
[2021-04-08] MEDS: D5W/0.45% NACL 1,000 ML IV SCH (19:24)
[2021-04-09] MEDS: hydrALAZINE 20 MG/1 ML INJ IV PRN (22:01)
[2021-04-10] MEDS: D5W/0.45% NACL 1,000 ML IV SCH ×2 (05:14→18:11)
[2021-04-10] MEDS ORDERED: DEXTROSE 10% *Hypoglycemia IV ONE (05:34)
--- NOTE | 2021-04-10 07:03 | Progress Note ---
Assessment and Plan - Patient Problems (1) Acute kidney injury (DESHAWN) with acute tubular necrosis (ATN) Current Visit: Yes Status: Acute Plan to address problem: Improved Continue IV fluids (2) Volume depletion Current Visit: Yes Status: Acute Plan to address problem: Continue IV fluids (3) Vascular dementia Current Visit: Yes Status: Acute Qualifiers: Dementia behavioral disturbance: without behavioral disturbance Qualified Code(s): F01.50 - Vascular dementia without behavioral disturbance Plan to address problem: Verbal prompting, verbal redirection, benzodiazepine therapy as clinically indicated. (4) Cerebral atherosclerosis Current Visit: Yes Status: Acute Plan to address problem: Risk factor reduction, supportive care. (5) Encephalopathy acute Current Visit: Yes Status: Acute Plan to address problem: Supportive care, neuro checks, senior living placement (6) Malnutrition Current Visit: Yes Status: Acute Qualifiers: Malnutrition type: protein-calorie malnutrition Protein-calorie ma lnutrition severity: moderate Qualified Code(s): E44.0 - Moderate protein- calorie malnutrition Plan to address problem: Dietary supplements (7) Debility Current Visit: Yes Status: Acute Plan to address problem: Supportive care, fall precautions. (8) DVT prophylaxis Current Visit: Yes Status: Acute Plan to address problem: SCD to bilateral lower extremities while in bed (9) Advance care planning Current Visit: Yes Status: Acute Plan to address problem: Disease education conducted, care plan discussed, diagnosis discussed, prognosis discussed, patient is full code. Patient grandson Mr. Juan F Haq; made aware of patient prognosis. Patient grandson elects to have home hospice care when discharged from hospital. Hospice care team notified. Patient grandson acknowledges understanding and agreement with care plan. +30 minutes. Discharge to intermediate facility PEG tube is needed Patient on Plavix which is kept on hold from today Possible PEG tube on Sunday, April 11, 2021 Subjective Date of service: 04/08/21 Principal diagnosis: Hypernatremia,DESHAWN Interval history: 85 YO Female with Vascular Dementia, Cerebral Atherosclerosis, HTN, Debility presents to ED for evaluation. Patient is confused with diminished cognition at the time my evaluation is unable to provide history. Patient history provided by EMS staff, ED staff, as well as the patient grandson who is the medical decision maker who is at bedside during exam and interview. As per his grandson the patient has experienced diminished oral intake over the past 3 months, increasing confusion, and worsening memory loss as well as 25 pound weight loss over the past 90 days. Patient is currently bedbound, nonambulatory and has a palliative performance score of 30% and requires 6/6 assistance with activities of daily living. Patient is requires assistance with repositioning in bed. The patient was found down sitting on the floor next to the bed. EMS was notified for the aforementioned symptoms and upon arrival the patient was found to be in distress and subsequent transported to [facility] for further care and evaluation of the aforementioned symptoms. The patient was seen and evaluated in the emergency department. All lab and imaging studies reviewed. Patient found to have metabolic encephalopathy, debility, volume depletion, acute kidney injury, and hyponatremia. The patient will was admitted to medical floor due to increased risk of worsening symptoms. Patient initiated on IV fluid resuscitation therapy. No reports of fever, chill, chest pain, palpitation, productive cough, skin rash, recent contact, known exposure to COVID-19. Patient is not vaccinated against COVID-19. Prior admission on 03/11/2017 reviewed. All medication listed at time of admission has been reconciled. Advanced care planning conducted in ED. 04/04/2020 Sodium improved to 156 from 161 DESHAWN improved from 39/1.5-31/1.2 Objective - Constitutional Vitals: Vital Signs - 12hr 04/09/21 04/10/21 22:00 04:56 Temperature 97.7 F Pulse Rate 99 H Respiratory 18 16 Rate Blood Pressure 159/75 O2 Sat by Pulse 96 98 Oximetry General appearance: Present: no acute distress, well-nourished - EENT Eyes: PERRL, EOM intact ENT: hearing intact, clear oral mucosa Ears: bilateral: normal - Neck Neck: supple, normal ROM - Respiratory Respiratory effort: normal Respiratory: bilateral: CTA - Breasts Breasts: normal - Cardiovascular Rhythm: regular Heart Sounds: Present: S1 & S2. Absent: gallop, rub Extremities: pulses intact, No edema, normal color, Full ROM - Gastrointestinal General gastrointestinal: Present: soft, non-tender, non-distended, normal bowel sounds - Genitourinary Female genitourinary: normal - Integumentary Integumentary: clear, warm, dry - Musculoskeletal Musculoskeletal: 1, strength equal bilaterally - Neurologic Neurologic: moves all extremities - Psychiatric Psychiatric: memory intact, appropriate mood/affect, intact judgment & insight - Labs CBC & Chem 7: 04/07/21 09:52 04/07/21 09:52 Labs: Abnormal lab results 04/10/21 Range/Units 05:28 POC Glucose 68 L (70-105) mg/dL HEART Score - HEART Score Troponin: Troponin T 0.046 ng/mL (0.00-0.029) H 03/31/21 17:22
--- NOTE | 2021-04-10 07:04 | Progress Note ---
Assessment and Plan - Patient Problems (1) Acute kidney injury (DESHAWN) with acute tubular necrosis (ATN) Current Visit: Yes Status: Acute Plan to address problem: Improved Continue IV fluids (2) Volume depletion Current Visit: Yes Status: Acute Plan to address problem: Continue IV fluids (3) Vascular dementia Current Visit: Yes Status: Acute Qualifiers: Dementia behavioral disturbance: without behavioral disturbance Qualified Code(s): F01.50 - Vascular dementia without behavioral disturbance Plan to address problem: Verbal prompting, verbal redirection, benzodiazepine therapy as clinically indicated. (4) Cerebral atherosclerosis Current Visit: Yes Status: Acute Plan to address problem: Risk factor reduction, supportive care. (5) Encephalopathy acute Current Visit: Yes Status: Acute Plan to address problem: Supportive care, neuro checks, [facility] placement (6) Malnutrition Current Visit: Yes Status: Acute Qualifiers: Malnutrition type: protein-calorie malnutrition Protein-calorie ma lnutrition severity: moderate Qualified Code(s): E44.0 - Moderate protein- calorie malnutrition Plan to address problem: Dietary supplements (7) Debility Current Visit: Yes Status: Acute Plan to address problem: Supportive care, fall precautions. (8) DVT prophylaxis Current Visit: Yes Status: Acute Plan to address problem: SCD to bilateral lower extremities while in bed (9) Advance care planning Current Visit: Yes Status: Acute Plan to address problem: Disease education conducted, care plan discussed, diagnosis discussed, prognosis discussed, patient is full code. Patient grandson Mr. Juan F Haq; made aware of patient prognosis. Patient grandson elects to have home hospice care when discharged from hospital. Hospice care team notified. Patient grandson acknowledges understanding and agreement with care plan. +30 minutes. Discharge to senior care facility PEG tube is needed Patient on Plavix which is kept on hold from today Possible PEG tube on Sunday, April 11, 2021 Subjective Date of service: 04/09/21 Principal diagnosis: Hypernatremia,DESHAWN Interval history: 85 YO Female with Vascular Dementia, Cerebral Atherosclerosis, HTN, Debility presents to ED for evaluation. Patient is confused with diminished cognition at the time my evaluation is unable to provide history. Patient history provided by EMS staff, ED staff, as well as the patient grandson who is the medical decision maker who is at bedside during exam and interview. As per his grandson the patient has experienced diminished oral intake over the past 3 months, increasing confusion, and worsening memory loss as well as 25 pound weight loss over the past 90 days. Patient is currently bedbound, nonambulatory and has a palliative performance score of 30% and requires 6/6 assistance with activities of daily living. Patient is requires assistance with repositioning in bed. The patient was found down sitting on the floor next to the bed. EMS was notified for the aforementioned symptoms and upon arrival the patient was found to be in distress and subsequent transported to [facility] for further care and evaluation of the aforementioned symptoms. The patient was seen and evaluated in the emergency department. All lab and imaging studies reviewed. Patient found to have metabolic encephalopathy, debility, volume depletion, acute kidney injury, and hyponatremia. The patient will was admitted to medical floor due to increased risk of worsening symptoms. Patient initiated on IV fluid resuscitation therapy. No reports of fever, chill, chest pain, palpitation, productive cough, skin rash, recent contact, known exposure to COVID-19. Patient is not vaccinated against COVID-19. Prior admission on 03/11/2017 reviewed. All medication listed at time of admission has been reconciled. Advanced care planning conducted in ED. 04/04/2020 Sodium improved to 156 from 161 DESHAWN improved from 39/1.5-31/1.2 Objective - Constitutional Vitals: Vital Signs - 12hr 04/09/21 04/10/21 22:00 04:56 Temperature 97.7 F Pulse Rate 99 H Respiratory 18 16 Rate Blood Pressure 159/75 O2 Sat by Pulse 96 98 Oximetry General appearance: Present: no acute distress, well-nourished - EENT Eyes: PERRL, EOM intact ENT: hearing intact, clear oral mucosa Ears: bilateral: normal - Neck Neck: supple, normal ROM - Respiratory Respiratory effort: normal Respiratory: bilateral: CTA - Breasts Breasts: normal - Cardiovascular Rhythm: regular Heart Sounds: Present: S1 & S2. Absent: gallop, rub Extremities: pulses intact, No edema, normal color, Full ROM - Gastrointestinal General gastrointestinal: Present: soft, non-tender, non-distended, normal bowel sounds - Genitourinary Female genitourinary: normal - Integumentary Integumentary: clear, warm, dry - Musculoskeletal Musculoskeletal: 1, strength equal bilaterally - Neurologic Neurologic: moves all extremities - Psychiatric Psychiatric: memory intact, appropriate mood/affect, intact judgment & insight - Labs CBC & Chem 7: 04/07/21 09:52 04/07/21 09:52 Labs: Abnormal lab results 04/10/21 Range/Units 05:28 POC Glucose 68 L (70-105) mg/dL HEART Score - HEART Score Troponin: Troponin T 0.046 ng/mL (0.00-0.029) H 03/31/21 17:22
[2021-04-10] MEDS: amLODIPine 10 MG TAB PO SCH ×2 (08:08→11:28)
--- NOTE | 2021-04-10 12:44 | Gastroenterology Progress Note ---
Assessment and Plan last dose plavix on 04/07 Plan tentatively for PEG on 04/12 or 04/13 depending upon endo availability (will update you tomorrow) - Patient Problems (1) Advance care planning Current Visit: Yes Status: Acute (2) Cerebral atherosclerosis Current Visit: Yes Status: Acute (3) Debility Current Visit: Yes Status: Acute (4) Encephalopathy acute Current Visit: Yes Status: Acute (5) Malnutrition Current Visit: Yes Status: Acute Qualifiers: Malnutrition type: protein-calorie malnutrition Protein-calorie malnutrition severity: moderate Qualified Code(s): E44.0 - Moderate protein- calorie malnutrition Subjective Date of service: 04/10/21 Principal diagnosis: dysphagia Interval history: pt remains confused Objective - Constitutional Vitals: Temp Pulse Resp BP Pulse Ox 97.7 F 99 H 16 159/75 98 04/10/21 04:56 04/10/21 04:56 04/10/21 04:56 04/10/21 04:56 04/10/21 04:56 General appearance: no acute distress - EENT Eyes: EOM intact - Respiratory Respiratory effort: normal - Gastrointestinal General gastrointestinal: Present: soft, non-tender - Neurologic Neurological: disoriented - Labs CBC & Chem 7: 04/07/21 09:52 04/07/21 09:52 Labs: Laboratory Results - last 24 hr 04/09/21 04/09/21 04/10/21 16:52 22:40 05:28 POC Glucose 81 80 68 L 04/10/21 06:36 POC Glucose 104
[2021-04-10] MEDS: hydrALAZINE 20 MG/1 ML INJ IV PRN ×2 (13:43→21:37)
--- NOTE | 2021-04-10 20:26 | Progress Note ---
Assessment and Plan - Patient Problems (1) Acute kidney injury (DESHAWN) with acute tubular necrosis (ATN) Current Visit: Yes Status: Acute Plan to address problem: Improved Continue IV fluids (2) Volume depletion Current Visit: Yes Status: Acute Plan to address problem: Continue IV fluids (3) Vascular dementia Current Visit: Yes Status: Acute Qualifiers: Dementia behavioral disturbance: without behavioral disturbance Qualified Code(s): F01.50 - Vascular dementia without behavioral disturbance Plan to address problem: Verbal prompting, verbal redirection, benzodiazepine therapy as clinically indicated. (4) Cerebral atherosclerosis Current Visit: Yes Status: Acute Plan to address problem: Risk factor reduction, supportive care. (5) Encephalopathy acute Current Visit: Yes Status: Acute Plan to address problem: Supportive care, neuro checks, snf placement (6) Malnutrition Current Visit: Yes Status: Acute Qualifiers: Malnutrition type: protein-calorie malnutrition Protein-calorie ma lnutrition severity: moderate Qualified Code(s): E44.0 - Moderate protein- calorie malnutrition Plan to address problem: Dietary supplements (7) Debility Current Visit: Yes Status: Acute Plan to address problem: Supportive care, fall precautions. (8) DVT prophylaxis Current Visit: Yes Status: Acute Plan to address problem: SCD to bilateral lower extremities while in bed (9) Advance care planning Current Visit: Yes Status: Acute Plan to address problem: Disease education conducted, care plan discussed, diagnosis discussed, prognosis discussed, patient is full code. Patient grandson Mr. Juan F Haq; made aware of patient prognosis. Patient grandson elects to have home hospice care when discharged from hospital. Hospice care team notified. Patient grandson acknowledges understanding and agreement with care plan. +30 minutes. Discharge to long-term facility PEG tube is needed Patient on Plavix which is kept on hold from today Possible PEG tube on Sunday, April 11, 2021 Subjective Date of service: 04/10/21 Principal diagnosis: dysphagia Interval history: 85 YO Female with Vascular Dementia, Cerebral Atherosclerosis, HTN, Debility presents to ED for evaluation. Patient is confused with diminished cognition at the time my evaluation is unable to provide history. Patient history provided by EMS staff, ED staff, as well as the patient grandson who is the medical decision maker who is at bedside during exam and interview. As per his grandson the patient has experienced diminished oral intake over the past 3 months, increasing confusion, and worsening memory loss as well as 25 pound weight loss over the past 90 days. Patient is currently bedbound, nonambulatory and has a palliative performance score of 30% and requires 6/6 assistance with activities of daily living. Patient is requires assistance with repositioning in bed. The patient was found down sitting on the floor next to the bed. EMS was notified for the aforementioned symptoms and upon arrival the patient was found to be in distress and subsequent transported to [facility] for further care and evaluation of the aforementioned symptoms. The patient was seen and evaluated in the emergency department. All lab and imaging studies reviewed. Patient found to have metabolic encephalopathy, debility, volume depletion, acute kidney injury, and hyponatremia. The patient will was admitted to medical floor due to increased risk of worsening symptoms. Patient initiated on IV fluid resuscitation therapy. No reports of fever, chill, chest pain, palpitation, productive cough, skin rash, recent contact, known exposure to COVID-19. Patient is not vaccinated against COVID-19. Prior admission on 03/11/2017 reviewed. All medication listed at time of admission has been reconciled. Advanced care planning conducted in ED. 04/04/2020 Sodium improved to 156 from 161 DESHAWN improved from 39/1.5-31/1.2 Objective - Constitutional Vitals: Vital Signs - 12hr 04/10/21 04/10/21 04/10/21 10:00 13:40 13:43 Temperature 98.3 F Pulse Rate 84 83 Respiratory 16 Rate Blood Pressure 163/77 166/77 Blood Pressure [Right] O2 Sat by Pulse 95 97 Oximetry 04/10/21 18:12 Temperature Pulse Rate 95 H Respiratory Rate Blood Pressure Blood Pressure 168/70 [Right] O2 Sat by Pulse Oximetry General appearance: Present: no acute distress, well-nourished - EENT Eyes: PERRL, EOM intact ENT: hearing intact, clear oral mucosa Ears: bilateral: normal - Neck Neck: supple, normal ROM - Respiratory Respiratory effort: normal Respiratory: bilateral: CTA - Breasts Breasts: normal - Cardiovascular Rhythm: regular Heart Sounds: Present: S1 & S2. Absent: gallop, rub Extremities: pulses intact, No edema, normal color, Full ROM - Gastrointestinal General gastrointestinal: Present: soft, non-tender, non-distended, normal bowel sounds - Genitourinary Female genitourinary: normal - Integumentary Integumentary: clear, warm, dry - Musculoskeletal Musculoskeletal: 1, strength equal bilaterally - Neurologic Neurologic: moves all extremities - Psychiatric Psychiatric: memory intact, appropriate mood/affect, intact judgment & insight - Labs CBC & Chem 7: 04/07/21 09:52 04/07/21 09:52 Labs: Abnormal lab results 04/10/21 04/10/21 Range/Units 05:28 18:05 POC Glucose 68 L 110 H (70-105) mg/dL HEART Score - HEART Score Troponin: Troponin T 0.046 ng/mL (0.00-0.029) H 03/31/21 17:22
[2021-04-10] MEDS: SODIUM CHLORIDE 0.9% 50 ML IVPB IV PRN (21:37)
[2021-04-11] MEDS: D5W/0.45% NACL 1,000 ML IV SCH ×2 (04:44→22:36)
[2021-04-11] MEDS: amLODIPine 10 MG TAB PO SCH (09:18)
--- NOTE | 2021-04-11 10:55 | Gastroenterology Progress Note ---
Assessment and Plan last dose plavix on 04/07 Plan for PEG on 04/13 at 2PM Please continue to hold blood thinners Please make patient n.p.o. past midnight 04/13/21 at 00:01 for EGD with PEG on 04/13/21 at 14:00 - Patient Problems (1) Advance care planning Current Visit: Yes Status: Acute (2) Cerebral atherosclerosis Current Visit: Yes Status: Acute (3) Debility Current Visit: Yes Status: Acute (4) Encephalopathy acute Current Visit: Yes Status: Acute (5) Malnutrition Current Visit: Yes Status: Acute Qualifiers: Malnutrition type: protein-calorie malnutrition Protein-calorie malnutrition severity: moderate Qualified Code(s): E44.0 - Moderate protein- calorie malnutrition Subjective Date of service: 04/11/21 Principal diagnosis: dysphagia Interval history: pt remains confused Objective - Constitutional Vitals: Temp Pulse Resp BP Pulse Ox 98.3 F 95 H 20 160/80 95 04/10/21 13:40 04/10/21 18:12 04/10/21 22:00 04/11/21 09:18 04/10/21 22:00 General appearance: no acute distress - EENT Eyes: EOM intact ENT: hearing intact - Respiratory Respiratory effort: normal - Gastrointestinal General gastrointestinal: Present: soft - Labs CBC & Chem 7: 04/07/21 09:52 04/07/21 09:52 Labs: Laboratory Results - last 24 hr 04/10/21 04/10/21 04/10/21 13:35 18:05 23:10 POC Glucose 102 110 H 124 H
--- NOTE | 2021-04-11 14:52 | Event Note ---
Date: 04/11/[address] peg tomorrow at 2PM NPO past MN
[2021-04-11] MEDS: SODIUM CHLORIDE 0.9% 50 ML IVPB IV PRN (21:51)
--- NOTE | 2021-04-12 00:56 | Progress Note ---
Assessment and Plan - Patient Problems (1) Acute kidney injury (DESHAWN) with acute tubular necrosis (ATN) Current Visit: Yes Status: Acute Plan to address problem: Improved Continue IV fluids (2) Volume depletion Current Visit: Yes Status: Acute Plan to address problem: Continue IV fluids (3) Vascular dementia Current Visit: Yes Status: Acute Qualifiers: Dementia behavioral disturbance: without behavioral disturbance Qualified Code(s): F01.50 - Vascular dementia without behavioral disturbance Plan to address problem: Verbal prompting, verbal redirection, benzodiazepine therapy as clinically indicated. (4) Cerebral atherosclerosis Current Visit: Yes Status: Acute Plan to address problem: Risk factor reduction, supportive care. (5) Encephalopathy acute Current Visit: Yes Status: Acute Plan to address problem: Supportive care, neuro checks, [facility] placement (6) Malnutrition Current Visit: Yes Status: Acute Qualifiers: Malnutrition type: protein-calorie malnutrition Protein-calorie ma lnutrition severity: moderate Qualified Code(s): E44.0 - Moderate protein- calorie malnutrition Plan to address problem: Dietary supplements (7) Debility Current Visit: Yes Status: Acute Plan to address problem: Supportive care, fall precautions. (8) DVT prophylaxis Current Visit: Yes Status: Acute Plan to address problem: SCD to bilateral lower extremities while in bed (9) Advance care planning Current Visit: Yes Status: Acute Plan to address problem: Disease education conducted, care plan discussed, diagnosis discussed, prognosis discussed, patient is full code. Patient grandson Mr. Juan F Haq; made aware of patient prognosis. Patient grandson elects to have home hospice care when discharged from hospital. Hospice care team notified. Patient grandson acknowledges understanding and agreement with care plan. +30 minutes. Discharge to senior care facility PEG tube is needed Patient on Plavix which is kept on hold from today Possible PEG tube on Sunday, April 11, 2021 Subjective Date of service: 04/11/21 Principal diagnosis: dysphagia Interval history: 85 YO Female with Vascular Dementia, Cerebral Atherosclerosis, HTN, Debility presents to ED for evaluation. Patient is confused with diminished cognition at the time my evaluation is unable to provide history. Patient history provided by EMS staff, ED staff, as well as the patient grandson who is the medical decision maker who is at bedside during exam and interview. As per his grandson the patient has experienced diminished oral intake over the past 3 months, increasing confusion, and worsening memory loss as well as 25 pound weight loss over the past 90 days. Patient is currently bedbound, nonambulatory and has a palliative performance score of 30% and requires 6/6 assistance with activities of daily living. Patient is requires assistance with repositioning in bed. The patient was found down sitting on the floor next to the bed. EMS was notified for the aforementioned symptoms and upon arrival the patient was found to be in distress and subsequent transported to [facility] for further care and evaluation of the aforementioned symptoms. The patient was seen and evaluated in the emergency department. All lab and imaging studies reviewed. Patient found to have metabolic encephalopathy, debility, volume depletion, acute kidney injury, and hyponatremia. The patient will was admitted to medical floor due to increased risk of worsening symptoms. Patient initiated on IV fluid resuscitation therapy. No reports of fever, chill, chest pain, palpitation, productive cough, skin rash, recent contact, known exposure to COVID-19. Patient is not vaccinated against COVID-19. Prior admission on 03/11/2017 reviewed. All medication listed at time of admission has been reconciled. Advanced care planning conducted in ED. 04/04/2020 Sodium improved to 156 from 161 DESHAWN improved from 39/1.5-31/1.2 Objective - Constitutional Vitals: Vital Signs - 12hr 04/11/21 04/11/21 16:13 22:00 Temperature 97.9 F Pulse Rate 80 Respiratory 18 Rate Blood Pressure 175/70 O2 Sat by Pulse 97 98 Oximetry General appearance: Present: no acute distress, well-nourished - EENT Eyes: PERRL, EOM intact ENT: hearing intact, clear oral mucosa Ears: bilateral: normal - Neck Neck: supple, normal ROM - Respiratory Respiratory effort: normal Respiratory: bilateral: CTA - Breasts Breasts: normal - Cardiovascular Rhythm: regular Heart Sounds: Present: S1 & S2. Absent: gallop, rub Extremities: pulses intact, No edema, normal color, Full ROM - Gastrointestinal General gastrointestinal: Present: soft, non-tender, non-distended, normal bowel sounds - Genitourinary Female genitourinary: normal - Integumentary Integumentary: clear, warm, dry - Musculoskeletal Musculoskeletal: 1, strength equal bilaterally - Neurologic Neurologic: moves all extremities - Psychiatric Psychiatric: memory intact, appropriate mood/affect, intact judgment & insight - Labs CBC & Chem 7: 04/07/21 09:52 04/07/21 09:52 Labs: Abnormal lab results 04/11/21 04/11/21 Range/Units 12:30 22:56 POC Glucose 108 H 112 H (70-105) mg/dL HEART Score - HEART Score Troponin: Troponin T 0.046 ng/mL (0.00-0.029) H 03/31/21 17:22
[2021-04-12 06:20] LABS: Hematocrit 27.8 % (30.3-42.9); Hemoglobin 8.4 gm/dl (10.1-14.3); Mean Corpuscular HGB Conc 30 % (30-34); Mean Corpuscular Volume 74 fl (79-97); Platelet Count 246 K/mm3 (140-440); Red Blood Count 3.77 M/mm3 (3.65-5.03); Red Cell Distribution Width 15.9 % (13.2-15.2)
[2021-04-12 06:36] LABS: BUN/Creatinine Ratio 7; Blood Urea Nitrogen 6 mg/dL (7-17); Calcium 9.1 mg/dL (8.4-10.2); Hemolysis Index 3
[2021-04-12] MEDS: POTASSIUM CHLORIDE 10 MEQ 10 MEQ/100 ML BAG IV SCH ×4 (09:00→13:06)
[2021-04-12] MEDS: amLODIPine 10 MG TAB PO SCH (10:03)
[2021-04-12] MEDS ORDERED: hydrALAZINE 20 MG/1 ML INJ IV ONE (10:15)
[2021-04-12] MEDS ORDERED: SODIUM CHLORIDE 0.9% 1000 ML 1,000 ML ONE (13:41)
[2021-04-12] MEDS ORDERED: propofoL 200 MG/20 ML VIAL IV ONE (14:45)
[2021-04-12] MEDS ORDERED: ceFAZolin/Water 2 GM/20 ML 2 GM/20 ML SYRINGE IV ONE (14:46)
[2021-04-12] MEDS ORDERED: LIDOCAINE MPF (2%) 20 MG/1 ML VIAL 5 ML ONE (14:46)
[2021-04-12] MEDS ORDERED: ceFAZolin/STERILE WATER 2 GM/20 ML SYRINGE IV ONE (14:50)
[2021-04-12] MEDS ORDERED: MIDAZOLAM 2 MG/2 ML INJ ONE (14:52)
[2021-04-12] MEDS ORDERED: fentaNYL 100 MCG/2 ML INJ ONE (15:07)
--- NOTE | 2021-04-12 15:27 | Operative Report ---
Operative Report Operative Report: DOS: April 12, 2021 ANTIBIOTICS: Ancef 2 g IV x1 SURGEON: Pasquale Adan MD EGD WITH PEG TUBE PLACEMENT REPORT PREOPERATIVE DIAGNOSIS and POSTOPERATIVE DIAGNOSIS: Dysphagia ESTIMATED BLOOD LOSS: Minimal DESCRIPTION OF PROCEDURE: A high-resolution EGD scope was passed through the oropharynx, esophagus, stomach, and second portion of duodenum. The scope was carefully withdrawn. Retroflexion was performed in the stomach. At the end of the procedure, the scope was cleaned using normal technique. Vital signs monitored continuously throughout. The stomach was transilluminated and an optimal position for the PEG tube was identified using the single poke method. The skin was infiltrated with local anesthesia and the needle and sheath were inserted through the abdomen into the stomach under direct visualization. The needle was removed and a guidewire was inserted through the sheath. The guidewire was grasped from above with a snare. It was removed completely and the PEG tube was secured to the guidewire. The guidewire and PEG tube were then pulled through the mouth and esophagus and snug to the abdominal wall. There was no evidence of bleeding. The Bolster was placed on the PEG site. Located 4 cm SEDATION: Provided by Anesthesiology Services. COMPLICATIONS: None. FINDINGS: * No gross lesions in the duodenum * Minimal gastritis of the gastric antrum and body with mild erythema * 3 cm hiatal hernia * GE junction located approximately 5 cm in the incisors * Remainder of exam unremarkable RECOMMENDATIONS: The PEG may be used for medication and water flushes now. Tomorrow, if there are normal bowel sounds and no significant abdominal tenderness to palpation may start tube feeds
--- NOTE | 2021-04-12 15:28 | Anesthesia Consultation ---
Anesthesia Consult and Med Hx Date of service: 04/12/21 - Airway Anesthetic Teeth Evaluation: Edentulous ROM Head & Neck: Adequate Mental/Hyoid Distance: Adequate Mallampati Class: Class II Intubation Access Assessment: Probably Good - Pre-Operative Health Status ASA Pre-Surgery Classification: ASA3 Proposed Anesthetic Plan: MAC - Pulmonary Hx Respiratory Symptoms: No Home Oxygen Therapy: No - Cardiovascular System Hx Hypertension: Yes Hx Peripheral Vascular Disease: No (debility) - Central Nervous System CVA: Yes Hx Psychiatric Problems: Yes (dementia) - Endocrine Hx Renal Disease: Yes (DESHAWN this admission now resolved) Hx Liver Disease: No Hx Insulin Dependent Diabetes: No Hx Non-Insulin Dependent Diabetes: No Hx Thyroid Disease: No - Hematic Hx Anemia: Yes - Other Systems Hx Obesity: No - Additional Comments Anesthesia Medical History Comments: Hypokalemia noted on AM labs for which 40meq IV potassium was given.
--- NOTE | 2021-04-12 15:29 | Anesthesia Day of Surgery ---
Anesthesia Day of Surgery - Day of Surgery Patient Examined: Yes Patient H&P Reviewed: Yes Patient is NPO: Yes
[2021-04-12] MEDS ORDERED: SIMPLE SYRUP 15 ML FEEDTUBE PRN ×2 (16:00)
[2021-04-12] MEDS ORDERED: LIPASE 10,500/PROTEASE 25,000/AMYLASE 43,750 (UNITS) DR CAP FEEDTUBE PRN (16:00)
[2021-04-12] MEDS ORDERED: SODIUM BICARBONATE 325 MG TAB FEEDTUBE PRN (16:00)
[2021-04-12 18:51] LABS: BUN/Creatinine Ratio 7; Blood Urea Nitrogen 6 mg/dL (7-17); Calcium 9.3 mg/dL (8.4-10.2); Hemolysis Index 10
[2021-04-12] MEDS: SODIUM CHLORIDE 0.9% 50 ML IVPB IV PRN (22:17)
[2021-04-13] MEDS: D5W/0.45% NACL 1,000 ML IV SCH ×2 (05:09→21:04)
--- NOTE | 2021-04-13 07:31 | Progress Note ---
Assessment and Plan - Patient Problems (1) Acute kidney injury (DESHAWN) with acute tubular necrosis (ATN) Current Visit: Yes Status: Acute Plan to address problem: Improved Continue IV fluids (2) Volume depletion Current Visit: Yes Status: Acute Plan to address problem: Continue IV fluids (3) Vascular dementia Current Visit: Yes Status: Acute Qualifiers: Dementia behavioral disturbance: without behavioral disturbance Qualified Code(s): F01.50 - Vascular dementia without behavioral disturbance Plan to address problem: Verbal prompting, verbal redirection, benzodiazepine therapy as clinically indicated. (4) Cerebral atherosclerosis Current Visit: Yes Status: Acute Plan to address problem: Risk factor reduction, supportive care. (5) Encephalopathy acute Current Visit: Yes Status: Acute Plan to address problem: Supportive care, neuro checks, skilled nursing placement (6) Malnutrition Poor p.o. intake Patient for PEG placement (7) Debility Current Visit: Yes Status: Acute Plan to address problem: Supportive care, fall precautions. (8) DVT prophylaxis Current Visit: Yes Status: Acute Plan to address problem: SCD to bilateral lower extremities while in bed (9) Advance care planning Current Visit: Yes Status: Acute Plan to address problem: Disease education conducted, care plan discussed, diagnosis discussed, prognosis discussed, patient is full code. Patient grandson Mr. Juan F Haq; made aware of patient prognosis. Patient grandson elects to have home hospice care when discharged from hospital. Hospice care team notified. Patient grandson acknowledges understanding and agreement with care plan. +30 minutes. Discharge to half-way facility PEG tube is needed Patient on Plavix which is kept on hold from Sunday PEG placement on April 12, 2021 Subjective Date of service: 04/12/21 Principal diagnosis: dysphagia Interval history: 85 YO Female with Vascular Dementia, Cerebral Atherosclerosis, HTN, Debility presents to ED for evaluation. Patient is confused with diminished cognition at the time my evaluation is unable to provide history. Patient history provided by EMS staff, ED staff, as well as the patient grandson who is the medical decision maker who is at bedside during exam and interview. As per his grandson the patient has experienced diminished oral intake over the past 3 months, increasing confusion, and worsening memory loss as well as 25 pound weight loss over the past 90 days. Patient is currently bedbound, nonambulatory and has a palliative performance score of 30% and requires 6/6 assistance with activities of daily living. Patient is requires assistance with repositioning in bed. The patient was found down sitting on the floor next to the bed. EMS was notified for the aforementioned symptoms and upon arrival the patient was found to be in distress and subsequent transported to [facility] for further care and evaluation of the aforementioned symptoms. The patient was seen and evaluated in the emergency department. All lab and imaging studies reviewed. Patient found to have metabolic encephalopathy, debility, volume depletion, acute kidney injury, and hyponatremia. The patient will was admitted to medical floor due to i ncreased risk of worsening symptoms. Patient initiated on IV fluid resuscitation therapy. No reports of fever, chill, chest pain, palpitation, productive cough, skin rash, recent contact, known exposure to COVID-19. Patient is not vaccinated against COVID-19. Prior admission on 03/11/2017 reviewed. All medication listed at time of admission has been reconciled. Advanced care planning conducted in ED. 04/12/21 Sodium improved to 141 from a sodium of 161 at the time of admission potassium is low at 2.7 which is being supplemented Patient for PEG tube today and possible [facility] Patient has SNF placement Discussed with telephonic nurse case manager tomorrow regarding discharge Discharge orders placed Potassium being repleted Objective - Constitutional Vitals: Vital Signs - 12hr 04/12/21 04/12/21 04/13/21 21:50 22:00 06:13 Temperature 99.9 F H 98.6 F Pulse Rate 107 H 78 Respiratory 20 18 Rate Blood Pressure 169/55 157/55 O2 Sat by Pulse 95 97 97 Oximetry General appearance: Present: no acute distress, well-nourished - EENT Eyes: PERRL, EOM intact ENT: hearing intact, clear oral mucosa Ears: bilateral: normal - Neck Neck: supple, normal ROM - Respiratory Respiratory effort: normal Respiratory: bilateral: CTA - Breasts Breasts: normal - Cardiovascular Heart rate: 78 Rhythm: regular Heart Sounds: Present: S1 & S2. Absent: gallop, rub Extremities: pulses intact, No edema, normal color, Full ROM - Gastrointestinal General gastrointestinal: Present: soft, non-tender, non-distended, normal bowel sounds - Genitourinary Female genitourinary: normal - Integumentary Integumentary: clear, warm, dry - Musculoskeletal Musculoskeletal: 1, strength equal bilaterally - Neurologic Neurologic: moves all extremities - Psychiatric Psychiatric: memory intact, appropriate mood/affect, intact judgment & insight - Labs CBC & Chem 7: 04/12/21 05:49 04/12/21 18:02 Labs: Abnormal lab results 04/12/21 04/12/21 04/12/21 Range/Units 18:02 18:03 21:56 Potassium 3.2 L (3.6-5.0) mmol/L Chloride 107.3 H (98-107) mmol/L BUN 6 L (7-17) mg/dL Glucose 121 H (65-100) mg/dL POC Glucose 120 H 123 H (70-105) mg/dL 04/13/21 Range/Units 06:16 Potassium (3.6-5.0) mmol/L Chloride (98-107) mmol/L BUN (7-17) mg/dL Glucose (65-100) mg/dL POC Glucose 116 H (70-105) mg/dL HEART Score - HEART Score Troponin: Troponin T 0.046 ng/mL (0.00-0.029) H 03/31/21 17:22
--- NOTE | 2021-04-13 07:33 | Event Note ---
Date: 04/12/21 Patient had PEG tube placed today Stable for discharge Patient is in bed assignment at [facility] Discussed with case management regarding discharge Discharge order placed
[2021-04-13] MEDS ORDERED: POTASSIUM CHLORIDE ER 20 MEQ TAB PO NR (08:00)
[2021-04-13] MEDS ORDERED: POTASSIUM CHLORIDE 20 MEQ PACKET FEEDTUBE NR (08:00)
[2021-04-13] MEDS: amLODIPine 10 MG TAB PO SCH (10:50)
[2021-04-13 12:18] LABS: BUN/Creatinine Ratio 7; Blood Urea Nitrogen 6 mg/dL (7-17); Calcium 9.3 mg/dL (8.4-10.2); Hemolysis Index 1
--- NOTE | 2021-04-13 17:43 | Gastroenterology Progress Note ---
Assessment and Plan may use G tube for all feeds now May resume plavix in 7 days GI will sign off - Patient Problems (1) Advance care planning Current Visit: Yes Status: Acute (2) Cerebral atherosclerosis Current Visit: Yes Status: Acute (3) Debility Current Visit: Yes Status: Acute (4) Encephalopathy acute Current Visit: Yes Status: Acute (5) Malnutrition Current Visit: Yes Status: Acute Qualifiers: Malnutrition type: protein-calorie malnutrition Protein-calorie malnutrition severity: moderate Qualified Code(s): E44.0 - Moderate protein- calorie malnutrition Subjective Date of service: 04/13/21 Principal diagnosis: dysphagia Interval history: pt remains confused patient was seen around 8AM Objective - Constitutional Vitals: Temp Pulse Resp BP Pulse Ox 98.2 F 78 18 156/67 97 04/13/21 12:11 04/13/21 12:11 04/13/21 12:11 04/13/21 12:11 04/13/21 12:11 General appearance: no acute distress - Respiratory Respiratory effort: normal - Gastrointestinal General gastrointestinal: Present: soft, other (G tube in place, bumper loosened, no sign of infection) - Labs CBC & Chem 7: 04/12/21 05:49 04/13/21 11:38 Labs: Laboratory Results - last 24 hr 04/12/21 04/12/21 04/12/21 18:02 18:03 21:56 Sodium 141 Potassium 3.2 L Chloride 107.3 H Carbon Dioxide 22 Anion Gap 15 BUN 6 L Creatinine 0.9 Estimated GFR > 60 BUN/Creatinine Ratio 7 Glucose 121 H POC Glucose 120 H 123 H Calcium 9.3 04/13/21 04/13/21 04/13/21 06:16 11:38 12:08 Sodium 143 Potassium 2.8 L* Chloride 108.2 H Carbon Dioxide 25 Anion Gap 13 BUN 6 L Creatinine 0.9 Estimated GFR > 60 BUN/Creatinine Ratio 7 Glucose 112 H POC Glucose 116 H 115 H Calcium 9.3 04/13/21 17:34 Sodium Potassium Chloride Carbon Dioxide Anion Gap BUN Creatinine Estimated GFR BUN/Creatinine Ratio Glucose POC Glucose 94 Calcium
[2021-04-13] MEDS: POTASSIUM CHLORIDE 20 MEQ PACKET FEEDTUBE SCH (21:02)
[2021-04-14] MEDS: POTASSIUM CHLORIDE 20 MEQ PACKET FEEDTUBE SCH ×2 (00:22→03:32)
[2021-04-14] MEDS: amLODIPine 10 MG TAB PO SCH ×2 (09:14→10:00)
--- NOTE | 2021-04-14 09:45 | Progress Note ---
Assessment and Plan Assessment and plan: Acute kidney injury with ATN Hypernatremia Metabolic encephalopathy Vascular dementia Cerebral atherosclerosis Protein calorie malnutrition 04/12/21 Sodium improved to 141 from a sodium of 161 at the time of admission potassium is low at 2.7 which is being supplemented Patient for PEG tube today and possible discharge tomorrow to detention Patient has SNF placement Discussed with caser in tomorrow regarding discharge Discharge orders placed Potassium being repleted 04/13/2021. Gastroenterology cleared the patient for use of the G-tube for all feedings. Patient tolerated TF well. We will resume Plavix in 7 days. Replete potassium. Await discharge to detention today History Interval history: No new issues overnight. Hospitalist Physical - Constitutional Vitals: Temp Pulse Resp BP Pulse Ox 98.9 F 79 16 154/73 98 04/14/21 04:37 04/14/21 09:14 04/14/21 04:37 04/14/21 09:14 04/14/21 04:37 General appearance: Present: no acute distress, well-nourished - EENT Eyes: Present: PERRL, EOM intact ENT: hearing intact, clear oral mucosa, dentition normal - Neck Neck: Present: supple, normal ROM - Respiratory Respiratory effort: normal Respiratory: bilateral: CTA - Cardiovascular Rhythm: regular Heart Sounds: Present: S1 & S2. Absent: gallop, rub - Extremities Extremities: no ischemia, No edema, Full ROM - Abdominal General gastrointestinal: soft, non-tender, non-distended, normal bowel sounds - Integumentary Integumentary: Present: clear, warm, dry - Neurologic Neurologic: CNII-XII intact, moves all extremities HEART Score - HEART Score Troponin: Troponin T 0.046 ng/mL (0.00-0.029) H 03/31/21 17:22 Results - Labs CBC & Chem 7: 04/12/21 05:49 04/13/21 11:38 Labs: Laboratory Last Values WBC 5.0 K/mm3 (4.5-11.0) 04/12/21 05:49 RBC 3.77 M/mm3 (3.65-5.03) 04/12/21 05:49 Hgb 8.4 gm/dl (10.1-14.3) L 04/12/21 05:49 Hct 27.8 % (30.3-42.9) L 04/12/21 05:49 MCV 74 fl (79-97) L 04/12/21 05:49 MCH 22 pg (28-32) L 04/12/21 05:49 MCHC 30 % (30-34) 04/12/21 05:49 RDW 15.9 % (13.2-15.2) H 04/12/21 05:49 Plt Count 246 K/mm3 (140-440) 04/12/21 05:49 Lymph % (Auto) 15.7 % (13.4-35.0) 04/05/21 11:52 [place] % (Auto) 5.8 % (0.0-7.3) 04/05/21 11:52 Eos % (Auto) 0.1 % (0.0-4.3) 04/05/21 11:52 Baso % (Auto) 0.2 % (0.0-1.8) 04/05/21 11:52 Lymph # (Auto) 1.3 K/mm3 (1.2-5.4) 04/05/21 11:52 [place] # (Auto) 0.5 K/mm3 (0.0-0.8) 04/05/21 11:52 Eos # (Auto) 0.0 K/mm3 (0.0-0.4) 04/05/21 11:52 Baso # (Auto) 0.0 K/mm3 (0.0-0.1) 04/05/21 11:52 Add Manual Diff Complete 04/07/21 09:52 Total Counted 100 04/07/21 09:52 Seg Neutrophils % 78.2 % (40.0-70.0) H 04/05/21 11:52 Seg Neuts % (Manual) 57.0 % (40.0-70.0) 04/07/21 09:52 Band Neutrophils % 3.0 % 04/07/21 09:52 Lymphocytes % (Manual) 23.0 % (13.4-35.0) 04/07/21 09:52 Reactive Lymphs % (Man) 0 % 04/07/21 09:52 Monocytes % (Manual) 10.0 % (0.0-7.3) H 04/07/21 09:52 Eosinophils % (Manual) 2.0 % (0.0-4.3) 04/07/21 09:52 Basophils % (Manual) 1.0 % (0.0-1.8) 04/07/21 09:52 Metamyelocytes % 0 % 04/07/21 09:52 Myelocytes % 4.0 % 04/07/21 09:52 Promyelocytes % 0 % 04/07/21 09:52 Blast Cells % 0 % 04/07/21 09:52 Nucleated RBC % Not Reportable 04/07/21 09:52 Seg Neutrophils # 6.3 K/mm3 (1.8-7.7) 04/05/21 11:52 Seg Neutrophils # Man 2.3 K/mm3 (1.8-7.7) 04/07/21 09:52 Band Neutrophils # 0.1 K/mm3 04/07/21 09:52 Lymphocytes # (Manual) 0.9 K/mm3 (1.2-5.4) L 04/07/21 09:52 Abs React Lymphs (Man) 0.0 K/mm3 04/07/21 09:52 Monocytes # (Manual) 0.4 K/mm3 (0.0-0.8) 04/07/21 09:52 Eosinophils # (Manual) 0.1 K/mm3 (0.0-0.4) 04/07/21 09:52 Basophils # (Manual) 0.0 K/mm3 (0.0-0.1) 04/07/21 09:52 Metamyelocytes # 0.0 K/mm3 04/07/21 09:52 Myelocytes # 0.2 K/mm3 04/07/21 09:52 Promyelocytes # 0.0 K/mm3 04/07/21 09:52 Blast Cells # 0.0 K/mm3 04/07/21 09:52 WBC Morphology Not Reportable 04/07/21 09:52 Hypersegmented Neuts Not Reportable 04/07/21 09:52 Hyposegmented Neuts Not Reportable 04/07/21 09:52 Hypogranular Neuts Not Reportable 04/07/21 09:52 Smudge Cells Not Reportable 04/07/21 09:52 Toxic Granulation Not Reportable 04/07/21 09:52 Toxic Vacuolation Not Reportable 04/07/21 09:52 Dohle Bodies Not Reportable 04/07/21 09:52 Pelger-Huet Anomaly Not Reportable 04/07/21 09:52 Elyse Rods Not Reportable 04/07/21 09:52 Platelet Estimate Consistent w auto 04/07/21 09:52 Clumped Platelets Not Reportable 04/07/21 09:52 Plt Clumps, EDTA Not Reportable 04/07/21 09:52 Large Platelets Not Reportable 04/07/21 09:52 Giant Platelets Not Reportable 04/07/21 09:52 Platelet Satelliting Not Reportable 04/07/21 09:52 Plt Morphology Comment Not Reportable 04/07/21 09:52 RBC Morphology Not Reportable 04/07/21 09:52 Dimorphic RBCs Not Reportable 04/07/21 09:52 Polychromasia Not Reportable 04/07/21 09:52 Hypochromasia 1+ 04/07/21 09:52 Poikilocytosis Not Reportable 04/07/21 09:52 Anisocytosis Not Reportable 04/07/21 09:52 Microcytosis Not Reportable 04/07/21 09:52 Macrocytosis Not Reportable 04/07/21 09:52 Spherocytes Not Reportable 04/07/21 09:52 Pappenheimer Bodies Not Reportable 04/07/21 09:52 Sickle Cells Not Reportable 04/07/21 09:52 Target Cells Not Reportable 04/07/21 09:52 Tear Drop Cells Not Reportable 04/07/21 09:52 Ovalocytes Not Reportable 04/07/21 09:52 Helmet Cells Not Reportable 04/07/21 09:52 Contreras-Duque Bodies Not Reportable 04/07/21 09:52 Sealy Rings Not Reportable 04/07/21 09:52 Darian Cells Not Reportable 04/07/21 09:52 Bite Cells Not Reportable 04/07/21 09:52 Crenated Cell Not Reportable 04/07/21 09:52 Elliptocytes Not Reportable 04/07/21 09:52 Acanthocytes (Spur) Not Reportable 04/07/21 09:52 Rouleaux Not Reportable 04/07/21 09:52 Hemoglobin C Crystals Not Reportable 04/07/21 09:52 Schistocytes Not Reportable 04/07/21 09:52 Malaria parasites Not Reportable 04/07/21 09:52 Hussain Bodies Not Reportable 04/07/21 09:52 Hem Pathologist Commnt No 04/07/21 09:52 PT 14.7 Sec. (12.2-14.9) 03/31/21 17:22 INR 1.04 (0.87-1.13) 03/31/21 17:22 Sodium 143 mmol/L (137-145) 04/13/21 11:38 Potassium 2.8 mmol/L (3.6-5.0) L* 04/13/21 11:38 Chloride 108.2 mmol/L (98-107) H 04/13/21 11:38 Carbon Dioxide 25 mmol/L (22-30) 04/13/21 11:38 Anion Gap 13 mmol/L 04/13/21 11:38 BUN 6 mg/dL (7-17) L 04/13/21 11:38 Creatinine 0.9 mg/dL (0.6-1.2) 04/13/21 11:38 Estimated GFR > 60 ml/min 04/13/21 11:38 BUN/Creatinine Ratio 7 % 04/13/21 11:38 Glucose 112 mg/dL (65-100) H 04/13/21 11:38 POC Glucose 105 mg/dL (70-105) 04/14/21 07:35 Lactic Acid 1.20 mmol/L (0.7-2.0) 03/31/21 17:22 Calcium 9.3 mg/dL (8.4-10.2) 04/13/21 11:38 Total Bilirubin 1.00 mg/dL (0.1-1.2) 04/07/21 09:52 AST 20 units/L (5-40) 04/07/21 09:52 ALT 20 units/L (7-56) 04/07/21 09:52 Alkaline Phosphatase 96 units/L (35-129) 04/07/21 09:52 Ammonia 11.0 umol/L (25-60) L 03/31/21 17:22 Total Creatine Kinase 31 units/L (30-135) 03/31/21 17:22 Troponin T 0.046 ng/mL (0.00-0.029) H 03/31/21 17:22 Total Protein 6.3 g/dL (6.3-8.2) 04/07/21 09:52 Albumin 2.9 g/dL (3.9-5) L 04/07/21 09:52 Albumin/Globulin Ratio 0.9 % 04/07/21 09:52 Triglycerides 169 mg/dL (2-149) H 03/31/21 17: Cholesterol 199 mg/dL (50-199) 03/31/21:22 LDL Cholesterol Direct 121 mg/dL (50-130) 03/31/21: HDL Cholesterol 53 mg/dL (40-59) 03/31/21: Cholesterol/HDL Ratio 3.75 % 03/31/21 17: TSH 1.620 mlU/mL (0.270-4.200) 03/31/21: Urine Color [place] (Yellow) 03/31/21 Unknown Urine Turbidity Slightly-cloudy (Clear) 03/31/21 Unknown Urine pH 5.0 (5.0-7.0) 03/31/21 Unknown Ur Specific [place] 1.027 (1.003-1.030) 03/31/21 Unknown Urine Protein 30 mg/dl mg/dL (Negative) 03/31/21 Unknown Urine Glucose (UA) Neg mg/dL (Negative) 03/31/21 Unknown Urine Ketones Neg mg/dL (Negative) 03/31/21 Unknown Urine Blood Neg (Negative) 03/31/21 Unknown Urine Nitrite Neg (Negative) 03/31/21 Unknown Urine Bilirubin Neg (Negative) 03/31/21 Unknown Urine Urobilinogen 4.0 mg/dL (<2.0) 03/31/21 Unknown Ur Leukocyte Esterase Tr (Negative) 03/31/21 Unknown Urine WBC (Auto) 4.0 /HPF (0.0-6.0) 03/31/21 Unknown Urine RBC (Auto) 2.0 /HPF (0.0-6.0) 03/31/21 Unknown U Epithel Cells (Auto) < 1.0 /HPF (0-13.0) 03/31/21 Unknown Urine Bacteria (Auto) 1+ /HPF (Negative) 03/31/21 Unknown Urine Mucus 2+ /HPF 03/31/21 Unknown Salicylates < 0.3 mg/dL (2.8-20.0) L 03/31/21: Acetaminophen 5.0 ug/mL (10.0-30.0) L 01/20/22 17:22 Plasma/Serum Alcohol < 0.01 % (0-0.07) 03/31/21 17:22 Coronavirus (PCR) Negative (Negative) 04/07/21 Unknown Rivera/IV: Voiding Method Incontinent Active Medications - Current Medications Current Medications: Generic Name Dose Route Start Last Admin Trade Name Freq PRN Reason Stop Dose Admin Acetaminophen 650 mg 03/31/21 20:37 04/04/21 22:13 Acetaminophen 325 Mg Tab PO 650 mg Q4H PRN Administration Pain MILD(1-3)/Fever >100.5/CHAVARRIA Acetaminophen 650 mg 04/05/21 01:47 Acetaminophen 650 Mg Rect Supp MI Q4H PRN Pain, Mild (1-3) Albuterol 2.5 mg 03/31/21 20:37 Albuterol 2.5 Mg/3 Ml Nebu IH Q4HRT PRN Shortness Of Breath Amlodipine Besylate 10 mg 04/01/21 10:00 04/14/21 09:14 Amlodipine 10 Mg Tab PO 10 mg QDAY MARIO Administration Lipase/Protease/Amylase 1 each 04/12/21 16:00 Lipase 10,500/Protease 25,000/Amylase 43,750 (Units) Dr Delgado FEEDTUBE PRN PRN For Clogged Feeding Tube Hydromorphone HCl 0.5 mg 03/31/21 20:37 Hydromorphone 1 Mg/1 Ml Inj IV Q23H PRN Pain , Severe (7-10) Dextrose/Sodium Chloride 1,000 mls @ 75 mls/hr 04/06/21 18:00 04/13/21 21:04 D5/0.45ns IV 75 mls/hr DIRECT MARIO Administration Ondansetron HCl 4 mg 03/31/21 20:37 Ondansetron 4 Mg/2 Ml Inj IV Q8H PRN Nausea And Vomiting Oxycodone/Acetaminophen 1 tab 03/31/21 20:37 04/01/21 02:03 Oxycodone /Acetaminophen 5-325mg Tab PO 1 tab Q16H PRN Administration Pain, Moderate (4-6) Simple Syrup 15 ml 04/12/21 16:00 Simple Syrup 15 Ml FEEDTUBE PRN PRN Hypoglycemia Simple Syrup 30 ml 04/12/21 16:00 Simple Syrup 15 Ml FEEDTUBE PRN PRN Hypoglycemia Sodium Bicarbonate 325 mg 04/12/21 16:00 Sodium Bicarbonate 325 Mg Tab FEEDTUBE PRN PRN For Clogged Feeding Tube Sodium Chloride 10 ml 03/31/21 22:00 04/13/21 21:02 Sodium Chloride 0.9% 10 Ml Flush Syringe IV 10 ml BID MARIO Administration Sodium Chloride 10 ml 04/04/21 14:58 04/12/21 22:17 Sodium Chloride 0.9% 50 Ml Ivpb IV 10 ml PRN PRN Administration FLUSH Nutrition/Malnutrition Assess - Dietary Evaluation Nutrition/Malnutrition Findings: Nutrition Notes Start: 04/01/21 12:56 Freq: Status: Active Protocol: Document 04/12/21 15:10 MONAE (Rec: 04/12/21 15:39 MONAE [id number]) Nutrition Notes Initial or Follow up Reassessment Current Diagnosis Acute Kidney Injury, Hypertension Other Pertinent Diagnosis DESHAWN+ATN, Acute Encephalopathy, Debility, Vascular Dementia, Cerebral Athero Current Diet TF-Promote @ 57 ml/hr (since D 04/12). Labs/Tests 04/12: K 2.7, BUN 6, Glu 108. Pertinent Medications 04/12: D5/0.45ns 1000 ml @ 75 ml/hr, others nutritionally unremarkable. Height 5 ft 3 in Weight 72 kg [place] Body Weight (kg) 52.27 BMI 28.0 Weight change and time frame No body weight change reported in 5 days. Weight Status Overweight Subjective/Other Information RD consult for routine F/U on write/manage TF. Procedure: PEG tube placement on 04/12, well tolerated, Post op notes. Pt to be discharged after PEG tube placement to SNF. Percent of energy/protein needs met: Prescribed Promote @ 57 ml/hr provides for energy/protein needs (2,072 Kcal/77 g) during LOS, 100% Kcal; 100% AA. Burn Absent Trauma Absent GI Symptoms None Difficulty In Swallowing,Chewing Food Allergy No Skin Integrity/Comment Clear, warm, dry. Current % PO Other Minimum of two criteria No #2 Nutrition Diagnosis Inadequate oral intake Comments: CHANGE diagnosis. PEG tube placement on 04/12, well tolerated. Diagnosis Progress(for reassessment Continues documentation) #1 Nutrition Diagnosis Biting/Chewing (masticatory) difficulty Comments: PEG tube placement on 04/12, well tolerated Diagnosis Progress(for reassessment Resolved documentation) Is patient on ventilator? No Is Patient Ambulatory and/or Out of Bed No REE-([facility]-confined to bed) 1362.348 Calculation Used for Recommendations [facility] Additional Notes Protein: 0.8-1.2 g/Kg; 58-86 g /day. Fluids: 1 ml/Kcal, or as per MD. Nutrition Intervention Nutrition Support: Start Promote @ 57 ml/hr. Flush: 50 ml water Q 4 hr, or as per MD. Kcal 1,362 Protein (gm) 85 Carbohydrates (gm) 177 Fat (gm) 35 Fluid (mL) 1,143 Fiber (gm) 0 % RDI: 100% Kcal; 100% AA. Goal #1 Provide at least 75% of energy /protein needs through Enteral Feeding during LOS. Goal #2 Maintain body weight within +/ -3% of admission body weight during LOS. Follow-Up By: 04/15/21 Additional Comments Continue monitoring TF tolerance and BM.
--- NOTE | 2021-04-14 09:54 | Progress Note ---
Assessment and Plan Assessment and plan: Acute kidney injury with ATN Hypernatremia Metabolic encephalopathy Vascular dementia Cerebral atherosclerosis Protein calorie malnutrition 04/12/21 Sodium improved to 141 from a sodium of 161 at the time of admission potassium is low at 2.7 which is being supplemented Patient for PEG tube today and possible discharge tomorrow to assisted Patient has SNF placement Discussed with rn case manager hospice tomorrow regarding discharge Discharge orders placed Potassium being repleted 04/13/2021. Gastroenterology cleared the patient for use of the G-tube for all feedings. Patient tolerated TF well. We will resume Plavix in 7 days. Replete potassium. Await discharge to assisted today 04/14/2021. Continue TF per PEG tube. Will discuss with case management barrier for discharge that was arranged for yesterday. History Interval history: No new issues overnight. Hospitalist Physical - Constitutional Vitals: Temp Pulse Resp BP Pulse Ox 98.9 F 79 16 154/73 98 04/14/21 04:37 04/14/21 09:14 04/14/21 04:37 04/14/21 09:14 04/14/21 04:37 General appearance: Present: no acute distress, well-nourished HEART Score - HEART Score Troponin: Troponin T 0.046 ng/mL (0.00-0.029) H 03/31/21 17:22 Results - Labs CBC & Chem 7: 04/12/21 05:49 04/13/21 11:38 Labs: Laboratory Last Values WBC 5.0 K/mm3 (4.5-11.0) 04/12/21 05:49 RBC 3.77 M/mm3 (3.65-5.03) 04/12/21 05:49 Hgb 8.4 gm/dl (10.1-14.3) L 04/12/21 05:49 Hct 27.8 % (30.3-42.9) L 04/12/21 05:49 MCV 74 fl (79-97) L 04/12/21 05:49 MCH 22 pg (28-32) L 04/12/21 05:49 MCHC 30 % (30-34) 04/12/21 05:49 RDW 15.9 % (13.2-15.2) H 04/12/21 05:49 Plt Count 246 K/mm3 (140-440) 04/12/21 05:49 Lymph % (Auto) 15.7 % (13.4-35.0) 04/05/21 11:52 Vance % (Auto) 5.8 % (0.0-7.3) 04/05/21 11:52 Eos % (Auto) 0.1 % (0.0-4.3) 04/05/21 11:52 Baso % (Auto) 0.2 % (0.0-1.8) 04/05/21 11:52 Lymph # (Auto) 1.3 K/mm3 (1.2-5.4) 04/05/21 11:52 Vance # (Auto) 0.5 K/mm3 (0.0-0.8) 04/05/21 11:52 Eos # (Auto) 0.0 K/mm3 (0.0-0.4) 04/05/21 11:52 Baso # (Auto) 0.0 K/mm3 (0.0-0.1) 04/05/21 11:52 Add Manual Diff Complete 04/07/21 09:52 Total Counted 100 04/07/21 09:52 Seg Neutrophils % 78.2 % (40.0-70.0) H 04/05/21 11:52 Seg Neuts % (Manual) 57.0 % (40.0-70.0) 04/07/21 09:52 Band Neutrophils % 3.0 % 04/07/21 09:52 Lymphocytes % (Manual) 23.0 % (13.4-35.0) 04/07/21 09:52 Reactive Lymphs % (Man) 0 % 04/07/21 09:52 Monocytes % (Manual) 10.0 % (0.0-7.3) H 04/07/21 09:52 Eosinophils % (Manual) 2.0 % (0.0-4.3) 04/07/21 09:52 Basophils % (Manual) 1.0 % (0.0-1.8) 04/07/21 09:52 Metamyelocytes % 0 % 04/07/21 09:52 Myelocytes % 4.0 % 04/07/21 09:52 Promyelocytes % 0 % 04/07/21 09:52 Blast Cells % 0 % 04/07/21 09:52 Nucleated RBC % Not Reportable 04/07/21 09:52 Seg Neutrophils # 6.3 K/mm3 (1.8-7.7) 04/05/21 11:52 Seg Neutrophils # Man 2.3 K/mm3 (1.8-7.7) 04/07/21 09:52 Band Neutrophils # 0.1 K/mm3 04/07/21 09:52 Lymphocytes # (Manual) 0.9 K/mm3 (1.2-5.4) L 04/07/21 09:52 Abs React Lymphs (Man) 0.0 K/mm3 04/07/21 09:52 Monocytes # (Manual) 0.4 K/mm3 (0.0-0.8) 04/07/21 09:52 Eosinophils # (Manual) 0.1 K/mm3 (0.0-0.4) 04/07/21 09:52 Basophils # (Manual) 0.0 K/mm3 (0.0-0.1) 04/07/21 09:52 Metamyelocytes # 0.0 K/mm3 04/07/21 09:52 Myelocytes # 0.2 K/mm3 04/07/21 09:52 Promyelocytes # 0.0 K/mm3 04/07/21 09:52 Blast Cells # 0.0 K/mm3 04/07/21 09:52 WBC Morphology Not Reportable 04/07/21 09:52 Hypersegmented Neuts Not Reportable 04/07/21 09:52 Hyposegmented Neuts Not Reportable 04/07/21 09:52 Hypogranular Neuts Not Reportable 04/07/21 09:52 Smudge Cells Not Reportable 04/07/21 09:52 Toxic Granulation Not Reportable 04/07/21 09:52 Toxic Vacuolation Not Reportable 04/07/21 09:52 Dohle Bodies Not Reportable 04/07/21 09:52 Pelger-Huet Anomaly Not Reportable 04/07/21 09:52 Elyse Rods Not Reportable 04/07/21 09:52 Platelet Estimate Consistent w auto 04/07/21 09:52 Clumped Platelets Not Reportable 04/07/21 09:52 Plt Clumps, EDTA Not Reportable 04/07/21 09:52 Large Platelets Not Reportable 04/07/21 09:52 Giant Platelets Not Reportable 04/07/21 09:52 Platelet Satelliting Not Reportable 04/07/21 09:52 Plt Morphology Comment Not Reportable 04/07/21 09:52 RBC Morphology Not Reportable 04/07/21 09:52 Dimorphic RBCs Not Reportable 04/07/21 09:52 Polychromasia Not Reportable 04/07/21 09:52 Hypochromasia 1+ 04/07/21 09:52 Poikilocytosis Not Reportable 04/07/21 09:52 Anisocytosis Not Reportable 04/07/21 09:52 Microcytosis Not Reportable 04/07/21 09:52 Macrocytosis Not Reportable 04/07/21 09:52 Spherocytes Not Reportable 04/07/21 09:52 Pappenheimer Bodies Not Reportable 04/07/21 09:52 Sickle Cells Not Reportable 04/07/21 09:52 Target Cells Not Reportable 04/07/21 09:52 Tear Drop Cells Not Reportable 04/07/21 09:52 Ovalocytes Not Reportable 04/07/21 09:52 Helmet Cells Not Reportable 04/07/21 09:52 Contreras-D'Iberville Bodies Not Reportable 04/07/21 09:52 Hephzibah Rings Not Reportable 04/07/21 09:52 Darian Cells Not Reportable 04/07/21 09:52 Bite Cells Not Reportable 04/07/21 09:52 Crenated Cell Not Reportable 04/07/21 09:52 Elliptocytes Not Reportable 04/07/21 09:52 Acanthocytes (Spur) Not Reportable 04/07/21 09:52 Rouleaux Not Reportable 04/07/21 09:52 Hemoglobin C Crystals Not Reportable 04/07/21 09:52 Schistocytes Not Reportable 04/07/21 09:52 Malaria parasites Not Reportable 04/07/21 09:52 Hussain Bodies Not Reportable 04/07/21 09:52 Hem Pathologist Commnt No 04/07/21 09:52 PT 14.7 Sec. (12.2-14.9) 03/31/21 17:22 INR 1.04 (0.87-1.13) 03/31/21 17:22 Sodium 143 mmol/L (137-145) 04/13/21 11:38 Potassium 2.8 mmol/L (3.6-5.0) L* 02/02/22 11:38 Chloride 108.2 mmol/L (98-107) H 04/13/21 11:38 Carbon Dioxide 25 mmol/L (22-30) 04/13/21 11:38 Anion Gap 13 mmol/L 04/13/21 11:38 BUN 6 mg/dL (7-17) L 04/13/21 11:38 Creatinine 0.9 mg/dL (0.6-1.2) 04/13/21 11:38 Estimated GFR > 60 ml/min 04/13/21 11:38 BUN/Creatinine Ratio 7 % 04/13/21 11:38 Glucose 112 mg/dL (65-100) H 04/13/21 11:38 POC Glucose 105 mg/dL (70-105) 04/14/21 07:35 Lactic Acid 1.20 mmol/L (0.7-2.0) 03/31/21 17:22 Calcium 9.3 mg/dL (8.4-10.2) 04/13/21 11:38 Total Bilirubin 1.00 mg/dL (0.1-1.2) 04/07/21 09:52 AST 20 units/L (5-40) 04/07/21 09:52 ALT 20 units/L (7-56) 04/07/21 09:52 Alkaline Phosphatase 96 units/L (35-129) 04/07/21 09:52 Ammonia 11.0 umol/L (25-60) L 03/31/21 17:22 Total Creatine Kinase 31 units/L (30-135) 03/31/21 17:22 Troponin T 0.046 ng/mL (0.00-0.029) H 03/31/21 17:22 Total Protein 6.3 g/dL (6.3-8.2) 04/07/21 09:52 Albumin 2.9 g/dL (3.9-5) L 04/07/21 09:52 Albumin/Globulin Ratio 0.9 % 04/07/21 09:52 Triglycerides 169 mg/dL (2-149) H 03/31/21 17:22 Cholesterol 199 mg/dL (50-199) 03/31/21 17:22 LDL Cholesterol Direct 121 mg/dL (50-130) 03/31/21 17: HDL Cholesterol 53 mg/dL (40-59) 03/31/21 17:22 Cholesterol/HDL Ratio 3.75 % 03/31/21 17: TSH 1.620 mlU/mL (0.270-4.200) 03/31/21 17:22 Urine Color Mary Jo (Yellow) 03/31/21 Unknown Urine Turbidity Slightly-cloudy (Clear) 03/31/21 Unknown Urine pH 5.0 (5.0-7.0) 03/31/21 Unknown Ur Specific [place] 1.027 (1.003-1.030) 03/31/21 Unknown Urine Protein 30 mg/dl mg/dL (Negative) 03/31/21 Unknown Urine Glucose (UA) Neg mg/dL (Negative) 03/31/21 Unknown Urine Ketones Neg mg/dL (Negative) 03/31/21 Unknown Urine Blood Neg (Negative) 03/31/21 Unknown Urine Nitrite Neg (Negative) 03/31/21 Unknown Urine Bilirubin Neg (Negative) 03/31/21 Unknown Urine Urobilinogen 4.0 mg/dL (<2.0) 03/31/21 Unknown Ur Leukocyte Esterase Tr (Negative) 03/31/21 Unknown Urine WBC (Auto) 4.0 /HPF (0.0-6.0) 03/31/21 Unknown Urine RBC (Auto) 2.0 /HPF (0.0-6.0) 03/31/21 Unknown U Epithel Cells (Auto) < 1.0 /HPF (0-13.0) 03/31/21 Unknown Urine Bacteria (Auto) 1+ /HPF (Negative) 03/31/21 Unknown Urine Mucus 2+ /HPF 03/31/21 Unknown Salicylates < 0.3 mg/dL (2.8-20.0) L 03/31/21 17: Acetaminophen 5.0 ug/mL (10.0-30.0) L 03/31/21: Plasma/Serum Alcohol < 0.01 % (0-0.07) 03/31/21: Coronavirus (PCR) Negative (Negative) 04/07/21 Unknown Rivera/IV: Voiding Method Incontinent Active Medications - Current Medications Current Medications: Generic Name Dose Route Start Last Admin Trade Name Freq PRN Reason Stop Dose Admin Acetaminophen 650 mg 03/31/21 20:37 04/04/21 22:13 Acetaminophen 325 Mg Tab PO 650 mg Q4H PRN Administration Pain MILD(1-3)/Fever >100.5/CHAVARRIA Acetaminophen 650 mg 04/05/21 01:47 Acetaminophen 650 Mg Rect Supp NV Q4H PRN Pain, Mild (1-3) Albuterol 2.5 mg 03/31/21 20:37 Albuterol 2.5 Mg/3 Ml Nebu IH Q4HRT PRN Shortness Of Breath Amlodipine Besylate 10 mg 04/01/21 10:00 04/14/21 09:14 Amlodipine 10 Mg Tab PO 10 mg QDAY MARIO Administration Lipase/Protease/Amylase 1 each 04/12/21 16:00 Lipase 10,500/Protease 25,000/Amylase 43,750 (Units) Dr Danny FEEDTUBE PRN PRN For Clogged Feeding Tube Hydromorphone HCl 0.5 mg 03/31/21 20:37 Hydromorphone 1 Mg/1 Ml Inj IV Q23H PRN Pain , Severe (7-10) Dextrose/Sodium Chloride 1,000 mls @ 75 mls/hr 04/06/21 18:00 04/13/21 21:04 D5/0.45ns IV 75 mls/hr DIRECT MARIO Administration Ondansetron HCl 4 mg 03/31/21 20:37 Ondansetron 4 Mg/2 Ml Inj IV Q8H PRN Nausea And Vomiting Oxycodone/Acetaminophen 1 tab 03/31/21 20:37 04/01/21 02:03 Oxycodone /Acetaminophen 5-325mg Tab PO 1 tab Q16H PRN Administration Pain, Moderate (4-6) Simple Syrup 15 ml 04/12/21 16:00 Simple Syrup 15 Ml FEEDTUBE PRN PRN Hypoglycemia Simple Syrup 30 ml 04/12/21 16:00 Simple Syrup 15 Ml FEEDTUBE PRN PRN Hypoglycemia Sodium Bicarbonate 325 mg 04/12/21 16:00 Sodium Bicarbonate 325 Mg Tab FEEDTUBE PRN PRN For Clogged Feeding Tube Sodium Chloride 10 ml 03/31/21 22:00 04/13/21 21:02 Sodium Chloride 0.9% 10 Ml Flush Syringe IV 10 ml BID MARIO Administration Sodium Chloride 10 ml 04/04/21 14:58 04/12/21 22:17 Sodium Chloride 0.9% 50 Ml Ivpb IV 10 ml PRN PRN Administration FLUSH Nutrition/Malnutrition Assess - Dietary Evaluation Nutrition/Malnutrition Findings: Nutrition Notes Start: 04/01/21 12:56 Freq: Status: Active Protocol: Document 04/12/21 15:10 MONAE (Rec: 04/12/21 15:39 MONAE [id number]) Nutrition Notes Initial or Follow up Reassessment Current Diagnosis Acute Kidney Injury, Hypertension Other Pertinent Diagnosis DESHAWN+ATN, Acute Encephalopathy, Debility, Vascular Dementia, Cerebral Athero Current Diet TF-Promote @ 57 ml/hr (since D 04/12). Labs/Tests 04/12: K 2.7, BUN 6, Glu 108. Pertinent Medications 04/12: D5/0.45ns 1000 ml @ 75 ml/hr, others nutritionally unremarkable. Height 5 ft 3 in Weight 72 kg [place] Body Weight (kg) 52.27 BMI 28.0 Weight change and time frame No body weight change reported in 5 days. Weight Status Overweight Subjective/Other Information RD consult for routine F/U on write/manage TF. Procedure: PEG tube placement on 04/12, well tolerated, Post op notes. Pt to be discharged after PEG tube placement to SNF. Percent of energy/protein needs met: Prescribed Promote @ 57 ml/hr provides for energy/protein needs (2,072 Kcal/77 g) during LOS, 100% Kcal; 100% AA. Burn Absent Trauma Absent GI Symptoms None Difficulty In Swallowing,Chewing Food Allergy No Skin Integrity/Comment Clear, warm, dry. Current % PO Other Minimum of two criteria No #2 Nutrition Diagnosis Inadequate oral intake Comments: CHANGE diagnosis. PEG tube placement on 04/12, well tolerated. Diagnosis Progress(for reassessment Continues documentation) #1 Nutrition Diagnosis Biting/Chewing (masticatory) difficulty Comments: PEG tube placement on 04/12, well tolerated Diagnosis Progress(for reassessment Resolved documentation) Is patient on ventilator? No Is Patient Ambulatory and/or Out of Bed No REE-([facility]-confined to bed) 1362.348 Calculation Used for Recommendations [facility] Additional Notes Protein: 0.8-1.2 g/Kg; 58-86 g /day. Fluids: 1 ml/Kcal, or as per MD. Nutrition Intervention Nutrition Support: Start Promote @ 57 ml/hr. Flush: 50 ml water Q 4 hr, or as per MD. Kcal 1,362 Protein (gm) 85 Carbohydrates (gm) 177 Fat (gm) 35 Fluid (mL) 1,143 Fiber (gm) 0 % RDI: 100% Kcal; 100% AA. Goal #1 Provide at least 75% of energy /protein needs through Enteral Feeding during LOS. Goal #2 Maintain body weight within +/ -3% of admission body weight during LOS. Follow-Up By: 04/15/21 Additional Comments Continue monitoring TF tolerance and BM.
--- NOTE | 2021-04-14 10:04 | Discharge Summary ---
Providers - Providers Date of Admission: 03/31/21 20:37 Date of discharge: 04/14/21 Attending physician: THAI RAYMUNDO 03/31/21 15:52 Consult to Case Management [CONS] Routine Services Needed at Discharge: Clinical Nurse Reviewer Notified:: awaiting call back 04/04/21 09:47 Physical Therapy Evaluation and Treat [CONS] Stat Comment: Reason For Exam: eval and treat 04/07/21 18:15 Consult to Physician [CONS] Routine Comment: Consulting Provider: JIMY BISHOP Physician Instructions: Reason For Exam: peg placement 04/12/21 14:21 Consult to Dietitian/Nutrition [CONS] Stat Physician Instructions: Reason For Exam: Reason for Consult: Write/Manage Tube Feeding Primary care physician: MANAGER CABLE Hospitalization Reason for admission: Hypernatremia Condition: Fair Hospital course: 85 YO Female with Vascular Dementia, Cerebral Atherosclerosis, HTN, Debility presented to ED for evaluation. Patient was confused with diminished cognition at the time my evaluation is unable to provide history. Patient history provided by EMS staff, ED staff, as well as the patient grandson who is the medical decision maker who is at bedside during exam and interview. As per grandson the patient had experienced diminished oral intake over the past 3 months, increasing confusion, and worsening memory loss as well as 25 pound weight loss over the past 90 days. Patient is currently bedbound, nonambulatory and has a palliative performance score of 30% and requires 6/6 assistance with activities of daily living. Patient requires assistance with repositioning in bed. The patient was found down sitting on the floor next to the bed. EMS was notified for the aforementioned symptoms and upon arrival the patient was found to be in distress and subsequent transported to [facility] for further care and evaluation of the aforementioned symptoms. The patient was seen and evaluated in the emergency department. All lab and imaging studies reviewed. Patient found to have metabolic encephalopathy, debility, volume depletion, acute kidney injury, and hyponatremia. The patient will was admitted to medical floor due to increased risk of worsening symptoms. Patient initiated on IV fluid resuscitation therapy. Patient has had poor PO intake for past 2-3 months and general decline and weakness. The son opted for PEG tube placement. The patient was on Plavix with last dose 04/07/2021. The Plavix was held and plans for EGD/PEG was done by GI on 04/12/2021. Patient had tube feedings through the newly placed G-tube with no complications. May resume plavix in 7 days. Patient was originally planned for home with hospice. Discharge plan was changed to [place] discharge. Dedicated discharge time 35 minutes Disposition: 03 [facility] Final Discharge Diagnosis (Prints w/discharge instructions): Acute kidney injury, ATN, volume depletion, vascular dementia, cerebral atherosclerosis, metabolic encephalopathy, adult failure to thrive, protein calorie malnutrition, general debility Core Measure Documentation - Palliative Care Palliative Care/ Comfort Measures: Hospice Care - Core Measures Any of the following diagnoses?: none Exam - Constitutional Vitals: Temp Pulse Resp BP Pulse Ox 98.9 F 79 16 154/73 98 04/14/21 04:37 04/14/21 09:14 04/14/21 04:37 04/14/21 09:14 04/14/21 04:37 General appearance: Present: no acute distress, well-nourished - EENT Eyes: Present: PERRL ENT: hearing intact, clear oral mucosa - Neck Neck: Present: supple, normal ROM - Respiratory Respiratory effort: normal Respiratory: bilateral: CTA - Cardiovascular Heart Sounds: Present: S1 & S2. Absent: rub, click - Extremities Extremities: pulses symmetrical, No edema Peripheral Pulses: within normal limits - Abdominal General gastrointestinal: Present: soft, non-tender, non-distended, normal bowel sounds Female genitourinary: Present: normal - Integumentary Integumentary: Present: clear, warm, dry - Musculoskeletal Musculoskeletal: gait normal, strength equal bilaterally - Psychiatric Psychiatric: appropriate mood/affect, intact judgment & insight - Neurologic Neurologic: CNII-XII intact, moves all extremities Plan Activity: advance as tolerated Weight Bearing Status: Weight Bear as Tolerated Diet: per dietitian instruction, other (Tube feedings) Follow up with: PRIMARY CARE, [Primary Care Provider] - 3-5 Days
[2021-04-14 11:15] LABS: BUN/Creatinine Ratio 13; Blood Urea Nitrogen 12 mg/dL (7-17); Calcium 10.2 mg/dL (8.4-10.2); Hemolysis Index 13
[2021-04-15] MEDS: amLODIPine 10 MG TAB PO SCH (10:03)
[2021-04-15 14:36] VITALS: BP 156/72
== END 2021-04-15 15:29 | disposition hospice, inpatient (51) | DRG 70 ==
LOC: ED 12:25 → 3A 20:37
PROVIDERS: ADMIT Internal Medicine; ATTEND Hospitalist
PROC: 0DH63UZ Insertion of Feeding Device into Stomach, Percutaneous Approach (ICD-10-PCS; principal; 2021-04-12)
DX: G93.41 Metabolic encephalopathy (principal); N17.0 Acute kidney failure with tubular necrosis; E87.0 Hyperosmolality and hypernatremia; E44.0 Moderate protein-calorie malnutrition; F01.50 Vascular dementia, unspecified severity, without behavioral disturbance, psychotic disturbance, mood disturbance, and anxiety; I67.2 Cerebral atherosclerosis; E86.9 Volume depletion, unspecified; Z20.822 Contact with and (suspected) exposure to COVID-19; R62.7 Adult failure to thrive; R13.10 Dysphagia, unspecified; Z68.24 Body mass index [BMI] 24.0-24.9, adult; Z82.49 Family history of ischemic heart disease and other diseases of the circulatory system
CPT/HCPCS: 36415; 70450; 71045; 72125; 72170; 80048; 80053; 80061; 80320; 81001; 82140; 82550; 82962; 84443; 84484; 85007; 85025; 85027; 85610; 93005; 93010; G0378; J3490; J7070; J7120; Q0162; G0480; J0360; J0690; J2250; J2704; J3010; J3480; J7030; U0003